=== PATIENT | male | born 1955 | race Caucasian/White ===

== ENCOUNTER 2023-11-11 04:58 | Inpatient (IN) | payer MEDICARE, MEDICAID, SELFPAY ==
--- NOTE | 2023-11-11 04:59 | DI.RAD.S_ITS ---
PROCEDURE: XR HIP W PEL IF DONE RT 2V INDICATIONS: Pain after fall TECHNIQUE: AP pelvis with lateral view(s) of the 2 hip(s). COMPARISON: None. FINDINGS: Bones: There is a displaced, mildly impacted fracture of the subcapital region of the right femoral neck. Other visualized osseous structures appear intact. No dislocations. Pelvic ring appears intact. No suspicious bony lesions. Soft tissues: The visualized bowel gas pattern is normal. No suspicious soft tissue calcifications. IMPRESSION: Acute subcapital right femoral neck fracture. Dictated by: Dutch Justice M.D. on 11/11/2023 at 8:03 Approved by: Dutch Justice M.D. on 11/11/2023 at 8:05
--- NOTE | 2023-11-11 05:00 | ED_ITS ---
HPI - General Adult General Chief complaint: Extremity Injury, Lower Stated complaint: mechanical fall Time Seen by Provider: 11/11/23 04:58 Source: patient and EMS Mode of arrival: EMS Limitations: no limitations History of Present Illness HPI narrative: Patient is a 68-year-old male who is here for evaluation of a right hip pain. He was brought in by EMS. He received 100 mcg of fentanyl and 10 mg of ketamine prior to arrival. She reported that the patient was reported to fallen at his living facility. Did appear to be a mechanical fall. He only sustained an injury to his right hip. He denied hitting his head. No loss of consciousness. EMS reports that the patient was alert and oriented upon their arrival. He was able to have helped back into bed by the living facility. Here in the emergency department after receiving the pain medication in the ketamine he was somewhat more confused about the events that led him here. He only reports right hip pain. He did confirm that he did not hit his head. Related Data Allergies Allergy/AdvReac Type Severity Reaction Status Date / Time No Known Drug Allergies Allergy Verified 11/11/23 05:19 Review of Systems Constitutional Constitutional: Reports system reviewed and no additional complaints, except as documented Musculoskeletal Musculoskeletal: Reports system reviewed and no additional complaints, except as documented Integumentary/Breasts Skin/Breast: Reports system reviewed and no additional complaints, except as documented Neurologic Neurologic: Reports system reviewed and no additional complaints, except as documented Patient History Social History Smoking Status: Former smoker Exam Initial Vital Signs Initial Vital Signs: Vital Signs Temperature 98.1 F 11/11/23 05:02 Pulse Rate 70 11/11/23 05:02 Respiratory Rate 18 11/11/23 05:02 Blood Pressure 147/75 H 11/11/23 05:02 Pulse Oximetry 95 11/11/23 05:02 Oxygen Delivery Method Room Air 11/11/23 05:02 Const General: cooperative and No ill appearing HENMT Head: normal to inspection and normocephalic Resp Effort & Inspection: normal respiratory effort Auscultation: clear to auscultation bilaterally Cardio Rate: regular rate Rhythm: regular rhythm GI Inspection: normal to inspection Skin General: no rashes or lesions noted Extrem Other: Discomfort with palpation of the right hemipelvis. Right lower extremity is shortened and externally rotated. Course Orders Ordered: ED Orders 11/11/23 04:59 XR hip w pel if done RT 2V Stat 11/11/23 05:00 Complete Blood Count AUTO DIFF Stat Comprehensive Metabolic Panel Stat Lipase Stat 11/11/23 05:28 Consult to Orthopedic Surgery Stat Discontinued Medications Morphine Sulfate (Morphine 4 Mg/Ml Inj) 4 mg IV NOW ONE Stop: 11/11/23 05:15 Last Admin: 11/11/23 05:20 Dose: 4 mg Documented By: SERENA Vital Signs Vital signs: Vital Signs - 8 hr 11/11/23 05:02 Temperature 98.1 F Pulse Rate 70 Respiratory Rate 18 Blood Pressure 147/75 H Pulse Oximetry 95 Oxygen Delivery Method Room Air Medical Decision Making Lab Data Lab results reviewed: Yes I reviewed the patient's lab results. 11/11/23 05:00 11/11/23 05:00 Labs: Lab Results 11/11/23 Range/Units 05:00 WBC 7.3 (4.5-11.0) X10^3/uL RBC 3.81 L (4.5-5.9) X10^6/uL Hgb 11.8 L (13.5-17.5) g/dL Hct 34.2 L (41-53) % MCV 89.8 (80-100) fL MCH 31.0 (26-34) PG MCHC 34.5 (30-36) % RDW 15.1 H (11.6-14.8) % Plt Count 177 (150-400) X10^3/uL Neut % (Auto) 68.6 (50-75) % Lymph % (Auto) 22.7 L (25-40) % [place] % (Auto) 5.3 (3-14) % Eos % (Auto) 2.9 (2-4) % Baso % (Auto) 0.5 (0-2) % Neut # (Auto) 5000 (7161-6885) /uL Lymph # (Auto) 1700 (8120-8402) /uL [place] # (Auto) 400 (0-900) /uL Eos # (Auto) 200 (0-450) /uL Baso # (Auto) 0 (0-100) /uL Sodium 135 L (137-145) mmol/L Potassium 5.0 (3.4-5.1) mmol/L Chloride 108 H (98-107) mmol/L Carbon Dioxide 22 (22-32) mmol/L BUN 42 H (9-20) mg/dL Creatinine 1.45 H (0.66-1.25) mg/dL Estimated GFR 52 L (>60) mL/min BUN/Creatinine Ratio 29.0 H (6-22) Glucose 177 H (80-110) mg/dL Calcium 9.1 (8.4-10.2) mg/dL Total Bilirubin 0.6 (0.2-1.3) mg/dL AST 22 (17-59) IU/L ALT 16 (<50) IU/L Alkaline Phosphatase 115 (38-126) U/L Total Protein 6.8 (6.3-8.2) g/dL Albumin 3.9 (3.5-5.0) g/dL Globulin 2.9 (1.7-4.1) g/dL Albumin/Globulin Ratio 1.3 (1.0-2.8) Lipase 145 (23-300) U/L Imaging Data Extremity x-ray #1: Radiologist's Impression: Right femoral neck fracture MDM Narrative Medical decision making narrative: I did contact the patient's daughter Billie Fuentes phone number [phone]. She stated that she was the patient's medical power of senior salesforce developer. He was a full code. He does have history of dementia. At baseline he would potentially have an idea as to what happened to him this evening and he was able to do things on his own however he sometimes has problems with what year it is and other specifics. He was on anticoagulation secondary to a CVA. He has an insulin- dependent diabetic. He had a liver transplant approximately 10 years ago at [facility]. She stated that this was secondary to hepatitis-C although all of the follow-up testing shows that he has been cleared this infection. He is on tacrolimus and ursodiol for this. Also has a history of hypothyroid. She stated that at baseline he uses a cane and a walker secondary to residual deficits balance after his stroke. She did state that he would be agreeable to surgery/antibiotics for his condition today. She understands that he will need to be admitted to the hospital. She also provided other contact information for the patient's son who lives locally (Taran Fuentes and his [id number] Iesha Fuentes) phone number [phone]. I did discuss the case with Dr. Martinez on-call for Orthopedic surgery who stated that she can follow on the medicine service was comfortable taking care of his chronic medical conditions. Discussed case with Dr. Massey who will admit for further evaluation and treatment. Discharge Plan Departure Patient Disposition: Admitted as Observation Clinical Impression: Fracture of femoral neck, right Qualifiers: Encounter type: initial encounter Fracture type: closed Qualified Code(s): S 72.001A - Fracture of unspecified part of neck of right femur, initial encounter for closed fracture
[2023-11-11 05:02] VITALS: BP 147/75; PULSE 70; RESP 18; TEMP 36.7; O2SAT 95
[2023-11-11] MEDS: MORPHINE 4 MG/ML INJ IV (05:20)
[2023-11-11 05:45] LABS: Add Manual Diff / Slide Review NO; Basophils Absolute Auto 0 /uL (0-100); Basophils Percent Auto 0.5 % (0-2); Eosinophils Absolute Auto 200 /uL (0-450); Eosinophils Percent Auto 2.9 % (2-4); Hematocrit 34.2 % (41-53); Hemoglobin 11.8 g/dL (13.5-17.5); Lymphocytes Absolute Auto 1700 /uL (1100-4500); Lymphocytes Percent Auto 22.7 % (25-40); Mean Corpuscular HGB Conc 34.5 % (30-36); Mean Corpuscular Volume 89.8 fL (80-100); Monocytes Absolute Auto 400 /uL (0-900); Monocytes Percent Auto 5.3 % (3-14); Neutrophils Absolute Auto 5000 /uL (1500-7000); Neutrophils Percent Auto 68.6 % (50-75); Platelet Count 177 X10^3/uL (150-400); Red Blood Cell Count 3.81 X10^6/uL (4.5-5.9); Red Cell Distribution Width 15.1 % (11.6-14.8); White Blood Cell Count 7.3 X10^3/uL (4.5-11.0)
[2023-11-11 06:00] LABS: Alanine Aminotransferase 16 IU/L (<50); Albumin 3.9 g/dL (3.5-5.0); Albumin Globulin Ratio 1.3 (1.0-2.8); Alkaline Phosphatase 115 U/L (38-126); Aspartate Aminotransferase 22 IU/L (17-59); Bilirubin Total 0.6 mg/dL (0.2-1.3); Blood Urea Nitrogen 42 mg/dL (9-20); Calcium 9.1 mg/dL (8.4-10.2); Carbon Dioxide 22 mmol/L (22-32); Chloride 108 mmol/L (98-107); Estimated Glomerular Filt Rate 52 mL/min (>60); Globulin 2.9 g/dL (1.7-4.1); Glucose 177 mg/dL (80-110); HEMOLYSIS < 15 (0-50); Lipase 145 U/L (23-300); Sodium 135 mmol/L (137-145); Total Protein 6.8 g/dL (6.3-8.2)
--- NOTE | 2023-11-11 06:01 | PM.CN ---
History of Present Illness Consult details Date Patient Seen: 11/11/23 Time Patient Seen: 18:11 Chief complaint: mechanical fall Reason for consult: r fem neck fx Requesting provider: Fausto Banks Narrative: 68 yo M hx liver transplant on eliquis with GLF this AM at assited living found to have displaced right femoral neck fx. (per report last dose eliquis last night). Patient is able to get history and answer simple questions in his awakened sitting up in bed but does have worsening dementia per reports since July. An answer generalized questions but no details. States some pain around his hip denies other pain. Believes he had a stroke a few months ago not sure exactly when. Remainder of history obtained from daughter Billie via phone and from chart. Patient's daughter Billie lives in [place] she returned to [place] today but was in [place] at the hospital earlier in the morning. She is the power of employee benefits attorney. There is another son that lives locally. Patient has remarkable past medical history of a liver transplant performed [place] years ago. She states prior to his liver transplant his kidneys had started to fail which moved him up on the transplant list. After his liver transplant he was on kidney dialysis for a while until his kidneys recovered. He would lived independently for many years but was found to have started failing on his own worse in the last year. He was hospitalized with ketoacidosis from his diabetes and a hemoglobin A1c of 16. Then he had a CVA 6 months ago on 05/23/2023 and was started on Eliquis. He returned home was noted to have reduced memory and quite rapid onset dementia around July. And he was moved from [facility] living [facility] just in October 2023. Over the last few months his daughter and son have become much more involved in his health care and they have been really working on helping him manage his medical problems. Billie believes his last hemoglobin A1c was 8 point something and the assisted living facility was working on increasing his longer acting insulin dose. She also notes that a creatinine from bed a month ago was in normal limits. Today presents with creatinine 1.45 which may be somewhat due to dehydration. She is asked the assisted living facility to help provide some referral or workup for his dementia they are unclear what is causing the rapid onset. Meds Home Medications and Allergies Home Medications Medication Instructions Recorded Confirmed Type albuterol 90 mcg-budesonide 80 2 inh inhalation Q4H PRN sob 11/11/23 11/11/23 History mcg/actuation HFA aerosol inhaler amlodipine 10 mg tablet 10 mg PO DAILY 11/11/23 11/11/23 History apixaban 5 mg tablet (Eliquis) 5 mg PO BID 11/11/23 11/11/23 History atorvastatin 40 mg tablet 40 mg PO QPM 11/11/23 11/11/23 History citalopram 10 mg tablet 5 mg PO DAILY 11/11/23 11/11/23 History fluconazole 200 mg tablet 200 mg PO DAILY 11/11/23 11/11/23 History insulin glargine 100 unit/mL 15 unit SUBCUT BID 11/11/23 11/11/23 History subcutaneous cartridge insulin lispro 100 unit/mL 1 sliding scale dose SUBCUT 11/11/23 11/11/23 History subcutaneous cartridge (Humalog USEASDIRECTD U-100 Insulin) insulin lispro 100 unit/mL 10 unit SUBCUT AC 11/11/23 11/11/23 History subcutaneous cartridge (Humalog U-100 Insulin) levothyroxine 150 mcg tablet 150 mcg PO DAILY 11/11/23 11/11/23 History lisinopril 10 mg tablet 10 mg PO DAILY 11/11/23 11/11/23 History metoprolol tartrate 25 mg tablet 25 mg PO BID 11/11/23 11/11/23 History tacrolimus 0.5 mg capsule, 1 mg PO DAILY 11/11/23 11/11/23 History immediate-release ursodiol 300 mg capsule 300 mg PO BID 11/11/23 11/11/23 History Allergies Allergy/AdvReac Type Severity Reaction Status Date / Time No Known Drug Allergies Allergy Verified 11/11/23 05:19 Review of Systems Review of Systems Narrative: Memory, dementia worse since July 2023, CVA May 2023, liver transplant status, diabetes type 2 uncontrolled. No fevers or chills. Endorses right hip pain. ROS: Yes All systems reviewed with the patient and are negative except as otherwise documented Exam Vital Signs (past 8 hours): - 11/11/23 05:02 Temperature 98.1 F Pulse Rate 70 Respiratory Rate 18 Blood Pressure 147/75 H Pulse Oximetry 95 Oxygen Delivery Method Room Air Oxygen Delivery Method Room Air Narrative Exam Narrative: Male appears stated age sitting up in bed Wearing glasses. Normocephalic atraumatic Shoulders level Respirations unlabored on room air Heart regular rate rhythm Right lower extremity shortened and externally rotated, 2+ palpable dorsalis pedis pulse. Wiggles toes fires tibialis anterior and Achilles, patient not asked to move leg beyond ankle due to known hip fracture Left lower extremity grossly normal alignment nontender palpation demonstrates active dorsiflexion plantar flexion Objective Imaging AP pelvis and right lateral hip: My impression: AP pelvis and right lateral hip demonstrate displaced right femoral neck fracture. Radiologist's impression: Acute subcapital femoral neck fracture, right Labs 11/11/23 05:00 11/11/23 05:00 Labs: Laboratory Results - last 24 hr 11/11/23 05:00 WBC 7.3 RBC 3.81 L Hgb 11.8 L Hct 34.2 L MCV 89.8 MCH 31.0 MCHC 34.5 RDW 15.1 H Plt Count 177 Neut % (Auto) 68.6 Lymph % (Auto) 22.7 L [place] % (Auto) 5.3 Eos % (Auto) 2.9 Baso % (Auto) 0.5 Neut # (Auto) 5000 Lymph # (Auto) 1700 [place] # (Auto) 400 Eos # (Auto) 200 Baso # (Auto) 0 PFSH Social History caregiver/support person: Yes (POA daughter Billie in [place]. Another son lives relatively local) housing: assisted living facility Tobacco & Substance Use Smoking Status: Former smoker Assessment & Plan Assessment and plan (1) Fracture of femoral neck, right: Qualifiers: Encounter type: initial encounter Fracture type: closed Qualified Code(s): S72.001A - Fracture of unspecified part of neck of right femur, initial encounter for closed fracture Status: Acute (2) Anticoagulant long-term use: Status: Acute (3) Liver transplant recipient: Status: Acute (4) Osteoporotic hip fracture: Qualifiers: Encounter type: initial encounter Laterality: right Qualified Code(s): M80.051A - Age-related osteoporosis with current pathological fracture, right femur, initial encounter for fracture Status: Acute (5) Diabetes type 2, uncontrolled: Qualifiers: Glycemic state: with hyperglycemia Qualified Code(s): E11.65 - Type 2 diabetes mellitus with hyperglycemia Status: Acute Plan R displaced femoral neck fracture anticipate need for operative treatment with cemented hip arthroplasty last dose eliquis last night --generally --would plan surgery with gen anesthesia approx 48 hours after last dose due to bleeding risk. that would be tomorrow (saturday ) evening. Was placed on Eliquis after CVA in May of 2023----we will hold Eliquis for surgery and restart postop. Pt will need internal medicine optimization and management. s/p liver transplant . Patient has elevated creatinine of 1.4. Per his daughter he was within normal limits a month ago. This may have to do with dehydration. We will need to monitor closely in the perioperative period as can be affected by hydration and antibiotics and other medications. -CVA was in May of 2023 just under 6 months ago we will need to discuss with anesthesia whether or not to use TXA Diabetes type 2 uncontrolled. Previously highly uncontrolled last known hemoglobin A1c just above 8. We will get new hemoglobin A1c as an inpatient and request take control of glucose around surgery to help reduce risks of infection. Patient's daughter is informed that uncontrolled diabetes and independent risk factor for infection and other postoperative complications. Discussed with daughter Billie the risks around hip fracture and hip fracture surgery that are including but not limited to infection, fracture, pneumonia, stroke,, DVT, PE, myocardial infarction, delirium, . We discussed the risks around hip fracture are inherent to the injury itself and this is a sentinel event with significant morbidity and mortality. We recommend surgical treatment to allow immediate mobilization and pain control and reduce the morbidity and mortality associated with prolonged bedrest. We discussed risks for blood loss possible need for transfusion and prolonged care. Discussed plan would be proceeding to surgery likely tomorrow depending on operative availability with myself or 1 of my partners Discussed the patient has had a rapid worsening of dementia since approximately July of 2023. Unclear rationale but this does follow his CVA in May. Possible vascular etiology. He has not had much or any of the workup for this outpatient, that the patient's daughter/POA is aware of, but she states she would requested this at his new living facility but is unclear of the timeline for this. I have shared this with the hospitalist team to facilitate care. High-level medical decision-making. Inpatient-- high-risk --need for surgery for hip fracture in a patient with multiple medical comorbidities including uncontrolled diabetes, acute kidney injury, dementia, chronic anticoagulation. Time Spent With Patient Time with patient: 50 to 69 minutes with 50% spent counseling/coordinating care
--- NOTE | 2023-11-11 07:43 | PC.NURSE ---
Spoke with hospitalist. Pt c/o pain and muscle spasms. Hospitalist to order muscle relaxer and pain meds.
--- NOTE | 2023-11-11 07:45 | P.HP_ITS ---
History of Present Illness History of Present Illness Date Patient Seen: 11/11/23 Time Patient Seen: 09:05 Chief complaint: mechanical fall Narrative: Emergency department records: The patient is a 68-year-old male who stays at [facility] living and has severe dementia. He had an unwitnessed fall which is felt to be mechanical as and brought in by ambulance. He complained of right hip pain. He was quite uncomfortable and received ketamine while being transported. The patient was found to have a hip fracture in the emergency department. He was very provide no details of his fall. After moving a up to the [place] he has no memory of what happened, where he lives, what year it is, or which city he was in. He complains only of right hip pain and has no other areas of pain. He denies any dyspnea. Orthopedic consultation was obtained and it is noted that the patient is on Eliquis for unclear reasons. His last dose was last night. For this reason his surgery will be delayed approximately 48 hours until the evening of November 11. [facility] Social History Smoking Status: Former smoker Comment: In reviewing outside limited records it appears that he has a history of: Past medical history: 1. Hypertension 2. Dementia 3. DM 2 receiving insulin 4. Hypothyroidism 5. Liver transplant on chronic tacrolimus 6. Atrial fibrillation on chronic anticoagulation Past surgical history: 1. Liver transplant Meds Home Medications and Allergies Home Medications Medication Instructions Recorded Confirmed Type albuterol 90 mcg-budesonide 80 2 inh inhalation Q4H PRN sob 11/11/23 11/11/23 History mcg/actuation HFA aerosol inhaler amlodipine 10 mg tablet 10 mg PO DAILY 11/11/23 11/11/23 History apixaban 5 mg tablet (Eliquis) 5 mg PO BID 11/11/23 11/11/23 History atorvastatin 40 mg tablet 40 mg PO QPM 11/11/23 11/11/23 History citalopram 10 mg tablet 5 mg PO DAILY 11/11/23 11/11/23 History fluconazole 200 mg tablet 200 mg PO DAILY 11/11/23 11/11/23 History insulin glargine 100 unit/mL 15 unit SUBCUT BID 11/11/23 11/11/23 History subcutaneous cartridge insulin lispro 100 unit/mL 1 sliding scale dose SUBCUT 11/11/23 11/11/23 History subcutaneous cartridge (Humalog USEASDIRECTD U-100 Insulin) insulin lispro 100 unit/mL 10 unit SUBCUT AC 11/11/23 11/11/23 History subcutaneous cartridge (Humalog U-100 Insulin) levothyroxine 150 mcg tablet 150 mcg PO DAILY 11/11/23 11/11/23 History lisinopril 10 mg tablet 10 mg PO DAILY 11/11/23 11/11/23 History metoprolol tartrate 25 mg tablet 25 mg PO BID 11/11/23 11/11/23 History tacrolimus 0.5 mg capsule, 1 mg PO DAILY 11/11/23 11/11/23 History immediate-release ursodiol 300 mg capsule 300 mg PO BID 11/11/23 11/11/23 History Allergies Allergy/AdvReac Type Severity Reaction Status Date / Time No Known Drug Allergies Allergy Verified 11/11/23 05:19 Review of Systems Review of Systems Narrative: Not obtainable in detail due to severe cognitive impairment. Exam Vital Signs (past 8 hours): - 11/11/23 05:02 Temperature 98.1 F Pulse Rate 70 Respiratory Rate 18 Blood Pressure 147/75 H Pulse Oximetry 95 Oxygen Delivery Method Room Air Oxygen Delivery Method Room Air Narrative Exam Narrative: He was anxious and in moderate distress due to pain. He was not oriented to place or year. Normocephalic skull, EOMI, anicteric sclera, symmetric pupils. Oropharynx unremarkable, no droop. Neck supple, midline trachea, no adenopathy. Lungs clear, normal rate and effort. Heart regular, no murmur gallop or rub. Abdomen is soft, distended, and non tender. Extremities are free of edema. Skin is free of rash or lesions. Joints are not swollen or deformed. Judgment appears to be abnormal. Right hip is painful with any movement of the right lower extremity, active or passive. Good pedal pulses. Objective Imaging Right hip x-ray:: Radiologist's impression: Right femoral neck fracture Labs 11/11/23 05:00 11/11/23 05:00 Labs: Laboratory Results - last 24 hr 11/11/23 05:00 WBC 7.3 RBC 3.81 L Hgb 11.8 L Hct 34.2 L MCV 89.8 MCH 31.0 MCHC 34.5 RDW 15.1 H Plt Count 177 Neut % (Auto) 68.6 Lymph % (Auto) 22.7 L [place] % (Auto) 5.3 Eos % (Auto) 2.9 Baso % (Auto) 0.5 Neut # (Auto) 5000 Lymph # (Auto) 1700 [place] # (Auto) 400 Eos # (Auto) 200 Baso # (Auto) 0 Sodium 135 L Potassium 5.0 Chloride 108 H Carbon Dioxide 22 BUN 42 H Creatinine 1.45 H Estimated GFR 52 L BUN/Creatinine Ratio 29.0 H Glucose 177 H Calcium 9.1 Total Bilirubin 0.6 AST 22 ALT 16 Alkaline Phosphatase 115 Total Protein 6.8 Albumin 3.9 Globulin 2.9 Albumin/Globulin Ratio 1.3 Lipase 145 Assessment & Plan Assessment & Plan narrative: Acute medical problems: 1. Right femoral neck fracture, present on admission and active Chronic medical problems, all present on admission and stable: 1. Hypertension 2. Dementia 3. DM 2 receiving insulin 4. Hypothyroidism 5. Liver transplant on chronic tacrolimus 6. Atrial fibrillation on chronic anticoagulation Past surgical history: 1. Liver transplant PLAN: -continue all routine medications and monitor blood pressure and heart rate, except: -discontinue Eliquis for surgery. -anticipate surgical repair of femoral neck fracture in the evening of November 11. -default to full resuscitation until we get further records from [place]. He was admitted to inpatient status. We would anticipated 2 midnight medical necessity for hospital services. Proxy decision maker is unidentified at this point. Time Spent With Patient Time with patient: 30 to 49 minutes with 50% spent counseling/coordinating care Quality MIPS - Admit I confirm the patient?s Advance Care Plan is present, Code status is documented, Surrogate decision maker is in patient?s record [If Yes, STOP here]: No The patient?s Advance Care plan is not present because I confirmed today that the patient does not wish or was not able to name a surrogate decision maker or provide an Advance Care Plan.: Yes MIPS - Meds 'Current medications' to include all prescriptions, [id number] products, herbals, cannabis/cannabidiol products, and vitamin/mineral/dietary (nutritional) supplements. I have utilized all available resources to obtain, update, or review the patient?s current medications. [If Yes, STOP here]: Yes
[2023-11-11] MEDS: HYDROMORPHONE 0.5 MG INJ IV ×5 (08:00→19:50)
[2023-11-11] MEDS: CYCLOBENZAPRINE 10 MG TABLET PO (08:00)
[2023-11-11] MEDS: SODIUM CHLORIDE 0.9% 1,000 ML 100 ML IV ×2 (08:37→19:01)
[2023-11-11 08:40] VITALS: BMI 35.4
[2023-11-11 09:17] VITALS: BP 137/85; PULSE 86; RESP 20; TEMP 37.1; O2SAT 97
[2023-11-11] MEDS: INSULIN GLARGINE 100 UNIT/ML 3ML PEN 15 UNIT SUBCUT ×2 (10:16→20:50)
[2023-11-11 10:17] VITALS: BP 137/85; PULSE 86
[2023-11-11] MEDS: AMLODIPINE 5 MG TABLET 10 MG PO (10:17)
[2023-11-11] MEDS: METOPROLOL IR 25 MG TABLET PO ×2 (10:17→20:49)
[2023-11-11] MEDS: CITALOPRAM 10 MG TABLET 5 MG PO (10:17)
[2023-11-11] MEDS: lisinopriL 10 MG TABLET PO (10:17)
[2023-11-11] MEDS: FLUCONAZOLE 100 MG TABLET 200 MG PO (10:17)
[2023-11-11] MEDS: TACROLIMUS 0.5 MG CAPSULE 1 MG PO (10:17)
[2023-11-11] MEDS: LEVOTHYROXINE 50 MCG TABLET 150 MCG PO (10:23)
[2023-11-11] MEDS: ursodioL 300 MG CAPSULE PO ×2 (10:40→20:49)
[2023-11-11] MEDS: INSULIN LISPRO 100 UNIT/ML 3ML VIAL SUBCUT ×2 (11:47→16:48)
[2023-11-11] MEDS: ATORVASTATIN 20 MG TABLET 40 MG PO (16:47)
--- NOTE | 2023-11-11 18:08 | DI.CT.S_ITS ---
PROCEDURE: CT HEAD/BRAIN WO CON INDICATIONS: altered mental status TECHNIQUE: Noncontrast 4.5 mm thick angled axial sections acquired from the foramen magnum to the vertex, with coronal and sagittal reformats. For radiation dose reduction, the following was used: automated exposure control, adjustment of mA and/or kV according to patient size. COMPARISON: [facility], CR, XR HIP W PEL IF DONE RT 2V, 11/11/2023, 5:08. FINDINGS: Image quality: Diagnostic. CSF spaces: Basal cisterns are patent. No extra-axial fluid collections. The ventricles are symmetric in size and shape. Brain: No intracranial bleeds or masses. There is cerebral volume loss for age, with resultant ventricular and sulcal prominence. There are periventricular and deep white matter chronic small vessel ischemic changes. Remote infarction can be seen involving the left temporoparietal region. There is intracranial internal carotid artery atherosclerosis. Skull and face: Calvarium and visualized facial bones appear intact, without suspicious lesions. Sinuses: Visualized sinuses and mastoids are clear. IMPRESSION: No acute intracranial hemorrhage is seen. No acute intracranial pathology. 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 Dictated by: Dipak Jain M.D. on 11/11/2023 at 18:03 Approved by: Dipak Jain M.D. on 11/11/2023 at 18:04
[2023-11-11 19:53] LABS: Hemoglobin A1C% w Est Avg Glu 7.4 % (4.0-6.0)
[2023-11-11 20:00] VITALS: BP 134/78; PULSE 101; RESP 17; TEMP 37.2; O2SAT 94
[2023-11-11 20:07] VITALS: BP 134/78; PULSE 101; RESP 17; TEMP 37.2; O2SAT 94
[2023-11-12] VITALS (11 sets, daily range): BP systolic 112–137; BP diastolic 62–85; PULSE 78–91; RESP 13–20; TEMP 36.2–37.5; O2SAT 92–98; BMI 35.4
--- NOTE | 2023-11-12 | DI.RAD.S_ITS ---
PROCEDURE: XR HIP W PEL IF DONE RT 2V INDICATIONS: HIP CEMENTATION TECHNIQUE: 2 spot fluoroscopic intraoperative images of the hip acquired. COMPARISON: [facility], CR, XR HIP W PEL IF DONE RT 2V, 11/11/2023, 5:08. FINDINGS: Fluoroscopic intraoperative images demonstrate expected alignment of a right hip hemiarthroplasty. IMPRESSION: Intraoperative images demonstrate expected alignment of the right hip hemiarthroplasty. Approved by: Jah Teague M.D. on 11/12/2023 at 21:23
[2023-11-12 04:50] LABS: Add Manual Diff / Slide Review NO; Basophils Absolute Auto 0 /uL (0-100); Basophils Percent Auto 0.5 % (0-2); Eosinophils Absolute Auto 200 /uL (0-450); Eosinophils Percent Auto 2.5 % (2-4); Hematocrit 32.5 % (41-53); Hemoglobin 11.2 g/dL (13.5-17.5); Lymphocytes Absolute Auto 900 /uL (1100-4500); Lymphocytes Percent Auto 11.6 % (25-40); Mean Corpuscular HGB Conc 34.5 % (30-36); Monocytes Absolute Auto 400 /uL (0-900); Monocytes Percent Auto 5.7 % (3-14); Neutrophils Absolute Auto 6100 /uL (1500-7000); Neutrophils Percent Auto 79.7 % (50-75); Platelet Count 150 X10^3/uL (150-400); Red Blood Cell Count 3.61 X10^6/uL (4.5-5.9); Red Cell Distribution Width 15.3 % (11.6-14.8); White Blood Cell Count 7.7 X10^3/uL (4.5-11.0)
[2023-11-12] MEDS: SODIUM CHLORIDE 0.9% 1,000 ML 100 ML IV ×2 (04:57→16:04)
[2023-11-12 05:05] LABS: BUN Creatinine Ratio 25.4 (6-22); Blood Urea Nitrogen 32 mg/dL (9-20); Carbon Dioxide 22 mmol/L (22-32); Chloride 108 mmol/L (98-107); Estimated Glomerular Filt Rate > 60 mL/min (>60); Glucose 165 mg/dL (80-110); HEMOLYSIS < 15 (0-50); Potassium 4.7 mmol/L (3.4-5.1); Sodium 132 mmol/L (137-145)
[2023-11-12] MEDS: HYDROMORPHONE 0.5 MG INJ IV ×2 (07:00→10:23)
--- NOTE | 2023-11-12 08:01 | P.PN_ITS ---
Subjective Subjective Interval history: Patient is NPO for surgery today. He has no specific complaints. Exam Vital Signs (past 8 hours): Oxygen Delivery Method Room Air Oxygen Flow Rate 0 Narrative Exam Narrative: NAD, demented, A/Ox2 Normocephalic skull, EOMI, anicteric sclera, symmetric pupils. Oropharynx unremarkable, no droop. Neck supple, midline trachea, no adenopathy. Lungs clear, normal rate and effort. Heart regular, no murmur gallop or rub. Abdomen is soft, distended, and non tender. Extremities are free of edema. Skin is free of rash or lesions. Joints are not swollen or deformed. Judgment appears to be abnormal. Right hip is painful with any movement of the right lower extremity, active or passive. Good pedal pulses. Objective Labs 11/12/23 04:44 11/12/23 04:44 Labs: Laboratory Results - last 24 hr 11/11/23 11/12/23 19:20 04:44 WBC 7.7 RBC 3.61 L Hgb 11.2 L Hct 32.5 L MCV 90.0 MCH 31.0 MCHC 34.5 RDW 15.3 H Plt Count 150 Neut % (Auto) 79.7 H Lymph % (Auto) 11.6 L [place] % (Auto) 5.7 Eos % (Auto) 2.5 Baso % (Auto) 0.5 Neut # (Auto) 6100 Lymph # (Auto) 900 L [place] # (Auto) 400 Eos # (Auto) 200 Baso # (Auto) 0 Sodium 132 L Potassium 4.7 Chloride 108 H Carbon Dioxide 22 BUN 32 H Creatinine 1.26 H Estimated GFR > 60 BUN/Creatinine Ratio 25.4 H Glucose 165 H Hemoglobin A1c 7.4 H Calcium 9.0 Blood Type AB Positive Antibody Screen Negative [facility] Social History caregiver/support person: Yes (POA daughter Billie in [place]. Another son lives relatively local) housing: assisted living facility Smoking Status: Former smoker Assessment & Plan Assessment & Plan narrative: Acute medical problems: 1. Right femoral neck fracture, present on admission and active Chronic medical problems, all present on admission and stable: 1. Hypertension 2. Dementia 3. DM 2 receiving insulin 4. Hypothyroidism 5. Liver transplant on chronic tacrolimus 6. Atrial fibrillation on chronic anticoagulation Past surgical history: 1. Liver transplant PLAN: -continue all routine medications and monitor blood pressure and heart rate, except: hold Eliquis for surgery. -anticipate surgical repair of femoral neck fracture in the evening of November 11. -default to full resuscitation until we get further records from [facility]. Dispo: Unclear, may need SNF. At least 2 more days. Proxy decision maker is daughter Josh Fuentes. Time Spent With Patient Time with patient: 30 to 49 minutes with 50% spent counseling/coordinating care
[2023-11-12] MEDS: AMLODIPINE 5 MG TABLET 10 MG PO (10:18)
[2023-11-12] MEDS: LEVOTHYROXINE 50 MCG TABLET 150 MCG PO (10:19)
[2023-11-12] MEDS: TACROLIMUS 0.5 MG CAPSULE 1 MG PO (10:19)
[2023-11-12] MEDS: ursodioL 300 MG CAPSULE PO ×2 (10:19→21:41)
[2023-11-12] MEDS: FLUCONAZOLE 100 MG TABLET 200 MG PO (10:19)
[2023-11-12] MEDS: ACETAMINOPHEN 325 MG TABLET 975 MG PO (10:20)
[2023-11-12] MEDS: CITALOPRAM 10 MG TABLET 5 MG PO (10:20)
[2023-11-12] MEDS: METOPROLOL IR 25 MG TABLET PO ×2 (10:23→21:40)
--- NOTE | 2023-11-12 15:07 | CM.DANOTE ---
DCP Assessment Note Pt is a 68yo M with a PMH of dementia here after a GLF resulting in a fractured hip. PCP Jose Zamora Payer Medicare and Medicaid [employer] MACHINE FORMER reviewed EMR. Per hospitalist in morning rounds, surgery later this afternoon and anticipate SNF placement needed. Surgery scheduled for 5pm. Per RN, believes he would still be able to follow directions with his dementia at rehab if recommended post op. [employer]ACHINE FORMER spoke with dtr/POMarylelen Josh (p [phone]), dtr lives in [place]. Confirms recently moved to [facility] after dementia has progressed significantly over past few months. [facility] manages his meds, diet, helps with incontinence and most ADLs. Pt has been utilizing OP PT at [facility]. Uses a walker/cane at baseline. Josh is open to SNF placement at [facility] if recommended prior to his dc home. Dtr reports she also believes he would follow rehab directions based on her last known understanding of his cognition. P: Return to [facility] vs [facility] ( vs Saturday) pending post op therapy recs/needs. CM team will follow closely. If SNF, PASRR needed. MUKUL Zamudio Discharge Planning/Care Management CM Discharge Assessment Start: 11/12/23 14:59 Freq: Status: Active Protocol: Document 11/12/23 15:00 (Rec: 11/12/23 15:07 [id number]) Discharge Planning Assessment Assigned Strategic Sourcing Specialist MUKUL Keita DPOA/Assigned Designee Name Joshmillie Contact Information [phone] Advance Directives? No History Provided By Family Member Prior Living Arrangements Assisted Living Household Members none Type of transporation used prior to Relies on Others admit Facility Name Admitted From: [facility] Willing to Return to Facility? Yes Independent with ADL's No Needs Assistance With Grooming,Meal Prep,Managing Medications,Home Chores / Shopping DME Already Rented / Owned FWW / Walker,Cane Patient/Family Preference [facility] Facility Comment SNF vs return to [facility] Discharge Plan [facility] Facility Transportation Arrangement facility van Referrals Initiated [facility] If patient plan is SNF: Has PASSR been No completed? SNF/HH Preference [facility] Has Agency SNF been contacted Yes Review Status In Process Please Provide Date Initial DC 11/12/23 Assessment Was Performed Next Review Type Continued Stay Review
--- NOTE | 2023-11-12 17:46 | PC.NURSE ---
Pt to OR via bed by OR personnel with chart for hip repair surgery.
--- NOTE | 2023-11-12 18:11 | PM.HP.1 ---
History of Present Illness History of Present Illness Date Patient Seen: 11/12/23 Time Patient Seen: 18:11 Chief complaint: mechanical fall Narrative: Patient seen in the preoperative holding area. Please see detailed note from my partner Dr. Martinez regarding his case. I have been consulted to do the surgery this evening. Patient is medical comorbidities are most noteworthy for liver transplant on chronic immunosuppression and a recent stroke with worsening dementia. He complains of pain in his right hip. He is able to indicate that the hip is in pain. He is conversant and alert. All of the history and counseling regarding this procedure was conducted with the patient's power of health care attorney which is his daughter over the telephone. She lives in [place]. I personally spoke to her today for informed consent and history [facility] Social History household members: none caregiver/support person: Yes (POA daughter Billie in [place]. Another son lives relatively local) housing: assisted living facility Smoking Status: Former smoker Meds Home Medications and Allergies Home Medications Medication Instructions Recorded Confirmed Type albuterol 90 mcg-budesonide 80 2 inh inhalation Q4H PRN sob 11/11/23 11/11/23 History mcg/actuation HFA aerosol inhaler amlodipine 10 mg tablet 10 mg PO DAILY 11/11/23 11/11/23 History apixaban 5 mg tablet (Eliquis) 5 mg PO BID 11/11/23 11/11/23 History atorvastatin 40 mg tablet 40 mg PO QPM 11/11/23 11/11/23 History citalopram 10 mg tablet 5 mg PO DAILY 11/11/23 11/11/23 History fluconazole 200 mg tablet 200 mg PO DAILY 11/11/23 11/11/23 History insulin glargine 100 unit/mL 15 unit SUBCUT BID 11/11/23 11/11/23 History subcutaneous cartridge insulin lispro 100 unit/mL 1 sliding scale dose SUBCUT 11/11/23 11/11/23 History subcutaneous cartridge (Humalog USEASDIRECTD U-100 Insulin) insulin lispro 100 unit/mL 10 unit SUBCUT AC 11/11/23 11/11/23 History subcutaneous cartridge (Humalog U-100 Insulin) levothyroxine 150 mcg tablet 150 mcg PO DAILY 11/11/23 11/11/23 History lisinopril 10 mg tablet 10 mg PO DAILY 11/11/23 11/11/23 History metoprolol tartrate 25 mg tablet 25 mg PO BID 11/11/23 11/11/23 History tacrolimus 0.5 mg capsule, 1 mg PO DAILY 11/11/23 11/11/23 History immediate-release ursodiol 300 mg capsule 300 mg PO BID 11/11/23 11/11/23 History Allergies Allergy/AdvReac Type Severity Reaction Status Date / Time No Known Drug Allergies Allergy Verified 11/11/23 05:19 Review of Systems Review of Systems ROS: Yes All systems reviewed with the patient and are negative except as otherwise documented Exam Vital Signs (past 8 hours): - 11/12/23 17:56 Temperature 99.5 F Pulse Rate 91 H Respiratory Rate 18 Blood Pressure 137/85 Pulse Oximetry 98 Oxygen Delivery Method Room Air Oxygen Delivery Method Room Air Oxygen Flow Rate 0 Narrative Exam Narrative: Right lower extremity examination: No open wounds. Flexes and extends hallux and ankle. Foot warm and well perfused. Range of motion examination deferred given known injury Const General: cooperative Orientation: alert and awake HENMT Head: normal to inspection Ears: hearing grossly normal bilaterally Eyes General: appearance normal, both eyes and all related structures Neck Neck: normal visual inspection Resp Effort & Inspection: normal respiratory effort and able to speak in complete sentences Cardio Pulses: other (peripheral pulses present) Skin Lesions: no lesions Rashes: no rashes Neuro General: patient alert, patient awake and moves all extremities Psych Appearance: grossly normal Objective Imaging Pelvis x-ray: My impression: Displaced right femoral neck fracture Labs 11/12/23 04:44 11/12/23 04:44 Labs: Laboratory Results - last 24 hr 11/11/23 11/12/23 19:20 04:44 WBC 7.7 RBC 3.61 L Hgb 11.2 L Hct 32.5 L MCV 90.0 MCH 31.0 MCHC 34.5 RDW 15.3 H Plt Count 150 Neut % (Auto) 79.7 H Lymph % (Auto) 11.6 L [place] % (Auto) 5.7 Eos % (Auto) 2.5 Baso % (Auto) 0.5 Neut # (Auto) 6100 Lymph # (Auto) 900 L [place] # (Auto) 400 Eos # (Auto) 200 Baso # (Auto) 0 Sodium 132 L Potassium 4.7 Chloride 108 H Carbon Dioxide 22 BUN 32 H Creatinine 1.26 H Estimated GFR > 60 BUN/Creatinine Ratio 25.4 H Glucose 165 H Hemoglobin A1c 7.4 H Calcium 9.0 Blood Type AB Positive Antibody Screen Negative Assessment & Plan Assessment and plan (1) Fracture of femoral neck, right: Qualifiers: Encounter type: initial encounter Fracture type: closed Qualified Code(s): S72.001A - Fracture of unspecified part of neck of right femur, initial encounter for closed fracture Status: Acute Plan Plan to proceed with right hip cemented hemiarthroplasty tonight. We will utilize anterior approach. Because of the patient's risk factors I will make several modifications. I will use intra wound vancomycin. I will add christopher to my typical wound closure. I will use a incisional wound VAC. This is because of his immunosuppression as well as his blood thinners. Both of these place him at risk for postoperative bleeding and infection. I had a detailed discussion with the patient's daughter today. Specifically I discussed with her the details of the procedure but also the potential impact of this injury on the patient's longevity. I do fear that with his comorbidities and this injury his mortality risk over the next year is very high. The patient's daughter understood this and expressed understanding of the reasons for this evening's procedure. I explained that without this surgery he would be very likely to develop pneumonia and in the near future. With this hemiarthroplasty his mobility will be improved and his pain will be improved. He will still have a very high mortality risk however that would be a near certainty if we were to treat this nonoperatively. We will proceed with surgery this evening and re-evaluate him medically afterwards.
[2023-11-12] MEDS: CEFAZOLIN 2 GM/100 ML PREMIX 100 ML IV ×2 (18:30→21:39)
[2023-11-12] MEDS: TRANEXAMIC ACID 1,000 MG in SODIUM CHLORIDE 0.9% 100 ML 200 MG IV (18:32)
--- NOTE | 2023-11-12 19:02 | SUR.OPER ---
Supine on padded [place] table with bilateral legs secured in padded positioning boots and suspended in positioning spars, operative leg in traction per surgeon. Head on one pillow. Bilateral Arms secured on padded armboard <90 degrees abduction. Padded perineal post in place per surgeon.
--- NOTE | 2023-11-12 19:08 | PC.NURSE ---
Received report from Perla HAINES. pt currently in surgery
[2023-11-12] MEDS: VANCOMYCIN 1,000 MG VIAL 1000 MG TOP (19:21)
[2023-11-12] MEDS: EPINEPHrine 1 MG/ML SUBCUT (19:29)
[2023-11-12] MEDS: ROPIVACAINE/EPI/CLONIDINE/KET 50 ML SYRINGE INJ (19:30)
[2023-11-12] MEDS: ACETAMINOPHEN IV 1,000 MG/100 ML VIAL 400 MG IV (19:50)
[2023-11-12] MEDS: TRANEXAMIC ACID 1,000 MG in SODIUM CHLORIDE 0.9% 100 ML 50 MG IV (20:02)
[2023-11-12] MEDS: LACTATED RINGERS 1,000 ML 42 ML IV (20:19)
--- NOTE | 2023-11-12 20:40 | P.OP_ITS ---
Operative Date/Time/Diagnoses Date of procedure: 11/12/23 Pre-op diagnosis: Displaced right femoral neck fracture Post-op diagnosis: same Procedure & Clinicians Procedure: Right hip hemiarthroplasty for femoral neck fracture Same procedure as scheduled: Yes Surgeon: Selvin Xie Click Yes if Unassisted: Yes Anesthesia Type: General and Local Operative Notes Estimated Blood Loss (mL): 400 Procedure in detail: Right Direct Anterior Cemented German [employer] Polarstem Hemiarthroplasty for Femoral Neck Fracture Implants: * Size 6 high offset Polarstem Cemented Femoral Stem * Size 52+ 0 cobalt chromium Unipolar Femoral Head Procedure Summary: This 68-year-old male patient has a history of recent stroke proximally 6 months ago and liver transplant on chronic immunosuppressants. He has had worsening dementia. Risks and benefits of operative versus nonoperative treatment were discussed at length with his power of criminal attorney, his daughter, and she wished to proceed with operative management in order to improve his mobility. I counseled her extensively regarding the high perioperative mortality risk associated with this injury given his medical comorbidities. Given his high risk for wound breakdown and infection given his immunosuppression and anticoagulant therapy, I put vancomycin deep in the hip capsule during closure, utilized my normal 3-0 subcuticular skin closure but backed it up with christopher, and placed an incisional wound VAC over the surgical site. Postoperatively I will also have him take 500 mg cefadroxil twice per day for the next 14 days. Intraoperatively I initially trialed with a size 5 broach and a +0 head. I felt that it was slightly short fluoroscopically but I did not have any stability with maximum external rotation or with a 45 degree drop test. I therefore moved up to a size 6 broach which sat slightly higher than the size 5 broach to increased the length of the construct and placed this along with a +0 head. There was no instability with maximum external rotation or a 45 degree drop test and leg length and offset were appropriate fluoroscopically. Procedure in Detail: This patient sustained a femoral neck fracture. Risks and benefits of operative versus nonoperative management were discussed at length with the patient's daughter wished to proceed with operative management. ?The patient was met in the preoperative holding area. ?All questions were answered. ?The operative site was marked on the right limb. ?Informed consent was signed. ?The patient was brought back to the operating room where anesthesia was induced. The patient was transferred to the [place] table and all bony prominences were padded. The operative site was prepped and draped in the usual sterile fashion. Prior to incision, tranexamic acid and cefazolin were administered. A timeout procedure was performed verifying the patient?s identity, medical comorbidities, allergies, relevant medications, anesthesia type and the surgical plan. All present were in agreement. No physician chemistry research assistant was available for the procedure so I used the [place] Gripper system for soft tissue retraction. X-rays were displayed during the procedure demonstrating the fracture pattern on the injured hip. A direct anterior approach to the hip was utilized. This was performed with a longitudinal incision through a Heuter interval. The incision was planned 2 cm distal and 2 cm lateral to the ASIS extending towards the lateral patella, in line with the muscle body of the TFL. Following incision, the subcutaneous tissue was dissected while taking care to avoid injury to the lateral femoral cutaneous nerve. The fascia overlying the TFL was identified by dissecting off the overlying fat and identifying perforating vessels to the TFL. The TFL fascia was incised and dissected away from the medial border of the TFL. A cobra retractor was placed over the superior femoral neck between the abductors and the hip capsule and used to reflect the TFL laterally. A [place] self-retainer was then placed in the distal aspect of the wound between the TFL and the rectus femoris. This was tensioned to open up the direct anterior interval and the lateral circumflex vessels were identified and coagulated using electrocautery. The floor of the TFL fascia was incised, exposing the pericapsular fat overlying the hip capsule. A second cobra retractor was placed on the inferior femoral neck. A double-bent soft tissue retractor was placed on the anterior wall of the acetabulum and used to tension the reflected head of rectus femoris, which was t hen released in order to limit soft tissue tension. A capsulotomy was made in the midline of the anterior hip capsule in line with the femoral neck ending at the vastus tubercle while ensuring the labrum was not transected proximally given the plans to preserve the qagan tayagungin acetabulum. The double-bent retractor was removed in order to limit the amount of time that a soft tissue retractor remained on the anterior wall and protect the femoral nerve. Tag stitches were placed in the superior and inferior leaflets of the hip capsule. An Silver soft tissue retractor was introduced over the tag stitches and tensioned in the interval between the rectus femoris and the TFL in order to retract and protect those muscles. The cobra retractors were replaced intracapsularly, with one over the superior neck in the pocket created by the base of the greater trochanter and the other on the femoral head. The capsulotomy was extended laterally to the base of the greater trochanter and medially to the lesser trochanter. This required externally rotating the hip. Once the lesser trochanter had been identified, a freshening neck cut was made below the fracture site. The fracture fragments and femoral head were removed.?? Attention was then turned to the femur. All retractors were removed, traction was released, a retractor was placed in the interval between the hip capsule and the gluteus minimus, and the hip was externally rotated to 90 degrees. Traction was applied through the [place] table to tension the lateral capsule and this was released using electrocautery. Traction was released and a [place] hook was placed posteriorly around the proximal femur at the level of the vastus ridge. The table height was lowered in order to restrict the tension on the anterior structures during hip hyperextension to limit the risk of femoral nerve palsy. With traction off and the hip at 90 degrees of external rotation, the hip was hyperextended and adducted while manually elevating the femur away from the a cetabulum with the [place] hook to ensure it would not be caught behind the greater trochanter. An asymmetric retractor was placed over the calcar and a broad double-pronged retractor was placed over the greater trochanter. The tag stitch capturing the lateral leaflet of the capsule was moved to the medial side, leaving the conjoined and piriformis tendons isolated in the face of the greater trochanter. The hip was externally rotated and elevated. A release of the conjoined tendon was performed in order to maximize femoral exposure and minimize the risk of iatrogenic fracture. The canal was opened with an opening broach and a rasp was used to remove cancellous bone. A rongeur was used to remove the residual lateral bone at the base of the greater trochanter to avoid placing the stem in varus. The femur was then broached to the appropriate sized stem yielding good rotational fit and fill of the canal as well as appropriate version of the stem trial. Neck and head trials were placed, all retractors were removed and the hip was returned to neutral abduction and extension. I then reduced the hip. Initial trialing was performed with a size 5 broach, a high offset neck and a +0 head. I initially manually externally rotated the hip and found no instability when I pushed it past 120?. I then locked the hip in 45 degrees of external rotation and dropped it to the floor with traction off which demonstrated no instability. An AP pelvis fluoroscopic image matching the preoperative standing radiograph with both lesser trochanters visible and both hips in 40 degrees of external rotation demonstrated that the operative site was slightly short. AP and lateral hip fluoroscopic images were obtained to evaluate the broach size which demonstrated apparent good canal fill. The hip was dislocated and I returned to the broaching position. Based on my evaluation during initial trialing I planned to upsize the head however I noted that the stem was solid rotationally unstable so I upsized to a size 6 stem. This was rotationally stable. I then prepared for cementation. Prior to cementation I irrigated the canal, placed a cement restrictor, irrigated the canal again, placed epinephrine-soaked vaginal packing with a whistle-tip catheter, and removed the whistle-tip catheter after insertion of cement. Cement was pressurized digitally and subsequently with the cement gun. The polished tapered stem was placed and impacted down. A unipolar hemiarthroplasty head was impacted into place on a clean dry trunnion. All retractors were removed and the hip was reduced. A dilute mixture of betadine and peroxide was used to bathe the soft tissues during final fluoroscopic assessment. Appropriate component positioning was confirmed on an AP pelvis radiograph with the operative and nonoperative legs in 40 degrees of external rotation, evaluating leg length and offset. Appropriate cement mantle and stem positioning was evaluated on AP and lateral hip radiographs. No fractures were identified on these radiographs. There was no hip instability with maximum external rotation as well as a 45 degree drop test. The hip was closed using a combination of Vicryl Stratafix and Monocryl sutures. A dilute mixture of ropivacaine epinephrine clonidine and Toradol was infiltrated throughout the wound. [place] were applied. A incisional wound VAC was applied. The patient was transferred off of the operating room table and brought to the PACU. ? Plan for aftercare: * Transfer to floor following recovery in PACU * Weightbearing as tolerated * Mobilize in the halls with assistance of physical therapy * Baseline anticoagulants for DVT prophylaxis beginning on postoperative day 2 * Multimodal pain regimen with no IV opioids ordered * Anticipate discharge back to a nursing facility * Hiram incisional wound VAC to remain in place for 2 weeks. The battery will after 1 week at which point the cord can be removed and it can be used as a normal dressing until follow up * Follow up at [facility] in 2 weeks
[2023-11-12] MEDS: INSULIN LISPRO 100 UNIT/ML 3ML VIAL SUBCUT (20:50)
[2023-11-12] MEDS: HYDROMORPHONE 1 MG INJ IV (20:54)
[2023-11-12] MEDS: hydrOXYzine 50 MG/ML INJ 25 MG IM (21:08)
[2023-11-12] MEDS: OXYCODONE IR 5 MG TABLET PO (21:08)
--- NOTE | 2023-11-12 21:30 | PC.NURSE ---
Pt arrived from PACU. Awake and alert to self only. 4L NC sating at 92%. KIARA dressing to R hip, CDI. Keane in place and draining clear yellow urine. VS taken. Bed alarm activated. Will continue to monitor. call light in reach
[2023-11-12] MEDS: LACTATED RINGERS 1,000 ML 100 ML IV (21:39)
[2023-11-12] MEDS: INSULIN GLARGINE 100 UNIT/ML 3ML PEN 15 UNIT SUBCUT (21:40)
[2023-11-12] MEDS: SODIUM CHLORIDE 0.9% FLUSH 10 ML IV (21:52)
[2023-11-13] MEDS: HYDROMORPHONE 0.5 MG INJ IV (01:50)
[2023-11-13] MEDS: CEFAZOLIN 2 GM/100 ML PREMIX 100 ML IV (04:48)
[2023-11-13 05:23] LABS: Add Manual Diff / Slide Review NO; Basophils Absolute Auto 0 /uL (0-100); Basophils Percent Auto 0.3 % (0-2); Eosinophils Absolute Auto 200 /uL (0-450); Eosinophils Percent Auto 2.2 % (2-4); Hematocrit 26.9 % (41-53); Hemoglobin 9.4 g/dL (13.5-17.5); Lymphocytes Absolute Auto 700 /uL (1100-4500); Mean Corpuscular Hemoglobin 31.7 PG (26-34); Mean Corpuscular Volume 90.4 fL (80-100); Monocytes Absolute Auto 300 /uL (0-900); Monocytes Percent Auto 4.3 % (3-14); Neutrophils Absolute Auto 6100 /uL (1500-7000); Neutrophils Percent Auto 84.2 % (50-75); Platelet Count 118 X10^3/uL (150-400); Red Blood Cell Count 2.97 X10^6/uL (4.5-5.9); Red Cell Distribution Width 14.9 % (11.6-14.8); White Blood Cell Count 7.3 X10^3/uL (4.5-11.0)
[2023-11-13] MEDS: LEVOTHYROXINE 50 MCG TABLET 150 MCG PO (05:23)
[2023-11-13 05:41] LABS: BUN Creatinine Ratio 19.5 (6-22); Blood Urea Nitrogen 30 mg/dL (9-20); Calcium 8.3 mg/dL (8.4-10.2); Carbon Dioxide 23 mmol/L (22-32); Chloride 104 mmol/L (98-107); Estimated Glomerular Filt Rate 48 mL/min (>60); Glucose 241 mg/dL (80-110); HEMOLYSIS < 15 (0-50); Potassium 4.9 mmol/L (3.4-5.1); Sodium 132 mmol/L (137-145)
--- NOTE | 2023-11-13 06:42 | PM.PNPO.1 ---
Subjective Subjective Date Patient Seen: 11/13/23 Time Patient Seen: 06:43 Interval history: Patient awake and alert. Says the pain he was having preoperatively has resolved. Has not been OOB since surgery. Exam Vital Signs (past 8 hours): Oxygen Delivery Method Nasal Cannula Oxygen Flow Rate 0 Narrative Exam Narrative: 4/5 strength hip flexors, quadriceps, hamstrings; 5/5 DF, PF, EHL on right. Sensation to light touch intact throughout RLE, calf soft and compressible. KIARA dressing functioning, CDI. Objective Labs 11/13/23 04:38 11/13/23 04:38 Labs: Laboratory Results - last 24 hr 11/13/23 04:38 WBC 7.3 RBC 2.97 L Hgb 9.4 L Hct 26.9 L MCV 90.4 MCH 31.7 MCHC 35.0 RDW 14.9 H Plt Count 118 L Neut % (Auto) 84.2 H Lymph % (Auto) 9.0 L [place] % (Auto) 4.3 Eos % (Auto) 2.2 Baso % (Auto) 0.3 Neut # (Auto) 6100 Lymph # (Auto) 700 L [place] # (Auto) 300 Eos # (Auto) 200 Baso # (Auto) 0 Sodium 132 L Potassium 4.9 Chloride 104 Carbon Dioxide 23 BUN 30 H Creatinine 1.54 H Estimated GFR 48 L BUN/Creatinine Ratio 19.5 Glucose 241 H Calcium 8.3 L PFSH Social History household members: none caregiver/support person: Yes (POA daughter Billie in [place]. Another son lives relatively local) housing: assisted living facility Smoking Status: Former smoker Assessment & Plan Post-op Assessment and plan (1) S/P shoulder hemiarthroplasty: Assessment and Plan narrative: 1) VTE prophylaxis per hospitalist service. From a surgical perspective, can restart Eliquis tomorrow w/ AM dose. 2) PT - WBAT. 3) Pain management, disposition per hospitalist service. F/u in 2 weeks w/ ortho for wound check; f/u in 6 weeks w/ Dr Xie for repeat imaging. Postoperative Procedures: Procedures Operation Date: 11/12/23 17:00 Actual Procedure Side Surgeon p RIGHT HIP CEMENTED HEMIARTHROPLASTY Right Selvin Xie MD Postoperative day: 1
[2023-11-13 07:00] VITALS: BP 101/56; PULSE 86; RESP 16; TEMP 36.8; O2SAT 95
[2023-11-13] MEDS: INSULIN LISPRO 100 UNIT/ML 3ML VIAL SUBCUT ×4 (08:21→21:28)
[2023-11-13] MEDS: INSULIN GLARGINE 100 UNIT/ML 3ML PEN 15 UNIT SUBCUT ×2 (08:22→21:26)
[2023-11-13] MEDS: TACROLIMUS 0.5 MG CAPSULE 1 MG PO (09:38)
[2023-11-13] MEDS: AMLODIPINE 5 MG TABLET 10 MG PO (09:38)
[2023-11-13] MEDS: FLUCONAZOLE 100 MG TABLET 200 MG PO (09:38)
[2023-11-13] MEDS: METOPROLOL IR 25 MG TABLET PO ×2 (09:38→20:17)
[2023-11-13] MEDS: cephALEXin 250 MG CAPSULE 500 MG PO ×4 (09:38→20:17)
[2023-11-13] MEDS: CITALOPRAM 10 MG TABLET 5 MG PO (09:38)
[2023-11-13] MEDS: ursodioL 300 MG CAPSULE PO ×2 (09:38→20:17)
[2023-11-13 09:39] VITALS: BP 108/57; PULSE 90
[2023-11-13] MEDS: APIXABAN 5 MG TABLET PO ×2 (09:39→20:17)
[2023-11-13] MEDS: lisinopriL 10 MG TABLET PO (09:39)
[2023-11-13] MEDS: SODIUM CHLORIDE 0.9% FLUSH 10 ML IV ×2 (09:39→20:22)
[2023-11-13] MEDS: DOCUSATE 100 MG CAPSULE PO ×2 (09:39→20:17)
--- NOTE | 2023-11-13 09:55 | DI.CT.S_ITS ---
PROCEDURE: CT PEL WO CON INDICATIONS: Postop cemented hemiarthroplasty TECHNIQUE: Noncontrast 3 mm axial sections acquired through the bony pelvis, with coronal and sagittal reformatting. COMPARISON: [facility], CR, XR HIP W PEL IF DONE RT 2V, 11/12/2023, 19:42. [facility], CR, XR HIP W PEL IF DONE RT 2V, 11/11/2023, 5:08. FINDINGS: Image quality: Significant beam hardening artifacts are noted from right hip prosthesis. Bones: Patient is status post interval right hip cemented hemiarthroplasty with significant beam hardening artifacts from surgical hardware limits evaluation of adjacent soft tissues. There is no evidence of hardware loosening or failure. No acute fracture or dislocation. Right hip alignment is near anatomic. [id number] left hip joint osteoarthritic changes are seen. No evidence of avascular necrosis of femoral head. No suspicious bony lesions. Mild to moderate degenerative disc disease in visualized lower lumbar spine is seen. Soft tissues: Multiple pockets of air are seen scattered in right lateral hip and upper thigh subcutaneous and deep soft tissue most consistent with postsurgical changes. Small amount of fluid along lateral periphery of right upper thigh muscles is seen and likely represent postsurgical seroma. No gross abscess collection. No large soft tissue hematoma is seen. No pelvic free fluid or free air. Keane catheter is seen within decompressed urinary bladder. No gross bladder wall abnormality. No abnormal bowel wall thickening. No pelvic lymphadenopathy. IMPRESSION: 1. Patient is status post right hip cemented martina arthroplasty with significant amount of beam hardening artifacts from surgical hardware. Right hip alignment is anatomic. No hardware loosening or failure. No acute periprosthetic fracture is seen. 2. Small pockets of air scattered in right thigh and right martina pelvic soft tissue consistent with postsurgical changes. Likely postsurgical seroma along lateral periphery of right upper thigh muscles. No discrete soft tissue mass or drainable fluid collection. No pelvic free fluid or free air. Dictated by: Sam Camara M.D. on 11/13/2023 at 14:41 Approved by: Sam Camara M.D. on 11/13/2023 at 14:47
[2023-11-13 10:35] VITALS: O2SAT 95
--- NOTE | 2023-11-13 10:35 | PT.IIE ---
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 (11/11/23) Liver transplant status (11/11/23) Presence of unspecified artificial shoulder joint (11/11/23) Surgery Performed Operation Date: 11/12/23 17:00 Actual Procedures p RIGHT HIP CEMENTED HEMIARTHROPLASTY(Right) - Selvin Xie MD Physical Therapy Inpatient Evaluation/Re-Eval M1 PT/OT-IP Prior Functional Status Start: 11/13/23 11:50 Freq: NEEDED Status: Active Protocol: Document 11/13/23 10:35 AB (Rec: 11/13/23 12:06 AB [id number]) Medical Review Prior Functional Status Medical History Reviewed Yes Communication with confusion and not consistent with providing info or following directions Mobility and Gait pt unable to provide much info due to dx dementia: stated that he uses a SPC for ambulation with staff SBA Social History Household Members none Living Arrangements Assisted Living Number of Stairs To Enter/Railing? Pt lives at [facility] M2 PT-IP Current Condition Start: 11/13/23 11:50 Freq: NEEDED Status: Active Protocol: Document 11/13/23 10:35 AB (Rec: 11/13/23 12:06 AB [id number]) Physical Therapy Current Condition Current Condition Evaluation Date 11/13/23 Treatment Diagnosis R hip fx s/p R hip hemiarthroplasty anterior; difficulty in walking Onset Date 11/11/23 M3 PT-IP Subjective Start: 11/13/23 11:50 Freq: NEEDED Status: Active Protocol: Document 11/13/23 10:35 AB (Rec: 11/13/23 12:06 AB [id number]) Subjective Physical Therapy Visit Type Type Initial Evaluation Visit Start Time 10:35 Visit Stop Time 11:10 Number of SPEEDBOAT OPERATOR Visits 0 Therapy Pain Assessment Pain When Pain Assessed At Rest Pain Present Pain Present Pain Reported Location Right Hip Scale Used pain scale not stated Pain Management Techniques Apply Cold,Distraction, Modification of Treatment,Re- positioning,Timing of Activity with Medications M4 PT-IP Mobility and Gait Start: 11/13/23 11:50 Freq: NEEDED Status: Active Protocol: Document 11/13/23 10:35 AB (Rec: 11/13/23 12:06 AB [id number]) PT-Bed Mobility Assessment Supine to Sit Supine to Sit Maximum Assistance,2 Person Assistance,Head of Bed Elevated,Bedrails PT-Transfer Assessment Sit to and From Stand Sit to and from Stand Maximum Assistance,2 Person Assistance,Use of Upper Extremities Equipment Transfer Assistive Device Gait Belt,Front Wheeled Walker Orthotic/Prosthetic Devices or Brace: No Transfers Transfer Destination Chair Transfer Technique Stand Step Pivot Transfer Ability Level of Assist Maximum Assistance,2 Person Assistance,Use of Upper Extremities Comments Mobility Comments pt supine in bed. pt with confusion and dx dementia and unable to provide much info regarding PLOF and home set up . pt able to follow one step commands but inconsistent and requires increase time to respond. pt completed supine to sit max A x 2 and max cues. HOB elevated. pt was able to sit on EOB min to mod A and cues. max A x 2 for scooting to EOB. completed sit to stand from EOB max A x 2 and max cues. pt with (+) genu varum and in slight ER. pt tolerated standing for ~ 10 sec and had to sit down. agreed to get up again. completed sit to stand max A x 2 and max cues and step transfer to chair using FWW max A x 2 and max cues. max A x2 for controlled siting to chair. pt rested. agreed to get up again. completed sitt o stand from the chair max Ax 1-2 and max cues. pt ambulated using FWW max A x 1 and chair follow. assist with weight shifting. pt sat back on chair. positiioned pt on the chair. call light and table placed within reach. chair alarm on. Gait Assessment Gait Gait Assistance Required: Maximum Assistance,2 Person Assist Distance (Feet) 2 Able to Maintain Weight Bearing Status Yes During Gait Assistive Devices Assistive Device Gait Belt,Front Wheeled Walker Orthotic/Prosthetic Devices or Brace: No Gait Deviations General Gait Pattern Decreased Stride Length, Decreased Feet Clearance,Step- to Gait Factors Limiting Gait Function Factors Limiting Gait Function Decreased Activity Tolerance, Decreased Strength,Difficulty Following Directions,Limited Range of Motion,Pain,Poor Balance,Poor Safety Awareness PT-Balance Assessment Sitting Balance and Reactions Static Sitting Balance Ability Good Dynamic Sitting Balance Ability Fair Standing Balance and Reactions Static Standing Balance Ability Poor Dynamic Standing Balance Ability Poor Device Used FWW M5 PT-IP Objective Assessments Start: 11/13/23 11:50 Freq: NEEDED Status: Active Protocol: Document 11/13/23 10:35 AB (Rec: 11/13/23 12:06 AB [id number]) Orientation Orientation/Cognition Level of Alertness Confusional State Orientation Name Safety Awareness Decreased Safety Awareness Memory Description Short Term Impaired,Mcc Impaired Strength Comments Strength Comments pt inconsisted with following directions for MMT: grossly graded: RLE: 3-/5 LLE: 4-/5 Muscle Tone Muscle Tone WNL Yes M6 PT-IP Treatment Start: 11/13/23 11:50 Freq: NEEDED Status: Active Protocol: Document 11/13/23 10:35 AB (Rec: 11/13/23 12:06 AB [id number]) Physical Therapy Treatment Education Education Provided Precautions,Weight Bearing Status,Post-Op Packet,Safety M7 PT-IP Assessment and Plan Start: 11/13/23 11:50 Freq: NEEDED Status: Active Protocol: Document 11/13/23 10:35 AB (Rec: 11/13/23 12:06 AB [id number]) PT Summary Assessment and Plan Potential Rehabilitation Potential Fair Status of Condition at Evaluation Evolving Summary Impairments Pain,ROM,Strength,Balance, Coordination,Sensation,Tone, Cognition,Bed Mobility, Transfers,Gait,Activity Tolerance Assessment Summary pt is a 68 y/o M s/p GLF and sustained a R femoral neck fx and underwent R hip hemiarthroplasty anterior approach POD 1. pt has R anterior hip precautions and is WBAT. pt requiring max A x 2 and max cues with all mobilities and will benefit from SNF rehab. pt with dx dementia but is redirectable and follow one step commands. will continue to assess progress. Goals Bed Mobility Goal Minimal Assistance Transfer Goal Minimal Assistance,Front Wheeled Walker Gait Goal Minimal Assistance,Front Wheel Walker Gait Distance 50 Other Goals improve bed mobility, transfers and ambulation using FWW 100 ft CGA Days to Meet Goals 10 Frequency of Treatment Frequency Of Treatment Twice a Day Treatment Plan Physical Therapy Treatment Plan Bed Mobility Training,Transfer Training,Gait Training, Therapeutic Exercise,Balance Retraining,Post Op Education, Discharge Planning,Hot or Cold Pack,Neuromuscular Re-ed, Coordination Retraining,Manual Therapy Precautions Anterior Hip Precautions No Hip Extension,No Hip External Rotation Weight Bearing Status Weight Bearing Status Weight Bear as Tolerated Allowed Weight Bearing Amount (enter % RLE WBAT or #) (%) Recommendations To Nursing Amount of Assist Needed Mechanical Lift Discharge Recommendations PT Discharge Recommendations SNF Rehab Transportation Needs at Discharge Wheelchair/Cabulance
--- NOTE | 2023-11-13 11:25 | OT.IP.EVAL ---
Current Diagnoses Type 2 diabetes mellitus with hyperglycemia (11/11/23) Age-related osteoporosis with current pathological fracture, right femur, initial encounter for fracture (11/11/23) Fracture of unspecified part of neck of right femur, initial encounter for closed fracture (11/11/23) correction (current) use of anticoagulants (11/11/23) Liver transplant status (11/11/23) Presence of unspecified artificial shoulder joint (11/11/23) Surgery Performed Operation Date: 11/12/23 17:00 Actual Procedures p RIGHT HIP CEMENTED HEMIARTHROPLASTY(Right) - Selvin Xie MD Occupational Therapy Inpatient Evaluation/Re-Eval M1 PT/OT-IP Prior Functional Status Start: 11/13/23 11:50 Freq: NEEDED Status: Active Protocol: Document 11/13/23 13:35 [facility] (Rec: 11/13/23 13:49 [facility] [id number]) Medical Review Prior Functional Status Medical History Reviewed Yes Communication with confusion and not consistent with providing info or following directions Mobility and Gait pt unable to provide much info due to dx dementia: stated that he uses a SPC for ambulation with staff SBA Activities of Daily Living and IADL's Due to dementia per medical chart pt needing assist with most ADL needs. Social History Household Members none Living Arrangements Assisted Living Number of Stairs To Enter/Railing? Pt lives at [facility] M2 OT-IP Current Condition Start: 11/13/23 13:35 Freq: Status: Active Protocol: Document 11/13/23 13:35 [facility] (Rec: 11/13/23 13:49 [facility] [id number]) Occupational Therapy Current Condition Current Condition Evaluation Date 11/13/23 Treatment Diagnosis S/P R LION anterior approach Diagnosis Onset Date 11/12/23 Post Operative Precautions Anterior Hip Precautions No Hip Extension,No Hip External Rotation M3 OT- IP Subjective and Pain Start: 11/13/23 13:35 Freq: Status: Active Protocol: Document 11/13/23 13:35 [facility] (Rec: 11/13/23 13:49 [facility] [id number]) OT- Subjective Occupational Therapy Visit Type Type Initial Evaluation Visit Start Time 10:45 Visit Stop Time 11:25 Occupational Therapy Visit Comments Patient Comments Pt agreed to get up. Patient/Caregiver Goals To get better. OT Pain Assessment Pain When Pain Assessed During Mobility Pain Present Pain Present Pain Reported Location Right Hip Pain Behaviors Facial Grimacing,Guarding, Holding Area,Wincing M4 OT- IP ADL's Start: 11/13/23 13:35 Freq: Status: Active Protocol: Document 11/13/23 13:35 [facility] (Rec: 11/13/23 13:49 [facility] [id number]) OT ADL-Grooming General Evaluation Grooming Ability Minimal Assistance Areas Needing Assistance Retrieving/Set-up of Grooming Items Comments OT Grooming Comments Set-up assist and MAX vc to help sequence. OT ADL-Oral Care General Eval Oral Care Ability Standby Assistance Areas of Assistance Brushing Teeth,Retrieving/Set- Up of Items Comments Oral Care Comments MAX vc to sequence through oral care needs for completeness. OT ADL-Dressing General Eval Lower Body Dressing Ability Maximum Assistance Areas Needing Assistance Socks OT ADL-Toileting General Evaluation Toileting Ability Total Assistance Comments OT Toileting Comments Keane in place. OT ADL-Bathing Comments OT Bathing Comments Sponge bath more appropriate at this time. M5 OT- IP IADL's Start: 11/13/23 13:35 Freq: Status: Active Protocol: Document 11/13/23 13:35 [facility] (Rec: 11/13/23 13:49 [facility] [id number]) OT-Instrumental Activities of Daily Living Home Safety Awareness Awareness of Need for Assistance at Home Decreased Awareness Ability to Problem Solve Emergency Unable to Problem Solve Situations Home Safety Comments Per medical chart pt has dementia. Medication Management Medication Management Caregiver Administers Money Management Money Management Caregiver Provides Assistance Meal Preparation Meal Preparation Caregiver Provides Assist Order Manager Order Manager Caregiver Provides Assist M6 OT- IP Functional Cognition Start: 11/13/23 13:35 Freq: Status: Active Protocol: Document 11/13/23 13:35 [facility] (Rec: 11/13/23 13:49 [facility] [id number]) Cognitive Factors Limiting Selfcare Function Cognitive Ability Level of Alertness Alert Patient Orientation Name,Age Ability to Follow Commands Able to Follow One Step Commands with Increased Time, Able to Follow One Step Commands with Repetition Memory Description Short Term Impaired,Spool Fixer Impaired,Working Impaired Safety Awareness Decreased Recall of Precautions Cognitive Comments Cognitive Assessment Comments Pt is mainly just orientated to his name. Pt able to follow simple concrete cues with visual and verbal cues for OT eval. OT- Vision and Hearing OT- Vision Assessment Vision Assessment Comments Pt has glasses but not on. M7 OT- IP Mobility and Balance Start: 11/13/23 13:35 Freq: Status: Active Protocol: Document 11/13/23 13:35 [facility] (Rec: 11/13/23 13:49 [facility] [id number]) OT- Bed Mobility Assessment Supine to Sit Supine to Sit Assist Maximum Assistance,2 Person Assistance,Head of Bed Elevated OT-Transfer Assessment Sit to and From Stand Sit to and from Stand Maximum Assistance,1 Person Assistance,2 Person Assistance Transfers Transfer Ability Maximum Assistance,2 Person Assistance Technique Transfer Destination Bed,Chair Transfer Technique Stand Step Pivot Devices Transfer Assistive Devices Gait Belt,Front Wheeled Walker Comments Mobility Comments MAXA to assist with his RLE to the edge of the bed , use of green pad to scoot his hips over and assist to get his trunk upright. MAX AX 2 to stand to the FWW and assist to move the FWW and for his balance. Pt needing repetitive cues to follow for mobility needs at this time. Pt will benefit from dara lift from nursing staff until pt able to more consistent and safely. OT- Balance Assessment Sitting Balance and Reactions Static Sitting Balance Ability Good Dynamic Sitting Balance Ability Fair Standing Balance and Reactions Static Standing Balance Ability Poor Dynamic Standing Balance Ability Poor M8 OT- IP Objective Assessments Start: 11/13/23 13:35 Freq: Status: Active Protocol: Document 11/13/23 13:35 [facility] (Rec: 11/13/23 13:49 [facility] [id number]) OT Gross Range of Motion Upper Extremity Range of Motion Assessment Within Functional Limits OT Strength Upper Extremity Strength Assessment Within Functional Limits M9 OT- IP Assessment and Plan Start: 11/13/23 13:35 Freq: Status: Active Protocol: Document 11/13/23 13:35 [facility] (Rec: 11/13/23 13:49 [facility] [id number]) OT Summary Assessment and Plan Potential Rehabilitation Potential Good Analytic Complexity at Evaluation Moderate Summary OT Impairments Pain,Strength,Balance, Functional Cognition, Functional Mobility,Self- Feeding,Grooming,Dressing, Toileting,Bathing,Toilet Transfers,Shower Transfers, Activity Tolerance Progress Towards Goals Progressing Toward Goals,Slow Progress due to Cognition Assessment Summary Pt MOD complexity and main barriers are pain, has difficulty to follow commands due to dementia but able to do with repetition and cues, and now needing two person assist for mobility needs. Pt will benefit from skilled rehab at this time. Goals Grooming Goal Standby Assistance Dressing Goal Moderate Assistance Toileting Goal Moderate Assistance Bathing Goal Moderate Assistance Toilet Transfer Goal Contact Guard Assistance Shower Transfer Goal Minimal Assistance Days to Meet Goals 20 Frequency of Treatment Frequency Of Treatment Once a Day Treatment Plan OT Treatment Plan ADL Training,Functional Mobility,Patient/Family Education,Discharge Planning Other Treatment Recommendations and Next Transfer to [facility] with MODA X2. Treatment Focus Discharge Recommendations OT Discharge Recommendations SNF Rehab Transportation Needs at Discharge Wheelchair/Cabulance
--- NOTE | 2023-11-13 13:15 | P.PN_ITS ---
Subjective Subjective Interval history: Patient underwent successful R hip repair with ortho yesterday. He doesn't appear in pain. Sitting up in a chair. PT evaluated and rec SNF. Exam Vital Signs (past 8 hours): - 11/13/23 07:00 11/13/23 09:00 11/13/23 09:39 Temperature 98.3 F Pulse Rate 86 90 Respiratory Rate 16 Blood Pressure 101/56 L 108/57 L Pulse Oximetry 95 Oxygen Delivery Method Room Air Oxygen Flow Rate 11/13/23 10:35 Temperature Pulse Rate Respiratory Rate Blood Pressure Pulse Oximetry 95 Oxygen Delivery Method Nasal Cannula Oxygen Flow Rate 2 Oxygen Delivery Method Nasal Cannula Oxygen Flow Rate 2 Narrative Exam Narrative: NAD, demented, A/Ox2 Normocephalic skull, EOMI, anicteric sclera, symmetric pupils. Oropharynx unremarkable, no droop. Neck supple, midline trachea, no adenopathy. Lungs clear, normal rate and effort. Heart regular, no murmur gallop or rub. Abdomen is soft, distended, and non tender. Extremities are free of edema. Skin is free of rash or lesions. Joints are not swollen or deformed. Judgment appears to be abnormal. Right hip is painful with any movement of the right lower extremity, active or passive. Good pedal pulses. Objective Labs 11/13/23 04:38 11/13/23 04:38 Labs: Laboratory Results - last 24 hr 11/13/23 04:38 WBC 7.3 RBC 2.97 L Hgb 9.4 L Hct 26.9 L MCV 90.4 MCH 31.7 MCHC 35.0 RDW 14.9 H Plt Count 118 L Neut % (Auto) 84.2 H Lymph % (Auto) 9.0 L O'Brien % (Auto) 4.3 Eos % (Auto) 2.2 Baso % (Auto) 0.3 Neut # (Auto) 6100 Lymph # (Auto) 700 L O'Brien # (Auto) 300 Eos # (Auto) 200 Baso # (Auto) 0 Sodium 132 L Potassium 4.9 Chloride 104 Carbon Dioxide 23 BUN 30 H Creatinine 1.54 H Estimated GFR 48 L BUN/Creatinine Ratio 19.5 Glucose 241 H Calcium 8.3 L PFSH Social History household members: none caregiver/support person: Yes (POA daughter Billie in [place]. Another son lives relatively local) housing: assisted living facility Smoking Status: Former smoker Assessment & Plan Assessment & Plan narrative: Acute medical problems: 1. Right femoral neck fracture s/p ORIF on 11/11, present on admission and active Chronic medical problems, all present on admission and stable: 1. Hypertension 2. Dementia 3. DM 2 receiving insulin 4. Hypothyroidism 5. Liver transplant on chronic tacrolimus 6. Atrial fibrillation on chronic anticoagulation Past surgical history: 1. Liver transplant PLAN: -restart eliquis -change duricef to keflex while inpatient as not on formulary -wound vac present -PT/OT Dispo: Will need SNF. 2 days likely. Proxy decision maker is daughter Josh Fuentes who is POA. Time Spent With Patient Time with patient: 30 to 49 minutes with 50% spent counseling/coordinating care
[2023-11-13] MEDS: OXYCODONE IR 5 MG TABLET PO ×3 (13:28→23:16)
--- NOTE | 2023-11-13 14:19 | PT.IPTN ---
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 (11/11/23) Liver transplant status (11/11/23) Presence of unspecified artificial shoulder joint (11/11/23) Surgery Performed Operation Date: 11/12/23 17:00 Actual Procedures p RIGHT HIP CEMENTED HEMIARTHROPLASTY(Right) - Selvin Xie MD Physical Therapy Treatment Note M2 PT-IP Current Condition Start: 11/13/23 11:50 Freq: NEEDED Status: Active Protocol: Document 11/13/23 10:35 AB (Rec: 11/13/23 12:06 AB [id number]) Physical Therapy Current Condition Current Condition Evaluation Date 11/13/23 Treatment Diagnosis R hip fx s/p R hip hemiarthroplasty anterior; difficulty in walking Onset Date 11/11/23 M3 PT-IP Subjective Start: 11/13/23 11:50 Freq: NEEDED Status: Active Protocol: Document 11/13/23 14:46 TS (Rec: 11/13/23 15:05 TS [id number]) Subjective Physical Therapy Visit Type Type Treatment Note Visit Start Time 14:19 Visit Stop Time 14:42 Number of COMMUNICATION LECTURER Visits 1 Physical Therapy Visit Comments Patient Comments Pt found resting in chair, pt is confused, answers some questions, pt is agreeable to PT. Therapy Pain Assessment Pain When Pain Assessed During Mobility Pain Present Pain Present Pain Reported M4 PT-IP Mobility and Gait Start: 11/13/23 11:50 Freq: NEEDED Status: Active Protocol: Document 11/13/23 14:46 TS (Rec: 11/13/23 15:05 TS [id number]) PT-Bed Mobility Assessment Sit to Supine Sit to Supine Maximum Assistance,2 Person Assistance PT-Transfer Assessment Sit to and From Stand Sit to and from Stand Maximum Assistance,1 Person Assistance Equipment Transfer Assistive Device Gait Belt,Front Wheeled Walker Orthotic/Prosthetic Devices or Brace: No Transfers Transfer Destination Bed Transfer Technique Stand Step Pivot Transfer Ability Level of Assist Moderate Assistance,1 Person Assistance Comments Mobility Comments Pt required MaxA for scooting up to edge of chair for STS. STS from chair MaxA with cues for STS technique, pt follows cues some of the times. He performed stand step pivot to bed with use of FWW and ModA x1 with max cues for sequencing. Pt fatigued quickly and sat on edge of bed . STS from bed with FWW MaxA x1. Pt sidestepped to HOB Mod Ax1 with FWW, pt required tactile cues for movement of FWW and RLE. Sit to supine into bed MaxA x2 with cues for sequencing. Pt was left with nursing, all needs met. Gait Assessment Gait Gait Assistance Required: Moderate Assistance,1 Person Assist Distance (Feet) 5 Able to Maintain Weight Bearing Status Yes During Gait Assistive Devices Assistive Device Gait Belt,Front Wheeled Walker Orthotic/Prosthetic Devices or Brace: No Gait Deviations General Gait Pattern Decreased Stride Length, Decreased Feet Clearance,Step- to Gait Factors Limiting Gait Function Factors Limiting Gait Function Decreased Activity Tolerance, Decreased Strength,Difficulty Following Directions,Limited Range of Motion,Pain,Poor Balance,Poor Safety Awareness Comments Gait Comments See mobility comments PT-Balance Assessment Sitting Balance and Reactions Static Sitting Balance Ability Good Dynamic Sitting Balance Ability Fair Standing Balance and Reactions Static Standing Balance Ability Poor Dynamic Standing Balance Ability Poor Device Used FWW M5 PT-IP Objective Assessments Start: 11/13/23 11:50 Freq: NEEDED Status: Active Protocol: Document 11/13/23 10:35 AB (Rec: 11/13/23 12:06 AB [id number]) Orientation Orientation/Cognition Level of Alertness Confusional State Orientation Name Safety Awareness Decreased Safety Awareness Memory Description Short Term Impaired,Long-Term Impaired Strength Comments Strength Comments pt inconsisted with following directions for MMT: grossly graded: RLE: 3-/5 LLE: 4-/5 Muscle Tone Muscle Tone WNL Yes M6 PT-IP Treatment Start: 11/13/23 11:50 Freq: NEEDED Status: Active Protocol: Document 11/13/23 14:46 TS (Rec: 11/13/23 15:05 TS [id number]) Physical Therapy Treatment Education Education Provided Precautions,Weight Bearing Status,Post-Op Packet,Safety M7 PT-IP Assessment and Plan Start: 11/13/23 11:50 Freq: NEEDED Status: Active Protocol: Document 11/13/23 14:46 TS (Rec: 11/13/23 15:05 TS [id number]) PT Summary Assessment and Plan Potential Rehabilitation Potential Fair Summary Impairments Pain,ROM,Strength,Balance, Coordination,Sensation,Tone, Cognition,Bed Mobility, Transfers,Gait,Activity Tolerance Progress Towards Goals Slow Progress due to Pain,Slow Progress due to Activity Tolerance Assessment Summary Alo made some progress with his mobility but remains limited by ongoing pain and poor activity tolerance. He is MaxA for STS with use of FWW from bed/chair. He performed stand step pivot to bed with FWW and ModA. He requires Max cueing for management of FWW and with STS/Transfers. He can follow instructions some of the times. PT is recommending SNF rehab. Goals Bed Mobility Goal Minimal Assistance Transfer Goal Minimal Assistance,Front Wheeled Walker Gait Goal Minimal Assistance,Front Wheel Walker Gait Distance 50 Other Goals improve bed mobility, transfers and ambulation using FWW 100 ft CGA Days to Meet Goals 10 Frequency of Treatment Frequency Of Treatment Twice a Day Treatment Plan Physical Therapy Treatment Plan Bed Mobility Training,Transfer Training,Gait Training, Therapeutic Exercise,Balance Retraining,Post Op Education, Discharge Planning,Hot or Cold Pack,Neuromuscular Re-ed, Coordination Retraining,Manual Therapy Precautions Anterior Hip Precautions No Hip Extension,No Hip External Rotation Weight Bearing Status Weight Bearing Status Weight Bear as Tolerated Allowed Weight Bearing Amount (enter % RLE WBAT or #) (%) Recommendations To Nursing Amount of Assist Needed 2 Person Assist Discharge Recommendations PT Discharge Recommendations SNF Rehab Transportation Needs at Discharge Wheelchair/Cabulance
--- NOTE | 2023-11-13 16:03 | CM.DPNOTE ---
DCP Note FINANCE LECTURER reviewed EMR. Per hospitalist in morning rounds/RN, believe with his dementia he would be able to appropriately participate in rehabilitation. Per chart review, PT/OT rec SNF placement and believe he would be able to safely follow directions based on their current assessment. Per Sujatha at [facility], likely able to accept him Saturday. Had questions about his medicare plan, FINANCE LECTURER emailed Sujatha copies of ins cards/Medicare number in chart. Per hospitalist PN, anticipate another 2 days before medically stable to dc. FINANCE LECTURER spoke with dtr/POMaryellen Moreno (p [phone]). Updated on above information, POA in agreement with plan. P: anticipate Tuesday 11/14 dc to [facility]. PASRR needed. CM team will continue to update dtr/Amelia on DCP. MUKUL Zamudio
[2023-11-13] MEDS: ATORVASTATIN 20 MG TABLET 40 MG PO (17:24)
[2023-11-13 19:58] VITALS: BP 123/70; PULSE 109; RESP 17; TEMP 37.1; O2SAT 94
[2023-11-13 20:06] VITALS: PULSE 102; O2SAT 97
--- NOTE | 2023-11-14 00:31 | PC.NURSE ---
Patient pulled out catheter, balloon intact. No bleeding noted at this time.
[2023-11-14] MEDS: OXYCODONE IR 5 MG TABLET PO ×5 (03:22→21:59)
[2023-11-14] MEDS: CYCLOBENZAPRINE 10 MG TABLET PO ×2 (03:22→21:59)
[2023-11-14 04:57] VITALS: BP 111/68; PULSE 102; RESP 19; TEMP 36.9; O2SAT 94
[2023-11-14 05:27] LABS: Add Manual Diff / Slide Review NO; Basophils Absolute Auto 0 /uL (0-100); Basophils Percent Auto 0.2 % (0-2); Eosinophils Absolute Auto 200 /uL (0-450); Eosinophils Percent Auto 3.1 % (2-4); Hematocrit 25.3 % (41-53); Hemoglobin 8.8 g/dL (13.5-17.5); Lymphocytes Absolute Auto 600 /uL (1100-4500); Lymphocytes Percent Auto 10.6 % (25-40); Mean Corpuscular HGB Conc 34.8 % (30-36); Mean Corpuscular Hemoglobin 31.5 PG (26-34); Mean Corpuscular Volume 90.5 fL (80-100); Monocytes Absolute Auto 300 /uL (0-900); Monocytes Percent Auto 5.4 % (3-14); Neutrophils Absolute Auto 4600 /uL (1500-7000); Neutrophils Percent Auto 80.7 % (50-75); Platelet Count 117 X10^3/uL (150-400); Red Cell Distribution Width 15.1 % (11.6-14.8); White Blood Cell Count 5.7 X10^3/uL (4.5-11.0)
[2023-11-14 06:03] LABS: Blood Urea Nitrogen 36 mg/dL (9-20); Calcium 8.7 mg/dL (8.4-10.2); Carbon Dioxide 27 mmol/L (22-32); Chloride 101 mmol/L (98-107); Estimated Glomerular Filt Rate 50 mL/min (>60); Glucose 245 mg/dL (80-110); HEMOLYSIS 26 (0-50); Potassium 4.6 mmol/L (3.4-5.1); Sodium 131 mmol/L (137-145)
--- NOTE | 2023-11-14 07:36 | PM.PNPO.1 ---
Subjective Subjective Date Patient Seen: 11/14/23 Time Patient Seen: 07:36 Interval history: Pain is moderate. Denies fever or chills. Exam Vital Signs (past 8 hours): - 11/14/23 04:57 Temperature 98.5 F Pulse Rate 102 H Respiratory Rate 19 Blood Pressure 111/68 Pulse Oximetry 94 Oxygen Flow Rate 0 Oxygen Delivery Method Nasal Cannula Oxygen Flow Rate 0 Narrative Exam Narrative: 68-year-old male resting comfortably in bed in no apparent distress. Right hip dressing is clean, dry and intact. Neurovascular status is intact distal right lower extremity. Const General: comfortable Nutritional Appearance: average body habitus Orientation: alert Resp Effort & Inspection: normal respiratory effort and able to speak in complete sentences Objective Labs 11/14/23 05:14 11/14/23 05:14 Labs: Laboratory Results - last 24 hr 11/14/23 05:14 WBC 5.7 RBC 2.80 L Hgb 8.8 L Hct 25.3 L MCV 90.5 MCH 31.5 MCHC 34.8 RDW 15.1 H Plt Count 117 L Neut % (Auto) 80.7 H Lymph % (Auto) 10.6 L [place] % (Auto) 5.4 Eos % (Auto) 3.1 Baso % (Auto) 0.2 Neut # (Auto) 4600 Lymph # (Auto) 600 L [place] # (Auto) 300 Eos # (Auto) 200 Baso # (Auto) 0 Sodium 131 L Potassium 4.6 Chloride 101 Carbon Dioxide 27 BUN 36 H Creatinine 1.50 H Estimated GFR 50 L BUN/Creatinine Ratio 24.0 H Glucose 245 H Calcium 8.7 PFSH Social History household members: none caregiver/support person: Yes (POA daughter Billie in [place]. Another son lives relatively local) housing: assisted living facility Smoking Status: Former smoker Assessment & Plan Post-op Postoperative Procedures: Procedures Operation Date: 11/12/23 17:00 Actual Procedure Side Surgeon p RIGHT HIP CEMENTED HEMIARTHROPLASTY Right Selvin Xie MD Postoperative day: 2 Postoperative status: doing well Postoperative plan: routine post-op care Postoperative plan narrative: Weight-bearing as tolerated, mobilize with physical therapy Baseline anticoagulants for DVT prophylaxis beginning on postop day 2 Multimodal pain management Discharge likely intermediate facility tomorrow [place] dressing to remain in place for 2 weeks Follow up outpatient orthopedic clinic in 2 weeks
[2023-11-14] MEDS: INSULIN GLARGINE 100 UNIT/ML 3ML PEN 15 UNIT SUBCUT ×2 (07:38→22:04)
[2023-11-14] MEDS: INSULIN LISPRO 100 UNIT/ML 3ML VIAL SUBCUT ×4 (07:38→22:06)
[2023-11-14] MEDS: DOCUSATE 100 MG CAPSULE PO ×2 (08:29→21:59)
[2023-11-14 08:30] VITALS: BP 116/62; PULSE 108
[2023-11-14] MEDS: AMLODIPINE 5 MG TABLET 10 MG PO (08:30)
[2023-11-14] MEDS: lisinopriL 10 MG TABLET PO (08:30)
[2023-11-14] MEDS: FLUCONAZOLE 100 MG TABLET 200 MG PO (08:30)
[2023-11-14] MEDS: METOPROLOL IR 25 MG TABLET PO ×2 (08:30→21:59)
[2023-11-14] MEDS: SODIUM CHLORIDE 0.9% FLUSH 10 ML IV ×2 (08:31→22:06)
[2023-11-14] MEDS: TACROLIMUS 0.5 MG CAPSULE 1 MG PO (08:32)
[2023-11-14] MEDS: cephALEXin 250 MG CAPSULE 500 MG PO ×4 (08:33→21:59)
[2023-11-14] MEDS: APIXABAN 5 MG TABLET PO ×2 (08:33→21:59)
[2023-11-14] MEDS: ursodioL 300 MG CAPSULE PO ×2 (08:35→21:59)
[2023-11-14] MEDS: CITALOPRAM 10 MG TABLET 5 MG PO (08:35)
[2023-11-14 09:00] VITALS: BP 119/62; PULSE 108; RESP 16; TEMP 36.3; O2SAT 95
--- NOTE | 2023-11-14 11:20 | CM.DPNOTE ---
LORNA Acuna Reviewed chart. Speaking with Sujatha at [facility] throughout the morning; Patient has a managed MCR plan through [employer] (formerly [employer]). Sujatha initially submitted auth request through [employer] and learned that all post acute admission requests go through [employer] F [phone] P [phone]. Sujatha has kindly agreed to submit a new SNF auth request to [employer] on patient's behalf. Meanwhile, contacted daughter, asked if she would agree to SNF search being broadened, daughter agreeable as long as SNF is within approx a 30-40 mi radius in order for family to visit. No addtl. SNF referrals sent at this time as [facility] attempting one time contract. Unsure if [facility] SNFs will be in contract with this plan; can attempt if [facility] has difficulty obtaining. Level I PASRR completed. CM team following closely for coordination. ANA
--- NOTE | 2023-11-14 11:25 | PT.IPTN ---
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 (11/11/23) Liver transplant status (11/11/23) Presence of unspecified artificial shoulder joint (11/11/23) Surgery Performed Operation Date: 11/12/23 17:00 Actual Procedures p RIGHT HIP CEMENTED HEMIARTHROPLASTY(Right) - Selvin Xie MD Physical Therapy Treatment Note M2 PT-IP Current Condition Start: 11/13/23 11:50 Freq: NEEDED Status: Active Protocol: Document 11/13/23 10:35 AB (Rec: 11/13/23 12:06 AB [id number]) Physical Therapy Current Condition Current Condition Evaluation Date 11/13/23 Treatment Diagnosis R hip fx s/p R hip hemiarthroplasty anterior; difficulty in walking Onset Date 11/11/23 M3 PT-IP Subjective Start: 11/13/23 11:50 Freq: NEEDED Status: Active Protocol: Document 11/14/23 11:52 TS (Rec: 11/14/23 12:02 TS [id number]) Subjective Physical Therapy Visit Type Type Treatment Note Visit Start Time 11:25 Visit Stop Time 11:50 Number of ELECTRON BEAM WELDER Visits 2 Physical Therapy Visit Comments Patient Comments Pt found resting in bed, is agreeable to PT. Therapy Pain Assessment Pain When Pain Assessed During Mobility Pain Present Pain Present Pain Reported M4 PT-IP Mobility and Gait Start: 11/13/23 11:50 Freq: NEEDED Status: Active Protocol: Document 11/14/23 11:52 TS (Rec: 11/14/23 12:02 TS [id number]) PT-Bed Mobility Assessment Supine to Sit Supine to Sit Maximum Assistance,2 Person Assistance,Head of Bed Elevated,Bedrails Scooting Scooting to Edge of Bed Moderate Assistance PT-Transfer Assessment Sit to and From Stand Sit to and from Stand Maximum Assistance,1 Person Assistance Equipment Transfer Assistive Device Gait Belt,Front Wheeled Walker Orthotic/Prosthetic Devices or Brace: No Transfers Transfer Destination Bedside Commode Transfer Technique Stand Step Pivot Transfer Ability Level of Assist Moderate Assistance,1 Person Assistance Comments Mobility Comments Supine to sit MaxA x2 for uprighting trunk. Pt scooted to EOB ModA with Max cues for sequencing. STS from bed ModA x2 with FWW, pt required cues for sequencing, pt has some difficulty following directions. He performed stand step pivot to commode with use of FWW and max cues. Pt required assist with pericare with OT. STS x2 from commode with use of FWW ModAx2. He performed stand step pivot to chair ModA x1 with max cueing. Pt was left in chair, all needs met. Gait Assessment Gait Gait Assistance Required: 1 Person Assist Distance (Feet) 5 Able to Maintain Weight Bearing Status Yes During Gait Assistive Devices Assistive Device Gait Belt,Front Wheeled Walker Orthotic/Prosthetic Devices or Brace: No Gait Deviations General Gait Pattern Decreased Stride Length, Decreased Feet Clearance,Step- to Gait Factors Limiting Gait Function Factors Limiting Gait Function Decreased Activity Tolerance, Decreased Strength,Difficulty Following Directions,Limited Range of Motion,Pain,Poor Balance,Poor Safety Awareness Comments Gait Comments See mobility comments PT-Balance Assessment Sitting Balance and Reactions Static Sitting Balance Ability Good Dynamic Sitting Balance Ability Fair Standing Balance and Reactions Static Standing Balance Ability Fair Dynamic Standing Balance Ability Poor Device Used FWW M5 PT-IP Objective Assessments Start: 11/13/23 11:50 Freq: NEEDED Status: Active Protocol: Document 11/13/23 10:35 AB (Rec: 11/13/23 12:06 AB [id number]) Orientation Orientation/Cognition Level of Alertness Confusional State Orientation Name Safety Awareness Decreased Safety Awareness Memory Description Short Term Impaired,Occ Therapy Asst Impaired Strength Comments Strength Comments pt inconsisted with following directions for MMT: grossly graded: RLE: 3-/5 LLE: 4-/5 Muscle Tone Muscle Tone WNL Yes M6 PT-IP Treatment Start: 11/13/23 11:50 Freq: NEEDED Status: Active Protocol: Document 11/14/23 11:52 TS (Rec: 11/14/23 12:02 TS [id number]) Physical Therapy Treatment Education Education Provided Precautions,Weight Bearing Status,Post-Op Packet,Safety M7 PT-IP Assessment and Plan Start: 11/13/23 11:50 Freq: NEEDED Status: Active Protocol: Document 11/14/23 11:52 TS (Rec: 11/14/23 12:02 TS [id number]) PT Summary Assessment and Plan Potential Rehabilitation Potential Fair Summary Impairments Pain,ROM,Strength,Balance, Coordination,Sensation,Tone, Cognition,Bed Mobility, Transfers,Gait,Activity Tolerance Progress Towards Goals Slow Progress due to Pain,Slow Progress due to Activity Tolerance Assessment Summary Alo continues to make slow progress with his mobility. He is MaxA for bed mobility and requires max cues . He performed STS x3 ModA x2 with use of FWW. He performed stand step pivot transfers to commode and to chair x2 ModA and with max cueing. He has difficulty following directions and requires single step cues. PT is recommending SNF rehab at this time. Goals Bed Mobility Goal Minimal Assistance Transfer Goal Minimal Assistance,Front Wheeled Walker Gait Goal Minimal Assistance,Front Wheel Walker Gait Distance 50 Other Goals improve bed mobility, transfers and ambulation using FWW 100 ft CGA Days to Meet Goals 10 Frequency of Treatment Frequency Of Treatment Twice a Day Treatment Plan Physical Therapy Treatment Plan Bed Mobility Training,Transfer Training,Gait Training, Therapeutic Exercise,Balance Retraining,Post Op Education, Discharge Planning,Hot or Cold Pack,Neuromuscular Re-ed, Coordination Retraining,Manual Therapy Precautions Anterior Hip Precautions No Hip Extension,No Hip External Rotation Weight Bearing Status Weight Bearing Status Weight Bear as Tolerated Allowed Weight Bearing Amount (enter % RLE WBAT or #) (%) Recommendations To Nursing Amount of Assist Needed 2 Person Assist Discharge Recommendations PT Discharge Recommendations SNF Rehab Transportation Needs at Discharge Wheelchair/Cabulance
--- NOTE | 2023-11-14 11:50 | OT.IP.TRT ---
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 (11/11/23) Liver transplant status (11/11/23) Presence of unspecified artificial shoulder joint (11/11/23) Surgery Performed Operation Date: 11/12/23 17:00 Actual Procedures p RIGHT HIP CEMENTED HEMIARTHROPLASTY(Right) - Selvin Xie MD Occupational Therapy Treatment Note M2 OT-IP Current Condition Start: 11/13/23 13:35 Freq: Status: Active Protocol: Document 11/13/23 13:35 [facility] (Rec: 11/13/23 13:49 [facility] [id number]) Occupational Therapy Current Condition Current Condition Evaluation Date 11/13/23 Treatment Diagnosis S/P R LION anterior approach Diagnosis Onset Date 11/12/23 Post Operative Precautions Anterior Hip Precautions No Hip Extension,No Hip External Rotation M3 OT- IP Subjective and Pain Start: 11/13/23 13:35 Freq: Status: Active Protocol: Document 11/14/23 11:58 [facility] (Rec: 11/14/23 12:10 [facility] [id number]) OT- Subjective Occupational Therapy Visit Type Type Treatment Note Visit Start Time 11:20 Visit Stop Time 11:50 Occupational Therapy Visit Comments Patient Comments Pt agreed to get and states having to use the bathroom. Patient/Caregiver Goals To get better. OT Pain Assessment Pain When Pain Assessed At Rest Pain Present Pain Present Pain Reported Location Right Hip Pain Behaviors Facial Grimacing,Holding Area, Moaning M4 OT- IP ADL's Start: 11/13/23 13:35 Freq: Status: Active Protocol: Document 11/14/23 11:58 [facility] (Rec: 11/14/23 12:10 [facility] [id number]) OT [id number] Comments OT Self-Feeding Comments Not at meal time. OT ADL-Grooming Comments OT Grooming Comments Not performed. OT ADL-Oral Care Comments Oral Care Comments Not performed. OT ADL-Dressing General Eval Lower Body Dressing Ability Maximum Assistance Areas Needing Assistance Underpants/Brief OT ADL-Toileting General Evaluation Toileting Ability Maximum Assistance Areas Needing Assistance Manage Clothing,Perform Perineal Hygiene Devices Toileting Assistive Devices Commode Comments OT Toileting Comments Assist for brief management and hygiene needs. OT ADL-Bathing Bathing Type Bathing Type Sponge Bath General Evaluation Bathing Ability Maximal Assistance Areas Needing Assistance Wash/Dry Back,Wash/Dry Perineal Area Comments OT Bathing Comments Pt able to use wash cloth to assist to wash his face, chest, and arms after vc and tactile cues. M5 OT- IP IADL's Start: 11/13/23 13:35 Freq: Status: Active Protocol: Document 11/13/23 13:35 [facility] (Rec: 11/13/23 13:49 [facility] [id number]) OT-Instrumental Activities of Daily Living Home Safety Awareness Awareness of Need for Assistance at Home Decreased Awareness Ability to Problem Solve Emergency Unable to Problem Solve Situations Home Safety Comments Per medical chart pt has dementia. Medication Management Medication Management Caregiver Administers Money Management Money Management Caregiver Provides Assistance Meal Preparation Meal Preparation Caregiver Provides Assist Print Project Manager Print Project Manager Caregiver Provides Assist M6 OT- IP Functional Cognition Start: 11/13/23 13:35 Freq: Status: Active Protocol: Document 11/14/23 11:58 [facility] (Rec: 11/14/23 12:10 [facility] [id number]) Cognitive Factors Limiting Selfcare Function Cognitive Ability Level of Alertness Alert Patient Orientation Name Ability to Follow Commands Able to Follow One Step Commands with Increased Time, Able to Follow One Step Commands with Repetition Memory Description Short Term Impaired,School Guidance Counselor Impaired,Working Impaired Safety Awareness Decreased Recall of Precautions Cognitive Comments Cognitive Assessment Comments Pt needing tactile and verbal cues to follow for FWW safety, hand placement to push on the BSC or bed to come to stand initially. Pt however is cooperative when able to comprehend what is needed of him. M7 OT- IP Mobility and Balance Start: 11/13/23 13:35 Freq: Status: Active Protocol: Document 11/14/23 11:58 [facility] (Rec: 11/14/23 12:10 [facility] [id number]) OT- Bed Mobility Assessment Supine to Sit Supine to Sit Assist Moderate Assistance,2 Person Assistance,Head of Bed Elevated OT-Transfer Assessment Sit to and From Stand Sit to and from Stand Moderate Assistance,2 Person Assistance Transfers Transfer Ability Moderate Assistance,2 Person Assistance Technique Transfer Destination Bed,Chair Transfer Technique Stand Step Pivot Devices Transfer Assistive Devices Gait Belt,Front Wheeled Walker Comments Mobility Comments MODA X2 to get to the edge of the bed. Assist for RLE and to get his trunk upright. Pt RLE appears to naturally lie in slight external rotation while in supine. Educated nursing staff to place a folded towel to keep his RLE from rolling out. MODA X 2 to stand and assist for balance and to help guide the FWW. Pt needing to heavily use his arms on the FWW so able to more his RLE. OT- Balance Assessment Sitting Balance and Reactions Static Sitting Balance Ability Good Dynamic Sitting Balance Ability Fair Standing Balance and Reactions Static Standing Balance Ability Poor Dynamic Standing Balance Ability Poor M8 OT- IP Objective Assessments Start: 11/13/23 13:35 Freq: Status: Active Protocol: Document 11/13/23 13:35 [facility] (Rec: 11/13/23 13:49 [facility] [id number]) OT Gross Range of Motion Upper Extremity Range of Motion Assessment Within Functional Limits OT Strength Upper Extremity Strength Assessment Within Functional Limits M9 OT- IP Assessment and Plan Start: 11/13/23 13:35 Freq: Status: Active Protocol: Document 11/14/23 11:58 [facility] (Rec: 11/14/23 12:10 [facility] [id number]) OT Summary Assessment and Plan Potential Rehabilitation Potential Good Analytic Complexity at Evaluation Moderate Summary OT Impairments Pain,Strength,Balance, Functional Cognition, Functional Mobility,Self- Feeding,Grooming,Dressing, Toileting,Bathing,Toilet Transfers,Shower Transfers, Activity Tolerance Progress Towards Goals Progressing Toward Goals,Slow Progress due to Pain,Slow Progress due to Cognition Assessment Summary [place] X [place] [facility] [place] able to participate in sponge bathing while on the BSC. Pt still needing lots of verbal, tactile and at times hand over hand assist for safety awareness during transitions, mobility and FWW use. Pt will benefit from skilled rehab. Goals Grooming Goal Standby Assistance Dressing Goal Moderate Assistance Toileting Goal Moderate Assistance Bathing Goal Moderate Assistance Toilet Transfer Goal Contact Guard Assistance Shower Transfer Goal Minimal Assistance Days to Meet Goals 19 Frequency of Treatment Frequency Of Treatment Once a Day Treatment Plan OT Treatment Plan ADL Training,Functional Mobility,Patient/Family Education,Discharge Planning Other Treatment Recommendations and Next [place] [facility] [place] 1 Treatment Focus Discharge Recommendations OT Discharge Recommendations SNF Rehab Transportation Needs at Discharge Wheelchair/Cabulance
[2023-11-14] MEDS: CALCIUM CARBONATE 500 MG TAB PO ×2 (11:57→21:58)
--- NOTE | 2023-11-14 13:29 | PM.PN.1 ---
Subjective Subjective Interval history: Patient accidentally pulled ferro out. He also keeps picking at dressings. Plan for SNF tomorrow. Exam Vital Signs (past 8 hours): - 11/14/23 08:30 11/14/23 09:00 Temperature 97.3 F L Pulse Rate 108 H 108 H Respiratory Rate 16 Blood Pressure 116/62 119/62 Pulse Oximetry 95 Oxygen Delivery Method Nasal Cannula Oxygen Flow Rate 0 Narrative Exam Narrative: NAD, demented, A/Ox2 Normocephalic skull, EOMI, anicteric sclera, symmetric pupils. Oropharynx unremarkable, no droop. Neck supple, midline trachea, no adenopathy. Lungs clear, normal rate and effort. Heart regular, no murmur gallop or rub. Abdomen is soft, distended, and non tender. Extremities are free of edema. Skin is free of rash or lesions. Joints are not swollen or deformed. Judgment appears to be abnormal. Right hip with post-op dressing. Objective Labs 11/14/23 05:14 11/14/23 05:14 Labs: Laboratory Results - last 24 hr 11/14/23 05:14 WBC 5.7 RBC 2.80 L Hgb 8.8 L Hct 25.3 L MCV 90.5 MCH 31.5 MCHC 34.8 RDW 15.1 H Plt Count 117 L Neut % (Auto) 80.7 H Lymph % (Auto) 10.6 L [place] % (Auto) 5.4 Eos % (Auto) 3.1 Baso % (Auto) 0.2 Neut # (Auto) 4600 Lymph # (Auto) 600 L [place] # (Auto) 300 Eos # (Auto) 200 Baso # (Auto) 0 Sodium 131 L Potassium 4.6 Chloride 101 Carbon Dioxide 27 BUN 36 H Creatinine 1.50 H Estimated GFR 50 L BUN/Creatinine Ratio 24.0 H Glucose 245 H Calcium 8.7 PFSH Social History household members: none caregiver/support person: Yes (POA daughter Billie in [place]. Another son lives relatively local) housing: assisted living facility Smoking Status: Former smoker Assessment & Plan Assessment & Plan narrative: Acute medical problems: 1. Right femoral neck fracture s/p ORIF on 11/11, present on admission and active Chronic medical problems, all present on admission and stable: 1. Hypertension 2. Dementia 3. DM 2 receiving insulin 4. Hypothyroidism 5. Liver transplant on chronic tacrolimus 6. Atrial fibrillation on chronic anticoagulation Past surgical history: 1. Liver transplant PLAN: -restarted eliquis postop -change duricef to keflex while inpatient as not on formulary -KIARA dressing in place -PT/OT rec SNF Dispo: SNF on 11/14. Proxy decision maker is daughter Josh Fuentes who is POA. Time Spent With Patient Time with patient: 30 to 49 minutes with 50% spent counseling/coordinating care
--- NOTE | 2023-11-14 14:14 | PT.IPTN ---
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 (11/11/23) Liver transplant status (11/11/23) Presence of unspecified artificial shoulder joint (11/11/23) Surgery Performed Operation Date: 11/12/23 17:00 Actual Procedures p RIGHT HIP CEMENTED HEMIARTHROPLASTY(Right) - Selvin Xie MD Physical Therapy Treatment Note M2 PT-IP Current Condition Start: 11/13/23 11:50 Freq: NEEDED Status: Active Protocol: Document 11/13/23 10:35 AB (Rec: 11/13/23 12:06 AB [id number]) Physical Therapy Current Condition Current Condition Evaluation Date 11/13/23 Treatment Diagnosis R hip fx s/p R hip hemiarthroplasty anterior; difficulty in walking Onset Date 11/11/23 M3 PT-IP Subjective Start: 11/13/23 11:50 Freq: NEEDED Status: Active Protocol: Document 11/14/23 14:47 TS (Rec: 11/14/23 15:02 TS [id number]) Subjective Physical Therapy Visit Type Type Treatment Note Visit Start Time 14:14 Visit Stop Time 14:40 Number of RN MEDICATION Visits 3 Physical Therapy Visit Comments Patient Comments Pt found resting in chair asleep, pt has some confusion, he is agreeable to PT. Therapy Pain Assessment Pain When Pain Assessed During Mobility Pain Present Pain Present Pain Reported M4 PT-IP Mobility and Gait Start: 11/13/23 11:50 Freq: NEEDED Status: Active Protocol: Document 11/14/23 14:47 TS (Rec: 11/14/23 15:02 TS [id number]) PT-Transfer Assessment Sit to and From Stand Sit to and from Stand Maximum Assistance,1 Person Assistance Equipment Transfer Assistive Device Gait Belt,Front Wheeled Walker Orthotic/Prosthetic Devices or Brace: No Comments Mobility Comments Pt required increased time and max cues for scooting in chair. He performed STS MaxA with FWW, pt requires tactile cues for holding onto FWW and placement onto FWW. Pt ambulated ~5'[place]iedad with FWW, pt has some buckling of RLE, required to sit back in chair. Attempted to have pt perform LE ex, pt cannot follow instructions. Pt was left in chair, all needs met. Gait Assessment Gait Gait Assistance Required: Minimum Assistance,1 Person Assist Distance (Feet) 5 Able to Maintain Weight Bearing Status Yes During Gait Assistive Devices Assistive Device Gait Belt,Front Wheeled Walker Orthotic/Prosthetic Devices or Brace: No Gait Deviations General Gait Pattern Decreased Stride Length, Decreased Feet Clearance,Step- to Gait Factors Limiting Gait Function Factors Limiting Gait Function Decreased Activity Tolerance, Decreased Strength,Difficulty Following Directions,Limited Range of Motion,Pain,Poor Balance,Poor Safety Awareness Comments Gait Comments See mobility comments PT-Balance Assessment Sitting Balance and Reactions Static Sitting Balance Ability Good Dynamic Sitting Balance Ability Fair Standing Balance and Reactions Static Standing Balance Ability Fair Dynamic Standing Balance Ability Poor Device Used FWW M5 PT-IP Objective Assessments Start: 11/13/23 11:50 Freq: NEEDED Status: Active Protocol: Document 11/13/23 10:35 AB (Rec: 11/13/23 12:06 AB [id number]) Orientation Orientation/Cognition Level of Alertness Confusional State Orientation Name Safety Awareness Decreased Safety Awareness Memory Description Short Term Impaired,Detention Impaired Strength Comments Strength Comments pt inconsisted with following directions for MMT: grossly graded: RLE: 3-/5 LLE: 4-/5 Muscle Tone Muscle Tone WNL Yes M6 PT-IP Treatment Start: 11/13/23 11:50 Freq: NEEDED Status: Active Protocol: Document 11/14/23 14:47 TS (Rec: 11/14/23 15:02 [id number]) Physical Therapy Treatment Education Education Provided Precautions,Weight Bearing Status,Post-Op Packet,Safety M7 PT-IP Assessment and Plan Start: 11/13/23 11:50 Freq: NEEDED Status: Active Protocol: Document 11/14/23 14:47 TS (Rec: 11/14/23 15:02 TS [id number]) PT Summary Assessment and Plan Potential Rehabilitation Potential Fair Summary Impairments Pain,ROM,Strength,Balance, Coordination,Sensation,Tone, Cognition,Bed Mobility, Transfers,Gait,Activity Tolerance Progress Towards Goals Slow Progress due to Pain,Slow Progress due to Activity Tolerance Assessment Summary Alo continues to make slow progress with his mobility. He continues to require MaxA to stand with FWW . He continues to ambulate very short distances in room. During gait his RLE tends to buckle. PT continues to recommend SNF rehab at this time. Goals Bed Mobility Goal Minimal Assistance Transfer Goal Minimal Assistance,Front Wheeled Walker Gait Goal Minimal Assistance,Front Wheel Walker Gait Distance 50 Other Goals improve bed mobility, transfers and ambulation using FWW 100 ft CGA Days to Meet Goals 10 Frequency of Treatment Frequency Of Treatment Twice a Day Treatment Plan Physical Therapy Treatment Plan Bed Mobility Training,Transfer Training,Gait Training, Therapeutic Exercise,Balance Retraining,Post Op Education, Discharge Planning,Hot or Cold Pack,Neuromuscular Re-ed, Coordination Retraining,Manual Therapy Precautions Anterior Hip Precautions No Hip Extension,No Hip External Rotation Weight Bearing Status Weight Bearing Status Weight Bear as Tolerated Allowed Weight Bearing Amount (enter % RLE WBAT or #) (%) Recommendations To Nursing Amount of Assist Needed 2 Person Assist Discharge Recommendations PT Discharge Recommendations SNF Rehab Transportation Needs at Discharge Wheelchair/Cabulance
[2023-11-14 17:00] VITALS: BP 140/75; PULSE 98; RESP 16; TEMP 36.7; O2SAT 96
[2023-11-14] MEDS: ATORVASTATIN 20 MG TABLET 40 MG PO (17:24)
[2023-11-14 19:00] VITALS: BP 115/61; PULSE 93; RESP 18; TEMP 36.9; O2SAT 92
[2023-11-15] MEDS: LEVOTHYROXINE 50 MCG TABLET 150 MCG PO (06:23)
[2023-11-15 08:00] VITALS: BP 115/67; PULSE 90; TEMP 37.2; O2SAT 93
--- NOTE | 2023-11-15 08:08 | PC.NURSE ---
Assess- Patient is alert and oriented x2, Hiram dressing wnl and motor flashing green. PPx2 and patient is resting comfortably and eating breakfast.
[2023-11-15] MEDS: INSULIN LISPRO 100 UNIT/ML 3ML VIAL SUBCUT ×3 (08:23→17:24)
[2023-11-15] MEDS: CITALOPRAM 10 MG TABLET 5 MG PO (08:26)
[2023-11-15] MEDS: APIXABAN 5 MG TABLET PO ×2 (08:26→21:00)
[2023-11-15] MEDS: CALCIUM CARBONATE 500 MG TAB PO ×2 (08:26→21:00)
[2023-11-15] MEDS: INSULIN GLARGINE 100 UNIT/ML 3ML PEN 15 UNIT SUBCUT (08:26)
[2023-11-15] MEDS: AMLODIPINE 5 MG TABLET 10 MG PO (08:26)
[2023-11-15] MEDS: ursodioL 300 MG CAPSULE PO ×2 (08:26→21:00)
[2023-11-15] MEDS: FLUCONAZOLE 100 MG TABLET 200 MG PO (08:27)
[2023-11-15] MEDS: TACROLIMUS 0.5 MG CAPSULE 1 MG PO (08:27)
[2023-11-15] MEDS: lisinopriL 10 MG TABLET PO (08:27)
[2023-11-15] MEDS: METOPROLOL IR 25 MG TABLET PO ×2 (08:27→21:00)
[2023-11-15] MEDS: DOCUSATE 100 MG CAPSULE PO ×2 (08:27→21:00)
[2023-11-15] MEDS: cephALEXin 250 MG CAPSULE 500 MG PO ×4 (08:27→21:00)
--- NOTE | 2023-11-15 10:20 | PT.IPTN ---
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) Liver transplant status (11/11/23) Presence of unspecified artificial shoulder joint (11/11/23) Surgery Performed Operation Date: 11/12/23 17:00 Actual Procedures p RIGHT HIP CEMENTED HEMIARTHROPLASTY(Right) - Selvin Xie MD Physical Therapy Treatment Note M2 PT-IP Current Condition Start: 11/13/23 11:50 Freq: NEEDED Status: Active Protocol: Document 11/13/23 10:35 AB (Rec: 11/13/23 12:06 AB [id number]) Physical Therapy Current Condition Current Condition Evaluation Date 11/13/23 Treatment Diagnosis R hip fx s/p R hip hemiarthroplasty anterior; difficulty in walking Onset Date 11/11/23 M3 PT-IP Subjective Start: 11/13/23 11:50 Freq: NEEDED Status: Active Protocol: Document 11/15/23 10:49 TS (Rec: 11/15/23 11:05 TS [id number]) Subjective Physical Therapy Visit Type Type Treatment Note Visit Start Time 10:20 Visit Stop Time 10:48 Number of BOILER WASHER Visits 4 Physical Therapy Visit Comments Patient Comments Pt found resting in bed, is agreeable to PT. Therapy Pain Assessment Pain When Pain Assessed During Mobility Pain Present Pain Present Pain Reported M4 PT-IP Mobility and Gait Start: 11/13/23 11:50 Freq: NEEDED Status: Active Protocol: Document 11/15/23 10:49 TS (Rec: 11/15/23 11:05 TS [id number]) PT-Bed Mobility Assessment Supine to Sit Supine to Sit Maximum Assistance,1 Person Assistance,Head of Bed Elevated,Bedrails Scooting Scooting to Edge of Bed Maximum Assistance PT-Transfer Assessment Sit to and From Stand Sit to and from Stand Maximum Assistance,1 Person Assistance Equipment Transfer Assistive Device Gait Belt,Front Wheeled Walker Orthotic/Prosthetic Devices or Brace: No Transfers Transfer Destination Chair Transfer Technique Squat Pivot Transfer Ability Level of Assist Maximum Assistance,1 Person Assistance Comments Mobility Comments Supine to sit MaxA for uprighting trunk, pt requires cues for handrail assist. He scooted to EOB with MaxA with use of transfer pad. He performed STS x2 with FWW MaxA with max cues for sequencing. Pt attempted stand pivot to chair with FWW, pt did not complete transfer. He performed squat pivot to chair MaxA with max cues for sequencing. He becomes easily distracted with mobility and requires cues to stay on task. Pt was left in chair, all needs met. PT-Balance Assessment Sitting Balance and Reactions Static Sitting Balance Ability Good Dynamic Sitting Balance Ability Fair Standing Balance and Reactions Static Standing Balance Ability Fair Dynamic Standing Balance Ability Poor Device Used FWW M5 PT-IP Objective Assessments Start: 11/13/23 11:50 Freq: NEEDED Status: Active Protocol: Document 11/13/23 10:35 AB (Rec: 11/13/23 12:06 AB [id number]) Orientation Orientation/Cognition Level of Alertness Confusional State Orientation Name Safety Awareness Decreased Safety Awareness Memory Description Short Term Impaired,Residential Impaired Strength Comments Strength Comments pt inconsisted with following directions for MMT: grossly graded: RLE: 3-/5 LLE: 4-/5 Muscle Tone Muscle Tone WNL Yes M6 PT-IP Treatment Start: 11/13/23 11:50 Freq: NEEDED Status: Active Protocol: Document 11/15/23 10:49 TS (Rec: 11/15/23 11:05 TS [id number]) Physical Therapy Treatment Education Education Provided Precautions,Weight Bearing Status,Post-Op Packet,Safety M7 PT-IP Assessment and Plan Start: 11/13/23 11:50 Freq: NEEDED Status: Active Protocol: Document 11/15/23 10:49 TS (Rec: 11/15/23 11:05 [id number]) PT Summary Assessment and Plan Potential Rehabilitation Potential Fair Summary Impairments Pain,ROM,Strength,Balance, Coordination,Sensation,Tone, Cognition,Bed Mobility, Transfers,Gait,Activity Tolerance Progress Towards Goals Slow Progress due to Pain,Slow Progress due to Activity Tolerance Assessment Summary Alo continues to make slow progress with his mobility. He continues to be MaxA for bed mobility and with max cues. He did not progress to gait today due to pain and weakness. He performed squat pivot to chair MaxA. He becomes easily distracted and requires cues to stay on task. PT is recommending SNF rehab at this time. Goals Bed Mobility Goal Minimal Assistance Transfer Goal Minimal Assistance,Front Wheeled Walker Gait Goal Minimal Assistance,Front Wheel Walker Gait Distance 50 Other Goals improve bed mobility, transfers and ambulation using FWW 100 ft CGA Days to Meet Goals 10 Frequency of Treatment Frequency Of Treatment Twice a Day Treatment Plan Physical Therapy Treatment Plan Bed Mobility Training,Transfer Training,Gait Training, Therapeutic Exercise,Balance Retraining,Post Op Education, Discharge Planning,Hot or Cold Pack,Neuromuscular Re-ed, Coordination Retraining,Manual Therapy Precautions Anterior Hip Precautions No Hip Extension,No Hip External Rotation Weight Bearing Status Weight Bearing Status Weight Bear as Tolerated Allowed Weight Bearing Amount (enter % RLE WBAT or #) (%) Recommendations To Nursing Amount of Assist Needed 2 Person Assist Discharge Recommendations PT Discharge Recommendations SNF Rehab Transportation Needs at Discharge Wheelchair/Cabulance
--- NOTE | 2023-11-15 11:58 | DIET.CONS2 ---
Dietary Inpatient Consultation Note Admission Date: 11/11/2023 06:10 68 y M admitted following GLF resulting in fractured hip. PMH of dementia. Nutrition screened for LOS. Chart reviewed. BG have been elevated 240s-280s 6/5-this morning. Addressed by pharmacist and hospitalist in rounds. No nutrition intervention needed at this time. Will continuing monitoring BG, po intakes, and weight. Diet: 11/12/23 Breakfast Carbohydrate Consistent Diet Diet Modifications: Carbohydrate level: Medium (3 CHO) Reflex DM orders: Yes Nutrition Percent Meal Consumed 100% 11/14/23 17:00 Percent Meal Consumed 100% 11/13/23 18:00 Percent Meal Consumed 100% 11/13/23 13:30 Electronically Signed by: Nicki Quintanilla 11/15/23 11:58 Clinical Dietitian [address] [id number]
--- NOTE | 2023-11-15 12:37 | CM.DPNOTE ---
Addendum entered by MUKUL Hernandez 11/15/23 16:08: ADD: Need hospital exempt PASRR completed and signed by provider. Patient on Celexa, antidepressant. Addendum entered by MUKUL Hernandez 11/15/23 16:00: ADD: Verónica reports to Sujatha burns [facility] that [facility] is out of network and will not approve them unless 3-5 other in network facilities decline. If denials come in they need to be faxed with face sheet to Stacie Cole [phone]. Sujatha suggests trying the [facility] as they are likely to be in contract. Emailed referral with clinical packet and insurance information gleaned by Sujatha burns [facility] to [email or web address]/[email or web address] at [email or web address] Plan: SNF; therapy recommendation continues to be SNF. Patient cannot return to [facility] at this time. Need an accepting SNF and insurance auth through [employer] (who contract with Joseluis/Verónica for SNF auth requests) Original Note: DCP Cont Update from Sujatha burns [facility]; Sujatha spoke with insurance SNF auth management group melissa Quinones now pending review. If approved, Sujatha will receive a call from Verónica and will discuss a one time contract. Following closely for updates. Patient is medically stable for discharge to SNF. [facility] unable to accommodate patient at this time. Therapies recommending SNF. [facility]
--- NOTE | 2023-11-15 13:16 | P.PN_ITS ---
Subjective Subjective Interval history: 68 M admitted with hip fracture, awaiting SNF authorization and placement. Has R leg pain today, but does not recall he had surgery. Exam Vital Signs (past 8 hours): - 11/15/23 08:00 Temperature 98.9 F Pulse Rate 90 Blood Pressure 115/67 Pulse Oximetry 93 Oxygen Flow Rate 0 Oxygen Delivery Method Nasal Cannula Oxygen Flow Rate 0 Narrative Exam Narrative: NAD, demented, A/Ox2 Normocephalic skull, EOMI, anicteric sclera, symmetric pupils. Oropharynx unremarkable, no droop. Neck supple, midline trachea, no adenopathy. Lungs clear, normal rate and effort. Heart regular, no murmur gallop or rub. Abdomen is soft, distended, and non tender. Extremities are free of edema. Skin is free of rash or lesions. Joints are not swollen or deformed. Judgment appears to be abnormal. Right hip with post-op dressing. Objective Labs 11/14/23 05:14 11/14/23 05:14 [facility] Social History household members: none caregiver/support person: Yes (POA daughter Billie in [place]. Another son lives relatively local) housing: assisted living facility Smoking Status: Former smoker Assessment & Plan Assessment & Plan narrative: Acute medical problems: 1. Right femoral neck fracture s/p ORIF on 11/11, present on admission and active Chronic medical problems, all present on admission and stable: 1. Hypertension 2. Dementia 3. DM 2 receiving insulin 4. Hypothyroidism 5. Liver transplant on chronic tacrolimus 6. Atrial fibrillation on chronic anticoagulation Past surgical history: 1. Liver transplant PLAN: -restarted eliquis, will continue today. -change duricef to keflex while inpatient as not on formulary -KIARA dressing in place -PT/OT rec SNF, continue PT/OT while awaiting placement. Dispo: SNF pending insurance approval and ability to find facility. Proxy decision maker is daughter Josh Fuentes who is POA.
[2023-11-15] MEDS: OXYCODONE IR 5 MG TABLET PO ×3 (13:18→22:15)
--- NOTE | 2023-11-15 14:00 | OT.IP.TRT ---
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/23) Liver transplant status (11/11/23) Presence of unspecified artificial shoulder joint (11/11/23) Surgery Performed Operation Date: 11/12/23 17:00 Actual Procedures p RIGHT HIP CEMENTED HEMIARTHROPLASTY(Right) - Selvin Xie MD Occupational Therapy Treatment Note M2 OT-IP Current Condition Start: 11/13/23 13:35 Freq: Status: Active Protocol: Document 11/13/23 13:35 [facility] (Rec: 11/13/23 13:49 [facility] [id number]) Occupational Therapy Current Condition Current Condition Evaluation Date 11/13/23 Treatment Diagnosis S/P R LION anterior approach Diagnosis Onset Date 11/12/23 Post Operative Precautions Anterior Hip Precautions No Hip Extension,No Hip External Rotation M3 OT- IP Subjective and Pain Start: 11/13/23 13:35 Freq: Status: Active Protocol: Document 11/15/23 14:01 [facility] (Rec: 11/15/23 14:07 [facility] [id number]) OT- Subjective Occupational Therapy Visit Type Type Treatment Note Visit Start Time 13:45 Visit Stop Time 14:00 Occupational Therapy Visit Comments Patient Comments Pt wanting to go back to bed. Patient/Caregiver Goals To get better. OT Pain Assessment Pain When Pain Assessed At Rest Pain Present Pain Present Pain Reported Location Right Hip Pain Behaviors Facial Grimacing,Guarding, Holding Area,Moaning M4 OT- IP ADL's Start: 11/13/23 13:35 Freq: Status: Active Protocol: Document 11/15/23 14:01 [facility] (Rec: 11/15/23 14:07 [facility] [id number]) OT ADL-Toileting General Evaluation Toileting Ability Maximum Assistance,Total Assistance Comments OT Toileting Comments Brief management while in bed, pt able to assist to roll but still needing extensive assist. OT ADL-Bathing Comments OT Bathing Comments Sponge bath more appropriate. M5 OT- IP IADL's Start: 11/13/23 13:35 Freq: Status: Active Protocol: Document 11/13/23 13:35 [facility] (Rec: 11/13/23 13:49 [facility] [id number]) OT-Instrumental Activities of Daily Living Home Safety Awareness Awareness of Need for Assistance at Home Decreased Awareness Ability to Problem Solve Emergency Unable to Problem Solve Situations Home Safety Comments Per medical chart pt has dementia. Medication Management Medication Management Caregiver Administers Money Management Money Management Caregiver Provides Assistance Meal Preparation Meal Preparation Caregiver Provides Assist Seismograph Observer Seismograph Observer Caregiver Provides Assist M6 OT- IP Functional Cognition Start: 11/13/23 13:35 Freq: Status: Active Protocol: Document 11/15/23 14:01 [facility] (Rec: 11/15/23 14:07 [facility] [id number]) Cognitive Factors Limiting Selfcare Function Cognitive Ability Level of Alertness Alert Patient Orientation Name Ability to Follow Commands Able to Follow One Step Commands with Increased Time, Able to Follow One Step Commands with Repetition Memory Description Short Term Impaired,Electrocardiogram Technician Impaired,Working Impaired Safety Awareness Decreased Recall of Precautions Cognitive Comments Cognitive Assessment Comments Pt needing concrete, visual, and tactile cues to follow for transfer and brief change while in the bed. M7 OT- IP Mobility and Balance Start: 11/13/23 13:35 Freq: Status: Active Protocol: Document 11/15/23 14:01 [facility] (Rec: 11/15/23 14:07 [facility] [id number]) OT-Transfer Assessment Sit to and From Stand Sit to and from Stand Moderate Assistance,2 Person Assistance Transfers Transfer Ability Maximum Assistance,2 Person Assistance Technique Transfer Destination Bed,Chair Transfer Technique Stand Step Pivot Devices Transfer Assistive Devices Gait Belt,Front Wheeled Walker Comments Mobility Comments MODA X2 to stand form the recliner MAX AX 2 to transfer back to bed. Assist for balance, guiding the FWW, and for safety cues. OT- Balance Assessment Sitting Balance and Reactions Static Sitting Balance Ability Good Dynamic Sitting Balance Ability Fair Standing Balance and Reactions Static Standing Balance Ability Poor Dynamic Standing Balance Ability Poor M8 OT- IP Objective Assessments Start: 11/13/23 13:35 Freq: Status: Active Protocol: Document 11/13/23 13:35 [facility] (Rec: 11/13/23 13:49 [facility] [id number]) OT Gross Range of Motion Upper Extremity Range of Motion Assessment Within Functional Limits OT Strength Upper Extremity Strength Assessment Within Functional Limits M9 OT- IP Assessment and Plan Start: 11/13/23 13:35 Freq: Status: Active Protocol: Document 11/15/23 14:01 [facility] (Rec: 11/15/23 14:07 [facility] [id number]) OT Summary Assessment and Plan Potential Rehabilitation Potential Fair+ Analytic Complexity at Evaluation Moderate Summary Progress Towards Goals Progressing Toward Goals,Slow Progress due to Pain,Slow Progress due to Cognition Assessment Summary Pt seemingly having more pain with right hip. Pt able to transfer back to bed with MAX AX 2. Pt will benefit from skilled rehab versus increased assist at his facility and home health. Goals Grooming Goal Standby Assistance Dressing Goal Moderate Assistance Toileting Goal Moderate Assistance Bathing Goal Moderate Assistance Toilet Transfer Goal Contact Guard Assistance Shower Transfer Goal Minimal Assistance Days to Meet Goals 19 Frequency of Treatment Frequency Of Treatment Once a Day Treatment Plan OT Treatment Plan ADL Training,Functional Mobility,Patient/Family Education,Discharge Planning Other Treatment Recommendations and Next Transfer to [facility] with MAX AX 1 Treatment Focus Discharge Recommendations OT Discharge Recommendations SNF Rehab Transportation Needs at Discharge Wheelchair/Cabulance
--- NOTE | 2023-11-15 14:12 | PT.IPTN ---
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 (11/11/23) Liver transplant status (11/11/23) Presence of unspecified artificial shoulder joint (11/11/23) Surgery Performed Operation Date: 11/12/23 17:00 Actual Procedures p RIGHT HIP CEMENTED HEMIARTHROPLASTY(Right) - Selvin Xie MD Physical Therapy Treatment Note M2 PT-IP Current Condition Start: 11/13/23 11:50 Freq: NEEDED Status: Active Protocol: Document 11/13/23 10:35 AB (Rec: 11/13/23 12:06 AB [id number]) Physical Therapy Current Condition Current Condition Evaluation Date 11/13/23 Treatment Diagnosis R hip fx s/p R hip hemiarthroplasty anterior; difficulty in walking Onset Date 11/11/23 M3 PT-IP Subjective Start: 11/13/23 11:50 Freq: NEEDED Status: Active Protocol: Document 11/15/23 14:23 TS (Rec: 11/15/23 14:33 TS [id number]) Subjective Physical Therapy Visit Type Type Treatment Note Visit Start Time 14:12 Visit Stop Time 14:22 Number of BUSINESS INTEGRATION ANALYST Visits 5 Physical Therapy Visit Comments Patient Comments Pt resting in bed, just got back to bed with OT, pt is agreeable to ex. Therapy Pain Assessment Pain When Pain Assessed During Mobility Pain Present Pain Present Pain Reported M4 PT-IP Mobility and Gait Start: 11/13/23 11:50 Freq: NEEDED Status: Active Protocol: Document 11/15/23 10:49 TS (Rec: 11/15/23 11:05 TS [id number]) PT-Bed Mobility Assessment Supine to Sit Supine to Sit Maximum Assistance,1 Person Assistance,Head of Bed Elevated,Bedrails Scooting Scooting to Edge of Bed Maximum Assistance PT-Transfer Assessment Sit to and From Stand Sit to and from Stand Maximum Assistance,1 Person Assistance Equipment Transfer Assistive Device Gait Belt,Front Wheeled Walker Orthotic/Prosthetic Devices or Brace: No Transfers Transfer Destination Chair Transfer Technique Squat Pivot Transfer Ability Level of Assist Maximum Assistance,1 Person Assistance Comments Mobility Comments Supine to sit MaxA for uprighting trunk, pt requires cues for handrail assist. He scooted to EOB with MaxA with use of transfer pad. He performed STS x2 with FWW MaxA with max cues for sequencing. Pt attempted stand pivot to chair with FWW, pt did not complete transfer. He performed squat pivot to chair MaxA with max cues for sequencing. He becomes easily distracted with mobility and requires cues to stay on task. Pt was left in chair, all needs met. PT-Balance Assessment Sitting Balance and Reactions Static Sitting Balance Ability Good Dynamic Sitting Balance Ability Fair Standing Balance and Reactions Static Standing Balance Ability Fair Dynamic Standing Balance Ability Poor Device Used FWW M5 PT-IP Objective Assessments Start: 11/13/23 11:50 Freq: NEEDED Status: Active Protocol: Document 11/13/23 10:35 AB (Rec: 11/13/23 12:06 AB [id number]) Orientation Orientation/Cognition Level of Alertness Confusional State Orientation Name Safety Awareness Decreased Safety Awareness Memory Description Short Term Impaired,Shelter Impaired Strength Comments Strength Comments pt inconsisted with following directions for MMT: grossly graded: RLE: 3-/5 LLE: 4-/5 Muscle Tone Muscle Tone WNL Yes M6 PT-IP Treatment Start: 11/13/23 11:50 Freq: NEEDED Status: Active Protocol: Document 11/15/23 14:23 TS (Rec: 11/15/23 14:33 TS [id number]) Physical Therapy Treatment Exercises Exercises Ankle Pumps,Quad Sets,Heel Slides Education Education Provided Precautions,Weight Bearing Status,Post-Op Packet,Safety Other Treatments Other Treatment Performed Pt performed B ankle pumps, quad sets and heel slides. He has difficulty following directions due to confusion. M7 PT-IP Assessment and Plan Start: 11/13/23 11:50 Freq: NEEDED Status: Active Protocol: Document 11/15/23 14:23 TS (Rec: 11/15/23 14:33 [id number]) PT Summary Assessment and Plan Potential Rehabilitation Potential Fair Summary Impairments Pain,ROM,Strength,Balance, Coordination,Sensation,Tone, Cognition,Bed Mobility, Transfers,Gait,Activity Tolerance Progress Towards Goals Slow Progress due to Pain,Slow Progress due to Activity Tolerance Assessment Summary Alo continues to make slow progress with his mobility. He performed ther-ex of heel slides, quad sets and ankle pumps. Pt requires single step instructions to perform ther-ex, he can follow cues most of the time. PT continues to recommend SNF. Goals Bed Mobility Goal Minimal Assistance Transfer Goal Minimal Assistance,Front Wheeled Walker Gait Goal Minimal Assistance,Front Wheel Walker Gait Distance 50 Other Goals improve bed mobility, transfers and ambulation using FWW 100 ft CGA Days to Meet Goals 10 Frequency of Treatment Frequency Of Treatment Twice a Day Treatment Plan Physical Therapy Treatment Plan Bed Mobility Training,Transfer Training,Gait Training, Therapeutic Exercise,Balance Retraining,Post Op Education, Discharge Planning,Hot or Cold Pack,Neuromuscular Re-ed, Coordination Retraining,Manual Therapy Precautions Anterior Hip Precautions No Hip Extension,No Hip External Rotation Weight Bearing Status Weight Bearing Status Weight Bear as Tolerated Allowed Weight Bearing Amount (enter % RLE WBAT or #) (%) Recommendations To Nursing Amount of Assist Needed 2 Person Assist Discharge Recommendations PT Discharge Recommendations SNF Rehab Transportation Needs at Discharge Wheelchair/Cabulance
[2023-11-15] MEDS: ATORVASTATIN 20 MG TABLET 40 MG PO (17:22)
[2023-11-15] MEDS: SODIUM CHLORIDE 0.9% FLUSH 10 ML IV (21:00)
[2023-11-15] MEDS: INSULIN GLARGINE 100 UNIT/ML 3ML PEN 20 UNIT SUBCUT (21:00)
[2023-11-15] MEDS: CYCLOBENZAPRINE 10 MG TABLET PO (22:15)
[2023-11-16] MEDS: CYCLOBENZAPRINE 10 MG TABLET PO (02:15)
[2023-11-16] MEDS: INSULIN LISPRO 100 UNIT/ML 3ML VIAL SUBCUT ×5 (08:00→21:23)
[2023-11-16] MEDS: INSULIN GLARGINE 100 UNIT/ML 3ML PEN 20 UNIT SUBCUT ×2 (09:00→21:23)
[2023-11-16] MEDS: lisinopriL 10 MG TABLET PO (10:00)
[2023-11-16] MEDS: CITALOPRAM 10 MG TABLET 5 MG PO (10:00)
[2023-11-16] MEDS: ursodioL 300 MG CAPSULE PO ×2 (10:00→21:17)
[2023-11-16] MEDS: METOPROLOL IR 25 MG TABLET PO ×2 (10:00→21:17)
[2023-11-16] MEDS: AMLODIPINE 5 MG TABLET 10 MG PO (10:00)
[2023-11-16] MEDS: cephALEXin 250 MG CAPSULE 500 MG PO ×4 (10:00→21:17)
[2023-11-16] MEDS: FLUCONAZOLE 100 MG TABLET 200 MG PO (10:00)
[2023-11-16] MEDS: SODIUM CHLORIDE 0.9% FLUSH 10 ML IV (10:00)
[2023-11-16] MEDS: DOCUSATE 100 MG CAPSULE PO ×2 (10:00→21:17)
[2023-11-16] MEDS: CALCIUM CARBONATE 500 MG TAB PO ×2 (10:00→21:17)
[2023-11-16] MEDS: TACROLIMUS 0.5 MG CAPSULE 1 MG PO (10:00)
[2023-11-16] MEDS: APIXABAN 5 MG TABLET PO ×2 (10:00→21:16)
[2023-11-16] MEDS: OXYCODONE IR 5 MG TABLET PO ×2 (15:30→21:16)
[2023-11-16] MEDS: ATORVASTATIN 20 MG TABLET 40 MG PO (16:54)
--- NOTE | 2023-11-16 17:32 | PC.NURSE ---
EMR downtime from 11/15/23 @ 1999 to 11/16/23 @ approximately 1600. Refer to paper documentation.
--- NOTE | 2023-11-16 17:38 | PC.NURSE ---
Computer downtime 11/14 1900 to 11/15 1600. See paper documentation.
[2023-11-16 18:46] LABS: Add Manual Diff / Slide Review NO; Basophils Absolute Auto 0 /uL (0-100); Basophils Percent Auto 0.5 % (0-2); Eosinophils Absolute Auto 200 /uL (0-450); Eosinophils Percent Auto 3.5 % (2-4); Hematocrit 26.3 % (41-53); Lymphocytes Absolute Auto 500 /uL (1100-4500); Mean Corpuscular HGB Conc 34.2 % (30-36); Mean Corpuscular Hemoglobin 30.8 PG (26-34); Mean Corpuscular Volume 90.2 fL (80-100); Monocytes Absolute Auto 300 /uL (0-900); Monocytes Percent Auto 5.8 % (3-14); Neutrophils Absolute Auto 4000 /uL (1500-7000); Neutrophils Percent Auto 80.2 % (50-75); Platelet Count 154 X10^3/uL (150-400); Red Blood Cell Count 2.92 X10^6/uL (4.5-5.9); Red Cell Distribution Width 15.2 % (11.6-14.8)
[2023-11-16 18:47] LABS: Blood Urea Nitrogen 38 mg/dL (9-20); Calcium 9.5 mg/dL (8.4-10.2); Carbon Dioxide 26 mmol/L (22-32); Chloride 101 mmol/L (98-107); Estimated Glomerular Filt Rate 54 mL/min (>60); Glucose 256 mg/dL (80-110); HEMOLYSIS < 15 (0-50); Potassium 4.9 mmol/L (3.4-5.1); Sodium 130 mmol/L (137-145)
[2023-11-16 21:54] VITALS: BP 114/62; PULSE 99; RESP 16; TEMP 36.8; O2SAT 96
--- NOTE | 2023-11-16 23:36 | PC.NURSE ---
Addendum entered by Charity Rodriguez R.N. 11/17/23 04:40: Patient pulled off KIARA dressing; replaced dressing, green-light flashing. 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 KIARA dressing on right hip has yellow/green drainage, area around incision & right thigh appears red and edematous (3+ pitting); notified MD Flynn, orders to obtain wound culture. Culture obtained and sent to lab, new KIARA dressing applied, green-light flashing. Patient stated that his hip was hurting, medicated as ordered for pain with good effect. Patient is incontinent, brief changes & skin care performed. Q2 turning. Fall precautions in place. Plan of care ongoing.
[2023-11-17 03:55] VITALS: BP 130/68; PULSE 95; RESP 18; TEMP 36.9; O2SAT 92
[2023-11-17] MEDS: LEVOTHYROXINE 50 MCG TABLET 150 MCG PO (05:46)
[2023-11-17 06:19] LABS: Add Manual Diff / Slide Review NO; Basophils Absolute Auto 0 /uL (0-100); Basophils Percent Auto 0.4 % (0-2); Eosinophils Absolute Auto 200 /uL (0-450); Eosinophils Percent Auto 3.7 % (2-4); Hematocrit 26.7 % (41-53); Hemoglobin 9.1 g/dL (13.5-17.5); Lymphocytes Absolute Auto 500 /uL (1100-4500); Mean Corpuscular Hemoglobin 30.9 PG (26-34); Mean Corpuscular Volume 90.7 fL (80-100); Monocytes Absolute Auto 400 /uL (0-900); Neutrophils Absolute Auto 3300 /uL (1500-7000); Neutrophils Percent Auto 75.9 % (50-75); Platelet Count 162 X10^3/uL (150-400); Red Blood Cell Count 2.94 X10^6/uL (4.5-5.9); Red Cell Distribution Width 15.1 % (11.6-14.8); White Blood Cell Count 4.4 X10^3/uL (4.5-11.0)
[2023-11-17 06:33] LABS: BUN Creatinine Ratio 26.1 (6-22); Blood Urea Nitrogen 40 mg/dL (9-20); Calcium 9.6 mg/dL (8.4-10.2); Carbon Dioxide 26 mmol/L (22-32); Chloride 101 mmol/L (98-107); Estimated Glomerular Filt Rate 49 mL/min (>60); Glucose 210 mg/dL (80-110); HEMOLYSIS < 15 (0-50); Potassium 4.7 mmol/L (3.4-5.1); Sodium 129 mmol/L (137-145)
[2023-11-17 08:00] VITALS: BP 115/68; PULSE 98; RESP 18; TEMP 36.8; O2SAT 97
[2023-11-17] MEDS: INSULIN LISPRO 100 UNIT/ML 3ML VIAL SUBCUT ×4 (08:29→21:21)
[2023-11-17] MEDS: INSULIN GLARGINE 100 UNIT/ML 3ML PEN 20 UNIT SUBCUT ×2 (08:29→21:22)
[2023-11-17] MEDS: APIXABAN 5 MG TABLET PO ×2 (08:30→21:20)
[2023-11-17] MEDS: cephALEXin 250 MG CAPSULE 500 MG PO ×4 (08:30→21:21)
[2023-11-17] MEDS: DOCUSATE 100 MG CAPSULE PO ×2 (08:30→21:20)
[2023-11-17] MEDS: ursodioL 300 MG CAPSULE PO ×2 (08:30→21:20)
[2023-11-17 08:31] VITALS: BP 115/68
[2023-11-17] MEDS: lisinopriL 10 MG TABLET PO (08:31)
[2023-11-17] MEDS: FLUCONAZOLE 100 MG TABLET 200 MG PO (08:31)
[2023-11-17] MEDS: CITALOPRAM 10 MG TABLET 5 MG PO (08:31)
[2023-11-17] MEDS: AMLODIPINE 5 MG TABLET 10 MG PO (08:31)
[2023-11-17] MEDS: TACROLIMUS 0.5 MG CAPSULE 1 MG PO (08:31)
[2023-11-17] MEDS: METOPROLOL IR 25 MG TABLET PO ×2 (08:31→21:20)
[2023-11-17] MEDS: SODIUM CHLORIDE 0.9% FLUSH 10 ML IV (08:45)
[2023-11-17] MEDS: CALCIUM CARBONATE 500 MG TAB PO ×2 (08:46→21:26)
--- NOTE | 2023-11-17 10:11 | P.PN_ITS ---
Exam Vital Signs (past 8 hours): - 11/17/23 03:55 11/17/23 08:00 11/17/23 08:31 Temperature 98.4 F 98.3 F Pulse Rate 95 H 98 H Respiratory Rate 18 18 Blood Pressure 130/68 115/68 115/68 Pulse Oximetry 92 97 Oxygen Flow Rate 0 Oxygen Delivery Method Nasal Cannula Oxygen Flow Rate 0 Objective Labs 11/17/23 05:15 11/17/23 05:15 Labs: Laboratory Results - last 24 hr 11/16/23 11/17/23 05:55 05:15 WBC 5.0 4.4 L RBC 2.92 L 2.94 L Hgb 9.0 L 9.1 L Hct 26.3 L 26.7 L MCV 90.2 90.7 MCH 30.8 30.9 MCHC 34.2 34.0 RDW 15.2 H 15.1 H Plt Count 154 162 Neut % (Auto) 80.2 H 75.9 H Lymph % (Auto) 10.0 L 12.0 L [place] % (Auto) 5.8 8.0 Eos % (Auto) 3.5 3.7 Baso % (Auto) 0.5 0.4 Neut # (Auto) 4000 3300 Lymph # (Auto) 500 L 500 L [place] # (Auto) 300 400 Eos # (Auto) 200 200 Baso # (Auto) 0 0 Sodium 130 L 129 L Potassium 4.9 4.7 Chloride 101 101 Carbon Dioxide 26 26 BUN 38 H 40 H Creatinine 1.41 H 1.53 H Estimated GFR 54 L 49 L BUN/Creatinine Ratio 27.0 H 26.1 H Glucose 256 H 210 H Calcium 9.5 9.6 PFSH Social History household members: none caregiver/support person: Yes (POA daughter Billie in [place]. Another son lives relatively local) housing: assisted living facility Smoking Status: Former smoker Assessment & Plan Assessment & Plan narrative: POD#5 s/p right hip hemiarthroplasty. Patient is recovering slowly with PT and has not been able to walk independently. On exam, his right LE is NVI without evidence of DVT. His dressing is intact. Plan for d/c to SNF when available. Continue mobility training with PT/OT. Continue medical management.
--- NOTE | 2023-11-17 10:25 | PT.IPTN ---
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 (11/11/23) Liver transplant status (11/11/23) Presence of unspecified artificial shoulder joint (11/11/23) Surgery Performed Operation Date: 11/12/23 17:00 Actual Procedures p RIGHT HIP CEMENTED HEMIARTHROPLASTY(Right) - Selvin Xie MD Physical Therapy Treatment Note M2 PT-IP Current Condition Start: 11/13/23 11:50 Freq: NEEDED Status: Active Protocol: Document 11/13/23 10:35 AB (Rec: 11/13/23 12:06 AB [id number]) Physical Therapy Current Condition Current Condition Evaluation Date 11/13/23 Treatment Diagnosis R hip fx s/p R hip hemiarthroplasty anterior; difficulty in walking Onset Date 11/11/23 M3 PT-IP Subjective Start: 11/13/23 11:50 Freq: NEEDED Status: Active Protocol: Document 11/17/23 09:49 KS (Rec: 11/17/23 12:33 KS [id number]) Subjective Physical Therapy Visit Type Type Treatment Note Visit Start Time 09:49 Visit Stop Time 10:[address] SQL DEVELOPER Visits 6 Physical Therapy Visit Comments Patient Comments Pt agreeable to PT. Therapy Pain Assessment Pain When Pain Assessed During Mobility Pain Present Pain Present Pain Reported Location Right Hip Intensity 6 Scale Used Numeric (0 - 10) Pain Behaviors Facial Grimacing,Guarding Pain Management Techniques Elevation,Re-positioning M4 PT-IP Mobility and Gait Start: 11/13/23 11:50 Freq: NEEDED Status: Active Protocol: Document 11/17/23 09:49 [place] (Rec: 11/17/23 12:33 KS [id number]) PT-Bed Mobility Assessment Supine to Sit Supine to Sit Moderate Assistance,1 Person Assistance,Head of Bed Elevated,Bedrails Scooting Scooting to Edge of Bed Maximum Assistance Scooting Up and Down in Bed Dependent PT-Transfer Assessment Sit to and From Stand Sit to and from Stand Moderate Assistance,1 Person Assistance,Use of Upper Extremities Equipment Transfer Assistive Device Gait Belt,Front Wheeled Walker Orthotic/Prosthetic Devices or Brace: No Transfers Transfer Destination Bed Transfer Technique side steps Transfer Ability Level of Assist Moderate Assistance,Maximum Assistance,1 Person Assistance ,Use of Upper Extremities Comments Mobility Comments Pt in bed upon arrival, remains confused needing simple step by step commands. Mod A for sup<>sit and Max A for scooting EOB. Mod A w/ max cues for sit<>stand w/ FWW. Pt had difficulty following cues to step sideways/side R foot towards HOB needing max verbal and tactile cues. Pt attempted side steps 3 times w / seated rest breaks between but ultimately could only take one step. Max A x2 for sit<> sup and scooting up in bed. Pt left w/ alarm on and all needs in reach. Gait Assessment Gait Gait Assistance Required: Maximum Assistance,1 Person Assist Distance (Feet) 2 Able to Maintain Weight Bearing Status Yes During Gait Assistive Devices Assistive Device Gait Belt,Front Wheeled Walker Orthotic/Prosthetic Devices or Brace: No Comments Gait Comments 1 step lateral Max A verbal tactile cues. M5 PT-IP Objective Assessments Start: 11/13/23 11:50 Freq: NEEDED Status: Active Protocol: Document 11/13/23 10:35 AB (Rec: 11/13/23 12:06 AB [id number]) Orientation Orientation/Cognition Level of Alertness Confusional State Orientation Name Safety Awareness Decreased Safety Awareness Memory Description Short Term Impaired,Managing Partner Impaired Strength Comments Strength Comments pt inconsisted with following directions for MMT: grossly graded: RLE: 3-/5 LLE: 4-/5 Muscle Tone Muscle Tone WNL Yes M6 PT-IP Treatment Start: 11/13/23 11:50 Freq: NEEDED Status: Active Protocol: Document 11/17/23 09:49 KS (Rec: 11/17/23 12:33 KS [id number]) Physical Therapy Treatment Exercises Exercises Ankle Pumps,Gluteal Sets,Quad Sets Education Education Provided Precautions,Weight Bearing Status,Post-Op Packet,Safety M7 PT-IP Assessment and Plan Start: 11/13/23 11:50 Freq: NEEDED Status: Active Protocol: Document 11/17/23 10:39 MB (Rec: 11/17/23 10:39 MB [id number]) PT Summary Assessment and Plan Frequency of Treatment Frequency Of Treatment Once a Day
[2023-11-17] MEDS: FLUTICASONE 120 SPRAY/16 GM SPRAY.SUSP NASAL ×2 (10:39→21:21)
[2023-11-17] MEDS: OXYCODONE IR 5 MG TABLET PO ×2 (10:40→21:19)
--- NOTE | 2023-11-17 12:11 | CM.DPNOTE ---
DCP Note PRODUCTION PAINTER reviewed EMR. Per hospitalist in morning rounds, medically stable just waiting placement. PRODUCTION PAINTER lvm with Bessy from [facility] to inquire about DCP. no response. PRODUCTION PAINTER spoke with Prachi at [facility], keeping an eye on him able to accept/submit for one time auth, just need denials from other facilities first. PRODUCTION PAINTER lvm with Tristen from [facility] ([phone] ext [phone]) to coordinate DCP in event cannot get SNF placement. P: SNF placement pending accepting facility. Need hospital exempt PASRR completed and signed by provider. Patient on Celexa, antidepressant. CM team will continue to follow closely MUKUL Zamudio
--- NOTE | 2023-11-17 16:10 | P.PN_ITS ---
Subjective Subjective Interval history: 68 M admitted with hip fracture, awaiting SNF authorization and placement. Has R leg pain today, but does not recall he had surgery. Exam Vital Signs (past 8 hours): - 11/17/23 08:31 Blood Pressure 115/68 Oxygen Delivery Method Nasal Cannula Oxygen Flow Rate 0 Narrative Exam Narrative: NAD, demented, A/Ox2 Normocephalic skull, EOMI, anicteric sclera, symmetric pupils. Oropharynx unremarkable, no droop. Neck supple, midline trachea, no adenopathy. Lungs clear, normal rate and effort. Heart regular, no murmur gallop or rub. Abdomen is soft, distended, and non tender. Extremities are free of edema. Skin is free of rash or lesions. Joints are not swollen or deformed. Judgment appears to be abnormal. Right hip with post-op dressing. Objective Labs 11/17/23 05:15 11/17/23 05:15 Labs: Laboratory Results - last 24 hr 11/16/23 11/17/23 05:55 05:15 WBC 5.0 4.4 L RBC 2.92 L 2.94 L Hgb 9.0 L 9.1 L Hct 26.3 L 26.7 L MCV 90.2 90.7 MCH 30.8 30.9 MCHC 34.2 34.0 RDW 15.2 H 15.1 H Plt Count 154 162 Neut % (Auto) 80.2 H 75.9 H Lymph % (Auto) 10.0 L 12.0 L [place] % (Auto) 5.8 8.0 Eos % (Auto) 3.5 3.7 Baso % (Auto) 0.5 0.4 Neut # (Auto) 4000 3300 Lymph # (Auto) 500 L 500 L [place] # (Auto) 300 400 Eos # (Auto) 200 200 Baso # (Auto) 0 0 Sodium 130 L 129 L Potassium 4.9 4.7 Chloride 101 101 Carbon Dioxide 26 26 BUN 38 H 40 H Creatinine 1.41 H 1.53 H Estimated GFR 54 L 49 L BUN/Creatinine Ratio 27.0 H 26.1 H Glucose 256 H 210 H Calcium 9.5 9.6 PFSH Social History household members: none caregiver/support person: Yes (POA daughter Billie in [place]. Another son lives relatively local) housing: assisted living facility Smoking Status: Former smoker Assessment & Plan Assessment & Plan narrative: Acute medical problems: 1. Right femoral neck fracture s/p ORIF on 11/11, present on admission and active Chronic medical problems, all present on admission and stable: 1. Hypertension 2. Dementia 3. DM 2 receiving insulin 4. Hypothyroidism 5. Liver transplant on chronic tacrolimus 6. Atrial fibrillation on chronic anticoagulation Past surgical history: 1. Liver transplant PLAN: -restarted eliquis, will continue today. -change duricef to keflex while inpatient as not on formulary -KIARA dressing in place -PT/OT rec SNF, continue PT/OT while awaiting placement. Dispo: SNF pending insurance approval and ability to find facility. Proxy decision maker is daughter Josh Fuentes who is POA.
[2023-11-17] MEDS: ATORVASTATIN 20 MG TABLET 40 MG PO (17:09)
[2023-11-17 19:00] VITALS: BP 107/61; PULSE 91; RESP 18; TEMP 37.4; O2SAT 97
[2023-11-18] MEDS: CYCLOBENZAPRINE 10 MG TABLET PO (00:29)
[2023-11-18] MEDS: OXYCODONE IR 5 MG TABLET PO ×3 (00:53→12:17)
--- NOTE | 2023-11-18 06:54 | PM.PNPO.1 ---
Subjective Subjective Date Patient Seen: 11/18/23 Time Patient Seen: 06:54 Interval history: Pt was lying diagonally across his bed with his legs hanging off the side and attempting to right himself when I saw him this morning. He and I got him repositioned without much discomfort on his part. Exam Vital Signs (past 8 hours): Oxygen Delivery Method Nasal Cannula Oxygen Flow Rate 0 Narrative Exam Narrative: 5/5 strength in hip flexors, quadriceps, hamstrings, DF, PF, EHL on right. Sensation to light touch intact throughout RLE, calf soft and compressible. KIARA dressing is off; wound is flat, CDI with christopher intact. Objective Labs 11/18/23 08:16 11/18/23 08:16 [facility] Social History household members: none caregiver/support person: Yes (POA daughter Billie in [place]. Another son lives relatively local) housing: assisted living facility Smoking Status: Former smoker Assessment & Plan Post-op Assessment and plan (1) Status post hip hemiarthroplasty: Assessment and Plan narrative: 1) WBAT to right leg. 2) Replace dressing with xeroform and clean, dry gauze. Keep dressing dry, replace as needed. 3) F/u in ortho clinic in 1 week for staple removal. If too difficult for transport, may be done at SNF or other facility. 4) F/u w/ Dr Xie in 5 weeks for repeat imaging. 5) Continue Eliquis for VTE prophylaxis. 6) Disposition, pain management per hospitalist service. Postoperative Procedures: Procedures Operation Date: 11/12/23 17:00 Actual Procedure Side Surgeon p RIGHT HIP CEMENTED HEMIARTHROPLASTY Right Selvin Xie MD Postoperative day: 6
[2023-11-18] MEDS: LEVOTHYROXINE 50 MCG TABLET 150 MCG PO (06:56)
[2023-11-18 07:00] VITALS: BP 125/73; PULSE 89; RESP 18; TEMP 36.6; O2SAT 99
--- NOTE | 2023-11-18 07:41 | P.PN_ITS ---
Subjective Subjective Interval history: Interval history: 68 M admitted with hip fracture, awaiting SNF authorization and placement. Has R leg pain today, but does not recall he had surgery. Exam Vital Signs (past 8 hours): Oxygen Delivery Method Nasal Cannula Oxygen Flow Rate 0 Narrative Exam Narrative: NAD, alert and oriented. Fluent speech. Lungs are clear, normal rate and effort. Heart is regular, no murmur gallop or rub. Abdomen is soft, non distended. Extremities are free of edema. Objective Labs 11/17/23 05:15 11/17/23 05:15 [facility] Social History household members: none caregiver/support person: Yes (POA daughter Billie in [place]. Another son lives relatively local) housing: assisted living facility Smoking Status: Former smoker Assessment & Plan Assessment & Plan narrative: Acute medical problems: 1. Right femoral neck fracture s/p ORIF on 11/11, present on admission and active Chronic medical problems, all present on admission and stable: 1. Hypertension 2. Dementia 3. DM 2 receiving insulin 4. Hypothyroidism 5. Liver transplant on chronic tacrolimus 6. Atrial fibrillation on chronic anticoagulation Past surgical history: 1. Liver transplant PLAN: -restarted eliquis, will continue today. -change duricef to keflex while inpatient as not on formulary -KIARA dressing in place -PT/OT rec SNF, continue PT/OT while awaiting placement. Dispo: SNF pending insurance approval and ability to find facility. Proxy decision maker is mervat Feuntes who is POA.
[2023-11-18] MEDS: INSULIN LISPRO 100 UNIT/ML 3ML VIAL SUBCUT ×2 (08:08→12:11)
[2023-11-18] MEDS: INSULIN GLARGINE 100 UNIT/ML 3ML PEN 20 UNIT SUBCUT (08:08)
[2023-11-18] MEDS: AMLODIPINE 5 MG TABLET 10 MG PO (08:22)
[2023-11-18] MEDS: APIXABAN 5 MG TABLET PO (08:22)
[2023-11-18 08:23] VITALS: BP 125/73; PULSE 85
[2023-11-18] MEDS: TACROLIMUS 0.5 MG CAPSULE 1 MG PO (08:23)
[2023-11-18] MEDS: lisinopriL 10 MG TABLET PO (08:23)
[2023-11-18] MEDS: CITALOPRAM 10 MG TABLET 5 MG PO (08:23)
[2023-11-18] MEDS: cephALEXin 250 MG CAPSULE 500 MG PO ×2 (08:23→12:21)
[2023-11-18] MEDS: FLUCONAZOLE 100 MG TABLET 200 MG PO (08:23)
[2023-11-18] MEDS: DOCUSATE 100 MG CAPSULE PO (08:23)
[2023-11-18] MEDS: METOPROLOL IR 25 MG TABLET PO (08:24)
[2023-11-18] MEDS: CALCIUM CARBONATE 500 MG TAB PO (08:25)
[2023-11-18] MEDS: ursodioL 300 MG CAPSULE PO (08:25)
[2023-11-18 08:29] LABS: Add Manual Diff / Slide Review NO; Basophils Absolute Auto 0 /uL (0-100); Basophils Percent Auto 0.5 % (0-2); Eosinophils Absolute Auto 200 /uL (0-450); Eosinophils Percent Auto 3.4 % (2-4); Hematocrit 25.8 % (41-53); Hemoglobin 8.7 g/dL (13.5-17.5); Lymphocytes Absolute Auto 600 /uL (1100-4500); Lymphocytes Percent Auto 11.7 % (25-40); Mean Corpuscular HGB Conc 33.8 % (30-36); Mean Corpuscular Hemoglobin 30.6 PG (26-34); Mean Corpuscular Volume 90.4 fL (80-100); Monocytes Absolute Auto 500 /uL (0-900); Monocytes Percent Auto 9.5 % (3-14); Neutrophils Absolute Auto 3700 /uL (1500-7000); Neutrophils Percent Auto 74.9 % (50-75); Platelet Count 193 X10^3/uL (150-400); Red Blood Cell Count 2.86 X10^6/uL (4.5-5.9); Red Cell Distribution Width 15.3 % (11.6-14.8); White Blood Cell Count 4.9 X10^3/uL (4.5-11.0)
[2023-11-18 08:40] LABS: BUN Creatinine Ratio 28.1 (6-22); Blood Urea Nitrogen 45 mg/dL (9-20); Calcium 9.6 mg/dL (8.4-10.2); Carbon Dioxide 26 mmol/L (22-32); Chloride 99 mmol/L (98-107); Estimated Glomerular Filt Rate 46 mL/min (>60); Glucose 310 mg/dL (80-110); HEMOLYSIS < 15 (0-50); Potassium 5.2 mmol/L (3.4-5.1); Sodium 128 mmol/L (137-145)
[2023-11-18] MEDS: FLUTICASONE 120 SPRAY/16 GM SPRAY.SUSP NASAL (08:42)
--- NOTE | 2023-11-18 11:09 | CM.DPC ---
DCP Discharge to SNF Per MD, pt medically stable to discharge to SNF today and no identified barriers to discharge. ALEK faxed updated notes to Bessy at [facility] and she is reviewing for [facility] to determine if they might be able to accept. ALEK received a call from Sujatha at [facility] stating she just heard from pt's insurance and they provided SNF auth to [facility], even though technically out of network, but will auth as if [facility] were in network knowing pt needs SNF and within the umbrella of facilities that pt resides ([facility]). [facility] can accept pt today at around 1300. PASRR completed and signed for exempted hospital discharge due to Citalopram and faxed to PASRR coordinator Kady to review. ALEK called Dtr/DPOA Geneem and updated on above and she is very thankful and agreeable with discharge to [facility] today but has some concerns reviewing pt's labs regarding kidney function and blood sugars and SW connected Dtr with Hospitalist who answered her medical questions and Dtr remains in agreement of discharge today to [facility]. ALEK updated cyber software engineer, ASHU, RN and provided number to call report. NATTY Argueta kindly helped with sending discharge packet PASRR, med list, scripts, d/c MD inez orders to [facility] to review. Plan: Patient to d/c to [facility] today around 1300 via facility van before return back to [facility]. MUKUL Sommer
--- NOTE | 2023-11-18 11:30 | P.DS_ITS ---
History of Present Illness History of Present Illness Chief complaint: mechanical fall Narrative: Emergency department records: The patient is a 68-year-old male who stays at [facility] and has severe dementia. He had an unwitnessed fall which is felt to be mechanical as and brought in by ambulance. He complained of right hip pain. He was quite uncomfortable and received ketamine while being transported. The patient was found to have a hip fracture in the emergency department. He was very provide no details of his fall. After moving a up to the [place] he has no memory of what happened, where he lives, what year it is, or which city he was in. He complains only of right hip pain and has no other areas of pain. He denies any dyspnea. Orthopedic consultation was obtained and it is noted that the patient is on Eliquis for unclear reasons. His last dose was last night. For this reason his surgery will be delayed approximately 48 hours until the evening of November 11. Discharge Providers Provider Date of admission: 11/11/23 06:10 Discharge Date: 11/18/23 Primary care physician: Jose Zamora MD Consults: 11/11/23 05:28 Consult to Orthopedic Surgery Stat Comment: Consulting Provider: Andra Martinez Reason for consultation: fem neck fx Has provider been notified: Yes 11/12/23 08:08 Consult to Anesthesiology Routine Comment: Consulting Provider: Anesthesiologist Reason for consultation: Regional block for post operative pain control 11/12/23 08:24 Consult to GRINDER TENDER - Musical Instrument Supervisor Routine Comment: likely need SNF, vs at [facility] 11/12/23 21:16 Consult to Discharge Planning Routine Comment: Consult to Occupational Therapy Evaluate & Treat Comment: Physician Instructions: Evaluate and treat Consult to Physical Therapy Evaluate & Treat Comment: Physician Instructions: post op LION protocol Discharge provider: Rickey Wu MD Summary Hospital Course Discharge Diagnosis: 1. Hypertension 2. Dementia 3. DM 2 receiving insulin 4. Hypothyroidism 5. Liver transplant on chronic tacrolimus 6. Atrial fibrillation on chronic anticoagulation Past surgical history: 1. Liver transplant Hospital Course: He was admitted and underwent operative repair of his hip fracture. The patient had Eliquis restarted postprocedure. The patient was antibiotics for a short time. I did speak with his daughter at the time of his discharge and she was concerned about his elevated renal functions with a creatinine in the 1 for arrange. We discussed this and we will continue to monitor this had been nursing facility. She was also concerned about his Lantus which will be up titrated as needed to achieve better glucose control. [facility] was able to accept him in transfer and to work on rehabilitation of ambulation with his hip fracture. He was felt to be stable for discharge on November 17. Status at Discharge Cognitive/behavioral status at discharge: at baseline, confused Functional status at discharge: uses cane/walker Overall status at discharge: patient is progressing back to baseline Time Spent with Patient Time spent: Greater than 30 minutes Exam Vital Signs (past 8 hours): - 11/18/23 07:00 11/18/23 08:23 Temperature 97.8 F Pulse Rate 89 85 Respiratory Rate 18 Blood Pressure 125/73 125/73 Pulse Oximetry 99 Oxygen Flow Rate 0 Oxygen Delivery Method Nasal Cannula Oxygen Flow Rate 0 Narrative Exam Narrative: NAD, alert and oriented. Fluent speech. He notes he was in [place] but does not know the year. Lungs are clear, normal rate and effort. Heart is regular, no murmur gallop or rub. Abdomen is soft, non distended. Extremities are free of edema. Objective Imaging Hip X Ray:: Radiologist's impression: Acute subcapital right femoral neck fracture. CT scan - head: Radiologist's impression: No acute intracranial hemorrhage is seen. No acute intracranial pathology. 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 Labs 11/18/23 08:16 11/18/23 08:16 Labs: Laboratory Results - last 24 hr 11/18/23 08:16 WBC 4.9 RBC 2.86 L Hgb 8.7 L Hct 25.8 L MCV 90.4 MCH 30.6 MCHC 33.8 RDW 15.3 H Plt Count 193 Neut % (Auto) 74.9 Lymph % (Auto) 11.7 L Chilton % (Auto) 9.5 Eos % (Auto) 3.4 Baso % (Auto) 0.5 Neut # (Auto) 3700 Lymph # (Auto) 600 L [place] # (Auto) 500 Eos # (Auto) 200 Baso # (Auto) 0 Sodium 128 L Potassium 5.2 H Chloride 99 Carbon Dioxide 26 BUN 45 H Creatinine 1.60 H Estimated GFR 46 L BUN/Creatinine Ratio 28.1 H Glucose 310 H D Calcium 9.6 PFSH Social History household members: none caregiver/support person: Yes (POA daughter Billie in [place]. Another son lives relatively local) housing: assisted living facility Smoking Status: Former smoker Discharge Assessment & Plan Assessment and Plan Assessment: 1. Hypertension 2. Dementia 3. DM 2 receiving insulin 4. Hypothyroidism 5. Liver transplant on chronic tacrolimus 6. Atrial fibrillation on chronic anticoagulation Plan of Treatment: Discharge to [facility] facility, [facility] for ongoing rehabilitation. We will start a multivitamin there and monitor renal function as well as glucose closely. Discharge Plan Discharge Plan Patient Disposition: SNF Transfer to: [facility] Provider Discharge Comment: Stable for discharge to [facility]pc, spoke with daughter. We will monitor renal function and glucose carefully. We will add multivitamin. Discharge orders & Medications Prescriptions: New cyclobenzaprine 10 mg Tablet 10 mg PO Q8HR PRN (Reason: Spasms) Qty: 30 0RF citalopram 10 mg Tablet 5 mg PO DAILY Qty: 30 0RF oxycodone 5 mg Tablet 5 mg PO Q4HR PRN (Reason: Pain, Moderate (4-6)) Qty: 25 0RF Continued atorvastatin 40 mg Tablet 40 mg PO QPM amlodipine 10 mg Tablet 10 mg PO DAILY albuterol-budesonide 90-80 mcg/actuation Hfa Aerosol Inhaler 2 inh INHALATION Q4H PRN (Reason: sob) fluconazole 200 mg Tablet 200 mg PO DAILY Eliquis 5 mg Tablet 5 mg PO BID Humalog U-100 Insulin 100 unit/mL Cartridge 10 unit SUBCUT AC Rx Instructions: Hold if BG <140 or not eating Humalog U-100 Insulin 100 unit/mL Cartridge 1 sliding scale dose SUBCUT USEASDIRECTD Rx Instructions: BG 141-180 = 1 BG 181-220 = 2 BG 221-260 = 3 BG 261-300 = 4 BG 301-350 = 5 BG 351-400 = 6 ACHS insulin glargine 100 unit/mL Cartridge 15 unit SUBCUT BID Rx Instructions: Hold if BG <80 ursodiol 300 mg Capsule 300 mg PO BID levothyroxine 150 mcg Tablet 150 mcg PO DAILY tacrolimus 0.5 mg Capsule 1 mg PO DAILY metoprolol tartrate 25 mg Tablet 25 mg PO BID Discontinued citalopram 10 mg Tablet 5 mg PO DAILY lisinopril 10 mg Tablet 10 mg PO DAILY Follow up/Referrals: Jose Zamora MD [Primary Care Provider] - Selvin Xie MD [Physician] - 1 Week (Follow up in ortho clinic in 2 weeks for staple removal and wound check. If it is too difficult to get pt to clinic, christopher can be removed at SNF/assisted living facility. F/u w/ Dr Xie in 5 weeks for repeat imaging.) Discharge Health Status Multidrug resistant organism: No MDRO Diet/Activity/Treatments Diet: Carb-consistent/Diabetic Activity: Weightbearing as tolerated to right leg. Skin/Wound/Dressing Care Dressing: May shower. Keep dressing in place until follow up in office. In 5-7 days, batteries will , at which point battery pack can be cut off and disposed of. No bathing or otherwise soaking incision. Call the office if the dressing becomes saturated inside. [facility] Reason for rehabilitation: Post-operative therapy Rehab type: Physical therapy and Occupational therapy Restrictions to mobility: Weightbearing as tolerated to right leg. Visit Report/Discharge Packet Instructions: DI for Hip Replacement Stand Alone Forms: Patient Portal/API Discharge Data Primary Care Provider: Jose Zamora
--- NOTE | 2023-11-18 14:28 | PC.NURSE ---
Patient is Alert and pleasantly confused. VSS, afebrile on RA. He is cleaned of incontinent urine this a.m. and is a max assist x2 in the bed. He is cooperative with care. Unable to lift RLE, per daughter this side was stroke effected extremity at baseline. Drake are c/d/i, he continues to pull off any dressing or taping, around site. He is cleared for discharge and discharge is arranged for shredder picker at 1300 this afternoon to [facility]. Report silva to Thang at [facility]. He is transported to / via dara and escorted by [facility] Facility designee at 1315 approximately for discharge today with all of his personal belongings.
--- NOTE | 2023-11-21 01:52 | PC.NURSE ---
Late entry for 11/15/23: Oxycodone pulled from [facility] @ 22:13. Medication administered @ 22:20.
--- NOTE | 2023-11-21 01:56 | PC.NURSE ---
Late entry for 11/16/23: At 04:30 oxycodone 5mg was pulled from [email or web address] and administered to patient per AUG. Medication administered @ 04:45.
== END 2023-11-18 13:21 | DRG 522 ==
LOC: ED 06:11 → AC 06:13
PROVIDERS: Hospitalist; Internal Medicine; Orthopaedic Surgery Adult Reconstructive Orthopaedic Surgery; Admitting Provider Internal Medicine; Emergency Provider Emergency Medicine; PCP Internal Medicine; Referring Provider Emergency Medicine; Visit Provider Internal Medicine
PROC: 0SRR0JZ Replacement of Right Hip Joint, Femoral Surface with Synthetic Substitute, Open Approach (ICD-10-PCS; CPT 27125; principal; 2023-11-12 17:00)
DX: S72.001A Fracture of unspecified part of neck of right femur, initial encounter for closed fracture (principal); Z94.4 Liver transplant status; D84.821 Immunodeficiency due to drugs; I48.91 Unspecified atrial fibrillation; I10 Essential (primary) hypertension; F03.90 Unspecified dementia, unspecified severity, without behavioral disturbance, psychotic disturbance, mood disturbance, and anxiety; E03.9 Hypothyroidism, unspecified; E11.65 Type 2 diabetes mellitus with hyperglycemia; W18.30XA Fall on same level, unspecified, initial encounter; Z79.621 Long term (current) use of calcineurin inhibitor; Z86.73 Personal history of transient ischemic attack (TIA), and cerebral infarction without residual deficits; Z79.4 Long term (current) use of insulin; Z79.01 Long term (current) use of anticoagulants; Z87.891 Personal history of nicotine dependence
CPT/HCPCS: 36415; 70450; 72192; 73502; 76000; 80048; 80053; 82962; 83036; 83690; 85025; 86850; 86900; 86901; 87070; 87075; 87205; 94760; 94762; 96374; 97110; 97162; 97166; 97530; 97535; 99284; C1713; C1776; J0136; J0171; J0330; J0690; J1170; J1815; J2270; J2405; J2704; J3010; J3410; J7507

== ENCOUNTER 2023-11-25 17:00 | Inpatient (IN) | payer MEDICARE, MEDICAID, SELFPAY ==
[2023-11-25] VITALS (12 sets, daily range): BP systolic 97–132; BP diastolic 51–74; PULSE 97–104; RESP 16; TEMP 36.1–36.4; O2SAT 90–100; BMI 32.1
--- NOTE | 2023-11-25 17:08 | DI.RAD.S_ITS ---
PROCEDURE: XR HIP W PEL IF DONE RT 2V INDICATIONS: glf TECHNIQUE: 2 views of the hip were acquired. COMPARISON: [facility], CR, XR HIP W PEL IF DONE RT 2V, 11/12/2023, 19:42. [facility], CR, XR HIP W PEL IF DONE RT 2V, 11/11/2023, 5:08. FINDINGS: Bones: Moderately displaced fracture of the distal femur shaft. Soft tissues: Postsurgical changes. Vascular calcifications. IMPRESSION: Moderately displaced distal femur fracture. Dictated by: Adi Green M.D. on 11/25/2023 at 17:42 Approved by: Adi rGeen M.D. on 11/25/2023 at 17:43
--- NOTE | 2023-11-25 17:08 | DI.RAD.S_ITS ---
PROCEDURE: XR FEMUR RT MIN 2V INDICATIONS: glf TECHNIQUE: 2 views of the femur were acquired. COMPARISON: [facility], CR, XR HIP W PEL IF DONE RT 2V, 11/11/2023, 5:08. [facility], CR, XR HIP W PEL IF DONE RT 2V, 11/12/2023, 19:42. [facility], CT, CT PEL WO CON, 11/13/2023, 10:36. [facility], CR, XR HIP W PEL IF DONE RT 2V, 11/25/2023, 17:22. FINDINGS: Bones: Right hip arthroplasty. [id number] left hip arthrosis. A trace lucency at the proximal portion of the femur was seen on prior imaging from CT on 11/13/2023. No new dislocation or displaced fracture. Soft tissues: Postsurgical changes. IMPRESSION: Right hip arthroplasty. There is a trace lucency at the most proximal medial portion of the femur, likely present on prior CT from 11/13/2023. If there is high concern for occult injury, consider repeat radiography or cross-sectional imaging. Dictated by: Adi Green M.D. on 11/25/2023 at 17:40 Approved by: Adi Green M.D. on 11/25/2023 at 17:42
--- NOTE | 2023-11-25 17:41 | ED_ITS ---
HPI - Extremity Injury (Lower) General Chief Complaint: Extremity Injury, Lower Stated Complaint: hip pain Time Seen by Provider: 11/25/23 17:09 Source: EMS Mode of arrival: EMS History of Present Illness HPI Narrative: Patient brought in by ambulance from [facility]. Patient recently had total right hip done and was there for rehab. However we do not know what was the date of the surgery. He did fall again in the past week and has been in bed since then. Patient is only oriented to self and date of . He does not know where he had surgery. He does not know where he is currently staying for rehab. Nursing staff calling the rehab facility for more medical information and history. Patient had hip surgery done here November [address] [address] Discharge Summary Patient: Alo Fuentes MR#: [id number] : 1955 Acct:[id number] Age/Sex: 68 / M Admit Date: 11/11/23 Provider: Rickey Wu MD History of Present Illness History of Present Illness Chief complaint: mechanical fall Narrative: Emergency department records: The patient is a 68-year-old male who stays at [facility] and has severe dementia. He had an unwitnessed fall which is felt to be mechanical as and brought in by ambulance. He complained of right hip pain. He was quite uncomfortable and received ketamine while being transported. The patient was found to have a hip fracture in the emergency department. He was very provide no details of his fall. After moving a up to the [place] he has no memory of what happened, where he lives, what year it is, or which city he was in. He complains only of right hip pain and has no other areas of pain. He denies any dyspnea. Orthopedic consultation was obtained and it is noted that the patient is on Eliquis for unclear reasons. His last dose was last night. For this reason his surgery will be delayed approximately 48 hours until the evening of November 11. Related Data Home Medications Medication Instructions Recorded Confirmed albuterol 90 mcg-budesonide 80 2 inh inhalation Q4H PRN sob 11/11/23 11/25/23 mcg/actuation HFA aerosol inhaler amlodipine 10 mg tablet 10 mg PO DAILY 11/11/23 11/25/23 apixaban 5 mg tablet (Eliquis) 5 mg PO BID 11/11/23 11/25/23 atorvastatin 40 mg tablet 40 mg PO QPM 11/11/23 11/25/23 fluconazole 200 mg tablet 200 mg PO DAILY 11/11/23 11/25/23 insulin glargine 100 unit/mL 15 unit SUBCUT BID 11/11/23 11/25/23 subcutaneous cartridge insulin lispro 100 unit/mL 1 sliding scale dose SUBCUT 11/11/23 11/25/23 subcutaneous cartridge (Humalog USEASDIRECTD U-100 Insulin) insulin lispro 100 unit/mL 10 unit SUBCUT AC 11/11/23 11/25/23 subcutaneous cartridge (Humalog U-100 Insulin) levothyroxine 150 mcg tablet 150 mcg PO DAILY 11/11/23 11/25/23 metoprolol tartrate 25 mg tablet 25 mg PO BID 11/11/23 11/25/23 tacrolimus 0.5 mg capsule, 1 mg PO DAILY 11/11/23 11/25/23 immediate-release ursodiol 300 mg capsule 300 mg PO BID 11/11/23 11/25/23 Previous Rx's Medication Instructions Recorded citalopram 10 mg tablet 5 mg (1/2 x 10 mg) PO DAILY #30 11/18/23 tabs cyclobenzaprine 10 mg tablet 10 mg PO Q8HR PRN Spasms #30 tabs 11/18/23 oxycodone 5 mg tablet 5 mg PO Q4HR PRN Pain, Moderate 11/18/23 (4-6) #25 tabs Allergies Allergy/AdvReac Type Severity Reaction Status Date / Time No Known Drug Allergies Allergy Verified 11/11/23 05:19 Review of Systems Review of Systems Narrative: GENERAL: negative chills, fatigue, malaise, fever, sweats. HEENT: negative sinus pain, ear pain, sore throat RESPIRATORY: negative dyspnea, cough CARDIOVASCULAR: negative chest pain, palpitations GASTROINTESTINAL: negative nausea, vomiting, abdominal pain : negative dysuria, frequency, hematuria MUSCULOSKELETAL: Positive muscle or bony pain SKIN: negative rash, skin lesions NEUROLOGIC: negative weakness, numbness ROS Unobtainable: All systems reviewed & are unremarkable except as noted in HPI and below Patient History Social History household members: none caregiver/support person: Yes (POA daughter Billie in [place]. Another son lives relatively local) housing: assisted living facility Smoking Status: Former smoker Smoking Status: Former smoker alcohol intake frequency: a few times a month Substance Use Type: does not use Exam Narrative Exam Narrative: GENERAL: in no distress, not toxic not dyspneic HEAD: Normocephalic. EYES: Pupils equal round ENT: Mucous membranes moist. NECK: Trachea midline. CARDIOVASCULAR: Regular rate and rhythm RESPIRATORY: Clear to auscultation. Breath sounds equal bilaterally. No wheezes, rales, or rhonchi. GASTROINTESTINAL: Abdomen soft, non-tender EXTREMITIES: Examination right lower extremity. It is shortened and externally rotated. Foot warm soft and pink strong pedal pulse brisk cap refills. Nontender right hip. There is tenderness to the distal femur. Skin is intact. No tenting of the skin. BACK: No flank tenderness. NEURO: Awake alert oriented x2. Clear speech. SKIN: Warm and dry PSYCH: Not anxious, is cooperative Initial Vital Signs Initial Vital Signs: Vital Signs Pulse Rate 98 H 11/25/23 17:02 Pulse Oximetry 97 11/25/23 17:02 Course Orders Ordered: Acetaminophen (Acetaminophen 325 Mg Tablet) 650 mg PO Q6H PRN PRN Reason: Fever/Mild Pain (1-3) Last Admin: 11/29/23 12:51 Dose: 650 mg Documented By: Admin: 11/28/23 14:53 Dose: 650 mg Documented By: Admin: 11/28/23 08:35 Dose: 650 mg Documented By: Apixaban (Apixaban 5 Mg Tablet) 5 mg PO BID [facility] Last Admin: 11/29/23 09:07 Dose: 5 mg Documented By: DAVIDE Atorvastatin Calcium (Atorvastatin 20 Mg Tablet) 40 mg PO BEDTIME [facility] Last Admin: 11/28/23 21:32 Dose: 40 mg Documented By: MS(2) Admin: 11/27/23 21:29 Dose: 40 mg Documented By: Admin: 11/26/23 21:01 Dose: 40 mg Documented By: Admin: 11/25/23 21:33 Dose: 40 mg Documented By: KATHY Citalopram Hydrobromide (Citalopram 10 Mg Tablet) 5 mg PO DAILY [facility] Last Admin: 11/29/23 09:06 Dose: 5 mg Documented By: Admin: 11/28/23 08:34 Dose: 5 mg Documented By: Admin: 11/27/23 08:08 Dose: 5 mg Documented By: Admin: 11/26/23 09:13 Dose: 5 mg Documented By: LARRY Docusate Sodium (Docusate 100 Mg Capsule) 100 mg PO BID [facility] Last Admin: 11/29/23 09:07 Dose: 100 mg Documented By: Admin: 11/28/23 21:32 Dose: 100 mg Documented By: (2) Admin: 11/28/23 08:35 Dose: 100 mg Documented By: Admin: 11/27/23 21:29 Dose: 100 mg Documented By: JENIFFER Fluconazole (Fluconazole 100 Mg Tablet) 200 mg PO DAILY [facility] Last Admin: 11/29/23 10:45 Dose: 200 mg Documented By: Admin: 11/28/23 08:34 Dose: 200 mg Documented By: Admin: 11/27/23 08:08 Dose: 200 mg Documented By: Admin: 11/26/23 09:12 Dose: 200 mg Documented By: LARRY Hydromorphone HCl (Hydromorphone 1 Mg Inj) 1 mg IV Q2H PRN PRN Reason: Pain, Severe (7-10) Last Admin: 11/28/23 18:31 Dose: 1 mg Documented By: Admin: 11/28/23 15:48 Dose: 1 mg Documented By: Admin: 11/28/23 14:09 Dose: 1 mg Documented By: Admin: 11/28/23 12:20 Dose: 1 mg Documented By: Dextrose (D10w) 100 mls @ 999 mls/hr IV PRN PRN PRN Reason: Hypoglycemia Insulin Glargine (Insulin Glargine 100 Unit/Ml 3ml Pen) 15 unit SUBCUT BID [facility] Last Admin: 11/29/23 09:14 Dose: 15 unit Documented By: DAVIDE Co-signed By: JANICE Admin: 11/28/23 21:33 Dose: 15 unit Documented By: (2) Co-signed By: JENSEN Admin: 11/28/23 08:38 Dose: 15 unit Documented By: Co-signed By: RADHA Admin: 11/27/23 21:44 Dose: 15 unit Documented By: JENIFFER Co-signed By: PEACEW Admin: 11/27/23 08:27 Dose: 15 unit Documented By: LARRY Co-signed By: KEYA Admin: 11/26/23 21:38 Dose: 15 unit Documented By: JENIFFER Co-signed By: JT Admin: 11/26/23 09:20 Dose: 15 unit Documented By: LARRY Co-signed By: (3) Admin: 11/25/23 21:40 Dose: 15 unit Documented By: KATHY Co-signed By: JT Insulin Human Lispro (Insulin Lispro 100 Unit/Ml 3ml Vial) 0 unit SUBCUT ACHS ODALIS; Protocol Last Admin: 11/29/23 12:41 Dose: 4 unit Documented By: DAVIDE Co-signed By: NANCY Admin: 11/29/23 09:09 Dose: 7 unit Documented By: DAVIDE Co-signed By: DONNY Admin: 11/28/23 21:33 Dose: 7 unit Documented By: (2) Co-signed By: Admin: 11/28/23 16:56 Dose: 12 unit Documented By: Co-signed By: NANCY Insulin Human Lispro (Insulin Lispro 100 Unit/Ml 3ml Vial) 10 unit SUBCUT AC [facility] Last Admin: 11/29/23 12:42 Dose: 10 unit Documented By: DAVIDE Co-signed By: NANCY Admin: 11/29/23 09:08 Dose: 10 unit Documented By: DAVIDE Co-signed By: DONNY Levothyroxine Sodium (Levothyroxine 75 Mcg Tablet) 150 mcg PO 0600 [facility] Last Admin: 11/29/23 06:07 Dose: 150 mcg Documented By: Admin: 11/28/23 05:47 Dose: 150 mcg Documented By: Admin: 11/27/23 06:18 Dose: 150 mcg Documented By: Admin: 11/26/23 05:23 Dose: 150 mcg Documented By: KATHY Methocarbamol (Methocarbamol 500 Mg Tablet) 750 mg PO QID PRN PRN Reason: Muscle Spasm Last Admin: 11/29/23 06:07 Dose: 750 mg Documented By: Admin: 11/28/23 16:55 Dose: 750 mg Documented By: Admin: 11/28/23 10:40 Dose: 750 mg Documented By: Metoprolol Tartrate (Metoprolol Ir 25 Mg Tablet) 25 mg PO BID [facility] Last Admin: 11/29/23 09:07 Dose: 25 mg Documented By: Admin: 11/28/23 21:32 Dose: 25 mg Documented By: (2) Admin: 11/28/23 08:35 Dose: 25 mg Documented By: Admin: 11/27/23 21:29 Dose: 25 mg Documented By: Admin: 11/27/23 08:09 Dose: 25 mg Documented By: Admin: 11/26/23 21:02 Dose: 25 mg Documented By: Admin: 11/26/23 09:12 Dose: 25 mg Documented By: Admin: 11/25/23 21:34 Dose: 25 mg Documented By: KATHY Naloxone HCl (Naloxone 0.4 Mg/Ml Vial) 0.2 mg IV Q2MIN PRN PRN Reason: Opiate Reversal Ondansetron HCl (Ondansetron 4 Mg/2 Ml Inj) 4 mg IV Q4HR PRN PRN Reason: Nausea And Vomiting Ondansetron HCl (Ondansetron 4 Mg Odt) 4 mg PO Q4HR PRN PRN Reason: Nausea Last Admin: 11/28/23 18:53 Dose: 4 mg Documented By: Oxycodone HCl (Oxycodone Ir 10 Mg Tablet) 10 mg PO Q3HR PRN PRN Reason: Pain, Severe (7-10) Last Admin: 11/28/23 16:55 Dose: 10 mg Documented By: Admin: 11/28/23 14:09 Dose: 10 mg Documented By: Admin: 11/28/23 11:36 Dose: 10 mg Documented By: Admin: 11/28/23 08:36 Dose: 10 mg Documented By: Admin: 11/28/23 05:47 Dose: 10 mg Documented By: Admin: 11/28/23 00:28 Dose: 10 mg Documented By: Admin: 11/27/23 06:18 Dose: 10 mg Documented By: Admin: 11/27/23 01:47 Dose: 10 mg Documented By: Admin: 11/26/23 21:02 Dose: 10 mg Documented By: Admin: 11/26/23 17:12 Dose: 10 mg Documented By: Admin: 11/26/23 12:51 Dose: 10 mg Documented By: Admin: 11/25/23 22:30 Dose: 10 mg Documented By: KATHY Oxycodone HCl (Oxycodone Ir 5 Mg Tablet) 5 mg PO Q3H PRN PRN Reason: Pain, Moderate (4-6) Last Admin: 11/29/23 12:52 Dose: 5 mg Documented By: Admin: 11/29/23 06:07 Dose: 5 mg Documented By: Admin: 11/29/23 01:33 Dose: 5 mg Documented By: Admin: 11/28/23 18:53 Dose: 5 mg Documented By: Admin: 11/28/23 14:53 Dose: 5 mg Documented By: Admin: 11/28/23 10:13 Dose: 5 mg Documented By: Admin: 11/27/23 21:29 Dose: 5 mg Documented By: Admin: 11/26/23 09:13 Dose: 5 mg Documented By: Admin: 11/26/23 04:32 Dose: 5 mg Documented By: KATHY Polyethylene Glycol (Polyethylene Glycol 3350 17 Gm Powd.Pack) 17 gm PO DAILY PRN PRN Reason: Constipation Sennosides (Sennosides 8.6 Mg Tablet) 8.6 mg PO BID PRN PRN Reason: Constipation Tacrolimus (Tacrolimus 0.5 Mg Capsule) 1 mg PO DAILY [facility] Last Admin: 11/29/23 10:45 Dose: 1 mg Documented By: Admin: 11/28/23 08:35 Dose: 1 mg Documented By: Admin: 11/27/23 08:08 Dose: 1 mg Documented By: Admin: 11/26/23 09:12 Dose: 1 mg Documented By: LARRY Ursodiol (Ursodiol 300 Mg Capsule) 300 mg PO BID [facility] Last Admin: 11/29/23 10:45 Dose: 300 mg Documented By: Admin: 11/28/23 21:32 Dose: 300 mg Documented By: MS(2) Admin: 11/28/23 08:34 Dose: 300 mg Documented By: Admin: 11/27/23 21:29 Dose: 300 mg Documented By: Admin: 11/27/23 08:08 Dose: 300 mg Documented By: Admin: 11/26/23 21:01 Dose: 300 mg Documented By: Admin: 11/26/23 09:13 Dose: 300 mg Documented By: Admin: 11/25/23 21:33 Dose: 300 mg Documented By: KATHY Discontinued Medications Bupivacaine HCl 30 ml/ (Epinephrine HCl 0.15 mg) 0 ml INJ NOW ONE Stop: 11/27/23 15:49 Last Admin: 11/27/23 15:48 Dose: 60 ml Documented By: IDALIA Hydromorphone HCl (Hydromorphone 0.5 Mg Inj) 0.5 mg IV Q2H PRN PRN Reason: Pain, Severe (7-10) Last Admin: 11/28/23 11:35 Dose: 0.5 mg Documented By: Admin: 11/28/23 09:49 Dose: 0.5 mg Documented By: Admin: 11/27/23 20:39 Dose: 0.5 mg Documented By: Admin: 11/27/23 08:22 Dose: 0.5 mg Documented By: LARRY Hydromorphone HCl (Hydromorphone 1 Mg Inj) 0 mg IV Q5MIN PRN PRN Reason: Pain, Moderate (4-6) Hydromorphone HCl (Hydromorphone 1 Mg Inj) 0 mg IV Q5MIN PRN PRN Reason: Pain, Severe (7-10) Hydromorphone HCl (Hydromorphone 0.5 Mg Inj) 1 mg IV Q2H PRN PRN Reason: Pain, Severe (7-10) Sodium Chloride (Normal Saline 0.9%) 1,000 mls @ 100 mls/hr IV CONT ODALIS Stop: 11/26/23 06:59 Last Infusion: 11/26/23 00:01 Dose: 0 mls/hr Documented By: Infusion: 11/25/23 21:58 Dose: 100 mls/hr Documented By: Infusion: 11/25/23 21:58 Dose: 0 mls/hr Documented By: Admin: 11/25/23 19:31 Dose: 100 mls/hr Documented By: SINDY Sodium Chloride (Normal Saline 0.9%) 1,000 mls @ 100 mls/hr IV CONT ODALIS Stop: 11/27/23 08:59 Last Admin: 11/26/23 17:05 Dose: Not Given Documented By: LARRY Lactated Ringer's (Lactated Ringers) 1,000 mls @ 42 mls/hr IV CONT ODALIS Last Admin: 11/27/23 17:12 Dose: 42 mls/hr Documented By: Cefazolin Sodium/Dextrose (Ancef) 100 mls @ 200 mls/hr IV NOW ONE Stop: 11/27/23 16:14 Last Infusion: 11/27/23 14:12 Dose: Infused Documented By: Admin: 11/27/23 14:07 Dose: 200 mls/hr Documented By: Tranexamic Acid 1,000 mg/ (Sodium Chloride) 100 mls @ 200 mls/hr IV NOW ONE Stop: 11/27/23 16:16 Last Admin: 11/27/23 17:48 Dose: 200 mls/hr Documented By: Infusion: 11/27/23 15:45 Dose: Infused Documented By: Admin: 11/27/23 15:15 Dose: 200 mls/hr Documented By: Lactated Ringer's (Lactated Ringers) 1,000 mls @ 100 mls/hr IV CONT ODALIS Last Admin: 11/27/23 19:15 Dose: 100 mls/hr Documented By: JENIFFER Cefazolin Sodium/Dextrose (Ancef) 100 mls @ 200 mls/hr IV Q8H ODALIS Stop: 11/28/23 06:29 Last Admin: 11/28/23 05:47 Dose: 200 mls/hr Documented By: Infusion: 11/27/23 22:00 Dose: Infused Documented By: Admin: 11/27/23 21:30 Dose: 200 mls/hr Documented By: JENIFFER Insulin Human Lispro (Insulin Lispro 100 Unit/Ml 3ml Vial) 0 unit SUBCUT ACHS ODALIS; Protocol Stop: 11/28/23 11:54 Last Admin: 11/28/23 12:21 Dose: 5 unit Documented By: Co-signed By: NANCY Admin: 11/28/23 08:39 Dose: 5 unit Documented By: Co-signed By: RADHA Admin: 11/27/23 21:44 Dose: 2 unit Documented By: JENIFFER Co-signed By: AYDEN Admin: 11/27/23 15:42 Dose: Not Given Documented By: Admin: 11/27/23 12:25 Dose: Not Given Documented By: Admin: 11/27/23 08:15 Dose: 1 unit Documented By: LARRY Co-signed By: KEYA Admin: 11/26/23 21:37 Dose: 2 unit Documented By: CT Co-signed By: JT Admin: 11/26/23 17:04 Dose: 5 unit Documented By: LARRY Co-signed By: JESSY Admin: 11/26/23 12:52 Dose: 3 unit Documented By: LARRY Co-signed By: (3) Admin: 11/26/23 09:22 Dose: 3 unit Documented By: LARRY Co-signed By: (3) Admin: 11/25/23 21:39 Dose: 3 unit Documented By: KATHY Co-signed By: JT Insulin Human Lispro (Insulin Lispro 100 Unit/Ml 3ml Vial) 5 unit SUBCUT AC [facility] Last Admin: 11/28/23 16:55 Dose: 5 unit Documented By: Co-signed By: NANCY Morphine Sulfate (Morphine 4 Mg/Ml Inj) 4 mg IV NOW ONE Stop: 11/25/23 17:41 Last Admin: 11/25/23 18:08 Dose: 4 mg Documented By: SINDY Naloxone HCl (Naloxone 0.4 Mg/Ml Vial) 0.2 mg IV Q2MIN PRN PRN Reason: Opiate Reversal Ondansetron HCl (Ondansetron 4 Mg/2 Ml Inj) 4 mg IV NOW ONE Stop: 11/25/23 17:41 Last Admin: 11/25/23 18:08 Dose: 4 mg Documented By: SINDY Ondansetron HCl (Ondansetron 4 Mg/2 Ml Inj) 4 mg IV Q4HR PRN PRN Reason: Nausea And Vomiting Last Admin: 11/28/23 11:36 Dose: 4 mg Documented By: Ondansetron HCl (Ondansetron 4 Mg/2 Ml Inj) 4 mg IV NOW PRN PRN Reason: Nausea And Vomiting Oxycodone HCl (Oxycodone Ir 10 Mg Tablet) 5 mg PO Q3H PRN PRN Reason: Pain, Moderate (4-6) Oxycodone HCl (Oxycodone Ir 5 Mg Tablet) 5 mg PO PACUNOW PRN PRN Reason: Mild or moderate pain Polyethylene Glycol (Polyethylene Glycol 3350 17 Gm Powd.Pack) 17 gm PO DAILY PRN PRN Reason: Constipation Vital Signs Vital signs: Vital Signs - 8 hr 11/25/23 17:02 11/25/23 17:03 11/25/23 17:03 Temperature 97.6 F Pulse Rate 98 H 97 H 97 H Respiratory Rate 16 Blood Pressure 126/72 Pulse Oximetry 97 99 99 Oxygen Delivery Method Room Air 11/25/23 17:03 11/25/23 17:30 11/25/23 17:41 Temperature Pulse Rate 97 H 97 H Respiratory Rate Blood Pressure 126/72 Pulse Oximetry 100 99 Oxygen Delivery Method 11/25/23 17:41 11/25/23 18:00 11/25/23 18:00 Temperature Pulse Rate 100 H Respiratory Rate Blood Pressure 132/74 123/64 Pulse Oximetry 99 Oxygen Delivery Method MDM - Extremity Injury (Lower) Lab Data 11/29/23 06:10 11/29/23 06:10 Labs: Lab Results 11/25/23 Range/Units 17:40 WBC 10.8 (4.5-11.0) X10^3/uL RBC 2.93 L (4.5-5.9) X10^6/uL Hgb 9.0 L (13.5-17.5) g/dL Hct 26.4 L (41-53) % MCV 90.0 (80-100) fL MCH 30.8 (26-34) PG MCHC 34.3 (30-36) % RDW 15.8 H (11.6-14.8) % Plt Count 423 H (150-400) X10^3/uL Neut % (Auto) 81.9 H (50-75) % Lymph % (Auto) 10.6 L (25-40) % Lake % (Auto) 4.5 (3-14) % Eos % (Auto) 2.8 (2-4) % Baso % (Auto) 0.2 (0-2) % Neut # (Auto) 8900 H (6924-7629) /uL Lymph # (Auto) 1100 (7369-0813) /uL Lake # (Auto) 500 (0-900) /uL Eos # (Auto) 300 (0-450) /uL Baso # (Auto) 0 (0-100) /uL Sodium 130 L (137-145) mmol/L Potassium 5.1 (3.4-5.1) mmol/L Chloride 103 (98-107) mmol/L Carbon Dioxide 22 (22-32) mmol/L BUN 51 H (9-20) mg/dL Creatinine 1.90 H (0.66-1.25) mg/dL Estimated GFR 37 L (>60) mL/min BUN/Creatinine Ratio 26.8 H (6-22) Glucose 279 H (80-110) mg/dL Calcium 9.1 (8.4-10.2) mg/dL Total Bilirubin 0.5 (0.2-1.3) mg/dL AST 17 (17-59) IU/L ALT 16 (<50) IU/L Alkaline Phosphatase 153 H (38-126) U/L Total Protein 6.8 (6.3-8.2) g/dL Albumin 3.4 L (3.5-5.0) g/dL Globulin 3.4 (1.7-4.1) g/dL Albumin/Globulin Ratio 1.0 (1.0-2.8) Imaging Data Extremity x-ray #1: Radiologist's Impression: [address] [address] XRay Report Signed Patient: Alo Fuentes MR#: [id number] : 1955 Acct:[id number] Age/Sex: 68 / M Date of Service: 11/25/23 Loc: ED Accession Number: [id number] Procedure: XR hip w pel if done RT 2V Ordering Provider: Dilan Poon MD PROCEDURE: XR HIP W PEL IF DONE RT 2V INDICATIONS: glf TECHNIQUE: 2 views of the hip were acquired. COMPARISON: [facility], CR, XR HIP W PEL IF DONE RT 2V, 11/12/2023, 19:42. [facility], CR, XR HIP W PEL IF DONE RT 2V, 11/11/2023, 5:08. FINDINGS: Bones: Moderately displaced fracture of the distal femur shaft. Soft tissues: Postsurgical changes. Vascular calcifications. IMPRESSION: Moderately displaced distal femur fracture. Dictated by: Adi Green M.D. on 11/25/2023 at 17:42 Approved by: Adi Green M.D. on 11/25/2023 at 17:43 Extremity x-ray #2: Radiologist's Impression: [address] [address] XRay Report Signed Patient: Alo Fuentes MR#: [id number] : 1955 Acct:[id number] Age/Sex: 68 / M Date of Service: 11/25/23 Loc: ED Accession Number: [id number] Procedure: XR femur RT min 2V Ordering Provider: Dilan Poon MD PROCEDURE: XR FEMUR RT MIN 2V INDICATIONS: glf TECHNIQUE: 2 views of the femur were acquired. COMPARISON: [facility], CR, XR HIP W PEL IF DONE RT 2V, 11/11/2023, 5:08. [facility], CR, XR HIP W PEL IF DONE RT 2V, 11/12/2023, 19:42. [facility], CT, CT PEL WO CON, 11/13/2023, 10:36. [facility], CR, XR HIP W PEL IF DONE RT 2V, 11/25/2023, 17:22. FINDINGS: Bones: Right hip arthroplasty. [id number] left hip arthrosis. A trace lucency at the proximal portion of the femur was seen on prior imaging from CT on 11/13/2023. No new dislocation or displaced fracture. Soft tissues: Postsurgical changes. IMPRESSION: Right hip arthroplasty. There is a trace lucency at the most proximal medial portion of the femur, likely present on prior CT from 11/13/2023. If there is high concern for occult injury, consider repeat radiography or cross-sectional imaging. Dictated by: Adi Green M.D. on 11/25/2023 at 17:40 Approved by: Adi Green M.D. on 11/25/2023 at 17:42 [facility] Narrative Medical decision making narrative: Patient brought in by ambulance from [facility]. Patient recently had total right hip done and was there for rehab. However we do not know what was the date of the surgery. He did fall again in the past week and has been in bed since then. Patient is only oriented to self and date of . He does not know where he had surgery. He does not know where he is currently staying for rehab. Nursing staff calling the rehab facility for more medical information and history. However looking at medical records patient did have surgery here November 11 for the right hip 5:53 p.m.. Nurse Jose Ramon, spoke with [facility] re[facility] facility, patient fell 48 hours ago. It was mechanical fall. Patient at baseline with mentation cognition. 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 Pertinent findings: WBC 10.8 hemoglobin 9.0 hematocrit 26 sodium 130 potassium 5.1 BUN 51 creatinine 1.9 GFR 37 Imaging studies independently reviewed: X-ray right hip with pelvis no acute finding with the hip, x-ray right femur shows distal fracture Consultations: 6:[address] Stanford, orthopedics, she will see patient in consult. Admit to hospitalist. I did speak with Dr. Linares, hospitalist, who will admit patient. Treatments: Morphine Zofran Re-evaluations: 6:00 p.m.. Awaiting for Orthopedics to call back, pain is controlled. Discussion: Appropriate for admission/transfer due to new fracture of the femur. Pain is controlled. Diagnosis: Femur fracture Discharge Plan Departure Patient Disposition: Admitted As Inpatient Clinical Impression: Femur fracture, right Qualifiers: Encounter type: initial encounter Femur location: distal, unspecified portion F racture type: closed Fracture morphology: other fracture Qualified Code(s): S 72.491A - Other fracture of lower end of right femur, initial encounter for closed fracture Admit Date/Time: 11/25/23 18:28 Admit Provider: Jaden Linares
[2023-11-25 17:48] LABS: Add Manual Diff / Slide Review NO; Basophils Absolute Auto 0 /uL (0-100); Basophils Percent Auto 0.2 % (0-2); Eosinophils Absolute Auto 300 /uL (0-450); Eosinophils Percent Auto 2.8 % (2-4); Hematocrit 26.4 % (41-53); Lymphocytes Absolute Auto 1100 /uL (1100-4500); Lymphocytes Percent Auto 10.6 % (25-40); Mean Corpuscular HGB Conc 34.3 % (30-36); Mean Corpuscular Hemoglobin 30.8 PG (26-34); Monocytes Absolute Auto 500 /uL (0-900); Monocytes Percent Auto 4.5 % (3-14); Neutrophils Absolute Auto 8900 /uL (1500-7000); Neutrophils Percent Auto 81.9 % (50-75); Platelet Count 423 X10^3/uL (150-400); Red Blood Cell Count 2.93 X10^6/uL (4.5-5.9); Red Cell Distribution Width 15.8 % (11.6-14.8); White Blood Cell Count 10.8 X10^3/uL (4.5-11.0)
--- NOTE | 2023-11-25 17:53 | PC.NURSE ---
At this time I spoke with nurse at [facility] regarding the patient. They report he had a hip surgery for fracture on 11/12/23. He had a mechanical fall 48-72 hours ago with pain to right leg. Today was non weightbearing so they sent him here for xrays. They also reports this is his baseline level of confusion which is A & O x1 due to dementia.
[2023-11-25 18:05] LABS: Alanine Aminotransferase 16 IU/L (<50); Albumin 3.4 g/dL (3.5-5.0); Alkaline Phosphatase 153 U/L (38-126); Aspartate Aminotransferase 17 IU/L (17-59); BUN Creatinine Ratio 26.8 (6-22); Bilirubin Total 0.5 mg/dL (0.2-1.3); Blood Urea Nitrogen 51 mg/dL (9-20); Calcium 9.1 mg/dL (8.4-10.2); Carbon Dioxide 22 mmol/L (22-32); Chloride 103 mmol/L (98-107); Estimated Glomerular Filt Rate 37 mL/min (>60); Globulin 3.4 g/dL (1.7-4.1); Glucose 279 mg/dL (80-110); HEMOLYSIS < 15 (0-50); Potassium 5.1 mmol/L (3.4-5.1); Sodium 130 mmol/L (137-145); Total Protein 6.8 g/dL (6.3-8.2)
[2023-11-25] MEDS: MORPHINE 4 MG/ML INJ IV (18:08)
[2023-11-25] MEDS: ONDANSETRON 4 MG/2 ML INJ IV (18:08)
--- NOTE | 2023-11-25 18:14 | PC.NURSE ---
Last dose of 5mg oral Eliquis confirmed with [facility] Nurse for [address] Poon informed and he let the surgeon know.
--- NOTE | 2023-11-25 18:22 | PC.NURSE ---
Pts daughter Billie (DPOA) called and is concerned about his labs-- particularly kidney and liver labs. Pt is a liver transplant recipient. Her number is . Pts son is local and is the alternate: Taran Fuentes [phone].
--- NOTE | 2023-11-25 18:30 | PM.HP.1 ---
History of Present Illness History of Present Illness Date Patient Seen: 11/25/23 Chief complaint: hip pain Narrative: Alo Fuentes is a 68-year-old male who stays at [facility] and has severe dementia, with recent admission for hip fracture requiring right hemiarthroplasty on 11/12/23, HTN, HLD, DM2, hypothyroidism, depression, A-fib on eliquis, and liver transplant on chronic tacrolimus who presents from SNF with another fall resulting in right distal femur fracture. Patient has no idea what happened or how he got to the hospital other than his right leg hurts. Per ED note he fell at SNF approx 1 week ago and has been in bed since. Had continued pain and swelling so was brought to the ED where an XR shows a new right distal femur fracture. Ortho contacted and will consult. [facility] Social History household members: none caregiver/support person: Yes (POA daughter Billie in [place]. Another son lives relatively local) housing: assisted living facility Smoking Status: Former smoker Meds Home Medications and Allergies Home Medications Medication Instructions Recorded Confirmed Type albuterol 90 mcg-budesonide 80 2 inh inhalation Q4H PRN sob 11/11/23 11/25/23 History mcg/actuation HFA aerosol inhaler amlodipine 10 mg tablet 10 mg PO DAILY 11/11/23 11/25/23 History apixaban 5 mg tablet (Eliquis) 5 mg PO BID 11/11/23 11/25/23 History atorvastatin 40 mg tablet 40 mg PO QPM 11/11/23 11/25/23 History fluconazole 200 mg tablet 200 mg PO DAILY 11/11/23 11/25/23 History insulin glargine 100 unit/mL 15 unit SUBCUT BID 11/11/23 11/25/23 History subcutaneous cartridge insulin lispro 100 unit/mL 1 sliding scale dose SUBCUT 11/11/23 11/25/23 History subcutaneous cartridge (Humalog USEASDIRECTD U-100 Insulin) insulin lispro 100 unit/mL 10 unit SUBCUT AC 11/11/23 11/25/23 History subcutaneous cartridge (Humalog U-100 Insulin) levothyroxine 150 mcg tablet 150 mcg PO DAILY 11/11/23 11/25/23 History metoprolol tartrate 25 mg tablet 25 mg PO BID 11/11/23 11/25/23 History tacrolimus 0.5 mg capsule, 1 mg PO DAILY 11/11/23 11/25/23 History immediate-release ursodiol 300 mg capsule 300 mg PO BID 11/11/23 11/25/23 History citalopram 10 mg tablet 5 mg (1/2 x 10 mg) PO DAILY #30 11/18/23 11/25/23 Rx tabs cyclobenzaprine 10 mg tablet 10 mg PO Q8HR PRN Spasms #30 tabs 11/18/23 11/25/23 Rx oxycodone 5 mg tablet 5 mg PO Q4HR PRN Pain, Moderate 11/18/23 11/25/23 Rx (4-6) #25 tabs Allergies Allergy/AdvReac Type Severity Reaction Status Date / Time No Known Drug Allergies Allergy Verified 11/11/23 05:19 Review of Systems Review of Systems Narrative: Unattainable due to dementia. Exam Vital Signs (past 8 hours): - 11/25/23 17:02 11/25/23 17:03 11/25/23 17:03 Temperature 97.6 F Pulse Rate 98 H 97 H 97 H Respiratory Rate 16 Blood Pressure 126/72 Pulse Oximetry 97 99 99 Oxygen Delivery Method Room Air 11/25/23 17:03 11/25/23 17:30 11/25/23 17:41 Temperature Pulse Rate 97 H 97 H Respiratory Rate Blood Pressure 126/72 Pulse Oximetry 100 99 Oxygen Delivery Method 11/25/23 17:41 11/25/23 18:00 11/25/23 18:00 Temperature Pulse Rate 100 H Respiratory Rate Blood Pressure 132/74 123/64 Pulse Oximetry 99 Oxygen Delivery Method Oxygen Delivery Method Room Air Narrative Exam Narrative: GEN: confused, demented HEENT: moist mucous membranes, PERRL NECK: trachea midline, no JVD CV: regular rate and rhythm, no murmurs PULM: clear bilaterally ABD: soft, nontender, nondistended, no organomegaly EXT: right thigh swollen and painful to the tough, shortened and externally rotated NEURO: awake, alert, oriented, no focal deficits Objective Labs 11/26/23 05:35 11/26/23 05:35 Labs: Laboratory Results - last 24 hr 11/25/23 17:40 WBC 10.8 RBC 2.93 L Hgb 9.0 L Hct 26.4 L MCV 90.0 MCH 30.8 MCHC 34.3 RDW 15.8 H Plt Count 423 H Neut % (Auto) 81.9 H Lymph % (Auto) 10.6 L [place] % (Auto) 4.5 Eos % (Auto) 2.8 Baso % (Auto) 0.2 Neut # (Auto) 8900 H Lymph # (Auto) 1100 [place] # (Auto) 500 Eos # (Auto) 300 Baso # (Auto) 0 Sodium 130 L Potassium 5.1 Chloride 103 Carbon Dioxide 22 BUN 51 H Creatinine 1.90 H Estimated GFR 37 L BUN/Creatinine Ratio 26.8 H Glucose 279 H Calcium 9.1 Total Bilirubin 0.5 AST 17 ALT 16 Alkaline Phosphatase 153 H Total Protein 6.8 Albumin 3.4 L Globulin 3.4 Albumin/Globulin Ratio 1.0 Assessment & Plan Assessment & Plan narrative: # right distal femur fracture after fall at SNF # recent right hip fracture s/p hemiarthroplasty on 11/12/23 # JERARDO vs CKD # Hypertension # severe dementia # DM2 # Hypothyroidism # Liver transplant on chronic tacrolimus # Atrial fibrillation on chronic anticoagulation -Dr. Willa Stanford ortho consulted -hold eliquis, last dose AM of 11/24 -NPO midnight for possible surgery -pain control -IVF to treat JERARDO -insulin -continue home statin, synthroid, metoprolol, celexa, tacrolimus and fluconazole. Hold amlodipine as currently normotensive. Code status is full code. DVT prophylaxis with SCDs. Proxy is daughter Josh Fuentes who is POA, lives in [facility]. I have reviewed home meds and used all available resources to reconcile the home meds. Case discussed with ED physician/APC and patient will be admitted to the hospitalist service for further workup and management. This patient will be admitted as inpatient and will require greater than 2 midnights of hospital time to treat distal right femur fracture.
[2023-11-25 18:52] LABS: Appearance Urine UA CLEAR; Bilirubin Urine UA NEGATIVE (NEGATIVE); Color Urine UA YELLOW; Glucose Urine UA NEGATIVE (Negative); Ketones Urine UA NEGATIVE (NEGATIVE); Leukocyte Esterase Urine UA NEGATIVE (NEGATIVE); Nitrite Urine UA NEGATIVE (Negative); Occult Blood Urine UA NEGATIVE (Negative); Protein Urine UA NEGATIVE (Negative); Urobilinogen Urine UA 0.2 E.U./dL (0.2); pH Urine UA 5.5 (4.5-8.0)
[2023-11-25 18:59] LABS: Ur Creatinine Normal (Normal); Ur Specific Gravity Normal (Normal); Urine Amphetamines Negative (Negative); Urine Cocaine Negative (Negative); Urine Methamphetamines Negative (Negative); Urine Opiates Positive (Negative); Urine Phencyclidine Negative (Negative); Urine THC Positive (Negative); Urine pH Normal (Normal)
[2023-11-25 19:00] LABS: Urine Barbiturates Negative (Negative); Urine Benzodiazepines Negative (Negative); Urine MDMA Negative (Negative); Urine Methadone Negative (Negative); Urine Oxycodone Positive (Negative)
[2023-11-25 19:01] LABS: Urine Tricyclic Antidepressant Positive (Negative)
[2023-11-25 19:08] LABS: Bacteria Urine Occasional (0-1); Hyaline Casts Urine 0-1/LPF; Mucus Urine 1+ (Negative); RBC Urine 0-1/HPF (0-5/HPF); Squamous Epithelial Cell Urine 0-1 /HPF (0-5/HPF); Urine Volume 10mL (spun); WBC Urine 0-1/HPF (0-5/HPF)
[2023-11-25 19:09] LABS: Culture Indicated Urine Cult Not Indicated
[2023-11-25] MEDS: SODIUM CHLORIDE 0.9% 1,000 ML 100 ML IV (19:31)
[2023-11-25] MEDS: ATORVASTATIN 20 MG TABLET 40 MG PO (21:33)
[2023-11-25] MEDS: ursodioL 300 MG CAPSULE PO (21:33)
[2023-11-25] MEDS: METOPROLOL IR 25 MG TABLET PO (21:34)
[2023-11-25] MEDS: INSULIN LISPRO 100 UNIT/ML 3ML VIAL SUBCUT (21:39)
[2023-11-25] MEDS: INSULIN GLARGINE 100 UNIT/ML 3ML PEN 15 UNIT SUBCUT (21:40)
[2023-11-25] MEDS: OXYCODONE IR 10 MG TABLET PO (22:30)
--- NOTE | 2023-11-25 22:57 | PC.NURSE ---
2107 Pt. admitted to room 206 by YANCY He. Patient very confused not able to answer admit assessment questions. Very restless, pain assessment/FLACC scored 7/10. Medicated with 10 mg. of Percolone, will cont. POC & monitor.
--- NOTE | 2023-11-26 | DI.CT.S_ITS ---
PROCEDURE: CT FEMUR RIGHT WITHOUT CON INDICATIONS: Femur fracture TECHNIQUE: Noncontrast 3 mm axial sections acquired of the right femur , with coronal and sagittal reformats. COMPARISON: [facility], CR, XR HIP W PEL IF DONE RT 2V, 11/12/2023, 19:42. [facility], CR, XR HIP W PEL IF DONE RT 2V, 11/11/2023, 5:08. [facility], CR, XR FEMUR RT MIN 2V, 11/25/2023, 17:22. FINDINGS: Image quality: Excellent. Bones: Recent total right hip arthroplasty. No evidence of hardware failure or loosening. Oblique distal shaft fracture of the femur with displacement, overriding, and angulation. There is fracture line that extends approximately to the periprosthetic portion of the femoral shaft Knee joint not involved. Soft tissues: Knee joint effusion. IMPRESSION: 1. Recent total right hip arthroplasty. 2. Oblique distal shaft fracture of the femur with displacement, overriding, and angulation. There is no involvement of the knee joint. However, fracture extends proximally to involve a adarsh- prosthetic component. Dictated by: Jc Ledezma M.D. on 11/26/2023 at 10:58 Approved by: Jc Ledezma M.D. on 11/26/2023 at 11:03
[2023-11-26 01:00] VITALS: BP 107/69; PULSE 87; RESP 18; TEMP 36.6; O2SAT 95
[2023-11-26] MEDS: OXYCODONE IR 5 MG TABLET PO ×2 (04:32→09:13)
[2023-11-26 05:00] VITALS: BP 118/67; PULSE 90; RESP 17; TEMP 35.9; O2SAT 98
[2023-11-26] MEDS: LEVOTHYROXINE 75 MCG TABLET 150 MCG PO (05:23)
[2023-11-26 05:51] LABS: Add Manual Diff / Slide Review NO; Basophils Absolute Auto 0 /uL (0-100); Basophils Percent Auto 0.4 % (0-2); Eosinophils Absolute Auto 400 /uL (0-450); Hematocrit 25.4 % (41-53); Hemoglobin 8.6 g/dL (13.5-17.5); Lymphocytes Absolute Auto 1000 /uL (1100-4500); Lymphocytes Percent Auto 13.6 % (25-40); Mean Corpuscular HGB Conc 33.8 % (30-36); Mean Corpuscular Hemoglobin 30.6 PG (26-34); Mean Corpuscular Volume 90.4 fL (80-100); Monocytes Absolute Auto 300 /uL (0-900); Monocytes Percent Auto 4.7 % (3-14); Neutrophils Absolute Auto 5600 /uL (1500-7000); Neutrophils Percent Auto 76.3 % (50-75); Platelet Count 381 X10^3/uL (150-400); Red Blood Cell Count 2.81 X10^6/uL (4.5-5.9); Red Cell Distribution Width 16.2 % (11.6-14.8); White Blood Cell Count 7.4 X10^3/uL (4.5-11.0)
[2023-11-26 06:03] LABS: BUN Creatinine Ratio 29.3 (6-22); Blood Urea Nitrogen 51 mg/dL (9-20); Carbon Dioxide 22 mmol/L (22-32); Chloride 104 mmol/L (98-107); Estimated Glomerular Filt Rate 42 mL/min (>60); Glucose 221 mg/dL (80-110); HEMOLYSIS < 15 (0-50); Potassium 5.1 mmol/L (3.4-5.1); Sodium 131 mmol/L (137-145)
[2023-11-26 08:00] VITALS: BP 111/70; PULSE 94; RESP 16; TEMP 36.3; O2SAT 98
[2023-11-26] MEDS: TACROLIMUS 0.5 MG CAPSULE 1 MG PO (09:12)
[2023-11-26] MEDS: METOPROLOL IR 25 MG TABLET PO ×2 (09:12→21:02)
[2023-11-26] MEDS: FLUCONAZOLE 100 MG TABLET 200 MG PO (09:12)
[2023-11-26] MEDS: CITALOPRAM 10 MG TABLET 5 MG PO (09:13)
[2023-11-26] MEDS: ursodioL 300 MG CAPSULE PO ×2 (09:13→21:01)
[2023-11-26] MEDS: INSULIN GLARGINE 100 UNIT/ML 3ML PEN 15 UNIT SUBCUT ×2 (09:20→21:38)
[2023-11-26] MEDS: INSULIN LISPRO 100 UNIT/ML 3ML VIAL SUBCUT ×4 (09:22→21:37)
[2023-11-26 12:00] VITALS: BP 104/65; PULSE 80; RESP 18; TEMP 36.6; O2SAT 97
[2023-11-26] MEDS: OXYCODONE IR 10 MG TABLET PO ×3 (12:51→21:02)
--- NOTE | 2023-11-26 13:18 | CM.DANOTE ---
Initial DCP Assessment Visit Note Reviewed EMR and team rounds for status updates. Did not meet with pt at bedside as he has significant dementia. Pt resides at [facility] at baseline, he has been at [facility] for rehab for the last 4-days prior to breaking his femur 2-days ago following a GLF. Plan at this time is to return to [facility] at d/c to resume rehab. Dtr is proxy and lives in [place]. Payor: Barbara PCP: Dr. Zamora Surgeon: Dr. Willa Stanford Pt is a 68 year-old M with a hx of advanced dementia who presented to the ED via EMS last evening from [facility] with c/o hip pain. He had a R-total hip arthroplasty completed on 11/11, discharged to [facility] for rehab, then 2-days later fell. He has not been able to get out of bed since that time. He is oriented to self and his birthday only, no local family. CT of his femur showed a femoral fracture on the same right leg. Ortho was consulted, and the plan was made to admit for planned surgery tomorrow, 11/26. DCP will continue to follow and assist with transition back to [facility] once medically appropriate. Discharge Planning/Care Management CM Discharge Assessment Start: 11/26/23 13:14 Freq: Status: Active Protocol: Document 11/26/23 13:15 DPL (Rec: 11/26/23 13:18 DPL [id number]) Discharge Planning Assessment Assigned Entrepreneurial Finance Professor MUKUL Florez Advance Directives? No History Provided By Medical Record Expected Length of Stay 5 Has Patient been admitted in last 30 Yes days? Comment admitted on 11/11-11/18/23 for R- hip total arthroplasty Prior Living Arrangements Assisted Living Comment Pt is currently receiving SNF rehab at [facility], however he lives at [facility] at baseline. Household Members none Type of transporation used prior to Relies on Others admit Facility Name Admitted From: [facility] Independent with ADL's No Is patient alert and oriented? No: alert to self and birthday only Needs Assistance With Bathing,Grooming,Meal Prep, Toileting,Managing Medications ,Home Chores / Shopping Caregiver for Another No Community Services used prior to Physical Therapy admission: DME Already Rented / Owned Wheelchair,FWW / Walker Patient/Family Preference Long-Term Facility Comment Return to [facility] to resume rehab. Barriers to Discharge No Discharge Plan Long-Term Facility Transportation Arrangement facility van Referrals Initiated Long-Term If patient plan is SNF: Has PASSR been No completed? Review Status In Process Please Provide Date Initial DC 11/26/23 Assessment Was Performed
--- NOTE | 2023-11-26 15:04 | P.PN_ITS ---
Subjective Subjective Interval history: Patient pulled out his ferro and IV today. Will not get surgery until tomorrow so given a diet. NPO at midnight. Exam Vital Signs (past 8 hours): - 11/26/23 08:00 11/26/23 12:00 Temperature 97.3 F L 97.9 F Pulse Rate 94 H 80 Respiratory Rate 16 18 Blood Pressure 111/70 104/65 Pulse Oximetry 98 97 Oxygen Flow Rate 0 0 Oxygen Delivery Method Room Air Oxygen Flow Rate 0 Narrative Exam Narrative: GEN: confused, demented HEENT: moist mucous membranes, PERRL NECK: trachea midline, no JVD CV: regular rate and rhythm, no murmurs PULM: clear bilaterally ABD: soft, nontender, nondistended, no organomegaly EXT: right thigh swollen and painful to the tough, shortened and externally rotated NEURO: awake, alert, oriented, no focal deficits Objective Labs 11/26/23 05:35 11/26/23 05:35 Labs: Laboratory Results - last 24 hr 11/25/23 11/25/23 11/25/23 17:40 18:45 18:45 WBC 10.8 RBC 2.93 L Hgb 9.0 L Hct 26.4 L MCV 90.0 MCH 30.8 MCHC 34.3 RDW 15.8 H Plt Count 423 H Neut % (Auto) 81.9 H Lymph % (Auto) 10.6 L [place] % (Auto) 4.5 Eos % (Auto) 2.8 Baso % (Auto) 0.2 Neut # (Auto) 8900 H Lymph # (Auto) 1100 [place] # (Auto) 500 Eos # (Auto) 300 Baso # (Auto) 0 Sodium 130 L Potassium 5.1 Chloride 103 Carbon Dioxide 22 BUN 51 H Creatinine 1.90 H Estimated GFR 37 L BUN/Creatinine Ratio 26.8 H Glucose 279 H Calcium 9.1 Total Bilirubin 0.5 AST 17 ALT 16 Alkaline Phosphatase 153 H Total Protein 6.8 Albumin 3.4 L Globulin 3.4 Albumin/Globulin Ratio 1.0 Urine Color Yellow Urine Appearance Clear Urine pH 5.5 Normal Ur Specific [place] 1.020 Urine Protein Negative Urine Glucose (UA) Negative Urine Ketones Negative Urine Occult Blood Negative Urine Nitrate Negative Urine Bilirubin Negative Urine Urobilinogen 0.2 Ur Leukocyte Esterase Negative Urine RBC 0-1/hpf Urine WBC 0-1/hpf Ur Squamous Epith Cells 0-1 /hpf Urine Bacteria Occasional (0-1) Hyaline Casts 0-1/lpf Urine Mucus 1+ H Ur Culture Indicated? Cult not indicated Vol Urine Centrifuged 10ml (spun) U Opiates 300ng/mL cut Positive H Ur Oxycodone Screen Positive H Urine Methadone Screen Negative Ur Barbiturates Screen Negative U Tricyclic Antidepress Positive H Ur Phencyclidine Scrn Negative Ur Amphetamines Screen Negative U Methamphetamines Scrn Negative Ur MDMA Scrn (Ecstasy) Negative U Benzodiazepines Scrn Negative Urine Cocaine Screen Negative U Marijuana (THC) Screen Positive H Urine Specific [place] Normal Ur Creatinine Normal 11/26/23 05:35 WBC 7.4 RBC 2.81 L Hgb 8.6 L Hct 25.4 L MCV 90.4 MCH 30.6 MCHC 33.8 RDW 16.2 H Plt Count 381 Neut % (Auto) 76.3 H Lymph % (Auto) 13.6 L [place] % (Auto) 4.7 Eos % (Auto) 5.0 H Baso % (Auto) 0.4 Neut # (Auto) 5600 Lymph # (Auto) 1000 L [place] # (Auto) 300 Eos # (Auto) 400 Baso # (Auto) 0 Sodium 131 L Potassium 5.1 Chloride 104 Carbon Dioxide 22 BUN 51 H Creatinine 1.74 H Estimated GFR 42 L BUN/Creatinine Ratio 29.3 H Glucose 221 H Calcium 9.0 Total Bilirubin AST ALT Alkaline Phosphatase Total Protein Albumin Globulin Albumin/Globulin Ratio Urine Color Urine Appearance Urine pH Ur Specific [place] Urine Protein Urine Glucose (UA) Urine Ketones Urine Occult Blood Urine Nitrate Urine Bilirubin Urine Urobilinogen Ur Leukocyte Esterase Urine RBC Urine WBC Ur Squamous Epith Cells Urine Bacteria Hyaline Casts Urine Mucus Ur Culture Indicated? Vol Urine Centrifuged U Opiates 300ng/mL cut Ur Oxycodone Screen Urine Methadone Screen Ur Barbiturates Screen U Tricyclic Antidepress Ur Phencyclidine Scrn Ur Amphetamines Screen U Methamphetamines Scrn Ur MDMA Scrn (Ecstasy) U Benzodiazepines Scrn Urine Cocaine Screen U Marijuana (THC) Screen Urine Specific [place] Ur Creatinine PFSH Social History household members: none caregiver/support person: Yes (POA daughter Billie in [place]. Another son lives relatively local) housing: assisted living facility Smoking Status: Former smoker Assessment & Plan Assessment & Plan narrative: # right distal femur fracture after fall at SNF # recent right hip fracture s/p hemiarthroplasty on 11/12/23 # JERARDO vs CKD # Hypertension # severe dementia # DM2 # Hypothyroidism # Liver transplant on chronic tacrolimus # Atrial fibrillation on chronic anticoagulation -Dr. Anne-Marie morgan consulted -hold eliquis, last dose AM of 11/24 -NPO midnight for surgery on 11/26 at 2:30pm -pain control -IVF to treat JERARDO, Cr improving -insulin -continue home statin, synthroid, metoprolol, celexa, tacrolimus and fluconazole. Hold amlodipine as currently normotensive. Code status is full code. DVT prophylaxis with SCDs. Proxy is daughter Josh Fuentes who is POA, lives in [facility]. Dispo: Pending femur surgery then likely back to SNF. 2-3 days. Quality VTE Deep Vein Thrombosis/Pulmonary Embolism Present on Admission: No
[2023-11-26 16:00] VITALS: BP 100/64; PULSE 97; RESP 16; TEMP 36.2; O2SAT 98
--- NOTE | 2023-11-26 19:11 | PM.CN ---
History of Present Illness Consult details Date Patient Seen: 11/26/23 Time Patient Seen: 08:00 Chief complaint: hip pain Reason for consult: Right femur fracture Requesting provider: Jaden Linares Narrative: This is an unfortunate 68-year-old gentleman who has a history of a fall and a recent right femoral neck fracture. He was treated by Dr. Xie with a right hip partial replacement on 11/12/2023. He was discharged to [facility]. He fell and noted the acute onset of right leg pain and deformity. Meds Home Medications and Allergies Home Medications Medication Instructions Recorded Confirmed Type albuterol 90 mcg-budesonide 80 2 inh inhalation Q4H PRN sob 11/11/23 11/25/23 History mcg/actuation HFA aerosol inhaler amlodipine 10 mg tablet 10 mg PO DAILY 11/11/23 11/25/23 History apixaban 5 mg tablet (Eliquis) 5 mg PO BID 11/11/23 11/25/23 History atorvastatin 40 mg tablet 40 mg PO QPM 11/11/23 11/25/23 History fluconazole 200 mg tablet 200 mg PO DAILY 11/11/23 11/25/23 History insulin glargine 100 unit/mL 15 unit SUBCUT BID 11/11/23 11/25/23 History subcutaneous cartridge insulin lispro 100 unit/mL 1 sliding scale dose SUBCUT 11/11/23 11/25/23 History subcutaneous cartridge (Humalog USEASDIRECTD U-100 Insulin) insulin lispro 100 unit/mL 10 unit SUBCUT AC 11/11/23 11/25/23 History subcutaneous cartridge (Humalog U-100 Insulin) levothyroxine 150 mcg tablet 150 mcg PO DAILY 11/11/23 11/25/23 History metoprolol tartrate 25 mg tablet 25 mg PO BID 11/11/23 11/25/23 History tacrolimus 0.5 mg capsule, 1 mg PO DAILY 11/11/23 11/25/23 History immediate-release ursodiol 300 mg capsule 300 mg PO BID 11/11/23 11/25/23 History citalopram 10 mg tablet 5 mg (1/2 x 10 mg) PO DAILY #30 11/18/23 11/25/23 Rx tabs cyclobenzaprine 10 mg tablet 10 mg PO Q8HR PRN Spasms #30 tabs 11/18/23 11/25/23 Rx oxycodone 5 mg tablet 5 mg PO Q4HR PRN Pain, Moderate 11/18/23 11/25/23 Rx (4-6) #25 tabs Allergies Allergy/AdvReac Type Severity Reaction Status Date / Time No Known Drug Allergies Allergy Verified 11/11/23 05:19 Review of Systems Review of Systems Narrative: It was a slip and fall. He was not lightheaded or specifically dizzy or weak prior to the fall. Exam Vital Signs (past 8 hours): - 11/26/23 12:00 11/26/23 16:00 Temperature 97.9 F 97.2 F L Pulse Rate 80 97 H Respiratory Rate 18 16 Blood Pressure 104/65 100/64 Pulse Oximetry 97 98 Oxygen Flow Rate 0 0 Oxygen Delivery Method Room Air Oxygen Flow Rate 0 Narrative Exam Narrative: He is resting comfortably in bed. He is alert he says that he has a little confused about his situation in terms of knowing where he was living prior to his fall. He is uncertain how he fell but he does note he has substantial right leg pain. HEENT is atraumatic lungs are clear cor is irregular, abdomen is benign, right lower extremity has a healed anterior right hip incision there is obvious significant swelling of the right femur and thigh, compartments are soft, he can fire his toe flexors and extensors, does have some decreased generalized numbness in bilateral lower extremities calf is soft distally Objective Labs 11/26/23 05:35 11/26/23 05:35 Labs: Laboratory Results - last 24 hr 11/26/23 05:35 WBC 7.4 RBC 2.81 L Hgb 8.6 L Hct 25.4 L MCV 90.4 MCH 30.6 MCHC 33.8 RDW 16.2 H Plt Count 381 Neut % (Auto) 76.3 H Lymph % (Auto) 13.6 L [place] % (Auto) 4.7 Eos % (Auto) 5.0 H Baso % (Auto) 0.4 Neut # (Auto) 5600 Lymph # (Auto) 1000 L [place] # (Auto) 300 Eos # (Auto) 400 Baso # (Auto) 0 Sodium 131 L Potassium 5.1 Chloride 104 Carbon Dioxide 22 BUN 51 H Creatinine 1.74 H Estimated GFR 42 L BUN/Creatinine Ratio 29.3 H Glucose 221 H Calcium 9.0 x-rays show a right mid shaft femur fracture extension right knee. He has a right hip unipolar with acceptable alignment no evidence of loosening PFSH Social History household members: none caregiver/support person: Yes (POA daughter Billie in [place]. Another son lives relatively local) housing: assisted living facility Tobacco & Substance Use Smoking Status: Former smoker Assessment & Plan Assessment and plan (1) Femur fracture, right: Qualifiers: Encounter type: initial encounter Femur location: distal, unspecified portion Fracture morphology: other fracture Fracture type: closed Qualified Code(s): S72.491A - Other fracture of lower end of right femur, initial encounter for closed fracture Status: Acute (2) Status post hip hemiarthroplasty: Status: Acute (3) Diabetes type 2, uncontrolled: Qualifiers: Glycemic state: with hyperglycemia Qualified Code(s): E11.65 - Type 2 diabetes mellitus with hyperglycemia Status: Acute (4) Osteoporotic hip fracture: Qualifiers: Encounter type: initial encounter Laterality: right Qualified Code(s): M80.051A - Age-related osteoporosis with current pathological fracture, right femur, initial encounter for fracture Status: Acute (5) Liver transplant recipient: Status: Acute (6) Anticoagulant long-term use: Status: Acute Plan He has been on Eliquis. It has been held for more than 24 hours. He is scheduled for right femur surgery tomorrow. I spoke to Dr. Xie who plans to do a retrograde nail versus possible plating depending upon intraoperative findings. He does appear to have adequate pain control in bed as long as he is immobile. He was on Eliquis and it was felt the it was better to wait for at least 24 hours prior to surgery. Has currently been scheduled for tomorrow afternoon.
[2023-11-26 20:00] VITALS: BP 106/68; PULSE 80; RESP 13; TEMP 36.6; O2SAT 98
[2023-11-26] MEDS: ATORVASTATIN 20 MG TABLET 40 MG PO (21:01)
[2023-11-27] VITALS (16 sets, daily range): BP systolic 102–135; BP diastolic 54–77; PULSE 80–115; RESP 14–22; TEMP 36.2–36.9; O2SAT 94–100; BMI 32.1
--- NOTE | 2023-11-27 | DI.RAD.S_ITS ---
PROCEDURE: XR FEMUR RT MIN 2V INDICATIONS: FEMUR NAILING TECHNIQUE: Intraoperative fluoroscopic views of the femur were acquired. COMPARISON: [facility], CR, XR FEMUR RT MIN 2V, 11/25/2023, 17:22. FINDINGS: Bones: Intraoperative fluoroscopic views during distal femur fracture ORIF. Alignment is improved and hardware appears intact. IMPRESSION: Intraoperative fluoroscopic views during distal femur fracture ORIF. Alignment is improved on hardware appears intact. Dictated by: Uri Padgett M.D. on 11/27/2023 at 19:23 Approved by: Uri Padgett M.D. on 11/27/2023 at 19:23
--- NOTE | 2023-11-27 | DI.RAD.S_ITS ---
PROCEDURE: XR FEMUR RT MIN 2V INDICATIONS: POST OP TECHNIQUE: 4 views of the femur were acquired. COMPARISON: [facility], CR, XR FEMUR RT MIN 2V, 11/27/2023, 17:18. [facility], CR, XR FEMUR RT MIN 2V, 11/25/2023, 17:22. FINDINGS: Bones: Postoperative changes from distal femoral fracture fixation with improved alignment. Intramedullary michael and screw fixation as well as lateral plate and screw fixation is present. Hardware appears intact. Redemonstration of right hip arthroplasty. No suspicious bony lesions. Soft tissues: Overlying postsurgical changes. IMPRESSION: Distal femoral fracture ORIF with improved alignment. No evidence of hardware complication. Dictated by: Uri Padgett M.D. on 11/27/2023 at 19:30 Approved by: Uri Padgett M.D. on 11/27/2023 at 19:31
[2023-11-27] MEDS: OXYCODONE IR 10 MG TABLET PO ×2 (01:47→06:18)
[2023-11-27 05:49] LABS: Add Manual Diff / Slide Review NO; Basophils Absolute Auto 0 /uL (0-100); Basophils Percent Auto 0.4 % (0-2); Eosinophils Absolute Auto 400 /uL (0-450); Eosinophils Percent Auto 5.6 % (2-4); Hematocrit 24.8 % (41-53); Hemoglobin 8.3 g/dL (13.5-17.5); Lymphocytes Absolute Auto 1100 /uL (1100-4500); Lymphocytes Percent Auto 16.3 % (25-40); Mean Corpuscular HGB Conc 33.5 % (30-36); Mean Corpuscular Hemoglobin 30.3 PG (26-34); Mean Corpuscular Volume 90.7 fL (80-100); Monocytes Absolute Auto 400 /uL (0-900); Monocytes Percent Auto 6.4 % (3-14); Neutrophils Absolute Auto 4700 /uL (1500-7000); Neutrophils Percent Auto 71.3 % (50-75); Platelet Count 408 X10^3/uL (150-400); Red Blood Cell Count 2.74 X10^6/uL (4.5-5.9); Red Cell Distribution Width 15.9 % (11.6-14.8); White Blood Cell Count 6.6 X10^3/uL (4.5-11.0)
[2023-11-27 05:53] LABS: BUN Creatinine Ratio 25.8 (6-22); Blood Urea Nitrogen 48 mg/dL (9-20); Calcium 8.9 mg/dL (8.4-10.2); Carbon Dioxide 24 mmol/L (22-32); Chloride 104 mmol/L (98-107); Estimated Glomerular Filt Rate 38 mL/min (>60); Glucose 174 mg/dL (80-110); HEMOLYSIS < 15 (0-50); Potassium 5.2 mmol/L (3.4-5.1); Sodium 131 mmol/L (137-145)
[2023-11-27] MEDS: LEVOTHYROXINE 75 MCG TABLET 150 MCG PO (06:18)
--- NOTE | 2023-11-27 07:36 | PM.PN.1 ---
Subjective Subjective Interval history: Patient NPO for surgery today. He is demented and confused. Exam Vital Signs (past 8 hours): - 11/27/23 00:00 11/27/23 04:00 Temperature 97.6 F 97.9 F Pulse Rate 82 88 Respiratory Rate 14 18 Blood Pressure 121/70 135/72 Pulse Oximetry 97 99 Oxygen Delivery Method Room Air Oxygen Flow Rate 0 Narrative Exam Narrative: GEN: confused, demented HEENT: moist mucous membranes, PERRL NECK: trachea midline, no JVD CV: regular rate and rhythm, no murmurs PULM: clear bilaterally ABD: soft, nontender, nondistended, no organomegaly EXT: right thigh swollen and painful to the tough, shortened and externally rotated NEURO: awake, alert, oriented, no focal deficits Objective Labs 11/27/23 05:27 11/27/23 05:27 Labs: Laboratory Results - last 24 hr 11/27/23 05:27 WBC 6.6 RBC 2.74 L Hgb 8.3 L Hct 24.8 L MCV 90.7 MCH 30.3 MCHC 33.5 RDW 15.9 H Plt Count 408 H Neut % (Auto) 71.3 Lymph % (Auto) 16.3 L [place] % (Auto) 6.4 Eos % (Auto) 5.6 H Baso % (Auto) 0.4 Neut # (Auto) 4700 Lymph # (Auto) 1100 [place] # (Auto) 400 Eos # (Auto) 400 Baso # (Auto) 0 Sodium 131 L Potassium 5.2 H Chloride 104 Carbon Dioxide 24 BUN 48 H Creatinine 1.86 H Estimated GFR 38 L BUN/Creatinine Ratio 25.8 H Glucose 174 H Calcium 8.9 PFSH Social History household members: none caregiver/support person: Yes (POA daughter Billie in [place]. Another son lives relatively local) housing: assisted living facility Smoking Status: Former smoker Assessment & Plan Assessment & Plan narrative: # right distal femur fracture after fall at SNF # recent right hip fracture s/p hemiarthroplasty on 11/12/23 # JERARDO vs CKD # Hypertension # severe dementia # DM2 # Hypothyroidism # Liver transplant on chronic tacrolimus # Atrial fibrillation on chronic anticoagulation -Dr. Anne-Marie morgan consulted -hold eliquis, last dose AM of 11/24 -NPO for surgery on 11/26 at 2:30pm -pain control -IVF to treat JERARDO, patient pulled out ferro. Plan to have replaced in OR. -insulin -continue home statin, synthroid, metoprolol, celexa, tacrolimus and fluconazole. Hold amlodipine as currently normotensive. Code status is full code. DVT prophylaxis with SCDs. Proxy is daughter Josh Fuentes who is POA, lives in [facility]. Dispo: Pending femur surgery then likely back to SNF. 2 days. Quality VTE Deep Vein Thrombosis/Pulmonary Embolism Present on Admission: No
[2023-11-27] MEDS: FLUCONAZOLE 100 MG TABLET 200 MG PO (08:08)
[2023-11-27] MEDS: ursodioL 300 MG CAPSULE PO ×2 (08:08→21:29)
[2023-11-27] MEDS: CITALOPRAM 10 MG TABLET 5 MG PO (08:08)
[2023-11-27] MEDS: TACROLIMUS 0.5 MG CAPSULE 1 MG PO (08:08)
[2023-11-27] MEDS: METOPROLOL IR 25 MG TABLET PO ×2 (08:09→21:29)
[2023-11-27] MEDS: INSULIN LISPRO 100 UNIT/ML 3ML VIAL SUBCUT ×2 (08:15→21:44)
[2023-11-27] MEDS: HYDROMORPHONE 0.5 MG INJ IV ×2 (08:22→20:39)
[2023-11-27] MEDS: INSULIN GLARGINE 100 UNIT/ML 3ML PEN 15 UNIT SUBCUT ×2 (08:27→21:44)
--- NOTE | 2023-11-27 10:42 | CM.DPC ---
DCP Cont. Reviewed EMR and team rounds for status updates. Pt is being taken to surgery today by Ortho to for fixation of his fractured femur. He will likely need about 2-3 days following surgery in order for therapies to work with him and to be medically stable for return to [facility] for cont. rehab.
[2023-11-27] MEDS: CEFAZOLIN 2 GM/100 ML PREMIX 100 ML IV ×2 (14:07→21:30)
--- NOTE | 2023-11-27 14:09 | PC.NURSE ---
Pt to OR via bed by OR PCT with chart. Brief changed-no redness on bottom. Pt states his pain is better.
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
[2023-11-27 14:55] LABS: Hematocrit 25.4 % (41-53); Hemoglobin 8.6 g/dL (13.5-17.5)
[2023-11-27] MEDS: TRANEXAMIC ACID 1,000 MG in SODIUM CHLORIDE 0.9% 100 ML 200 MG IV ×2 (15:15→17:48)
[2023-11-27] MEDS: BUPIVACAINE 0.25% (PF) 30 ML, EPINEPHrine 0.15 MG INJ (15:48)
[2023-11-27] MEDS: LACTATED RINGERS 1,000 ML 42 ML IV (17:12)
--- NOTE | 2023-11-27 18:30 | PM.OP.1 ---
Operative Date/Time/Diagnoses Date of procedure: 11/27/23 Pre-op diagnosis: Right [place] C femoral shaft fracture below prior right hip cemented hemiarthroplasty Post-op diagnosis: same Procedure & Clinicians Procedure: Open reduction with intramedullary nailing and lateral plate fixation of [place] C periprosthetic right femur fracture Same procedure as scheduled: Yes Surgeon: Selvin Xie [employer] Agent: Emily Dominguez Anesthesia Type: General and Local Operative Notes Estimated Blood Loss (mL): 400 Procedure in detail: Implants: Stanford and Nephew 10 mm x 22 cm Trigen Metanail Retrograde Femoral Nail Stanford & Nephew 16 Hole Lateral Distal Femoral Locking Plate Procedure Summary: This 68-year-old male patient had undergone a hemiarthroplasty performed by myself approximately 2 weeks ago. He had an additional fall at his nursing facility. He sustained a femoral shaft fracture well below his prior hemiarthroplasty. His hemiarthroplasty was stable. He has dementia and multiple medical comorbidities and I had a detailed discussion with his daughter explaining the very high risk for further complications including mortality given his 2 separate femur fractures and to major surgeries being performed in such rapid succession. I recommended surgical intervention for this fracture largely for pain control while explaining that given his comorbidities, dementia, and injury burden, he could have long-term difficulty mobilizing while his fracture heals, particularly should he encounter any medical complications which would certainly be expected given his situation. Intraoperatively I began by getting a start point for the retrograde nail and then reduced the fracture using a triangle and a periarticular clamp. I inserted the retrograde nail and locked it both proximally and distally and then inserted a lateral femoral locking plate around the nail. I placed 1 interlock which went through both the plate and the nail. The fixation through the plate included 2 screws in the junction between the nail and the plate which had bicortical fixation, 2 screws extending below the tip of the femoral nail distally, and unicortical locking screws extending the construct up above the distal extent of the hip stem. Procedure in detail: I met the patient in preoperative holding. I was familiar with him from my prior surgery earlier this month. He did not recall the circumstances surrounding his injury. Informed consent was obtained from his daughter over the phone. The operative site was signed. He still had christopher in place from the hemiarthroplasty I performed earlier this month. This further marked the operative site. He was brought back to the operating room. General anesthesia was induced. Was transferred to a flat top table. The operative site was prepped and draped in the usual sterile fashion. Tranexamic acid and Ancef were administered. A time-out procedure verifying the correct patient, operative site, procedure to be performed, medical comorbidities was performed. All present were in agreement. Intraoperatively radiographs displaying the injury were displayed. I began by obtaining an appropriate starting point for a retrograde femoral nail. I incised through the patellar tendon. I inserted the guidewire. I positioned it so that it was centrally located in the femoral notch on the AP view and along the anterior extent of Blumensaat's line on a lateral view. Once satisfied with the appropriate positioning I inserted the guidewire. I used an opening Reamer to gain access to the femoral canal. I passed a ball-tip guidewire up to the fracture site. At this point I reduced the fracture. This involved placing towels on the end of a triangle and pulling traction and then using the towels for maintenance of traction. I had an medical assistant internal medicine hold the foot to maintain the traction on the leg and then incised medially and laterally at the fracture site and brought in a periarticular clamp which had a anterolateral to posterior medial trajectory to reduce the 2 fracture fragments. I achieved an improved reduction with the periarticular clamp and was able to pass the ball-tip guidewire up to the extent of the canal which had been pushed through the cement restrictor during the initial surgery. Used an end-cutting Reamer to attempt to ream away the cement however it pushed the Reamer up against the anterior cortex. I attempted to reposition the ball-tip guidewire posterior to the cement mantle but was not able to do so. It did cause a crack in the cement mantle which was evident radiographically. I could not identify a corresponding crack in the cortex at that position. I then measured the length of the retrograde nail and selected a 22 cm nail. I inserted this up to the point it which I had reamed and mallet it into place. It achieved an interference fit with the surrounding cement. I placed a interlock screw distally from anteromedial to posterolateral which would be well out of the way of the eventual plate. I then came proximally, got a perfect galena, and inserted a proximal interlock. This held the fracture in place in terms of length alignment and rotation. This therefore allowed me to remove the periarticular clamp which had been blocking the lateral plate. I positioned the lateral plate in place and selected an appropriate position on AP and lateral views both proximally and distally. I pinned it in place once satisfied that it would sit on the flare of the lateral femur appropriately and be centered on the femur throughout the entire sagittal plane of the femur. I selected a point at which an axillary screw would suck the plate down to bone and drilled for a nonlocking screw just at the metadiaphyseal flare of the femur. I was able to shoot the drill past the nail although it did deflect off the nail. I then used a nonlocking 3.5 mm screw to lock the plate down to bone. This improved the positioning of the plate relative to the femur and sucked it down to bone. Next placed a pin in the proximal extent of the plate to hold it in my desired position while I moved back to the outrigger jig for the femoral nail. I removed the outrigger jig for the lateral plate and placed the outrigger jig for the femoral nail back in place. I selected a laterally based interlock and was able to get the drill for this to go through a hole in the lateral plate. I drilled through the plate, the nail, and the far cortex and placed an appropriate length screw. There was significant bite on the screw and it caused the screw to bend some. I then placed a final screws through the retrograde nail which was outside of plate. I then removed the instrumentation for the retrograde nail and replaced the outrigger jig for the lateral plate. I placed multiple locking screws distally including 2 which extended below the nail tip. I used a notch view to ensure that these were not going through the notch. I placed additional locking screws in the lateral flare of the femur extending across at that point. I then moved proximally and placed additional locking screws which would bypass the point at which the retrograde nail and the tip of the hemiarthroplasty had a gap between them. I placed 2 screws in the gap and 3 locking unicortical screws into the cement mantle surrounding the hemiarthroplasty stem more proximally to limit any stress riser formation in the area between the retrograde nail and the hemiarthroplasty stem. This involved using the percutaneous outrigger jig to place screw fixation without extending the incision for the full length of the plate. I did make corresponding incisions through the ITB band in order to gain access to the plate proximally. I removed the radiolucent triangle at this point in time and obtained final fluoroscopic images extending from the top of the construct to the bottom of the construct in both the AP and lateral planes. I was satisfied with the reduction and hardware positioning on all of these used with the exception of the oblique lateral interlock in the distal aspect of the nail. This had been inserted through a fracture fragment and had been recessed into the bone. Once I backed that out I felt that the positioning was more appropriate radiographically. I irrigated the entirety of the thigh with peroxide. I closed the wound using 0 Vicryl for the ITB band proximally and distally as well as the patellar tendon. I used 2-0 Vicryl for skin. I placed christopher. I injected 0.25% Marcaine throughout the wound, 60 mm, for postoperative pain relief. The patient was awoken from anesthesia and transferred off of the operating room table. He was taken to the PACU without immediate apparent complication. Postoperative plan: Weightbearing as tolerated Anterior hip precautions The christopher which were placed at the time of the hemiarthroplasty can be removed 12/04/2023. I have marked on the dressings which christopher these are. When those christopher are removed all of the remaining christopher from today's surgery should remain in place. The hemiarthroplasty incision is the most proximal incision in the thigh. If there is any ambiguity regarding which christopher are to be removed, please contact our clinic. The christopher from today's surgery we will plan to remove in 2-3 weeks Can resume baseline anticoagulation regimen Recommend multimodal pain regimen Will undoubtedly returned to a [facility] facility postoperatively Should be scheduled for a postoperative visit with 1 of our physician assistants sometime around 12/04/2023 for removal of the christopher from the hemiarthroplasty and return 1-2 weeks after that for another visit for removal of the other christopher Continue with medical care as directed by the primary team Keane catheter to remain in place overnight
[2023-11-27] MEDS: LACTATED RINGERS 1,000 ML 100 ML IV (19:15)
[2023-11-27] MEDS: DOCUSATE 100 MG CAPSULE PO (21:29)
[2023-11-27] MEDS: OXYCODONE IR 5 MG TABLET PO (21:29)
[2023-11-27] MEDS: ATORVASTATIN 20 MG TABLET 40 MG PO (21:29)
[2023-11-28] MEDS: OXYCODONE IR 10 MG TABLET PO ×6 (00:28→16:55)
[2023-11-28 00:47] VITALS: BP 110/67; PULSE 97; RESP 18; TEMP 36.1; O2SAT 96
[2023-11-28] MEDS: LEVOTHYROXINE 75 MCG TABLET 150 MCG PO (05:47)
[2023-11-28] MEDS: CEFAZOLIN 2 GM/100 ML PREMIX 100 ML IV (05:47)
[2023-11-28 05:50] VITALS: BP 125/71; PULSE 96; RESP 18; TEMP 36.3; O2SAT 96
[2023-11-28 06:02] LABS: Add Manual Diff / Slide Review NO; Basophils Absolute Auto 0 /uL (0-100); Basophils Percent Auto 0.3 % (0-2); Eosinophils Absolute Auto 0 /uL (0-450); Eosinophils Percent Auto 0.1 % (2-4); Hematocrit 23.9 % (41-53); Hemoglobin 8.1 g/dL (13.5-17.5); Lymphocytes Absolute Auto 800 /uL (1100-4500); Lymphocytes Percent Auto 7.2 % (25-40); Mean Corpuscular HGB Conc 33.7 % (30-36); Mean Corpuscular Hemoglobin 30.6 PG (26-34); Mean Corpuscular Volume 90.7 fL (80-100); Monocytes Absolute Auto 600 /uL (0-900); Monocytes Percent Auto 5.2 % (3-14); Neutrophils Absolute Auto 9600 /uL (1500-7000); Neutrophils Percent Auto 87.2 % (50-75); Platelet Count 441 X10^3/uL (150-400); Red Blood Cell Count 2.64 X10^6/uL (4.5-5.9); Red Cell Distribution Width 15.7 % (11.6-14.8)
[2023-11-28 06:17] LABS: Blood Urea Nitrogen 52 mg/dL (9-20); Carbon Dioxide 20 mmol/L (22-32); Chloride 104 mmol/L (98-107); Estimated Glomerular Filt Rate 38 mL/min (>60); Glucose 245 mg/dL (80-110); HEMOLYSIS < 15 (0-50); Sodium 129 mmol/L (137-145)
[2023-11-28 06:18] LABS: Potassium 6.2 mmol/L (3.4-5.1)
--- NOTE | 2023-11-28 07:40 | PM.PNPO.1 ---
Subjective Subjective Date Patient Seen: 11/28/23 Time Patient Seen: 07:41 Interval history: 68-year-old male resting comfortably in bed in no apparent distress. Patient does not recall where he is or why he is here. He states his right leg hurts. Exam Vital Signs (past 8 hours): - 11/28/23 00:47 11/28/23 05:50 Temperature 97.0 F L 97.3 F L Pulse Rate 97 H 96 H Respiratory Rate 18 18 Blood Pressure 110/67 125/71 Pulse Oximetry 96 96 Oxygen Flow Rate 0 0 Oxygen Delivery Method Nasal Cannula Oxygen Flow Rate 0 Narrative Exam Narrative: 68-year-old male resting comfortably in bed in no apparent distress. Dressing shows scant drainage. Motor function is intact right lower extremity. Sensation grossly intact to light touch right lower extremity. Const General: cooperative and comfortable Nutritional Appearance: average body habitus Orientation: alert Objective Labs 11/28/23 05:39 11/28/23 05:39 Labs: Laboratory Results - last 24 hr 11/27/23 11/28/23 14:45 05:39 WBC 11.0 D RBC 2.64 L Hgb 8.6 L 8.1 L Hct 25.4 L 23.9 L MCV 90.7 MCH 30.6 MCHC 33.7 RDW 15.7 H Plt Count 441 H Neut % (Auto) 87.2 H Lymph % (Auto) 7.2 L [place] % (Auto) 5.2 Eos % (Auto) 0.1 L Baso % (Auto) 0.3 Neut # (Auto) 9600 H Lymph # (Auto) 800 L [place] # (Auto) 600 Eos # (Auto) 0 Baso # (Auto) 0 Sodium 129 L Potassium 6.2 H Chloride 104 Carbon Dioxide 20 L BUN 52 H Creatinine 1.86 H Estimated GFR 38 L BUN/Creatinine Ratio 28.0 H Glucose 245 H Calcium 9.0 Blood Type AB Positive Antibody Screen Negative Crossmatch See Detail [facility] Social History household members: none caregiver/support person: Yes (POA daughter Billie in [place]. Another son lives relatively local) housing: assisted living facility Smoking Status: Former smoker Assessment & Plan Post-op Postoperative Procedures: Procedures Operation Date: 11/27/23 14:15 Actual Procedure Side Surgeon p retrograde femoral nail and pinning Right Selvin Secrist, MD Postoperative day: 1 Postoperative status narrative: Status post open reduction with intramedullary nailing and lateral plate fixation of [place] C periprosthetic right femur fracture November 27, 2023 Status post right hip hemiarthroplasty femoral neck fracture November 12, 2023 Postop anemia, likely due to acute blood loss during surgery Postoperative plan narrative: Toe-touch weight-bearing right lower extremity Anterior hip precautions The christopher which were placed at the time of the hemiarthroplasty can be removed 12/04/2023. I have marked on the dressings which christopher these are. When those christopher are removed all of the remaining christopher from today's surgery should remain in place. The hemiarthroplasty incision is the most proximal incision in the thigh. If there is any ambiguity regarding which christopher are to be removed, please contact our clinic. The christopher from today's surgery we will plan to remove in 2-3 weeks Can resume baseline anticoagulation regimen Recommend multimodal pain regimen Will undoubtedly returned to a detention facility postoperatively Should be scheduled for a postoperative visit with 1 of our physician assistants sometime around 12/04/2023 for removal of the christopher from the hemiarthroplasty and return 1-2 weeks after that for another visit for removal of the other christopher Continue with medical care as directed by the primary team Quality VTE Deep Vein Thrombosis/Pulmonary Embolism Present on Admission: No
[2023-11-28 08:00] VITALS: BP 117/74; PULSE 97; RESP 16; TEMP 36.3; O2SAT 98
[2023-11-28] MEDS: FLUCONAZOLE 100 MG TABLET 200 MG PO (08:34)
[2023-11-28] MEDS: ursodioL 300 MG CAPSULE PO ×2 (08:34→21:32)
[2023-11-28] MEDS: CITALOPRAM 10 MG TABLET 5 MG PO (08:34)
[2023-11-28] MEDS: ACETAMINOPHEN 325 MG TABLET 650 MG PO ×2 (08:35→14:53)
[2023-11-28] MEDS: TACROLIMUS 0.5 MG CAPSULE 1 MG PO (08:35)
[2023-11-28] MEDS: DOCUSATE 100 MG CAPSULE PO ×2 (08:35→21:32)
[2023-11-28] MEDS: METOPROLOL IR 25 MG TABLET PO ×2 (08:35→21:32)
[2023-11-28] MEDS: INSULIN GLARGINE 100 UNIT/ML 3ML PEN 15 UNIT SUBCUT ×2 (08:38→21:33)
[2023-11-28] MEDS: INSULIN LISPRO 100 UNIT/ML 3ML VIAL SUBCUT ×5 (08:39→21:33)
--- NOTE | 2023-11-28 08:56 | P.PN_ITS ---
Subjective Subjective Interval history: I was called this morning for clarification regarding weightbearing status. I have made him touchdown weightbearing on his operative extremity. However given his dementia, if he is unable to comply with these weightbearing restrictions and this leaves us to functionally choose between full weightbearing versus nonweightbearing, then I would recommend he be made nonweightbearing rather than allow him to bear full weight on this extremity. Exam Vital Signs (past 8 hours): - 11/28/23 05:50 Temperature 97.3 F L Pulse Rate 96 H Respiratory Rate 18 Blood Pressure 125/71 Pulse Oximetry 96 Oxygen Flow Rate 0 Oxygen Delivery Method Nasal Cannula Oxygen Flow Rate 0 Objective Labs 11/28/23 05:39 11/28/23 05:39 Labs: Laboratory Results - last 24 hr 11/27/23 11/28/23 14:45 05:39 WBC 11.0 D RBC 2.64 L Hgb 8.6 L 8.1 L Hct 25.4 L 23.9 L MCV 90.7 MCH 30.6 MCHC 33.7 RDW 15.7 H Plt Count 441 H Neut % (Auto) 87.2 H Lymph % (Auto) 7.2 L [place] % (Auto) 5.2 Eos % (Auto) 0.1 L Baso % (Auto) 0.3 Neut # (Auto) 9600 H Lymph # (Auto) 800 L [place] # (Auto) 600 Eos # (Auto) 0 Baso # (Auto) 0 Sodium 129 L Potassium 6.2 H Chloride 104 Carbon Dioxide 20 L BUN 52 H Creatinine 1.86 H Estimated GFR 38 L BUN/Creatinine Ratio 28.0 H Glucose 245 H Calcium 9.0 Blood Type AB Positive Antibody Screen Negative Crossmatch See Detail [facility] Social History household members: none caregiver/support person: Yes (POA daughter Billie in [place]. Another son lives relatively local) housing: assisted living facility Smoking Status: Former smoker Quality VTE Deep Vein Thrombosis/Pulmonary Embolism Present on Admission: No
--- NOTE | 2023-11-28 09:17 | OT.IP.EVAL ---
Current Diagnoses Type 2 diabetes mellitus with hyperglycemia (11/25/23) Age-related osteoporosis with current pathological fracture, right femur, initial encounter for fracture (11/25/23) Unspecified fracture of lower end of left femur, initial encounter for closed fracture (11/25/23) Other fracture of lower end of right femur, initial encounter for closed fracture (11/25/23) residential (current) use of anticoagulants (11/25/23) Liver transplant status (11/25/23) Presence of unspecified artificial hip joint (11/25/23) Surgery Performed Operation Date: 11/27/23 14:15 Actual Procedures p retrograde femoral nail and pinning(Right) - Slevin Xie MD Occupational Therapy Inpatient Evaluation/Re-Eval M1 PT/OT-IP Prior Functional Status Start: 11/28/23 10:31 Freq: NEEDED Status: Active Protocol: Document 11/28/23 10:33 [facility] (Rec: 11/28/23 11:00 [facility] [id number]) Medical Review Prior Functional Status Medical History Reviewed Yes Communication Pt mainly orientated to name and able to follow simple routine ADL tasks with vc. Mobility and Gait Prior to his fall 11/12/23 pt was able to walk with SPC and staff present-SBA. Activities of Daily Living and IADL's Pt needed assist for most ADL's due to his dementia. Prior Functional Level (Other details) Pt lives at [facility], however has been at [facility] for rehab from another fall resulting with right femur fx and repair . Social History Household Members none Living Arrangements Assisted Living M2 OT-IP Current Condition Start: 11/28/23 10:31 Freq: Status: Active Protocol: Document 11/28/23 10:33 [facility] (Rec: 11/28/23 11:00 [facility] [id number]) Occupational Therapy Current Condition Current Condition Evaluation Date 11/28/23 Treatment Diagnosis Right femur fx, s/p R retrograde femoral nailing and pinning Diagnosis Onset Date 11/25/23 Post Operative Precautions Anterior Hip Precautions No Hip Extension,No Hip External Rotation Weight Bearing Status Weight Bearing Status Non-Weight Bearing Allowed Weight Bearing Amount (enter % PT called to clarify with or #) (%) surgeon of WB status due to pt 's severe dementia as pt has advanced dementia and will be difficulty for pt to follow the suggested TDWB. Therefore, surgeon agreed best to follow RLE NWB at this time for pt. M3 OT- IP Subjective and Pain Start: 11/28/23 10:31 Freq: Status: Active Protocol: Document 11/28/23 10:33 [facility] (Rec: 11/28/23 11:00 [facility] [id number]) OT- Subjective Occupational Therapy Visit Type Type Initial Evaluation Visit Start Time 08:30 Visit Stop Time 09:17 Occupational Therapy Visit Comments Patient Comments Pt agreed to try to get up. Patient/Caregiver Goals Not able to state. OT Pain Assessment Pain When Pain Assessed During Mobility Pain Present Pain Present Pain Reported Location Right Hip Pain Behaviors Facial Grimacing,Holding Area, Wincing M4 OT- IP ADL's Start: 11/28/23 10:31 Freq: Status: Active Protocol: Document 11/28/23 10:33 [facility] (Rec: 11/28/23 11:00 [facility] [id number]) OT DMH-Tnbk-[id number] General Evaluation Self-Feeding Ability Standby Assistance Comments OT Self-Feeding Comments MAXvc to slow his rate as pt tends to want to put everything in his mouth. Pt able to use the cup appropriately to drink his milk. Pt will benefit better from finger foods due to his advanced dementia. OT ADL-Grooming General Evaluation Grooming Ability Standby Assistance Areas Needing Assistance Retrieving/Set-up of Grooming Items Comments OT Grooming Comments Pt able to wash his face and brush his hair after set-up and vc to initiate. OT ADL-Oral Care Comments Oral Care Comments Not performed. OT ADL-Dressing General Eval Upper Body Dressing Ability Maximum Assistance Comments OT Dressing Comments MAXA to assist to help change his gown out. OT ADL-Toileting Comments OT Toileting Comments Not performed. OT ADL-Bathing Comments OT Bathing Comments Sponge bath more appropriate at this time. M5 OT- IP IADL's Start: 11/28/23 10:31 Freq: Status: Active Protocol: Document 11/28/23 10:33 [facility] (Rec: 11/28/23 11:00 [facility] [id number]) OT-Instrumental Activities of Daily Living Home Safety Awareness Awareness of Need for Assistance at Home Decreased Awareness Ability to Problem Solve Emergency Unable to Problem Solve Situations Home Safety Comments Pt has advanced dementia. Medication Management Medication Management Caregiver Administers Money Management Money Management Caregiver Provides Assistance Meal Preparation Meal Preparation Caregiver Provides Assist Applications Tester Applications Tester Caregiver Provides Assist M6 OT- IP Functional Cognition Start: 11/28/23 10:31 Freq: Status: Active Protocol: Document 11/28/23 10:33 [facility] (Rec: 11/28/23 11:00 [facility] [id number]) Cognitive Factors Limiting Selfcare Function Cognitive Ability Level of Alertness Alert,Confusional State Patient Orientation Name Attention Span Ability Capable of Focused Attention, Unable to Focus,Unable to Sustain Attention Ability to Follow Commands Able to Follow One Step Commands with Increased Time, Able to Follow One Step Commands with Repetition Memory Description Short Term Impaired,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 Pt able to follow commands for simple ADl needs for eating and grooming needs with cues. Pt mainly orientated to his name. Pt tends to talk about his past and talks about his mom, but does not make sense. Pt able to follow simple concrete cues and tactile cus also needed. OT- Vision and Hearing OT- Vision Assessment Vision Assessment Comments Not able to fully assess due to pt's dementia. Pt however seemingly over reaching when trying to grab the wash cloth, therefore pt may have difficulty with his depth perception. To continue to assess. M7 OT- IP Mobility and Balance Start: 11/28/23 10:31 Freq: Status: Active Protocol: Document 11/28/23 10:33 [facility] (Rec: 11/28/23 11:00 [facility] [id number]) OT- Bed Mobility Assessment Rolling Level of Assistance Maximum Assistance,2 Person Assistance Supine to Sit Supine to Sit Assist Maximum Assistance,2 Person Assistance Sit to Supine Sit to Supine Assist Maximum Assistance,2 Person Assistance Scooting Scooting to Edge of Bed Maximum Assistance,2 Person Assistance OT-Transfer Assessment Comments Mobility Comments MAX AX 2 to roll side to side in bed. MAX AX 2 to help get to the edge of the bed and heavy use of green pad to assist to scoot forwards. Pt not able to follow commands for mobility needs at this time. Pt not able to lean forwards in anterior tilt as pushing away from therapists. Therefore since pt is also NWB to RLE best to use dara lift for all pt's mobility needs at this time. OT- Balance Assessment Sitting Balance and Reactions Static Sitting Balance Ability Poor Dynamic Sitting Balance Ability Poor Standing Balance and Reactions Static Standing Balance Ability Poor Dynamic Standing Balance Ability Poor M8 OT- IP Objective Assessments Start: 11/28/23 10:31 Freq: Status: Active Protocol: Document 11/28/23 10:33 [facility] (Rec: 11/28/23 11:00 [facility] [id number]) OT Strength Comments Strength Comments Pt is at least 3-/5 for observation. M9 OT- IP Assessment and Plan Start: 11/28/23 10:31 Freq: Status: Active Protocol: Document 11/28/23 10:33 [facility] (Rec: 11/28/23 11:00 [facility] [id number]) OT Summary Assessment and Plan Potential Rehabilitation Potential Poor Analytic Complexity at Evaluation Moderate Summary OT Impairments Pain,Balance,Functional Cognition,Functional Mobility, Self-Feeding,Grooming,Dressing ,Toileting,Bathing,Toilet Transfers,Shower Transfers, Activity Tolerance Progress Towards Goals Slow Progress due to Pain,Slow Progress due to Medical Issues,Slow Progress due to Activity Tolerance,Slow Progress due to Cognition Assessment Summary Pt MOD complexity and main barriers are pain, baseline of advanced dementia and now NWB to RLE. Pt will benefit from skilled rehab to maximize his level of independence. At this time pt will be mechanical lift for transfer needs. Goals Self-Feeding Goal Standby Assistance Grooming Goal Standby Assistance OT-Other Goals Grooming and oral care goals to be SBA with MIN vc for safety. Pt to be able to log roll with one person assist to increase ease for hygiene needs in bed . Days to Meet Goals 10 Frequency of Treatment Frequency Of Treatment Once a Day Treatment Plan OT Treatment Plan ADL Training,Functional Cognition Training,Functional Mobility,Patient/Family Education,Discharge Planning Discharge Recommendations OT Discharge Recommendations SNF Rehab Transportation Needs at Discharge Stretcher/Ambulance
[2023-11-28] MEDS: HYDROMORPHONE 0.5 MG INJ IV ×2 (09:49→11:35)
--- NOTE | 2023-11-28 10:06 | EKG_ITS ---
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
[2023-11-28] MEDS: OXYCODONE IR 5 MG TABLET PO ×3 (10:13→18:53)
[2023-11-28] MEDS: methocarbamoL 500 MG TABLET 750 MG PO ×2 (10:40→16:55)
--- NOTE | 2023-11-28 11:05 | PT.IIE ---
Current Diagnoses Type 2 diabetes mellitus with hyperglycemia (11/25/23) Age-related osteoporosis with current pathological fracture, right femur, initial encounter for fracture (11/25/23) Unspecified fracture of lower end of left femur, initial encounter for closed fracture (11/25/23) Other fracture of lower end of right femur, initial encounter for closed fracture (11/25/23) USP (current) use of anticoagulants (11/25/23) Liver transplant status (11/25/23) Presence of unspecified artificial hip joint (11/25/23) Surgery Performed Operation Date: 11/27/23 14:15 Actual Procedures p retrograde femoral nail and pinning(Right) - Selvin Xie MD Physical Therapy Inpatient Evaluation/Re-Eval M1 PT/OT-IP Prior Functional Status Start: 11/28/23 08:25 Freq: NEEDED Status: Active Protocol: Document 11/28/23 08:25 [facility] (Rec: 11/28/23 11:05 [facility] [id number]) Medical Review Prior Functional Status Medical History Reviewed Yes Communication Unsure baseline diet and pt is eating normal breakfast this a.m. in hospital and tends to use hand to eat. Unsure baseline communication and pt preseverates on mirrors and talks often about mirrors, no relevant communication Mobility and Gait Not moving readily at [facility] or [facility], two recent fractures and pt using lift recently Activities of Daily Living and IADL's Assistance as needed at [facility] and [facility] Social History Household Members none Living Arrangements Assisted Living Additional Social History Comment Accessible living at [facility] M1 PT/OT-IP Prior Functional Status Start: 11/28/23 10:31 Freq: NEEDED Status: Active Protocol: Document 11/28/23 10:33 [facility] (Rec: 11/28/23 11:00 [facility] [id number]) Medical Review Prior Functional Status Medical History Reviewed Yes Communication Pt mainly orientated to name and able to follow simple routine ADL tasks with vc. Mobility and Gait Prior to his fall 11/12/23 pt was able to walk with SPC and stafff present-SBA. Activities of Daily Living and IADL's Pt needing asssist for most ADL's due to his dementia. Prior Functional Level (Other details) Pt lives at [facility], however has been at [facility] for rehab from his fall resulting with right femur fx and repair . Social History Household Members none Living Arrangements Assisted Living M2 PT-IP Current Condition Start: 11/28/23 08:25 Freq: NEEDED Status: Active Protocol: Document 11/28/23 08:25 [facility] (Rec: 11/28/23 11:05 [facility] [id number]) Physical Therapy Current Condition Current Condition Evaluation Date 11/28/23 Treatment Diagnosis Right femoral shaft fx after fall and recent fracture and surgery M3 PT-IP Subjective Start: 11/28/23 08:25 Freq: NEEDED Status: Active Protocol: Document 11/28/23 08:25 [facility] (Rec: 11/28/23 11:05 [facility] [id number]) Subjective Physical Therapy Visit Type Type Initial Evaluation Visit Start Time 08:25 Visit Stop Time 09:10 Number of MANAGER COLLEGE Visits 0 Physical Therapy Visit Comments Patient Comments Pt makes many comments about mirrors. Therapy Pain Assessment Pain When Pain Assessed During Mobility Pain Present Pain Present Pain Reported Location Right Hip Intensity 6 Scale Used [place]-Kaba (Faces) Pain Behaviors Calling Out,Guarding Pain Management Techniques Distraction M4 PT-IP Mobility and Gait Start: 11/28/23 08:25 Freq: NEEDED Status: Active Protocol: Document 11/28/23 08:25 [facility] (Rec: 11/28/23 11:05 [facility] [id number]) PT-Bed Mobility Assessment Supine to Sit Supine to Sit Total Assistance,2 Person Assistance,Head of Bed Elevated,Bedrails Sit to Supine Sit to Supine Total Assistance,2 Person Assistance Scooting Scooting to Edge of Bed Dependent PT-Transfer Assessment Comments Mobility Comments Pt initiates moving right leg to EOB to right with PT supporting under heel and then he stops moving. He then requires +2 total assistance and use of pad for all bed mobility and en bloc movement to get back to supine from sitting EOB. EOB sitting for several minutes with CGA and pt con't to reach for catheter line, PT and out in front of him with right hand. Pt unable to follow follow commands and he does not track PT with his eyes, ongoing posterior lean and inability to shift forward exept when walker placed in front of pt but then unable to follow commands. 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 Pt is not A&O at all Gross Range of Motion Upper Extremity ROM Impairments Defer to OT Lower Extremity ROM Assessment Right Impaired Impairments Pt cannot follow ROM or MMT commands today Strength Lower Extremity Strength Assessment Right Impaired Comments Strength Comments Pt cannot follow MMT commands Other Assessments Other Other Assessments RLE edema and discoloration, lateral wound dressing is red M6 PT-IP Treatment Start: 11/28/23 08:25 Freq: NEEDED Status: Active Protocol: Document 11/28/23 08:25 [facility] (Rec: 11/28/23 11:05 [facility] [id number]) Physical Therapy Treatment Education Education Provided Precautions,Weight Bearing Status,Safety Other Treatments Other Treatment Performed Pt cannot understand any precautions or WB or saftey education M7 PT-IP Assessment and Plan Start: 11/28/23 08:25 Freq: NEEDED Status: Active Protocol: Document 11/28/23 08:25 [facility] (Rec: 11/28/23 11:05 [facility] [id number]) PT Summary Assessment and Plan Potential Rehabilitation Potential Poor Status of Condition at Evaluation Unstable Summary Impairments Pain,ROM,Strength,Balance, Coordination,Cognition,Bed Mobility,Transfers,Gait, Activity Tolerance Progress Towards Goals Slow Progress due to Activity Tolerance Assessment Summary Pt is a 68 y/o male presenting with advanced dementia who is now s/p two right leg fractures and s/p two surgeries in 14 days. After d/ cd from hospital after first fracture and hip surgery, pt fell again at SNF and fractured his femur below hip surgery. PT spoke with Dr. Xie who updated WB to be touchdown WB d/t pt high fall risk, large amount of metal in right proximal leg and risk for further damage. Dr. Xie states that if pt begins to WB through right leg d/t dementia, he would prefer non-WB through that leg as opposed to WBAT and limiting gait trials preferring transfer training for safety. Pt cannot follow any commands on assesssment date and has trouble tracking with eyes and he reaches out with right hand and arm often. He requires +2 total assistance for bed mobility and he is unable to follow commands for forward weight shift to try SPT to the left to chair. Overall functional prognosis is guarded to poor. Recommend OOB with lift and nsg. Goals Bed Mobility Goal Contact Guard Assistance Transfer Goal Moderate Assistance,Front Wheeled Walker,Slide Board Frequency of Treatment Frequency Of Treatment Once a Day Treatment Plan Physical Therapy Treatment Plan Bed Mobility Training,Transfer Training,Therapeutic Exercise ,Balance Retraining,Post Op Education,Discharge Planning, Hot or Cold Pack,Neuromuscular Re-ed,Coordination Retraining ,Manual Therapy Precautions Anterior Hip Precautions No Hip Extension,No Hip External Rotation Weight Bearing Status Weight Bearing Status Touch Down Weight Bearing Recommendations To Nursing Amount of Assist Needed Mechanical Lift Discharge Recommendations PT Discharge Recommendations SNF Rehab Transportation Needs at Discharge Stretcher/Ambulance
[2023-11-28] MEDS: ONDANSETRON 4 MG/2 ML INJ IV (11:36)
--- NOTE | 2023-11-28 11:50 | CM.DPC ---
DCP Cont. Reviewed EMR and team rounds for status updates. Per Hospitalist, pt is not yet medically stable for d/c, has high potassium and increased kidney function. Likely will be ready for d/c by tomorrow.
--- NOTE | 2023-11-28 12:13 | PM.PN.1 ---
Subjective Subjective Interval history: Patient with difficulty today controlling pain, added muscle relaxant and have increased IV dilaudid dosing for breakthrough. Exam Vital Signs (past 8 hours): - 11/28/23 05:50 11/28/23 08:00 Temperature 97.3 F L 97.3 F L Pulse Rate 96 H 97 H Respiratory Rate 18 16 Blood Pressure 125/71 117/74 Pulse Oximetry 96 98 Oxygen Flow Rate 0 Oxygen Delivery Method Nasal Cannula Oxygen Flow Rate 0 Narrative Exam Narrative: GEN: confused, demented HEENT: moist mucous membranes, PERRL NECK: trachea midline, no JVD CV: regular rate and rhythm, no murmurs PULM: clear bilaterally ABD: soft, nontender, nondistended, no organomegaly EXT: no edema NEURO: awake, alert, oriented, no focal deficits Objective Labs 11/28/23 05:39 11/28/23 05:39 Labs: Laboratory Results - last 24 hr 11/27/23 11/28/23 14:45 05:39 WBC 11.0 D RBC 2.64 L Hgb 8.6 L 8.1 L Hct 25.4 L 23.9 L MCV 90.7 MCH 30.6 MCHC 33.7 RDW 15.7 H Plt Count 441 H Neut % (Auto) 87.2 H Lymph % (Auto) 7.2 L Hughes % (Auto) 5.2 Eos % (Auto) 0.1 L Baso % (Auto) 0.3 Neut # (Auto) 9600 H Lymph # (Auto) 800 L Hughes # (Auto) 600 Eos # (Auto) 0 Baso # (Auto) 0 Sodium 129 L Potassium 6.2 H Chloride 104 Carbon Dioxide 20 L BUN 52 H Creatinine 1.86 H Estimated GFR 38 L BUN/Creatinine Ratio 28.0 H Glucose 245 H Calcium 9.0 Blood Type AB Positive Antibody Screen Negative [facility] Social History household members: none caregiver/support person: Yes (POA daughter Billie in [place]. Another son lives relatively local) housing: assisted living facility Smoking Status: Former smoker Assessment & Plan Assessment & Plan narrative: # right distal femur fracture after fall at SNF # recent right hip fracture s/p hemiarthroplasty on 11/12/23 # JERARDO vs CKD # Hypertension # severe dementia # DM2 # Hypothyroidism # Liver transplant on chronic tacrolimus # Atrial fibrillation on chronic anticoagulation -Dr. Anne-Marie morgan consulted performed repair on 11/27. -will resume eliquis tomorrow, can stop IV fluids today -pain control - needed to increase IV dilaudid today. Added muscle relaxant with robaxin 500 mg QID prn. -Chronic ferro, continue. Cr still at 1.86, will continue to monitor (baseline appears 1.2-1.5) -insulin will continue home BID lantus, add 5 U AC and increase to high dose sliding scale -continue home statin, synthroid, metoprolol, celexa, tacrolimus and fluconazole. Hold amlodipine as currently normotensive. Code status is full code. DVT prophylaxis with SCDs. Proxy is daughter Josh Fuenets who is POA, lives in [facility]. Dispo: Will return to SNF when medically able after surgical repair. Likely a couple of days Quality VTE Deep Vein Thrombosis/Pulmonary Embolism Present on Admission: No
[2023-11-28] MEDS: HYDROMORPHONE 1 MG INJ IV ×4 (12:20→18:31)
[2023-11-28 12:50] VITALS: BP 107/59; PULSE 87; RESP 16; TEMP 36.4; O2SAT 98
[2023-11-28 17:00] VITALS: BP 102/57; PULSE 98; RESP 16; TEMP 36.2; O2SAT 99
[2023-11-28] MEDS: ONDANSETRON 4 MG ODT PO (18:53)
[2023-11-28 19:00] VITALS: BP 118/72; PULSE 104; RESP 18; TEMP 36.4; O2SAT 97
[2023-11-28] MEDS: ATORVASTATIN 20 MG TABLET 40 MG PO (21:32)
[2023-11-29 00:42] LABS: BUN Creatinine Ratio 34.4 (6-22); Blood Urea Nitrogen 62 mg/dL (9-20); Calcium 9.1 mg/dL (8.4-10.2); Carbon Dioxide 23 mmol/L (22-32); Chloride 106 mmol/L (98-107); Estimated Glomerular Filt Rate 40 mL/min (>60); Glucose 245 mg/dL (80-110); HEMOLYSIS < 15 (0-50); Potassium 5.1 mmol/L (3.4-5.1); Sodium 131 mmol/L (137-145)
[2023-11-29] MEDS: OXYCODONE IR 5 MG TABLET PO ×5 (01:33→22:02)
[2023-11-29 04:25] VITALS: BP 121/56; PULSE 99; RESP 18; TEMP 36.6; O2SAT 98
[2023-11-29] MEDS: methocarbamoL 500 MG TABLET 750 MG PO ×2 (06:07→18:00)
[2023-11-29] MEDS: LEVOTHYROXINE 75 MCG TABLET 150 MCG PO (06:07)
[2023-11-29 06:50] LABS: Add Manual Diff / Slide Review NO; Basophils Absolute Auto 0 /uL (0-100); Basophils Percent Auto 0.3 % (0-2); Eosinophils Absolute Auto 100 /uL (0-450); Eosinophils Percent Auto 1.2 % (2-4); Hematocrit 22.3 % (41-53); Hemoglobin 7.5 g/dL (13.5-17.5); Lymphocytes Absolute Auto 900 /uL (1100-4500); Mean Corpuscular HGB Conc 33.5 % (30-36); Mean Corpuscular Hemoglobin 30.3 PG (26-34); Mean Corpuscular Volume 90.5 fL (80-100); Monocytes Absolute Auto 600 /uL (0-900); Monocytes Percent Auto 6.6 % (3-14); Neutrophils Absolute Auto 7500 /uL (1500-7000); Neutrophils Percent Auto 81.9 % (50-75); Platelet Count 398 X10^3/uL (150-400); Red Blood Cell Count 2.47 X10^6/uL (4.5-5.9); Red Cell Distribution Width 16.3 % (11.6-14.8); White Blood Cell Count 9.1 X10^3/uL (4.5-11.0)
[2023-11-29 07:02] LABS: BUN Creatinine Ratio 33.5 (6-22); Blood Urea Nitrogen 56 mg/dL (9-20); Carbon Dioxide 22 mmol/L (22-32); Chloride 106 mmol/L (98-107); Estimated Glomerular Filt Rate 44 mL/min (>60); Glucose 269 mg/dL (80-110); HEMOLYSIS < 15 (0-50); Potassium 5.3 mmol/L (3.4-5.1); Sodium 131 mmol/L (137-145)
[2023-11-29 08:00] VITALS: BP 111/61; PULSE 111; RESP 16; TEMP 36.6; O2SAT 98
[2023-11-29] MEDS: CITALOPRAM 10 MG TABLET 5 MG PO (09:06)
[2023-11-29] MEDS: DOCUSATE 100 MG CAPSULE PO (09:07)
[2023-11-29] MEDS: METOPROLOL IR 25 MG TABLET PO (09:07)
[2023-11-29] MEDS: APIXABAN 5 MG TABLET PO ×2 (09:07→21:37)
[2023-11-29] MEDS: INSULIN LISPRO 100 UNIT/ML 3ML VIAL 10 UNIT SUBCUT ×3 (09:08→17:52)
[2023-11-29] MEDS: INSULIN LISPRO 100 UNIT/ML 3ML VIAL SUBCUT ×4 (09:09→21:38)
[2023-11-29] MEDS: INSULIN GLARGINE 100 UNIT/ML 3ML PEN 15 UNIT SUBCUT ×2 (09:14→21:37)
--- NOTE | 2023-11-29 09:38 | PT.IPTN ---
Current Diagnoses Type 2 diabetes mellitus with hyperglycemia (11/25/23) Age-related osteoporosis with current pathological fracture, right femur, initial encounter for fracture (11/25/23) Unspecified fracture of lower end of left femur, initial encounter for closed fracture (11/25/23) Other fracture of lower end of right femur, initial encounter for closed fracture (11/25/23) skilled nursing (current) use of anticoagulants (11/25/23) Liver transplant status (11/25/23) Presence of unspecified artificial hip joint (11/25/23) Surgery Performed Operation Date: 11/27/23 14:15 Actual Procedures p retrograde femoral nail and pinning(Right) - Selivn Xie MD Physical Therapy Treatment Note M2 PT-IP Current Condition Start: 11/28/23 08:25 Freq: NEEDED Status: Active Protocol: Document 11/28/23 08:25 MB (Rec: 11/28/23 11:05 MB [id number]) Physical Therapy Current Condition Current Condition Evaluation Date 11/28/23 Treatment Diagnosis Right femoral shaft fx after fall and recent fracture and surgery M3 PT-IP Subjective Start: 11/28/23 08:25 Freq: NEEDED Status: Active Protocol: Document 11/29/23 09:51 TS (Rec: 11/29/23 09:58 TS [id number]) Subjective Physical Therapy Visit Type Type Treatment Note Visit Start Time 09:38 Visit Stop Time 09:51 Number of WILDLIFE CONTROL AGENT Visits 1 Physical Therapy Visit Comments Patient Comments Pt is confused and has difficulty following instructions. Therapy Pain Assessment Pain When Pain Assessed During Mobility Pain Present Pain Present Pain Reported Location Right Hip Pain Behaviors Calling Out,Guarding M4 PT-IP Mobility and Gait Start: 11/28/23 08:25 Freq: NEEDED Status: Active Protocol: Document 11/29/23 09:51 TS (Rec: 11/29/23 09:58 TS [id number]) PT-Bed Mobility Assessment Rolling Level of Assist Maximal Assistance,2 Person Assistance PT-Transfer Assessment Comments Mobility Comments Pt resting in bed, requires brief change. Pt rolled x2 to eahc side MaxA x2 with use of transfer pad. He cued for rolling technique and required tactile cues for use of handrails. He calls out in pain when rolled side to side. WILDLIFE CONTROL AGENT performed PROM of knee and ankle. Pt was left in bed, all needs met. Gait Assessment Comments Gait Comments unable M5 PT-IP Objective Assessments Start: 11/28/23 08:25 Freq: NEEDED Status: Active Protocol: Document 11/28/23 08:25 MB (Rec: 11/28/23 11:05 MB [id number]) Orientation Orientation/Cognition Level of Alertness Confusional State Language Function Ability Garbled Speech Safety Awareness Decreased Safety Awareness Memory Description Short Term Impaired,Halfway Impaired Comments Pt is not A&O at all Gross Range of Motion Upper Extremity ROM Impairments Defer to OT Lower Extremity ROM Assessment Right Impaired Impairments Pt cannot follow ROM or MMT commands today Strength Lower Extremity Strength Assessment Right Impaired Comments Strength Comments Pt cannot follow MMT commands Other Assessments Other Other Assessments RLE edema and discoloration, lateral wound dressing is red M6 PT-IP Treatment Start: 11/28/23 08:25 Freq: NEEDED Status: Active Protocol: Document 11/29/23 09:51 TS (Rec: 11/29/23 09:58 TS [id number]) Physical Therapy Treatment Exercises Exercises Ankle Pumps,Heel Slides Education Education Provided Precautions,Weight Bearing Status,Safety Other Treatments Other Treatment Performed Pt cannot understand any precautions or WB or saftey education M7 PT-IP Assessment and Plan Start: 11/28/23 08:25 Freq: NEEDED Status: Active Protocol: Document 11/29/23 09:51 TS (Rec: 11/29/23 09:58 TS [id number]) PT Summary Assessment and Plan Potential Rehabilitation Potential Poor Summary Impairments Pain,ROM,Strength,Balance, Coordination,Cognition,Bed Mobility,Transfers,Gait, Activity Tolerance Progress Towards Goals Slow Progress due to Activity Tolerance Assessment Summary Alo is making slow progress with his mobility. He rolled x2 each side MaxA x2 for changing of brief. Pt calls out in pain. WILDLIFE CONTROL AGENT performed PROM of knee flex and ankle pumps. Pt is confused and has difficulty following instructions. PT continues to recommend SNF. Goals Bed Mobility Goal Contact Guard Assistance Transfer Goal Moderate Assistance,Front Wheeled Walker,Slide Board Frequency of Treatment Frequency Of Treatment Once a Day Treatment Plan Physical Therapy Treatment Plan Bed Mobility Training,Transfer Training,Therapeutic Exercise ,Balance Retraining,Post Op Education,Discharge Planning, Hot or Cold Pack,Neuromuscular Re-ed,Coordination Retraining ,Manual Therapy Precautions Anterior Hip Precautions No Hip Extension,No Hip External Rotation Weight Bearing Status Weight Bearing Status Touch Down Weight Bearing Recommendations To Nursing Amount of Assist Needed Mechanical Lift Discharge Recommendations PT Discharge Recommendations SNF Rehab Transportation Needs at Discharge Stretcher/Ambulance
[2023-11-29] MEDS: TACROLIMUS 0.5 MG CAPSULE 1 MG PO (10:45)
[2023-11-29] MEDS: FLUCONAZOLE 100 MG TABLET 200 MG PO (10:45)
[2023-11-29] MEDS: ursodioL 300 MG CAPSULE PO ×2 (10:45→21:39)
--- NOTE | 2023-11-29 11:59 | PM.PNPO.1 ---
Subjective Subjective Interval history: Alo is a 68-year-old male who is pod #2 s/p Open reduction with intramedullary nailing and lateral plate fixation of [place] C periprosthetic right femur fracture by Dr. Xie. Very limited history due to patients dementia and confusion. He states his right leg hurts. He is unable to answer specific questions regarding his recovery course and pain descriptors. Denies chest pain, SOB, nausea, fever. Exam Vital Signs (past 8 hours): - 11/29/23 04:25 11/29/23 08:00 Temperature 97.8 F 97.8 F Pulse Rate 99 H 111 H Respiratory Rate 18 16 Blood Pressure 121/56 L 111/61 Pulse Oximetry 98 98 Oxygen Flow Rate 0 Oxygen Delivery Method Nasal Cannula Oxygen Flow Rate 0 Narrative Exam Narrative: Resting comfortably in bed during our discussion, easily awoken. Cognitive impairment, this is my first time meeting patient so its hard to evaluate for any acute change. Does have a known history of dementia. Grossly normal alignment although moderate swelling globally in the RLE. Weak PF, DF, EHL although unclear if patient knows what function I am asking him to perform. Is able to wiggle all toes. Calves soft and compressible bilaterally. Does not appear to be tender. Gross sensation intact to light touch throughout bilateral lower extremities. Post-sutgical dressings intact, some moderate bloody drainage on the distal incision gauze/dressing. Objective Labs 11/29/23 06:10 11/29/23 06:10 Labs: Laboratory Results - last 24 hr 11/29/23 11/29/23 00:18 06:10 WBC 9.1 RBC 2.47 L Hgb 7.5 L Hct 22.3 L MCV 90.5 MCH 30.3 MCHC 33.5 RDW 16.3 H Plt Count 398 Neut % (Auto) 81.9 H Lymph % (Auto) 10.0 L [place] % (Auto) 6.6 Eos % (Auto) 1.2 L Baso % (Auto) 0.3 Neut # (Auto) 7500 H Lymph # (Auto) 900 L [place] # (Auto) 600 Eos # (Auto) 100 Baso # (Auto) 0 Sodium 131 L 131 L Potassium 5.1 5.3 H Chloride 106 106 Carbon Dioxide 23 22 BUN 62 H 56 H Creatinine 1.80 H 1.67 H Estimated GFR 40 L 44 L BUN/Creatinine Ratio 34.4 H 33.5 H Glucose 245 H 269 H Calcium 9.1 9.0 PFSH Social History household members: none caregiver/support person: Yes (POA daughter Billie in [place]. Another son lives relatively local) housing: assisted living facility Smoking Status: Former smoker Assessment & Plan Post-op Postoperative Procedures: Procedures Operation Date: 11/27/23 14:15 Actual Procedure Side Surgeon p retrograde femoral nail and pinning Right Selvin Xie MD Postoperative status narrative: Orthopedically stable Postoperative plan narrative: Will need to d/c back to SNF once medically stable. TTWB or if unable to comply with this than NWB to the RLE. Anterior hip precautions. DVT prophylaxis w/ SCDs and Eliquis. Continue multimodal pain management per medicine, ice to the hip may add additional pain control. Patient should be scheduled for a postoperative visit with a PA at our clinic sometime around 12/04/2023 for removal of the christopher from the hemiarthroplasty and needs an additional appointment to return 1-2 weeks after that for another visit for removal of the other christopher Quality VTE Deep Vein Thrombosis/Pulmonary Embolism Present on Admission: No
--- NOTE | 2023-11-29 12:50 | DIET.CONS ---
Dietary Consultation Note Admission Date: 11/25/2023 18:28 Assessment: 68 y M w/ hx of advanced dementia admitted for right distal femur fracture after fall at SNF. Was here after right hip fracture and s/p hemiarthroplasty 11/12/23. PMH of CKD, type 2 DM w/ A1c of 7.4% on 11/11/23. BG mid-200s today. Nutrition screened for LOS. Chart reviewed. Avg of 90% of recorded po intakes. Ht: 175.26 cm Wt: 98.5 kg BMI: 32.1 UBW: 102.512 kg (-4% weight loss in 2.5 weeks, severe) Last BM: () MNA: [place] Score: 15 Diet: 11/27/23 00:01 NPO Diet Diet Modifications: NPO Type: NPO except for Meds 11/27/23 Breakfast General (Regular) Diet Diet Modifications: Nutrition Percent Meal Consumed 100% 11/29/23 10:00 Percent Meal Consumed 50% 11/28/23 18:00 Percent Meal Consumed 100% 11/28/23 12:50 Percent Meal Consumed pt npo 11/27/23 13:00 Labs: RBC 2.47 X10^6/uL (4.5-5.9) L 11/29/23 06:10 Hgb 7.5 g/dL (13.5-17.5) L 11/29/23 06:10 Hct 22.3 % (41-53) L 11/29/23 06:10 Creatinine 1.67 mg/dL (0.66-1.25) H 11/29/23 06:10 Nutrition Diagnosis: Unintended weight loss r/t inadequate oral intake aeb 4% weight loss in 2.5 weeks, severe Interventions: 1. ONS being sent 1x/day in [facility], coordinated by kitchen. Will continue. EER: [id number] kcals (20 kcal/kg per BMI) 70 g protein (.8 g/kg of adjusted IBW, CKD) Monitoring/Evaluations: po intakes, weight Electronically Signed by: Nicki Quintanilla 11/29/23 12:50 Clinical Dietitian [address] [address]
[2023-11-29] MEDS: ACETAMINOPHEN 325 MG TABLET 650 MG PO (12:51)
[2023-11-29 14:00] VITALS: BP 129/70; PULSE 99; RESP 16; TEMP 36.3; O2SAT 99
--- NOTE | 2023-11-29 14:54 | P.PN_ITS ---
Subjective Subjective Interval history: Appears improved this morning. Denied pain to me today, eating lunch, only able to deny pain otherwise not responding to questions asked. Exam Vital Signs (past 8 hours): - 11/29/23 08:00 Temperature 97.8 F Pulse Rate 111 H Respiratory Rate 16 Blood Pressure 111/61 Pulse Oximetry 98 Oxygen Delivery Method Nasal Cannula Oxygen Flow Rate 0 Narrative Exam Narrative: GEN: confused but alert, eating lunch. HEENT: moist mucous membranes, PERRL NECK: trachea midline, no JVD CV: regular rate and rhythm, no murmurs PULM: clear bilaterally ABD: soft, nontender, nondistended, no organomegaly EXT: no edema NEURO: awake, alert, no focal deficits Objective Labs 11/29/23 06:10 11/29/23 06:10 Labs: Laboratory Results - last 24 hr 11/29/23 11/29/23 00:18 06:10 WBC 9.1 RBC 2.47 L Hgb 7.5 L Hct 22.3 L MCV 90.5 MCH 30.3 MCHC 33.5 RDW 16.3 H Plt Count 398 Neut % (Auto) 81.9 H Lymph % (Auto) 10.0 L [place] % (Auto) 6.6 Eos % (Auto) 1.2 L Baso % (Auto) 0.3 Neut # (Auto) 7500 H Lymph # (Auto) 900 L [place] # (Auto) 600 Eos # (Auto) 100 Baso # (Auto) 0 Sodium 131 L 131 L Potassium 5.1 5.3 H Chloride 106 106 Carbon Dioxide 23 22 BUN 62 H 56 H Creatinine 1.80 H 1.67 H Estimated GFR 40 L 44 L BUN/Creatinine Ratio 34.4 H 33.5 H Glucose 245 H 269 H Calcium 9.1 9.0 PFSH Social History household members: none caregiver/support person: Yes (POA daughter Billie in [place]. Another son lives relatively local) housing: assisted living facility Smoking Status: Former smoker Assessment & Plan Assessment & Plan narrative: # right distal femur fracture after fall at SNF # recent right hip fracture s/p hemiarthroplasty on 11/12/23, with acute blood loss anemia after surgery. # JERARDO vs CKD # Hypertension # severe dementia # DM2 # Hypothyroidism # Liver transplant on chronic tacrolimus # Atrial fibrillation on chronic anticoagulation with RVR. -Dr. Anne-Marie morgan consulted performed repair on 11/27. -h/h downtrending to 7.5, no obvious bleeding on exam and patient appears improved this afternoon. Will continue to trend and have restarted home eliquis this morning. -pain control - needed to increase IV dilaudid yesterday but is much improved. Also added muscle relaxant with robaxin 500 mg QID prn. -Chronic ferro patient removed overnight. placed on condom cath today. Will see if he is urinating and monitor closely for urinary retention. - Cr improved slightly to 1.67 today from 1.8. will continue to monitor (baseline appears 1.2-1.5) -insulin will continue home BID lantus, still uncontrolled especially at meal times so resumed previous 10 U TID AC mealtime insulin. Consider increase in lantus or mealtime insulin tomorrow if still hypergylcemic. -continue home statin, synthroid, metoprolol, celexa, tacrolimus and fluconazole. Hold amlodipine as currently normotensive. -will increase home metoprolol from 25 to 37.5 mg BID 11/28 given persistently elevated HR in the 100s-110s. Code status is full code. DVT prophylaxis with SCDs. Proxy is daughter Josh Fuentes who is POA, lives in [facility]. Dispo: Will return to SNF when medically able after surgical repair. Continues to require inpatient management for RVR and monitoring of the acute blood loss anemia. Likely ready in a couple of days Quality VTE Deep Vein Thrombosis/Pulmonary Embolism Present on Admission: No
[2023-11-29 16:00] VITALS: BP 131/72; PULSE 108; RESP 16; TEMP 36.6; O2SAT 96
[2023-11-29] MEDS: METOPROLOL IR 25 MG TABLET 37.5 MG PO (21:37)
[2023-11-29] MEDS: ATORVASTATIN 20 MG TABLET 40 MG PO (21:37)
[2023-11-29] MEDS: SODIUM CHLORIDE 0.9% FLUSH 10 ML IV (21:39)
[2023-11-29 22:00] VITALS: BP 130/70; PULSE 109; RESP 20; TEMP 36.7; O2SAT 93
--- NOTE | 2023-11-29 23:50 | PC.NURSE ---
Addendum entered by Sophy Salmeron R.N. 11/30/23 06:28: Slept most of night until around 4a.m. and since that time has attempted to get out of the bed x2 and has pulled off two of his aquacel dressings. Anterior hip dssg replaced with allevyn and anterior dressing replaced with a coversite as no smaller aquacel dressings available. Medicated with oxycodone several times tonight as well as robaxin x 1. Miralax given for constipation. Original Note: Patient mostly sleeping at start of shift but aroused readily and responds to name. Was able to tell RN his name and birthdate and is able to follow directions but is otherwise confused. Breath sounds CTA with RA sat of 93%. HRR but tachy at 109. Denied nausea. BT present but has not had a BM since 11/24 so will provide Miralax in the a.m. if he does not have a BM tonight. Is voiding incontinent; large amounts. Is repositioned q2h although have noted that he turns himself at times. Reportedly is only getting out of bed using the Vanessa lift at present time. Aquacel dressings X4 and allevyn dressings x2 to left lateral/anterior thigh are CDI. SCD's not in use as they reportedly increase his agitation. Denied pain but after being repositioned his FLACC score was 6/10; he would moan and complain of pain but unable to quantify severity. Was medicated with oxcodone and ice pack applied and is currently asleep. Fall risk score is high and bed alarm is activated.
[2023-11-30] VITALS (10 sets, daily range): BP systolic 114–150; BP diastolic 61–80; PULSE 68–109; RESP 14–18; TEMP 35.9–37.8; O2SAT 94–95
[2023-11-30] MEDS: methocarbamoL 500 MG TABLET 750 MG PO ×2 (02:20→21:42)
[2023-11-30] MEDS: OXYCODONE IR 5 MG TABLET PO ×4 (02:20→21:42)
[2023-11-30] MEDS: polyethylene glycoL 3350 17 GM POWD.PACK PO ×2 (06:24→09:11)
[2023-11-30] MEDS: LEVOTHYROXINE 75 MCG TABLET 150 MCG PO (06:24)
[2023-11-30 06:30] LABS: Add Manual Diff / Slide Review NO; Basophils Absolute Auto 0 /uL (0-100); Basophils Percent Auto 0.1 % (0-2); Eosinophils Absolute Auto 100 /uL (0-450); Eosinophils Percent Auto 1.4 % (2-4); Hematocrit 21.3 % (41-53); Hemoglobin 7.1 g/dL (13.5-17.5); Lymphocytes Absolute Auto 800 /uL (1100-4500); Lymphocytes Percent Auto 8.6 % (25-40); Mean Corpuscular HGB Conc 33.4 % (30-36); Mean Corpuscular Hemoglobin 30.3 PG (26-34); Mean Corpuscular Volume 90.6 fL (80-100); Monocytes Absolute Auto 700 /uL (0-900); Monocytes Percent Auto 6.7 % (3-14); Neutrophils Absolute Auto 8100 /uL (1500-7000); Neutrophils Percent Auto 83.2 % (50-75); Platelet Count 360 X10^3/uL (150-400); Red Blood Cell Count 2.35 X10^6/uL (4.5-5.9); Red Cell Distribution Width 16.1 % (11.6-14.8); White Blood Cell Count 9.8 X10^3/uL (4.5-11.0)
[2023-11-30 06:44] LABS: BUN Creatinine Ratio 35.9 (6-22); Blood Urea Nitrogen 51 mg/dL (9-20); Calcium 9.3 mg/dL (8.4-10.2); Carbon Dioxide 21 mmol/L (22-32); Chloride 108 mmol/L (98-107); Estimated Glomerular Filt Rate 53 mL/min (>60); Glucose 320 mg/dL (80-110); HEMOLYSIS < 15 (0-50); Potassium 5.1 mmol/L (3.4-5.1); Sodium 133 mmol/L (137-145)
--- NOTE | 2023-11-30 07:36 | P.PN_ITS ---
Subjective Subjective Date Patient Seen: 11/30/23 Time Patient Seen: 07:36 Interval history: Patient is still very confused this morning. Exam Vital Signs (past 8 hours): Oxygen Delivery Method Room Air Oxygen Flow Rate 0 Narrative Exam Narrative: Patient resting comfortably in bed in no apparent distress. Dressings are clean, dry and intact. Motor functions intact bilateral lower extremities. Sensation grossly intact to light touch bilateral lower extremities. Const General: cooperative and comfortable Nutritional Appearance: average body habitus Orientation: alert Objective Labs 11/30/23 06:05 11/30/23 06:05 Labs: Laboratory Results - last 24 hr 11/30/23 06:05 WBC 9.8 RBC 2.35 L Hgb 7.1 L Hct 21.3 L MCV 90.6 MCH 30.3 MCHC 33.4 RDW 16.1 H Plt Count 360 Neut % (Auto) 83.2 H Lymph % (Auto) 8.6 L [place] % (Auto) 6.7 Eos % (Auto) 1.4 L Baso % (Auto) 0.1 Neut # (Auto) 8100 H Lymph # (Auto) 800 L [place] # (Auto) 700 Eos # (Auto) 100 Baso # (Auto) 0 Sodium 133 L Potassium 5.1 Chloride 108 H Carbon Dioxide 21 L BUN 51 H Creatinine 1.42 H Estimated GFR 53 L BUN/Creatinine Ratio 35.9 H Glucose 320 H Calcium 9.3 PFSH Social History household members: none caregiver/support person: Yes (POA daughter Billie in [place]. Another son lives relatively local) housing: assisted living facility Smoking Status: Former smoker Assessment & Plan Post-op Postoperative Procedures: Procedures Operation Date: 11/27/23 14:15 Actual Procedure Side Surgeon p retrograde femoral nail and pinning Right Selvin Xie MD Postoperative status narrative: Postoperative status narrative: Status post open reduction with intramedullary nailing and lateral plate fixation of [place] C periprosthetic right femur fracture November 27, 2023 Status post right hip hemiarthroplasty femoral neck fracture November 12, 2023 Postop anemia, likely due to acute blood loss during surgery, H and H continued to trend down Postoperative plan narrative: Toe-touch weight-bearing or nonweightbearing right lower extremity if unable to to follow instructions Anterior hip precautions The christopher which were placed at the time of the hemiarthroplasty can be removed 12/04/2023. I have marked on the dressings which christopher these are. When those christopher are removed all of the remaining christopher from today's surgery should remain in place. The hemiarthroplasty incision is the most proximal incision in the thigh. If there is any ambiguity regarding which christopher are to be removed, please contact our clinic. The christopher from today's surgery we will plan to remove in 2-3 weeks Can resume baseline anticoagulation regimen Recommend multimodal pain regimen Will undoubtedly returned to a custodial facility postoperatively Should be scheduled for a postoperative visit with 1 of our physician assistants sometime around 12/04/2023 for removal of the christopher from the hemiarthroplasty and return 1-2 weeks after that for another visit for removal of the other christopher Continue with medical care as directed by the primary team, H and H continue trend down and may need a unit of packed red blood cells Quality VTE Deep Vein Thrombosis/Pulmonary Embolism Present on Admission: No
[2023-11-30] MEDS: CITALOPRAM 10 MG TABLET 5 MG PO (09:11)
[2023-11-30] MEDS: ACETAMINOPHEN 325 MG TABLET 650 MG PO ×2 (09:12→21:39)
[2023-11-30] MEDS: METOPROLOL IR 25 MG TABLET 37.5 MG PO ×2 (09:12→21:19)
[2023-11-30] MEDS: APIXABAN 5 MG TABLET PO ×2 (09:13→21:20)
[2023-11-30] MEDS: FERROUS SULFATE 325 MG TABLET PO (09:13)
[2023-11-30] MEDS: TACROLIMUS 0.5 MG CAPSULE 1 MG PO (09:40)
[2023-11-30] MEDS: FLUCONAZOLE 100 MG TABLET 200 MG PO (09:41)
[2023-11-30] MEDS: ursodioL 300 MG CAPSULE PO ×2 (09:41→21:20)
[2023-11-30] MEDS: INSULIN LISPRO 100 UNIT/ML 3ML VIAL 10 UNIT SUBCUT ×4 (09:44→17:53)
[2023-11-30] MEDS: INSULIN LISPRO 100 UNIT/ML 3ML VIAL SUBCUT ×4 (09:44→21:14)
[2023-11-30] MEDS: INSULIN GLARGINE 100 UNIT/ML 3ML PEN 15 UNIT SUBCUT (09:45)
[2023-11-30] MEDS: SODIUM CHLORIDE 0.9% FLUSH 10 ML IV (09:45)
--- NOTE | 2023-11-30 12:04 | PT-IP ANOTE ---
Pt is receiving 1 unit of blood. Will attempt to see later this afternoon.
[2023-11-30 12:49] LABS: Glucose 358 mg/dL (80-110)
--- NOTE | 2023-11-30 13:08 | PT-IP ANOTE ---
Pt continues to receive blood. PT will check back with pt tomorrow.
--- NOTE | 2023-11-30 13:49 | P.PN_ITS ---
Subjective Subjective Date Patient Seen: 11/30/23 Time Patient Seen: 07:20 Interval history: The patient denies pain, appears mildly confused at baseline. His blood sugar measured over 500 today per nursing. Exam Vital Signs (past 8 hours): - 11/30/23 10:00 11/30/23 10:56 Temperature 98.7 F 97.7 F Pulse Rate 109 H 68 Respiratory Rate 18 14 Blood Pressure 119/66 114/61 Pulse Oximetry 94 Oxygen Delivery Method Room Air Oxygen Flow Rate 0 Narrative Exam Narrative: GEN: confused but alert, eating breakfast HEENT: moist mucous membranes, PERRL NECK: trachea midline, no JVD CV: regular rate and rhythm, no murmurs PULM: clear bilaterally ABD: soft, nontender, nondistended, no organomegaly EXT: no edema. Multiple right leg incisions intact, with moderate right thigh swelling NEURO: awake, alert, dementia with the baseline disorientation, no focal deficits Objective Labs 11/30/23 06:05 11/30/23 12:26 Labs: Laboratory Results - last 24 hr 11/27/23 11/30/23 11/30/23 14:45 06:05 06:05 WBC 9.8 RBC 2.35 L Hgb 7.1 L Hct 21.3 L MCV 90.6 MCH 30.3 MCHC 33.4 RDW 16.1 H Plt Count 360 Neut % (Auto) 83.2 H Lymph % (Auto) 8.6 L [place] % (Auto) 6.7 Eos % (Auto) 1.4 L Baso % (Auto) 0.1 Neut # (Auto) 8100 H Lymph # (Auto) 800 L [place] # (Auto) 700 Eos # (Auto) 100 Baso # (Auto) 0 Sodium 133 L Potassium 5.1 Chloride 108 H Carbon Dioxide 21 L BUN 51 H Creatinine 1.42 H Estimated GFR 53 L BUN/Creatinine Ratio 35.9 H Glucose 320 H Cancelled Calcium 9.3 Blood Type AB Positive Antibody Screen Negative Crossmatch See Detail 11/30/23 12:26 WBC RBC Hgb Hct MCV MCH MCHC RDW Plt Count Neut % (Auto) Lymph % (Auto) [place] % (Auto) Eos % (Auto) Baso % (Auto) Neut # (Auto) Lymph # (Auto) [place] # (Auto) Eos # (Auto) Baso # (Auto) Sodium Potassium Chloride Carbon Dioxide BUN Creatinine Estimated GFR BUN/Creatinine Ratio Glucose 358 H Calcium Blood Type Antibody Screen Crossmatch [facility] Social History household members: none caregiver/support person: Yes (STEFANIAA daughter Billie in [place]. Another son lives relatively local) housing: assisted living facility Smoking Status: Former smoker Assessment & Plan Assessment & Plan narrative: # right distal femur fracture after fall at SNF. See 11/30/2023 note about timing of staple removal and orthopedic follow-up # recent right hip fracture s/p hemiarthroplasty on 11/12/23, with acute blood loss anemia after surgery. # acute blood loss anemia, with slowly drifting hematocrit # JERARDO vs CKD # Hypertension # severe dementia # DM2 with severe hyperglycemia # Hypothyroidism # Liver transplant on chronic tacrolimus # Atrial fibrillation on chronic anticoagulation with RVR. # CKD 3b -Dr. Xie ortho consulted performed repair on 11/27. -h/h downtrending to 7.1, no obvious bleeding on exam, transfuse 1 unit of packed red blood cells 11/30/2023, noting on 11/29/2023 restarted home eliquis. -pain control -adequate control with hydromorphone IV and muscle relaxant with robaxin 500 mg QID prn. -Chronic ferro patient removed and placed on condom cath 11/29/2023. Monitor closely for urinary retention. - Cr improved slightly to 1.42 today from 1.8. will continue to monitor (baseline appears 1.2-1.5) -insulin will increase home BID lantus from 15 to 25units BID on 11/30/2023 given blood sugars in the 300s range, continue 10 U TID AC mealtime insulin. Monitor closely -continue home statin, synthroid, metoprolol, celexa, tacrolimus and fluconazole. Hold amlodipine as currently normotensive. -will monitor after increase of home metoprolol from 25 to 37.5 mg BID 11/28 given persistently elevated HR in the 100s-110s, now in the 60s. Quality VTE Deep Vein Thrombosis/Pulmonary Embolism Present on Admission: No [facility]EE Charge codes Subsequent inpatient/observation care: [id number]
--- NOTE | 2023-11-30 14:50 | CM.DPNOTE ---
DCP Cont SNF According to conversation with Sujatha at [facility], patient will need an updated insurance authorization through [employer]formerly [employer] before patient returns. [facility] is not reachable until Saturday. RN and provider Updated. JW
--- NOTE | 2023-11-30 19:59 | PC.NURSE ---
Blood glucose has been running high. Pt seen with empty juice container and ensure this am. He is to be on a consistent carb diet. Glucose this am was 320. At lunch the initial ready said greater than 500. However the pt eats food with his hands and he did have a banana and other thisng. Hands were washed with soap and water and next reading was 450. Lab call for a stat glucose draw. Dr. Robertson called and see new order. Blood glucose came back at 358. At dinner time his glucose was 166. Pt would usually receive [address] Robertson called again. See new order. Only 5 units total were given at dinner time. Pt is resting quietly at this moment. Cont to monitor pts blood glucose.
[2023-11-30] MEDS: INSULIN GLARGINE 100 UNIT/ML 3ML PEN 25 UNIT SUBCUT (21:18)
[2023-11-30] MEDS: ATORVASTATIN 20 MG TABLET 40 MG PO (21:19)
[2023-12-01 00:02] VITALS: TEMP 37
[2023-12-01] MEDS: SENNOSIDES 8.6 MG TABLET PO (00:13)
--- NOTE | 2023-12-01 00:18 | PC.NURSE ---
Patient is more listless tonight than previously and skin hot to touch. Axillary temp was 99 so was medicated with tylenol and temp is currently 98.[address] Flynn was informed of fever and listlessness following having had earlier blood transfusion. Other VS were also reviewed. MD responded to monitor closely-give Tylenol and follow labs in am. Patient remains more listless but temperature of skin is now cooler. He is able to respond to staff questions but is only oriented to self, BD and age. Breath sounds CTA with RA sat of 95%. HRR but remains tachy in low 100's. BP is elevated at 150/80. Denied nausea when asked. BT hyperactive, abdomen is distended and has not had BM since admission on 11/24; was given Miralax yesterday and now given Senna. Incontinent of urine. Is being repositioned and changed q2h in order to prevent skin breakdown. Noted to have reddened scrotum but no open areas. Multiple allevyn and aquacel dressings to right leg are intact; does have shadow drainage on most lateral aquacel dressing. Edema in right LE and is firm to touch. CMS is intact. Does complain of pain with any movement but is otherwise able to sleep with FLACC of 0. Was medicated with oxycodone + robaxin at 2142 and has been mostly asleep since that time. Fall risk score is high and bed alarm is activated.
[2023-12-01] MEDS: OXYCODONE IR 5 MG TABLET PO ×4 (03:16→21:37)
[2023-12-01 06:00] VITALS: BP 129/73; PULSE 94; RESP 18; TEMP 36.8; O2SAT 97
[2023-12-01] MEDS: LEVOTHYROXINE 75 MCG TABLET 150 MCG PO (06:02)
[2023-12-01] MEDS: methocarbamoL 500 MG TABLET 750 MG PO (06:17)
[2023-12-01 06:34] LABS: Add Manual Diff / Slide Review NO; Basophils Absolute Auto 0 /uL (0-100); Basophils Percent Auto 0.3 % (0-2); Eosinophils Absolute Auto 300 /uL (0-450); Eosinophils Percent Auto 3.1 % (2-4); Hematocrit 25.9 % (41-53); Hemoglobin 8.7 g/dL (13.5-17.5); Lymphocytes Absolute Auto 1100 /uL (1100-4500); Lymphocytes Percent Auto 10.4 % (25-40); Mean Corpuscular HGB Conc 33.5 % (30-36); Mean Corpuscular Hemoglobin 29.8 PG (26-34); Mean Corpuscular Volume 89.1 fL (80-100); Monocytes Absolute Auto 600 /uL (0-900); Monocytes Percent Auto 5.6 % (3-14); Neutrophils Absolute Auto 8200 /uL (1500-7000); Neutrophils Percent Auto 80.6 % (50-75); Platelet Count 362 X10^3/uL (150-400); Red Cell Distribution Width 17.2 % (11.6-14.8); White Blood Cell Count 10.1 X10^3/uL (4.5-11.0)
[2023-12-01 06:47] LABS: BUN Creatinine Ratio 32.1 (6-22); Blood Urea Nitrogen 45 mg/dL (9-20); Calcium 9.4 mg/dL (8.4-10.2); Carbon Dioxide 25 mmol/L (22-32); Chloride 108 mmol/L (98-107); Estimated Glomerular Filt Rate 54 mL/min (>60); Glucose 231 mg/dL (80-110); HEMOLYSIS < 15 (0-50); Potassium 4.9 mmol/L (3.4-5.1); Sodium 134 mmol/L (137-145)
[2023-12-01 08:00] VITALS: BP 136/78; PULSE 101; RESP 16; TEMP 36.4; O2SAT 95
[2023-12-01] MEDS: APIXABAN 5 MG TABLET PO ×2 (08:19→21:37)
[2023-12-01] MEDS: ursodioL 300 MG CAPSULE PO ×2 (08:19→21:34)
[2023-12-01] MEDS: TACROLIMUS 0.5 MG CAPSULE 1 MG PO (08:19)
[2023-12-01] MEDS: METOPROLOL IR 25 MG TABLET 37.5 MG PO ×2 (08:19→21:35)
[2023-12-01] MEDS: FLUCONAZOLE 100 MG TABLET 200 MG PO (08:19)
[2023-12-01] MEDS: CITALOPRAM 10 MG TABLET 5 MG PO (08:20)
[2023-12-01] MEDS: FERROUS SULFATE 325 MG TABLET PO (08:21)
[2023-12-01] MEDS: INSULIN GLARGINE 100 UNIT/ML 3ML PEN 25 UNIT SUBCUT ×2 (08:21→21:28)
[2023-12-01] MEDS: INSULIN LISPRO 100 UNIT/ML 3ML VIAL SUBCUT ×4 (08:22→21:28)
[2023-12-01] MEDS: ACETAMINOPHEN 325 MG TABLET 650 MG PO ×2 (08:33→21:36)
[2023-12-01] MEDS: polyethylene glycoL 3350 17 GM POWD.PACK PO (08:33)
--- NOTE | 2023-12-01 10:22 | PT.IPTN ---
Addendum entered and electronically signed by Angelic Mccall PT 12/02/23 11:36: Surgeon updated WB status a second time and pt is NWB RLE. PT planned to only sit pt EOB and knew pt was to transition to NWB if he tried putting weight on foot from initial evaluation. Updated to NWB in EMR. 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 (11/25/23) Liver transplant status (11/25/23) Presence of unspecified artificial hip joint (11/25/23) Surgery Performed Operation Date: 11/27/23 14:15 Actual Procedures p retrograde femoral nail and pinning(Right) - Selvin Xie MD Physical Therapy Treatment Note M2 PT-IP Current Condition Start: 11/28/23 08:25 Freq: NEEDED Status: Active Protocol: Document 11/28/23 08:25 MB (Rec: 11/28/23 11:05 MB [id number]) Physical Therapy Current Condition Current Condition Evaluation Date 11/28/23 Treatment Diagnosis Right femoral shaft fx after fall and recent fracture and surgery M3 PT-IP Subjective Start: 11/28/23 08:25 Freq: NEEDED Status: Active Protocol: Document 12/01/23 09:15 MB (Rec: 12/01/23 10:22 MB [id number]) Subjective Physical Therapy Visit Type Type Treatment Note Visit Start Time 09:15 Visit Stop Time 09:40 Number of SAFETY AIDE Visits 0 Physical Therapy Visit Comments Patient Comments Pt does not make spontaneous conversation and he has difficulty following commands and answering questions. Therapy Pain Assessment Pain When Pain Assessed During Mobility Pain Present Pain Present Pain Reported Location Right Hip Intensity 8 Scale Used [place]-Kaba (Faces) Pain Behaviors Facial Grimacing,Guarding, Holding Area Pain Management Techniques Distraction,Modification of Treatment,Re-positioning M4 PT-IP Mobility and Gait Start: 11/28/23 08:25 Freq: NEEDED Status: Active Protocol: Document 12/01/23 09:15 MB (Rec: 12/01/23 10:22 MB [id number]) PT-Bed Mobility Assessment Supine to Sit Supine to Sit Moderate Assistance,1 Person Assistance,Head of Bed Elevated,Bedrails Sit to Supine Sit to Supine Total Assistance,2 Person Assistance Scooting Scooting to Edge of Bed Dependent Scooting Up and Down in Bed Dependent PT-Transfer Assessment Comments Mobility Comments Pt hook lying in bed with right leg ER and edematous with resistance vs tone with attempted passive ROM/ extension. Pt has trouble following commands to wiggle toes. Pt gets to EOB with HOB up, increased time, cues and some tactile assistance from PT as far as moving hand towards rail and lower bed rail. Pt scoots minimally towards EOB and then PT is unable to fully scoot him out d/t posterior sacral sitting, pt reaching out with right hand decreased tolerance. Changed bed with pt sitting EOB and then +2 dependent for rest of bed mobility, sitting to supine, rolling and scooting up to HOB. PT-Balance Assessment Sitting Balance and Reactions Static Sitting Balance Ability Fair Dynamic Sitting Balance Ability Poor M5 PT-IP Objective Assessments Start: 11/28/23 08:25 Freq: NEEDED Status: Active Protocol: Document 11/28/23 08:25 MB (Rec: 11/28/23 11:05 MB [id number]) Orientation Orientation/Cognition Level of Alertness Confusional State Language Function Ability Garbled Speech Safety Awareness Decreased Safety Awareness Memory Description Short Term Impaired,Master Esthetician Impaired Comments Pt is not A&O at all Gross Range of Motion Upper Extremity ROM Impairments Defer to OT Lower Extremity ROM Assessment Right Impaired Impairments Pt cannot follow ROM or MMT commands today Strength Lower Extremity Strength Assessment Right Impaired Comments Strength Comments Pt cannot follow MMT commands Other Assessments Other Other Assessments RLE edema and discoloration, lateral wound dressing is red M6 PT-IP Treatment Start: 11/28/23 08:25 Freq: NEEDED Status: Active Protocol: Document 11/29/23 09:51 TS (Rec: 11/29/23 09:58 TS [id number]) Physical Therapy Treatment Exercises Exercises Ankle Pumps,Heel Slides Education Education Provided Precautions,Weight Bearing Status,Safety Other Treatments Other Treatment Performed Pt cannot understand any precautions or WB or saftey education M7 PT-IP Assessment and Plan Start: 11/28/23 08:25 Freq: NEEDED Status: Active Protocol: Document 12/01/23 09:15 MB (Rec: 12/01/23 10:22 MB [id number]) PT Summary Assessment and Plan Potential Rehabilitation Potential Poor Summary Impairments Pain,ROM,Strength,Balance, Coordination,Cognition,Bed Mobility,Transfers,Gait, Activity Tolerance Progress Towards Goals Slow Progress due to Activity Tolerance Assessment Summary Alo con't to present with confusion and trouble following all commands. He appears to have proprioceptive vs visual challenges, reaching out with right hand into space and PT frequently provides verbal and tactile cues for him to hold right hand against chest with left hand. While pt is able to get to EOB with less help today and PT is able to work with pt without causing any agitation , pt is unable to make further functional progress as far as scooting and transfers d/t decreased cognition. He will require mechanical lift for OOB to chair. Right LE is edematous and ER and pt is not able to straighten leg with cues and PT is unable to move it passively into extension position with toes up d/t tone vs resistance. Goals Bed Mobility Goal Contact Guard Assistance Transfer Goal Moderate Assistance,Front Wheeled Walker,Slide Board Frequency of Treatment Frequency Of Treatment Once a Day Treatment Plan Physical Therapy Treatment Plan Bed Mobility Training,Transfer Training,Therapeutic Exercise ,Balance Retraining,Post Op Education,Discharge Planning, Hot or Cold Pack,Neuromuscular Re-ed,Coordination Retraining ,Manual Therapy Precautions Anterior Hip Precautions No Hip Extension,No Hip External Rotation Weight Bearing Status Weight Bearing Status Touch Down Weight Bearing Recommendations To Nursing Amount of Assist Needed Mechanical Lift Discharge Recommendations PT Discharge Recommendations SNF Rehab Transportation Needs at Discharge Stretcher/Ambulance
--- NOTE | 2023-12-01 10:56 | PM.PN.1 ---
Subjective Subjective Interval history: Patient seen this morning. Resting comfortably. No acute distress. Not able to answer questions appropriately. Does not have any recollection of his clinical course and does not recognize me. Oriented to person but not place or time. Exam Vital Signs (past 8 hours): - 12/01/23 06:00 12/01/23 08:00 Temperature 98.2 F 97.6 F Pulse Rate 94 H 101 H Respiratory Rate 18 16 Blood Pressure 129/73 136/78 Pulse Oximetry 97 95 Oxygen Flow Rate 0 0 Oxygen Delivery Method Room Air Oxygen Flow Rate 0 Narrative Exam Narrative: Right lower extremity examination demonstrates swelling present throughout the thigh. Dressings in place over incisions from both surgeries with mild strike through around the incisions around the knee but a clean dressing from the hemiarthroplasty. Flexes and extends hallux and ankle. Able to very weakly maintain a straight leg raise indicating intact femoral nerve function. Tolerates very gentle range of motion of the hip and knee. Foot warm well perfused Objective Imaging Right femur x-ray: My impression: Postoperative appearance status post right hip hemiarthroplasty through anterior approach with cemented Sami paradox stem and subsequent nail plate fixation of [place] C periprosthetic femur fracture after a 2nd ground level fall shown above Labs 12/01/23 06:20 12/01/23 06:20 Labs: Laboratory Results - last 24 hr 11/27/23 11/30/23 11/30/23 14:45 06:05 12:26 WBC RBC Hgb Hct MCV MCH MCHC RDW Plt Count Neut % (Auto) Lymph % (Auto) Burt % (Auto) Eos % (Auto) Baso % (Auto) Neut # (Auto) Lymph # (Auto) Burt # (Auto) Eos # (Auto) Baso # (Auto) Sodium Potassium Chloride Carbon Dioxide BUN Creatinine Estimated GFR BUN/Creatinine Ratio Glucose Cancelled 358 H Calcium Blood Type AB Positive Antibody Screen Negative Crossmatch See Detail 12/01/23 06:20 WBC 10.1 RBC 2.90 L Hgb 8.7 L Hct 25.9 L MCV 89.1 MCH 29.8 MCHC 33.5 RDW 17.2 H Plt Count 362 Neut % (Auto) 80.6 H Lymph % (Auto) 10.4 L Burt % (Auto) 5.6 Eos % (Auto) 3.1 Baso % (Auto) 0.3 Neut # (Auto) 8200 H Lymph # (Auto) 1100 Burt # (Auto) 600 Eos # (Auto) 300 Baso # (Auto) 0 Sodium 134 L Potassium 4.9 Chloride 108 H Carbon Dioxide 25 BUN 45 H Creatinine 1.40 H Estimated GFR 54 L BUN/Creatinine Ratio 32.1 H Glucose 231 H D Calcium 9.4 Blood Type Antibody Screen Crossmatch [facility] Social History household members: none caregiver/support person: Yes (POA daughter Billie in [place]. Another son lives relatively local) housing: assisted living facility Smoking Status: Former smoker Assessment & Plan Assessment and plan (1) Femur fracture, right: Qualifiers: Encounter type: initial encounter Femur location: distal, unspecified portion Fracture morphology: other fracture Fracture type: closed Qualified Code(s): S72.491A - Other fracture of lower end of right femur, initial encounter for closed fracture Status: Acute (2) Status post hip hemiarthroplasty: Status: Acute Plan 68-year-old male patient with significant dementia who has had 2 separate femur fractures sustained in a ground level falls over the last month. The 1st was fixed with a cemented Sami paradox hemiarthroplasty through an anterior approach on November 12, 2023 and the 2nd, which was a metadiaphyseal distal femur fracture was fixed with retrograde nailing and supplementary plate fixation on November 27, 2023. -I removed the christopher from his hemiarthroplasty incision today. The remaining christopher from his nail/plate fixation should remain in place until his follow up in our clinic 2-3 weeks following that surgery -baseline anticoagulants for DVT prophylaxis -would allow patient to be touchdown weight-bearing if his mental status would allow this however he has not able to comply with instructions because of his dementia. He has therefore been made nonweightbearing to his operative extremity -postoperative anemia being addressed with transfusion as needed. Recommend transfusion for any hemoglobin below 8 given his comorbidities -discharge planning is complicated because of his dementia and nonweightbearing status. Discharge destination remains to be determined Quality VTE Deep Vein Thrombosis/Pulmonary Embolism Present on Admission: No
--- NOTE | 2023-12-01 11:12 | P.PN_ITS ---
Subjective Subjective Date Patient Seen: 12/01/23 Time Patient Seen: 09:30 Interval history: The patient denies pain, confused at baseline. He does not remember why he is here and has removed his IVs and not following orthopedic postop instructions. He remains nonweightbearing status as a result. Dr. Xie removed the hemiarthroplasty christopher from surgery on 11/12/2023 and plans to remove the remaining christopher from his nail/plate fixation until follow-up in clinic 2-3 weeks from his 11/27/2023 surgery. The patient received 1 unit of packed red blood cells with improvement in his hematocrit to 25.9%. His Lantus insulin was increased from 15 units to 25 units twice daily with blood sugar down from 455 yesterday to 257 this morning. Exam Vital Signs (past 8 hours): - 12/01/23 06:00 12/01/23 08:00 Temperature 98.2 F 97.6 F Pulse Rate 94 H 101 H Respiratory Rate 18 16 Blood Pressure 129/73 136/78 Pulse Oximetry 97 95 Oxygen Flow Rate 0 0 Oxygen Delivery Method Room Air Oxygen Flow Rate 0 Narrative Exam Narrative: GEN: confused but alert, eating breakfast HEENT: moist mucous membranes, PERRL NECK: trachea midline, no JVD CV: regular rate and rhythm, no murmurs PULM: clear bilaterally ABD: soft, nontender, nondistended EXT: no edema. Multiple right leg incisions intact, with moderate right thigh swelling NEURO: awake, alert, dementia with the baseline disorientation, no focal deficits Objective Labs 12/01/23 06:20 12/01/23 06:20 Labs: Laboratory Results - last 24 hr 11/27/23 11/30/23 11/30/23 14:45 06:05 12:26 WBC RBC Hgb Hct MCV MCH MCHC RDW Plt Count Neut % (Auto) Lymph % (Auto) [place] % (Auto) Eos % (Auto) Baso % (Auto) Neut # (Auto) Lymph # (Auto) Pitt # (Auto) Eos # (Auto) Baso # (Auto) Sodium Potassium Chloride Carbon Dioxide BUN Creatinine Estimated GFR BUN/Creatinine Ratio Glucose Cancelled 358 H Calcium Crossmatch See Detail 12/01/23 06:20 WBC 10.1 RBC 2.90 L Hgb 8.7 L Hct 25.9 L MCV 89.1 MCH 29.8 MCHC 33.5 RDW 17.2 H Plt Count 362 Neut % (Auto) 80.6 H Lymph % (Auto) 10.4 L Pitt % (Auto) 5.6 Eos % (Auto) 3.1 Baso % (Auto) 0.3 Neut # (Auto) 8200 H Lymph # (Auto) 1100 [place] # (Auto) 600 Eos # (Auto) 300 Baso # (Auto) 0 Sodium 134 L Potassium 4.9 Chloride 108 H Carbon Dioxide 25 BUN 45 H Creatinine 1.40 H Estimated GFR 54 L BUN/Creatinine Ratio 32.1 H Glucose 231 H D Calcium 9.4 Crossmatch [facility] Social History household members: none caregiver/support person: Yes (POA daughter Billie in [place]. Another son lives relatively local) housing: assisted living facility Smoking Status: Former smoker Assessment & Plan Assessment & Plan narrative: # right distal femur fracture after fall at SNF. See 11/30/2023 note about timing of staple removal and orthopedic follow-up # recent right hip fracture s/p hemiarthroplasty on 11/12/23, with acute blood loss anemia after surgery. # acute blood loss anemia, with slowly drifting hematocrit, status post 1 unit packed red blood cell 11/30/2023 # JERARDO resolved # CKD 3b, with creatinine at baseline 1.4 mg/dl and EGFR 54 mL/minute # Hypertension. Continue to monitor and consider resuming amlodipine # severe dementia # DM2 with severe hyperglycemia, improved with increasing Lantus insulin as above # Hypothyroidism # Liver transplant on chronic tacrolimus # Atrial fibrillation on chronic anticoagulation with RVR, now controlled and on chronic anticoagulation -Dr. Anne-Marie morgan consulted performed repair on 11/27, with outpatient clinic follow-up in 2-3 weeks -h/h downtrending to 7.1, no obvious external bleeding on exam, large surgical site hematoma, transfused 1 unit of packed red blood cells 11/30/2023 -pain control -adequate control with muscle relaxant with robaxin 500 mg QID prn. -Condom cath 11/29/2023. Monitor closely for urinary retention. -insulin will increase home BID lantus from 15 to 25units BID on 11/30/2023 given blood sugars in the 300s range, continue 10 U TID AC mealtime insulin. Monitor closely -continue home statin, synthroid, metoprolol, celexa, tacrolimus and fluconazole. Holding amlodipine as currently normotensive. -will monitor after increase of home metoprolol from 25 to 37.5 mg BID 11/28 given persistently elevated HR in the 100s-110s, now below 100 -likely discharge to SNF tomorrow. His case is reviewed with his orthopedic surgeon, case management, physical therapy and nursing in conference today. Quality VTE Deep Vein Thrombosis/Pulmonary Embolism Present on Admission: No PROFEE Charge codes Subsequent inpatient/observation care: [id number]
[2023-12-01] MEDS: INSULIN LISPRO 100 UNIT/ML 3ML VIAL 10 UNIT SUBCUT ×2 (12:09→17:32)
--- NOTE | 2023-12-01 12:28 | CM.DPNOTE ---
DCP Note [facility] THERAPIST reviewed EMR. Per hospitalist/surgeon, pt cleared to dc as soon as able to to SNF. Per Yaima at [facility], able to submit for ins auth Saturday. No PASRR needed. P: Anticipate dc to [facility] when auth in place. CM team will continue to follow closely./will update dtr/POA as needed. Rita Sauer, UMKUL
[2023-12-01 16:00] VITALS: BP 117/74; PULSE 105; RESP 16; TEMP 36.4; O2SAT 98
[2023-12-01 19:00] VITALS: BP 135/51; PULSE 114; RESP 18; TEMP 36.8; O2SAT 99
[2023-12-01] MEDS: ATORVASTATIN 20 MG TABLET 40 MG PO (21:34)
[2023-12-02 01:00] VITALS: BP 113/71; PULSE 85; RESP 18; TEMP 37.1; O2SAT 100
[2023-12-02] MEDS: LEVOTHYROXINE 75 MCG TABLET 150 MCG PO (05:14)
[2023-12-02] MEDS: ACETAMINOPHEN 325 MG TABLET 650 MG PO ×2 (05:15→21:02)
[2023-12-02 06:01] LABS: Add Manual Diff / Slide Review NO; Basophils Absolute Auto 0 /uL (0-100); Basophils Percent Auto 0.1 % (0-2); Eosinophils Absolute Auto 300 /uL (0-450); Eosinophils Percent Auto 3.4 % (2-4); Hematocrit 24.5 % (41-53); Hemoglobin 8.1 g/dL (13.5-17.5); Lymphocytes Absolute Auto 900 /uL (1100-4500); Lymphocytes Percent Auto 11.6 % (25-40); Mean Corpuscular HGB Conc 33.3 % (30-36); Mean Corpuscular Hemoglobin 29.4 PG (26-34); Mean Corpuscular Volume 88.4 fL (80-100); Monocytes Absolute Auto 500 /uL (0-900); Monocytes Percent Auto 6.5 % (3-14); Neutrophils Absolute Auto 6000 /uL (1500-7000); Neutrophils Percent Auto 78.4 % (50-75); Platelet Count 345 X10^3/uL (150-400); Red Blood Cell Count 2.77 X10^6/uL (4.5-5.9); White Blood Cell Count 7.6 X10^3/uL (4.5-11.0)
[2023-12-02 06:34] LABS: Alanine Aminotransferase 14 IU/L (<50); Albumin 2.8 g/dL (3.5-5.0); Albumin Globulin Ratio 0.8 (1.0-2.8); Alkaline Phosphatase 201 U/L (38-126); Aspartate Aminotransferase 18 IU/L (17-59); Bilirubin Total 0.6 mg/dL (0.2-1.3); Blood Urea Nitrogen 48 mg/dL (9-20); Calcium 9.2 mg/dL (8.4-10.2); Carbon Dioxide 24 mmol/L (22-32); Chloride 105 mmol/L (98-107); Estimated Glomerular Filt Rate > 60 mL/min (>60); Globulin 3.6 g/dL (1.7-4.1); Glucose 245 mg/dL (80-110); HEMOLYSIS < 15 (0-50); Potassium 4.6 mmol/L (3.4-5.1); Sodium 131 mmol/L (137-145); Total Protein 6.4 g/dL (6.3-8.2)
[2023-12-02] MEDS: INSULIN LISPRO 100 UNIT/ML 3ML VIAL SUBCUT ×4 (08:29→21:16)
[2023-12-02] MEDS: INSULIN LISPRO 100 UNIT/ML 3ML VIAL 10 UNIT SUBCUT ×3 (08:29→17:14)
[2023-12-02] MEDS: INSULIN GLARGINE 100 UNIT/ML 3ML PEN 25 UNIT SUBCUT (08:30)
[2023-12-02] MEDS: METOPROLOL IR 25 MG TABLET 37.5 MG PO ×2 (08:35→21:00)
[2023-12-02] MEDS: ursodioL 300 MG CAPSULE PO ×2 (08:35→21:03)
[2023-12-02] MEDS: APIXABAN 5 MG TABLET PO ×2 (08:35→21:03)
[2023-12-02] MEDS: FLUCONAZOLE 100 MG TABLET 200 MG PO (08:35)
[2023-12-02] MEDS: CITALOPRAM 10 MG TABLET 5 MG PO (08:35)
[2023-12-02] MEDS: TACROLIMUS 0.5 MG CAPSULE 1 MG PO (08:35)
[2023-12-02] MEDS: FERROUS SULFATE 325 MG TABLET PO (08:36)
--- NOTE | 2023-12-02 09:03 | PC.NURSE ---
Patient is confused at baseline but sometimes oriented. He ate well at breakfast and his blood sugar was 245. Insulins given and patient is resting. He has dressings to his r.upper hip and r.mid hip area that are both cdi. Patient does not have any iv access. He is a dara lift when getting out of bed. He has a large purple bruise to his r.fa and some abrasions. No needs at this time.
[2023-12-02 09:41] VITALS: BP 124/76; PULSE 92; RESP 16; TEMP 36.3; O2SAT 99
--- NOTE | 2023-12-02 12:45 | CM.DPC ---
DCP SNF Planning Cont: Per Ortho, pt making progress but remains Non-weight bearing at this time and nails and plates remain in place and currently a heavy dara lift. Per PT, currently recommending SNF via stretcher/BLS transport due to NWB status and dementia for safety. ALEK spoke to admissions Sujatha at [facility] and she confirms she submitted for [facility] auth for SNF and historically it has taken a couple days to get determination from [facility]. ALEK updated on need for BLS transport at d/c and she will alert SW when auth obtained so BLS could be scheduled for transport. BLS form completed but needs date for transport once auth obtained and MD signature. ALEK attempted to call Dtr/DPOA [facility] in [place] to update but phone just kept ringing with no option of voicemail. Plan: SW to follow for plan of return to [facility] via [facility] once insurance SNF auth obtained before safe return to [facility]. Irma Lindsay, SHIPPING AND RECEIVING ASSOCIATE
--- NOTE | 2023-12-02 14:27 | OT.IP.TRT ---
Current Diagnoses Type 2 diabetes mellitus with hyperglycemia (11/25/23) Age-related osteoporosis with current pathological fracture, right femur, initial encounter for fracture (11/25/23) Unspecified fracture of lower end of left femur, initial encounter for closed fracture (11/25/23) Other fracture of lower end of right femur, initial encounter for closed fracture (11/25/23) residential (current) use of anticoagulants (11/25/23) Liver transplant status (11/25/23) Presence of unspecified artificial hip joint (11/25/23) Surgery Performed Operation Date: 11/27/23 14:15 Actual Procedures p retrograde femoral nail and pinning(Right) - Selvin Xie MD Occupational Therapy Treatment Note M2 OT-IP Current Condition Start: 11/28/23 10:31 Freq: Status: Active Protocol: Document 11/28/23 10:33 [facility] (Rec: 11/28/23 11:00 [facility] [id number]) Occupational Therapy Current Condition Current Condition Evaluation Date 11/28/23 Treatment Diagnosis Right femur fx, s/p R retrograde femoral nailing and pinning Diagnosis Onset Date 11/25/23 Post Operative Precautions Anterior Hip Precautions No Hip Extension,No Hip External Rotation Weight Bearing Status Weight Bearing Status Non-Weight Bearing Allowed Weight Bearing Amount (enter % PT called to clarify with or #) (%) surgeon of WB status due to pt 's severe dementia as pt has advanced dementia and will be difficulty for pt to follow the suggested TDWB. Therefore best to follow RLE NWB at this time for pt. M3 OT- IP Subjective and Pain Start: 11/28/23 10:31 Freq: Status: Active Protocol: Document 12/02/23 15:21 [facility] (Rec: 12/02/23 15:28 [facility] [id number]) OT- Subjective Occupational Therapy Visit Type Type Treatment Note Visit Start Time 14:03 Visit Stop Time 14:27 OT Pain Assessment Pain When Pain Assessed During Mobility Pain Present Pain Present Pain Reported Location Right Hip Scale Used unable to rate Pain Behaviors Facial Grimacing,Guarding, Wincing Management Techniques Distraction,Modification of Treatment,Re-positioning, Timing of Activity with Medications M4 OT- IP ADL's Start: 11/28/23 10:31 Freq: Status: Active Protocol: Document 12/02/23 15:21 [facility] (Rec: 12/02/23 15:28 [facility] [id number]) OT [id number] Comments OT Self-Feeding Comments not meal time OT ADL-Grooming General Evaluation Grooming Ability Standby Assistance Areas Needing Assistance Combing/Brushing Hair,Face Washing Comments OT Grooming Comments sitting EOB OT ADL-Oral Care General Eval Oral Care Ability Standby Assistance Areas of Assistance Brushing Teeth,Retrieving/Set- Up of Items Comments Oral Care Comments seated EOB OT ADL-Dressing General Eval Lower Body Dressing Ability Total Assistance Areas Needing Assistance Socks Comments OT Dressing Comments for adjusting socks OT ADL-Toileting Comments OT Toileting Comments Pt with condom cath that has fallen off. OT ADL-Bathing Comments OT Bathing Comments not performed M5 OT- IP IADL's Start: 11/28/23 10:31 Freq: Status: Active Protocol: Document 11/28/23 10:33 [facility] (Rec: 11/28/23 11:00 [facility] [id number]) OT-Instrumental Activities of Daily Living Home Safety Awareness Awareness of Need for Assistance at Home Decreased Awareness Ability to Problem Solve Emergency Unable to Problem Solve Situations Home Safety Comments Pt has advanced dementia. Medication Management Medication Management Caregiver Administers Money Management Money Management Caregiver Provides Assistance Meal Preparation Meal Preparation Caregiver Provides Assist Pouring Crane Operator Pouring Crane Operator Caregiver Provides Assist M6 OT- IP Functional Cognition Start: 11/28/23 10:31 Freq: Status: Active Protocol: Document 12/02/23 15:21 [facility] (Rec: 12/02/23 15:28 [facility] [id number]) Cognitive Factors Limiting Selfcare Function Cognitive Ability Level of Alertness Alert Cognitive Comments Cognitive Assessment Comments Pt is confused. OT- Vision and Hearing OT- Hearing Assessment OT- Hearing Assessment WFL OT- Vision Assessment Vision Assessment Comments Pt demonstrating signs of abnormal visual processing in coordination with UE movements . M7 OT- IP Mobility and Balance Start: 11/28/23 10:31 Freq: Status: Active Protocol: Document 12/02/23 15:21 [facility] (Rec: 12/02/23 15:28 [facility] [id number]) OT- Bed Mobility Assessment Supine to Sit Supine to Sit Assist Maximum Assistance,1 Person Assistance Sit to Supine Sit to Supine Assist Total Assistance,2 Person Assistance Scooting Scooting to Edge of Bed Maximum Assistance,1 Person Assistance OT-Transfer Assessment Comments Mobility Comments unable to attempt OT- Balance Assessment Sitting Balance and Reactions Static Sitting Balance Ability Good Dynamic Sitting Balance Ability Good M8 OT- IP Objective Assessments Start: 11/28/23 10:31 Freq: Status: Active Protocol: Document 11/28/23 10:33 [facility] (Rec: 11/28/23 11:00 [facility] [id number]) OT Strength Comments Strength Comments Pt is at least 3-/5 for observation. M9 OT- IP Assessment and Plan Start: 11/28/23 10:31 Freq: Status: Active Protocol: Document 12/02/23 15:21 [facility] (Rec: 12/02/23 15:28 [facility] [id number]) OT Summary Assessment and Plan Potential Rehabilitation Potential Poor Analytic Complexity at Evaluation Moderate Summary OT Impairments Pain,Balance,Functional Cognition,Functional Mobility, Self-Feeding,Grooming,Dressing ,Toileting,Bathing,Toilet Transfers,Shower Transfers, Activity Tolerance Progress Towards Goals Slow Progress due to Pain,Slow Progress due to Medical Issues,Slow Progress due to Activity Tolerance,Slow Progress due to Cognition Assessment Summary Pt MOD complexity and main barriers are pain, baseline of advanced dementia and now NWB to RLE. Pt will benefit from skilled rehab to maximize his level of independence. At this time pt will be mechanical lift for transfer needs. Goals Self-Feeding Goal Standby Assistance Grooming Goal Standby Assistance OT-Other Goals Grooming and oral care goals to be SBA with MIN vc for safety. Pt to be able to log roll with one person assist to increase ease for hygiene needs in bed . Days to Meet Goals 10 Frequency of Treatment Frequency Of Treatment Once a Day Treatment Plan OT Treatment Plan ADL Training,Functional Cognition Training,Functional Mobility,Patient/Family Education,Discharge Planning Discharge Recommendations OT Discharge Recommendations SNF Rehab Transportation Needs at Discharge Stretcher/Ambulance
[2023-12-02 15:00] VITALS: BP 124/76; PULSE 94; RESP 16; TEMP 36.3; O2SAT 99
--- NOTE | 2023-12-02 15:16 | PM.PN.1 ---
Subjective Subjective Date Patient Seen: 12/01/23 Time Patient Seen: 09:30 Interval history: The patient denies pain, confused at baseline. He has no complaints today, feels improved. Denies shortness of breath or chest pain. Exam Vital Signs (past 8 hours): - 12/02/23 09:41 Temperature 97.3 F L Pulse Rate 92 H Respiratory Rate 16 Blood Pressure 124/76 Pulse Oximetry 99 Oxygen Flow Rate 0 Oxygen Delivery Method Room Air Oxygen Flow Rate 0 Narrative Exam Narrative: GEN: confused but alert, eating lunch HEENT: moist mucous membranes, PERRL NECK: trachea midline, no JVD CV: regular rate and rhythm, no murmurs PULM: clear bilaterally ABD: soft, nontender, nondistended EXT: no edema. NEURO: awake, alert, dementia with the baseline disorientation, no focal deficits Objective Labs 12/02/23 05:20 12/02/23 05:20 Labs: Laboratory Results - last 24 hr 11/27/23 12/02/23 14:45 05:20 WBC 7.6 RBC 2.77 L Hgb 8.1 L Hct 24.5 L MCV 88.4 MCH 29.4 MCHC 33.3 RDW 17.0 H Plt Count 345 Neut % (Auto) 78.4 H Lymph % (Auto) 11.6 L [place] % (Auto) 6.5 Eos % (Auto) 3.4 Baso % (Auto) 0.1 Neut # (Auto) 6000 Lymph # (Auto) 900 L [place] # (Auto) 500 Eos # (Auto) 300 Baso # (Auto) 0 Sodium 131 L Potassium 4.6 Chloride 105 Carbon Dioxide 24 BUN 48 H Creatinine 1.20 Estimated GFR > 60 BUN/Creatinine Ratio 40.0 H Glucose 245 H Calcium 9.2 Total Bilirubin 0.6 AST 18 ALT 14 Alkaline Phosphatase 201 H Total Protein 6.4 Albumin 2.8 L Globulin 3.6 Albumin/Globulin Ratio 0.8 L Crossmatch See Detail [facility] Social History household members: none caregiver/support person: Yes (POA daughter Billie in [place]. Another son lives relatively local) housing: assisted living facility Smoking Status: Former smoker Assessment & Plan Assessment & Plan narrative: # right distal femur fracture after fall at SNF. See 11/30/2023 note about timing of staple removal and orthopedic follow-up # recent right hip fracture s/p hemiarthroplasty on 11/12/23, with acute blood loss anemia secondary to probable surgical site hematoma. # acute blood loss anemia, with slowly drifting hematocrit, status post 1 unit packed red blood cell 11/30/2023 # JERARDO resolved # CKD 3b, with creatinine at baseline 1.4 mg/dl and EGFR 54 mL/minute # Hypertension. Continue to monitor and consider resuming amlodipine # severe dementia # DM2 with severe hyperglycemia, improved with increasing Lantus insulin as above # Hypothyroidism # Liver transplant on chronic tacrolimus # Atrial fibrillation on chronic anticoagulation with RVR, now controlled and on chronic anticoagulation -Dr. Anne-Marie morgan consulted performed repair on 11/27, with outpatient clinic follow-up in 2-3 weeks -h/h downtrending to 7.1, surgical site hematoma. Continue to trend h/h. -pain control -adequate control with muscle relaxant with robaxin 500 mg QID prn. -Condom cath 11/29/2023. Monitor closely for urinary retention. -insulin increased home BID lantus from 15 to 25units BID on 11/30/2023 given blood sugars in the 300s range, continue 10 U TID AC mealtime insulin. Still elevated will increase further to 35U BID today. -continue home statin, synthroid, metoprolol, celexa, tacrolimus and fluconazole. Holding amlodipine as currently normotensive. -will monitor after increase of home metoprolol from 25 to 37.5 mg BID 11/28 given persistently elevated HR in the 100s-110s, now below 100 -likely discharge to SNF once approved, still trending h/h with hematoma. His case is reviewed with his orthopedic surgeon, case management, physical therapy and nursing in conference today. Quality VTE Deep Vein Thrombosis/Pulmonary Embolism Present on Admission: No
--- NOTE | 2023-12-02 15:18 | PT.IPTN ---
Current Diagnoses Type 2 diabetes mellitus with hyperglycemia (11/25/23) Age-related osteoporosis with current pathological fracture, right femur, initial encounter for fracture (11/25/23) Unspecified fracture of lower end of left femur, initial encounter for closed fracture (11/25/23) Other fracture of lower end of right femur, initial encounter for closed fracture (11/25/23) jail (current) use of anticoagulants (11/25/23) Liver transplant status (11/25/23) Presence of unspecified artificial hip joint (11/25/23) Surgery Performed Operation Date: 11/27/23 14:15 Actual Procedures p retrograde femoral nail and pinning(Right) - Selvin Xie MD Physical Therapy Treatment Note M2 PT-IP Current Condition Start: 11/28/23 08:25 Freq: NEEDED Status: Active Protocol: Document 11/28/23 08:25 [facility] (Rec: 11/28/23 11:05 MB [id number]) Physical Therapy Current Condition Current Condition Evaluation Date 11/28/23 Treatment Diagnosis Right femoral shaft fx after fall and recent fracture and surgery M3 PT-IP Subjective Start: 11/28/23 08:25 Freq: NEEDED Status: Active Protocol: Document 12/02/23 14:03 [facility] (Rec: 12/02/23 15:17 MB [id number]) Subjective Physical Therapy Visit Type Type Treatment Note Visit Start Time 14:03 Visit Stop Time 14:26 Number of SCIENCE LIAISON Visits 0 Physical Therapy Visit Comments Patient Comments Pt does not make spontaneous comments. Therapy Pain Assessment Pain When Pain Assessed During Mobility Pain Present Pain Present Pain Reported Location Right Hip Intensity 6 Scale Used [place] (Faces) Pain Behaviors Facial Grimacing,Guarding, Holding Area Pain Management Techniques Distraction,Modification of Treatment,Re-positioning M4 PT-IP Mobility and Gait Start: 11/28/23 08:25 Freq: NEEDED Status: Active Protocol: Document 12/02/23 14:03 MB (Rec: 12/02/23 15:17 MB [id number]) PT-Bed Mobility Assessment Supine to Sit Supine to Sit Maximum Assistance,1 Person Assistance,Head of Bed Elevated,Bedrails Sit to Supine Sit to Supine Total Assistance,2 Person Assistance Scooting Scooting to Edge of Bed Dependent Scooting Up and Down in Bed Dependent PT-Transfer Assessment Comments Mobility Comments Pt requires heavy assist to move right leg today/support it with mobility and pad to scoot out to EOB and tactile cues for reaching for rail and to hold right hand with left hand for moving back to sitting. Pt sits EOB 10' for OT tasks and to try tapping feet and extending legs. No active activity in right leg and heavy tactile cues to move left leg except for tapping left foot. PT-Balance Assessment Sitting Balance and Reactions Static Sitting Balance Ability Good Dynamic Sitting Balance Ability Poor Comments Other Balance Tests/Deviations/Treatment Strong sacral sitting : M5 PT-IP Objective Assessments Start: 11/28/23 08:25 Freq: NEEDED Status: Active Protocol: Document 11/28/23 08:25 MB (Rec: 11/28/23 11:05 MB [id number]) Orientation Orientation/Cognition Level of Alertness Confusional State Language Function Ability Garbled Speech Safety Awareness Decreased Safety Awareness Memory Description Short Term Impaired,Care Home Impaired Comments Pt is not A&O at all Gross Range of Motion Upper Extremity ROM Impairments Defer to OT Lower Extremity ROM Assessment Right Impaired Impairments Pt cannot follow ROM or MMT commands today Strength Lower Extremity Strength Assessment Right Impaired Comments Strength Comments Pt cannot follow MMT commands Other Assessments Other Other Assessments RLE edema and discoloration, lateral wound dressing is red M6 PT-IP Treatment Start: 11/28/23 08:25 Freq: NEEDED Status: Active Protocol: Document 12/02/23 14:03 MB (Rec: 12/02/23 15:17 MB [id number]) Physical Therapy Treatment Other Treatments Other Treatment Performed Pt cannot understand any precautions or WB or saftey education M7 PT-IP Assessment and Plan Start: 11/28/23 08:25 Freq: NEEDED Status: Active Protocol: Document 12/02/23 14:03 MB (Rec: 12/02/23 15:17 MB [id number]) PT Summary Assessment and Plan Potential Rehabilitation Potential Poor Summary Impairments Pain,ROM,Strength,Balance, Coordination,Cognition,Bed Mobility,Transfers,Gait, Activity Tolerance Progress Towards Goals Slow Progress due to Activity Tolerance Assessment Summary Alo has similar presentation today as far as confusion, right LE tone and no active movement and requiring heavy assistance for bed mobility. Goals Bed Mobility Goal Contact Guard Assistance Transfer Goal Moderate Assistance,Front Wheeled Walker,Slide Board Frequency of Treatment Frequency Of Treatment Once a Day Treatment Plan Physical Therapy Treatment Plan Bed Mobility Training,Transfer Training,Therapeutic Exercise ,Balance Retraining,Post Op Education,Discharge Planning, Hot or Cold Pack,Neuromuscular Re-ed,Coordination Retraining ,Manual Therapy Precautions Anterior Hip Precautions No Hip Extension,No Hip External Rotation Weight Bearing Status Weight Bearing Status Non-Weight Bearing Recommendations To Nursing Amount of Assist Needed Mechanical Lift Discharge Recommendations PT Discharge Recommendations SNF Rehab Transportation Needs at Discharge Stretcher/Ambulance
[2023-12-02 20:22] VITALS: BP 136/81; PULSE 114; RESP 18; TEMP 37; O2SAT 97
[2023-12-02] MEDS: OXYCODONE IR 5 MG TABLET PO (21:02)
[2023-12-02] MEDS: ATORVASTATIN 20 MG TABLET 40 MG PO (21:02)
[2023-12-02] MEDS: INSULIN GLARGINE 100 UNIT/ML 3ML PEN 35 UNIT SUBCUT (21:13)
[2023-12-03 02:06] VITALS: BP 115/75; PULSE 90; RESP 18; TEMP 36.4; O2SAT 98
[2023-12-03] MEDS: LEVOTHYROXINE 75 MCG TABLET 150 MCG PO (05:24)
[2023-12-03] MEDS: ACETAMINOPHEN 325 MG TABLET 650 MG PO (05:25)
[2023-12-03 06:46] LABS: BUN Creatinine Ratio 37.6 (6-22); Blood Urea Nitrogen 47 mg/dL (9-20); Calcium 9.2 mg/dL (8.4-10.2); Carbon Dioxide 23 mmol/L (22-32); Chloride 104 mmol/L (98-107); Estimated Glomerular Filt Rate > 60 mL/min (>60); Glucose 258 mg/dL (80-110); HEMOLYSIS < 15 (0-50); Magnesium 1.9 mg/dL (1.6-2.3); Potassium 4.5 mmol/L (3.4-5.1); Sodium 129 mmol/L (137-145)
--- NOTE | 2023-12-03 07:45 | P.PN_ITS ---
Subjective Subjective Date Patient Seen: 12/03/23 Time Patient Seen: 13:56 Interval history: Patient is sitting comfortably in bedside chair in no apparent distress. Continues to be very confused Exam Vital Signs (past 8 hours): - 12/03/23 02:06 Temperature 97.6 F Pulse Rate 90 Respiratory Rate 18 Blood Pressure 115/75 Pulse Oximetry 98 Oxygen Delivery Method Room Air Oxygen Flow Rate 0 Narrative Exam Narrative: 68-year-old male resting comfortably in bedside chair in no apparent distress. Dressing show scant serosanguineous drainage. Moderate swelling generally about the right thigh and lower leg. Motor functions intact bilateral lower extremities. Sensation grossly intact to light touch bilateral lower extremities. Calf is soft and nontender. Negative Homans. Right foot is warm and dry Const General: comfortable Nutritional Appearance: average body habitus Orientation: alert Objective Labs 12/03/23 06:00 12/03/23 06:00 Labs: Laboratory Results - last 24 hr 12/03/23 06:00 Sodium 129 L Potassium 4.5 Chloride 104 Carbon Dioxide 23 BUN 47 H Creatinine 1.25 Estimated GFR > 60 BUN/Creatinine Ratio 37.6 H Glucose 258 H Calcium 9.2 Magnesium 1.9 PFSH Social History household members: none caregiver/support person: Yes (POA daughter Billie in [place]. Another son lives relatively local) housing: assisted living facility Smoking Status: Former smoker Assessment & Plan Post-op Postoperative Procedures: Procedures Operation Date: 11/27/23 14:15 Actual Procedure Side Surgeon p retrograde femoral nail and pinning Right Selvin Xie MD Postoperative status narrative: Postoperative status narrative: Status post open reduction with intramedullary nailing and lateral plate fixation of [place] C periprosthetic right femur fracture November 27, 2023 Status post right hip hemiarthroplasty femoral neck fracture November 12, 2023 Postop anemia, likely due to acute blood loss during surgery, H and H continued to trend down Postoperative plan narrative: H&H continues to be a little low might need a unit of packed red blood cells per hospitalist Ultrasound ordered right lower extremity -The remaining christopher from his nail/plate fixation should remain in place until his follow up in our clinic 2-3 weeks following that surgery -baseline anticoagulants for DVT prophylaxis -would allow patient to be touchdown weight-bearing if his mental status would allow this however he has not able to comply with instructions because of his dementia. He has therefore been made nonweightbearing to his operative extremity -postoperative anemia being addressed with transfusion as needed. Recommend transfusion for any hemoglobin below 8 given his comorbidities -discharge planning is complicated because of his dementia and nonweightbearing status. Discharge destination remains to be determined Quality VTE Deep Vein Thrombosis/Pulmonary Embolism Present on Admission: No
[2023-12-03 08:00] VITALS: BP 138/75; PULSE 91; RESP 15; TEMP 36.3; O2SAT 99
[2023-12-03 08:06] LABS: Hematocrit 22.8 % (41-53); Hemoglobin 7.8 g/dL (13.5-17.5)
[2023-12-03] MEDS: INSULIN LISPRO 100 UNIT/ML 3ML VIAL SUBCUT ×4 (08:13→21:01)
[2023-12-03] MEDS: INSULIN LISPRO 100 UNIT/ML 3ML VIAL 10 UNIT SUBCUT ×2 (08:14→12:20)
[2023-12-03] MEDS: INSULIN GLARGINE 100 UNIT/ML 3ML PEN 35 UNIT SUBCUT ×2 (08:15→21:02)
--- NOTE | 2023-12-03 08:37 | PC.NURSE ---
Patients blood sugar 259 this morning, insulins given. Aquacel dressings in place to upper and mild r.leg. Patient has been having some ss leakage on top hip dressing and Caden Nowak is aware of this. Patient has a new condom cath in place and he is resting now. He ate 100% of his breakfast this morning.
[2023-12-03] MEDS: METOPROLOL IR 25 MG TABLET 37.5 MG PO ×2 (10:29→20:55)
[2023-12-03] MEDS: APIXABAN 5 MG TABLET PO (10:29)
[2023-12-03] MEDS: FERROUS SULFATE 325 MG TABLET PO (10:29)
[2023-12-03] MEDS: TACROLIMUS 0.5 MG CAPSULE 1 MG PO (10:30)
[2023-12-03] MEDS: CITALOPRAM 10 MG TABLET 5 MG PO (10:30)
[2023-12-03] MEDS: ursodioL 300 MG CAPSULE PO ×2 (10:30→20:55)
[2023-12-03] MEDS: FLUCONAZOLE 100 MG TABLET 200 MG PO (10:30)
--- NOTE | 2023-12-03 11:04 | PT.IPTN ---
Current Diagnoses Type 2 diabetes mellitus with hyperglycemia (11/25/23) Age-related osteoporosis with current pathological fracture, right femur, initial encounter for fracture (11/25/23) Unspecified fracture of lower end of left femur, initial encounter for closed fracture (11/25/23) Other fracture of lower end of right femur, initial encounter for closed fracture (11/25/23) senior care (current) use of anticoagulants (11/25/23) Liver transplant status (11/25/23) Presence of unspecified artificial hip joint (11/25/23) Surgery Performed Operation Date: 11/27/23 14:15 Actual Procedures p retrograde femoral nail and pinning(Right) - Selvin Xie MD Physical Therapy Treatment Note M2 PT-IP Current Condition Start: 11/28/23 08:25 Freq: NEEDED Status: Active Protocol: Document 11/28/23 08:25 MB (Rec: 11/28/23 11:05 MB [id number]) Physical Therapy Current Condition Current Condition Evaluation Date 11/28/23 Treatment Diagnosis Right femoral shaft fx after fall and recent fracture and surgery M3 PT-IP Subjective Start: 11/28/23 08:25 Freq: NEEDED Status: Active Protocol: Document 12/03/23 11:29 TS (Rec: 12/03/23 11:40 TS [id number]) Subjective Physical Therapy Visit Type Type Treatment Note Visit Start Time 11:04 Visit Stop Time 11:27 Number of ROD HANGER Visits 1 Physical Therapy Visit Comments Patient Comments Pt found resting in chair, he reports no pain at rest, he is agreeable to PT. Therapy Pain Assessment Pain When Pain Assessed During Mobility Pain Present Pain Present Pain Reported M4 PT-IP Mobility and Gait Start: 11/28/23 08:25 Freq: NEEDED Status: Active Protocol: Document 12/03/23 11:29 TS (Rec: 12/03/23 11:40 TS [id number]) PT-Transfer Assessment Comments Mobility Comments Pt performed quad sets, heel slides and ankle pumps prior to mobility. He performed isometric holds attemptring to stand from chair. RLE foot maintained off the ground and cues were provided for pushing through arms of chair. He follows cues some of the times . Pt required MaxA x2 for scooting back into the chair. Pt was left with OT in room. 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 Comments Pt is not A&O at all Gross Range of Motion Upper Extremity ROM Impairments Defer to OT Lower Extremity ROM Assessment Right Impaired Impairments Pt cannot follow ROM or MMT commands today Strength Lower Extremity Strength Assessment Right Impaired Comments Strength Comments Pt cannot follow MMT commands Other Assessments Other Other Assessments RLE edema and discoloration, lateral wound dressing is red M6 PT-IP Treatment Start: 11/28/23 08:25 Freq: NEEDED Status: Active Protocol: Document 12/03/23 11:29 TS (Rec: 12/03/23 11:40 TS [id number]) Physical Therapy Treatment Other Treatments Other Treatment Performed Pt cannot understand any precautions or WB or saftey education M7 PT-IP Assessment and Plan Start: 11/28/23 08:25 Freq: NEEDED Status: Active Protocol: Document 12/03/23 11:29 TS (Rec: 12/03/23 11:40 TS [id number]) PT Summary Assessment and Plan Potential Rehabilitation Potential Poor Summary Impairments Pain,ROM,Strength,Balance, Coordination,Cognition,Bed Mobility,Transfers,Gait, Activity Tolerance Progress Towards Goals Slow Progress due to Activity Tolerance Assessment Summary Alo continues to make slow progress with his mobility. He performed isometric holds attemptring to stand x4 with RLE maintained off ground. He appears less confused and following cues most of the time. PT continues to recommend SNF at this time . Goals Bed Mobility Goal Contact Guard Assistance Transfer Goal Moderate Assistance,Front Wheeled Walker,Slide Board Frequency of Treatment Frequency Of Treatment Once a Day Treatment Plan Physical Therapy Treatment Plan Bed Mobility Training,Transfer Training,Therapeutic Exercise ,Balance Retraining,Post Op Education,Discharge Planning, Hot or Cold Pack,Neuromuscular Re-ed,Coordination Retraining ,Manual Therapy Precautions Anterior Hip Precautions No Hip Extension,No Hip External Rotation Weight Bearing Status Weight Bearing Status Non-Weight Bearing Recommendations To Nursing Amount of Assist Needed Mechanical Lift Discharge Recommendations PT Discharge Recommendations SNF Rehab Transportation Needs at Discharge Stretcher/Ambulance
--- NOTE | 2023-12-03 11:38 | OT.IP.TRT ---
Current Diagnoses Type 2 diabetes mellitus with hyperglycemia (11/25/23) Age-related osteoporosis with current pathological fracture, right femur, initial encounter for fracture (11/25/23) Unspecified fracture of lower end of left femur, initial encounter for closed fracture (11/25/23) Other fracture of lower end of right femur, initial encounter for closed fracture (11/25/23) shelter (current) use of anticoagulants (11/25/23) Liver transplant status (11/25/23) Presence of unspecified artificial hip joint (11/25/23) Surgery Performed Operation Date: 11/27/23 14:15 Actual Procedures p retrograde femoral nail and pinning(Right) - Selvin Xie MD Occupational Therapy Treatment Note M2 OT-IP Current Condition Start: 11/28/23 10:31 Freq: Status: Active Protocol: Document 11/28/23 10:33 [facility] (Rec: 11/28/23 11:00 [facility] [id number]) Occupational Therapy Current Condition Current Condition Evaluation Date 11/28/23 Treatment Diagnosis Right femur fx, s/p R retrograde femoral nailing and pinning Diagnosis Onset Date 11/25/23 Post Operative Precautions Anterior Hip Precautions No Hip Extension,No Hip External Rotation Weight Bearing Status Weight Bearing Status Non-Weight Bearing Allowed Weight Bearing Amount (enter % PT called to clarify with or #) (%) surgeon of WB status due to pt 's severe dementia as pt has advanced dementia and will be difficulty for pt to follow the suggested TDWB. Therefore best to follow RLE NWB at this time for pt. M3 OT- IP Subjective and Pain Start: 11/28/23 10:31 Freq: Status: Active Protocol: Document 12/03/23 11:05 [facility] (Rec: 12/03/23 12:38 [facility] [id number]) OT- Subjective Occupational Therapy Visit Type Type Progress Note Visit Start Time 11:05 Visit Stop Time 11:38 Occupational Therapy Visit Comments Patient Comments Pt already in the recliner when OT came to see pt. Patient/Caregiver Goals To get better. OT Pain Assessment Pain When Pain Assessed During Mobility Pain Present Pain Present Pain Reported M4 OT- IP ADL's Start: 11/28/23 10:31 Freq: Status: Active Protocol: Document 12/03/23 11:05 [facility] (Rec: 12/03/23 12:38 [facility] [id number]) OT [id number] Comments OT Self-Feeding Comments Per nursing aid, pt has been able to eat on his own after set-up. OT ADL-Grooming General Evaluation Grooming Ability Standby Assistance Comments OT Grooming Comments While seated on the recliner. OT ADL-Oral Care General Eval Oral Care Ability Standby Assistance Areas of Assistance Brushing Teeth,Retrieving/Set- Up of Items Comments Oral Care Comments while seated in the recliner OT ADL-Dressing General Eval Lower Body Dressing Ability Total Assistance Areas Needing Assistance Socks OT ADL-Toileting Comments OT Toileting Comments Not performed. OT ADL-Bathing Comments OT Bathing Comments NOt performed. M5 OT- IP IADL's Start: 11/28/23 10:31 Freq: Status: Active Protocol: Document 11/28/23 10:33 [facility] (Rec: 11/28/23 11:00 [facility] [id number]) OT-Instrumental Activities of Daily Living Home Safety Awareness Awareness of Need for Assistance at Home Decreased Awareness Ability to Problem Solve Emergency Unable to Problem Solve Situations Home Safety Comments Pt has advanced dementia. Medication Management Medication Management Caregiver Administers Money Management Money Management Caregiver Provides Assistance Meal Preparation Meal Preparation Caregiver Provides Assist Teller Teller Caregiver Provides Assist M6 OT- IP Functional Cognition Start: 11/28/23 10:31 Freq: Status: Active Protocol: Document 12/03/23 11:05 [facility] (Rec: 12/03/23 12:38 [facility] [id number]) Cognitive Factors Limiting Selfcare Function Cognitive Ability Level of Alertness Alert Cognitive Comments Cognitive Assessment Comments Pt more alert today and able to follow commands well for grooming and oral care needs. OT- Vision and Hearing OT- Vision Assessment Vision Assessment Comments Pt able to reach for wash cloth appropriately to the left , but still having difficulty to see on the right side and having to turn his eyes and head to see more clearer. M7 OT- IP Mobility and Balance Start: 11/28/23 10:31 Freq: Status: Active Protocol: Document 12/03/23 11:05 [facility] (Rec: 12/03/23 12:38 [facility] [id number]) OT-Transfer Assessment Comments Mobility Comments MAX AX 2 to assist to scoot pt forwards in the recliner. Assist for set-up his LLE underneath him and cues to push with his BUE on the armrests of the recliner to try to raise his bottom up while strengthening his arms, core and LLE. Pt able to do 5x . OT- Balance Assessment Sitting Balance and Reactions Static Sitting Balance Ability Good Dynamic Sitting Balance Ability Good M8 OT- IP Objective Assessments Start: 11/28/23 10:31 Freq: Status: Active Protocol: Document 11/28/23 10:33 [facility] (Rec: 11/28/23 11:00 [facility] [id number]) OT Strength Comments Strength Comments Pt is at least 3-/5 for observation. M9 OT- IP Assessment and Plan Start: 11/28/23 10:31 Freq: Status: Active Protocol: Document 12/03/23 11:05 [facility] (Rec: 12/03/23 12:38 [facility] [id number]) OT Summary Assessment and Plan Potential Rehabilitation Potential Poor Analytic Complexity at Evaluation Moderate Summary OT Impairments Pain,Balance,Functional Cognition,Functional Mobility, Self-Feeding,Grooming,Dressing ,Toileting,Bathing,Toilet Transfers,Shower Transfers, Activity Tolerance Progress Towards Goals Progressing Toward Goals,Slow Progress due to Pain,Slow Progress due to Medical Issues ,Slow Progress due to Activity Tolerance,Slow Progress due to Cognition Assessment Summary Pt able to follow commands for oral care and grooming needs. Pt seems to have more awareness of his limitations but still needing step by step commands especially for tasks that are not a simple routine to him. Pt will benefit from skilled rehab to help maximize the level of independence. Goals OT-Other Goals Pt to be able to log roll with one person assist. Pt to be able to scoot forwards in the recliner with MODA to assist with upright positioning while eating. Days to Meet Goals 10 Frequency of Treatment Frequency Of Treatment Once a Day Treatment Plan OT Treatment Plan ADL Training,Functional Cognition Training,Functional Mobility,Patient/Family Education,Discharge Planning Discharge Recommendations OT Discharge Recommendations SNF Rehab Transportation Needs at Discharge Stretcher/Ambulance
--- NOTE | 2023-12-03 12:59 | P.PN_ITS ---
Subjective Subjective Date Patient Seen: 12/01/23 Time Patient Seen: 09:30 Interval history: Some worsened slightly Right leg pain today, feels swollend and tight to him. Did not recall that he was here after surgery. Exam Vital Signs (past 8 hours): - 12/03/23 08:00 Temperature 97.3 F L Pulse Rate 91 H Respiratory Rate 15 Blood Pressure 138/75 Pulse Oximetry 99 Oxygen Flow Rate 0 Oxygen Delivery Method Room Air Oxygen Flow Rate 0 Narrative Exam Narrative: GEN: confused but alert, eating lunch HEENT: moist mucous membranes, PERRL NECK: trachea midline, no JVD CV: regular rate and rhythm, no murmurs PULM: clear bilaterally ABD: soft, nontender, nondistended EXT: trace edema, R leg dressings c/d/i, increased swelling R leg, no obvious ecchymosis but fairly tense near incisions and mild tenderness. DP pulses are +2. NEURO: awake, alert, dementia with the baseline disorientation, no focal deficits Objective Labs 12/03/23 06:00 12/03/23 06:00 Labs: Laboratory Results - last 24 hr 12/03/23 06:00 Hgb 7.8 L Hct 22.8 L Sodium 129 L Potassium 4.5 Chloride 104 Carbon Dioxide 23 BUN 47 H Creatinine 1.25 Estimated GFR > 60 BUN/Creatinine Ratio 37.6 H Glucose 258 H Calcium 9.2 Magnesium 1.9 PFSH Social History household members: none caregiver/support person: Yes (POA daughter Billie in [place]. Another son lives relatively local) housing: assisted living facility Smoking Status: Former smoker Assessment & Plan Assessment & Plan narrative: # right distal femur fracture after fall at SNF. See 11/30/2023 note about timing of staple removal and orthopedic follow-up # recent right hip fracture s/p hemiarthroplasty on 11/12/23, with acute blood loss anemia secondary to probable surgical site hematoma. # acute blood loss anemia, with slowly drifting hematocrit, status post 1 unit packed red blood cell 11/30/2023 # JERARDO resolved # CKD 3b, with creatinine at baseline 1.4 mg/dl and EGFR 54 mL/minute # Hypertension. Continue to monitor and consider resuming amlodipine # severe dementia # DM2 with severe hyperglycemia, improved with increasing Lantus insulin as above # Hypothyroidism # Liver transplant on chronic tacrolimus # Atrial fibrillation on chronic anticoagulation with RVR, now controlled and on chronic anticoagulation -Dr. Anne-Marie morgan consulted performed repair on 11/27, with outpatient clinic follow-up in 2-3 weeks -h/h downtrending to 7.1, got transfusion with improvement but downtrending still, likely surgical site hematoma. Continue to trend h/h and transfuse with Goal Hg >7. STOP apixaban today. -pain control -adequate control with muscle relaxant with robaxin 500 mg QID prn. -Condom cath 11/29/2023. Monitor closely for urinary retention. -insulin increased home BID lantus from 15 to now 35 U units BID. continue 10 U TID AC mealtime insulin. Discussed with pharmacy and will stop fluconazole as can cause elevated blood sugars. -continue home statin, synthroid, metoprolol, celexa, tacrolimus and fluconazole. -will monitor after increase of home metoprolol from 25 to 37.5 mg BID 11/28 given persistently elevated HR in the 100s-110s, now below 100 -likely discharge to SNF once approved, still trending h/h with hematoma. His case is reviewed with his orthopedic surgeon, case management, physical therapy and nursing in conference today. Quality VTE Deep Vein Thrombosis/Pulmonary Embolism Present on Admission: No
--- NOTE | 2023-12-03 13:48 | DI.US.S_ITS ---
PROCEDURE: US PERIPH VENOUS LOW EXTREM RT INDICATIONS: R/O DVT to r.extremity, r.leg is swollen. TECHNIQUE: Real-time imaging, as well as color and pulse Doppler interrogation, were performed of the lower extremity deep veins from the inguinal ligament to the popliteal fossa, with documentation of the visualized calf veins. COMPARISON: None. FINDINGS: The common femoral, femoral, popliteal, and the visualized calf veins are normally compressible, and free of intraluminal thrombus. Color and pulse Doppler demonstrate normal phasic intraluminal flow. There is normal augmentation response to distal compression maneuver. IMPRESSION: No findings of lower extremity deep venous thrombosis. Approved by: Selvin Bae M.D. on 12/03/2023 at 16:34
[2023-12-03 14:00] VITALS: BP 135/75; PULSE 92; RESP 15; TEMP 36.3; O2SAT 98
--- NOTE | 2023-12-03 14:01 | CM.DPC ---
DCP Cont. Reviewed EMR and team rounds for status updates. [facility] auth still pending. Will monitor closely for d/c tomorrow, BLS form is signed and ready to go.
[2023-12-03] MEDS: INSULIN LISPRO 100 UNIT/ML 3ML VIAL 13 UNIT SUBCUT ×2 (17:09→17:10)
[2023-12-03 20:45] VITALS: BP 125/67; PULSE 114; RESP 18; TEMP 36.9; O2SAT 99
[2023-12-03] MEDS: ATORVASTATIN 20 MG TABLET 40 MG PO (20:55)
[2023-12-03] MEDS: OXYCODONE IR 5 MG TABLET PO (20:57)
[2023-12-03 23:42] VITALS: BP 122/74; PULSE 89; RESP 18; TEMP 36.6; O2SAT 98
--- NOTE | 2023-12-04 00:01 | PC.NURSE ---
Patient is oriented to only self and birthdate. Talking frequently about having to fill up with gas. Breath sounds CTA with RA sat of 99%. HRR. BT present and was incontinent of soft, brown stool. Currently wearing a condom catheter because patient is incontinent of urine. Is needing to be repositioned q2h as he is not making significant changes in position by himself. Aquacel and allevyn dressings to right leg are intact; most lateral aquacel dressing is nearly completely saturated with drainage; patient intermittent removes dressings and needs to have them replaced as needed. Continues to have significant edema in right LE without change since last seen on the weekend; US done today was negative for DVT. He is able to feel touch on both LE but is unable to lift right LE. Is NWB on right LE so needs use of mechanical lift for transfers out of bed. Bilateral SCD's placed tonight as patient seems to be more alert but only tolerated them for 2 hours before he was trying to remove them. Did complain of pain in right LE when asked so medicated with oxycodone but is not hollering out with pain when turned like he did past weekend. Fall risk score is high and bed alarm is activated.
[2023-12-04] MEDS: OXYCODONE IR 5 MG TABLET PO (03:21)
[2023-12-04] MEDS: methocarbamoL 500 MG TABLET 750 MG PO (03:21)
[2023-12-04] MEDS: LEVOTHYROXINE 75 MCG TABLET 150 MCG PO (05:42)
[2023-12-04 06:10] VITALS: BP 135/74; PULSE 97; RESP 16; TEMP 36.7; O2SAT 97
[2023-12-04 06:42] LABS: Hematocrit 22.1 % (41-53); Hemoglobin 7.4 g/dL (13.5-17.5)
[2023-12-04 06:55] LABS: BUN Creatinine Ratio 29.7 (6-22); Blood Urea Nitrogen 38 mg/dL (9-20); Carbon Dioxide 21 mmol/L (22-32); Chloride 103 mmol/L (98-107); Estimated Glomerular Filt Rate > 60 mL/min (>60); Glucose 222 mg/dL (80-110); HEMOLYSIS < 15 (0-50); Magnesium 1.7 mg/dL (1.6-2.3); Potassium 4.6 mmol/L (3.4-5.1); Sodium 129 mmol/L (137-145)
[2023-12-04] MEDS: ursodioL 300 MG CAPSULE PO ×2 (08:48→21:41)
[2023-12-04] MEDS: FERROUS SULFATE 325 MG TABLET PO (08:49)
[2023-12-04] MEDS: CITALOPRAM 10 MG TABLET 5 MG PO (08:49)
[2023-12-04] MEDS: TACROLIMUS 0.5 MG CAPSULE 1 MG PO (08:49)
[2023-12-04] MEDS: METOPROLOL IR 25 MG TABLET 37.5 MG PO ×2 (08:49→21:41)
[2023-12-04] MEDS: INSULIN GLARGINE 100 UNIT/ML 3ML PEN 35 UNIT SUBCUT ×2 (08:51→21:46)
[2023-12-04] MEDS: INSULIN LISPRO 100 UNIT/ML 3ML VIAL SUBCUT ×3 (08:53→17:03)
--- NOTE | 2023-12-04 09:41 | DIET.CONS2 ---
Dietary Inpatient Consultation Note Admission Date: 11/25/2023 18:28 Nutrition f/u. Chart reviewed. Adequate po intakes. BG down from upper 200s-300s to between 192-229 last 12 hours. Will continue to monitor. No further nutritional needs. Diet: 11/29/23 Dinner Carbohydrate Consistent Diet Diet Modifications: Carbohydrate level: Large (4 CHO) Reflex DM orders: No Food Texture: Level 7 - Regular Liquid Consistency: Level 0 - Thin Nutrition Percent Meal Consumed 100% 12/04/23 09:14 Percent Meal Consumed 100% 12/03/23 12:33 Percent Meal Consumed 100% 12/03/23 08:00 Percent Meal Consumed water 12/02/23 20:22 Percent Meal Consumed 80 12/02/23 18:03 Percent Meal Consumed 100% 12/02/23 12:57 Electronically Signed by: Nicki Quintanilla 12/04/23 09:41 Clinical Dietitian [address] [address]
[2023-12-04 11:23] VITALS: BP 103/50; PULSE 83; RESP 18; TEMP 36.6; O2SAT 99
--- NOTE | 2023-12-04 11:24 | OT.IPNOTE ---
Pt appears to be in more pain today and resisting moving at this time. Nursing notified.
--- NOTE | 2023-12-04 11:25 | PT-IP ANOTE ---
Pt refused to work with PT at this time. Will attempt to see later in afternoon.
--- NOTE | 2023-12-04 11:46 | PC.NURSE ---
Day shift: Pt does not understand how to use I.S. at this time
[2023-12-04] MEDS: INSULIN LISPRO 100 UNIT/ML 3ML VIAL 13 UNIT SUBCUT ×2 (11:52→17:04)
--- NOTE | 2023-12-04 15:17 | PM.PN.1 ---
Subjective Subjective Date Patient Seen: 12/04/23 Time Patient Seen: 09:30 Interval history: Some worsened slightly Right leg pain today, feels swollend and tight to him. Did not recall that he was here after surgery. Exam Vital Signs (past 8 hours): - 12/04/23 11:23 Temperature 97.9 F Pulse Rate 83 Respiratory Rate 18 Blood Pressure 103/50 L Pulse Oximetry 99 Oxygen Flow Rate 0 Oxygen Delivery Method Room Air Oxygen Flow Rate 0 Narrative Exam Narrative: GEN: confused but alert, eating lunch HEENT: moist mucous membranes, PERRL NECK: trachea midline, no JVD CV: regular rate and rhythm, no murmurs PULM: clear bilaterally ABD: soft, nontender, nondistended EXT: trace edema, R leg dressings c/d/i, increased swelling R leg, no obvious ecchymosis, less tense near incisions and mild tenderness. DP pulses are +2. NEURO: awake, alert, dementia with the baseline disorientation, no focal deficits Objective Labs 12/04/23 06:25 12/04/23 06:25 Labs: Laboratory Results - last 24 hr 12/04/23 06:25 Hgb 7.4 L Hct 22.1 L Sodium 129 L Potassium 4.6 Chloride 103 Carbon Dioxide 21 L BUN 38 H Creatinine 1.28 H Estimated GFR > 60 BUN/Creatinine Ratio 29.7 H Glucose 222 H Calcium 9.0 Magnesium 1.7 PFSH Social History household members: none caregiver/support person: Yes (POA daughter Billie in [place]. Another son lives relatively local) housing: assisted living facility Smoking Status: Former smoker Assessment & Plan Assessment & Plan narrative: # right distal femur fracture after fall at SNF. See 11/30/2023 note about timing of staple removal and orthopedic follow-up # recent right hip fracture s/p hemiarthroplasty on 11/12/23, with acute blood loss anemia secondary to probable surgical site hematoma. # acute blood loss anemia, with slowly drifting hematocrit, status post 1 unit packed red blood cell 11/30/2023 # JERARDO resolved # CKD 3b, with creatinine at baseline 1.4 mg/dl and EGFR 54 mL/minute # Hypertension. Continue to monitor and consider resuming amlodipine # severe dementia # DM2 with severe hyperglycemia, improved with increasing Lantus insulin as above # Hypothyroidism # Liver transplant on chronic tacrolimus # Atrial fibrillation on chronic anticoagulation with RVR, now controlled and on chronic anticoagulation -Dr. Anne-Marie morgan consulted performed repair on 11/27, with outpatient clinic follow-up in 2-3 weeks -h/h downtrending to 7.1, got transfusion with improvement but downtrending still and is now again in the 7s, likely surgical site hematoma. Continue to trend h/h and transfuse with Goal Hg >7. Stopped apixaban 12/02. -pain control -adequate control with muscle relaxant with robaxin 500 mg QID prn. -Condom cath 11/29/2023. Monitor closely for urinary retention. -insulin increased home BID lantus from 15 to now 35 U units BID. continue 10 U TID AC mealtime insulin. Discussed with pharmacy and will stop fluconazole as can cause elevated blood sugars. They are a bit better today. -continue home statin, synthroid, metoprolol, celexa, tacrolimus and fluconazole. -will monitor after increase of home metoprolol from 25 to 37.5 mg BID 11/28 given persistently elevated HR in the 100s-110s, now below 100 -likely discharge to SNF once approved, still trending h/h with hematoma. His case is reviewed with his orthopedic surgeon, case management, physical therapy and nursing in conference today. Quality VTE Deep Vein Thrombosis/Pulmonary Embolism Present on Admission: No
--- NOTE | 2023-12-04 15:20 | OT.IP.TRT ---
Current Diagnoses Type 2 diabetes mellitus with hyperglycemia (11/25/23) Age-related osteoporosis with current pathological fracture, right femur, initial encounter for fracture (11/25/23) Unspecified fracture of lower end of left femur, initial encounter for closed fracture (11/25/23) Other fracture of lower end of right femur, initial encounter for closed fracture (11/25/23) intermediate (current) use of anticoagulants (11/25/23) Liver transplant status (11/25/23) Presence of unspecified artificial hip joint (11/25/23) Surgery Performed Operation Date: 11/27/23 14:15 Actual Procedures p retrograde femoral nail and pinning(Right) - Selvin Xie MD Occupational Therapy Treatment Note M2 OT-IP Current Condition Start: 11/28/23 10:31 Freq: Status: Active Protocol: Document 11/28/23 10:33 [facility] (Rec: 11/28/23 11:00 [facility] [id number]) Occupational Therapy Current Condition Current Condition Evaluation Date 11/28/23 Treatment Diagnosis Right femur fx, s/p R retrograde femoral nailing and pinning Diagnosis Onset Date 11/25/23 Post Operative Precautions Anterior Hip Precautions No Hip Extension,No Hip External Rotation Weight Bearing Status Weight Bearing Status Non-Weight Bearing Allowed Weight Bearing Amount (enter % PT called to clarify with or #) (%) surgeon of WB status due to pt 's severe dementia as pt has advanced dementia and will be difficulty for pt to follow the suggested TDWB. Therefore best to follow RLE NWB at this time for pt. M3 OT- IP Subjective and Pain Start: 11/28/23 10:31 Freq: Status: Active Protocol: Document 12/04/23 15:26 [facility] (Rec: 12/04/23 15:42 [facility] [id number]) OT- Subjective Occupational Therapy Visit Type Type Treatment Note Visit Start Time 13:05 Visit Stop Time 13:20 Occupational Therapy Visit Comments Patient Comments Pt needing to be changed. OT Pain Assessment Pain When Pain Assessed At Rest Pain Present Pain Present Pain Reported Location Right Hip Scale Used Unable Pain Behaviors Facial Grimacing,Guarding, Wincing Management Techniques Distraction,Modification of Treatment,Re-positioning, Timing of Activity with Medications M4 OT- IP ADL's Start: 11/28/23 10:31 Freq: Status: Active Protocol: Document 12/04/23 15:26 [facility] (Rec: 12/04/23 15:42 [facility] [id number]) OT [id number] Comments OT Self-Feeding Comments Per nursing aid pt just needing set-up assist and able to do finger foods. OT ADL-Grooming Comments OT Grooming Comments Not performed. OT ADL-Oral Care Comments Oral Care Comments Not peformed. OT ADL-Dressing General Eval Lower Body Dressing Ability Total Assistance OT ADL-Toileting General Evaluation Toileting Ability Total Assistance Areas Needing Assistance Manage Clothing,Perform Perineal Hygiene Comments OT Toileting Comments Pt total assist for toileting needs. Assist from the bed to turn and also MODA 1-2. M5 OT- IP IADL's Start: 11/28/23 10:31 Freq: Status: Active Protocol: Document 11/28/23 10:33 [facility] (Rec: 11/28/23 11:00 [facility] [id number]) OT-Instrumental Activities of Daily Living Home Safety Awareness Awareness of Need for Assistance at Home Decreased Awareness Ability to Problem Solve Emergency Unable to Problem Solve Situations Home Safety Comments Pt has advanced dementia. Medication Management Medication Management Caregiver Administers Money Management Money Management Caregiver Provides Assistance Meal Preparation Meal Preparation Caregiver Provides Assist Radiology Manager Radiology Manager Caregiver Provides Assist M6 OT- IP Functional Cognition Start: 11/28/23 10:31 Freq: Status: Active Protocol: Document 12/04/23 15:26 [facility] (Rec: 12/04/23 15:42 [facility] [id number]) Cognitive Factors Limiting Selfcare Function Cognitive Ability Level of Alertness Confusional State Cognitive Comments Cognitive Assessment Comments Pt seems more confused today and needing more cues to follow for bed mobility needs. M7 OT- IP Mobility and Balance Start: 11/28/23 10:31 Freq: Status: Active Protocol: Document 12/04/23 15:26 [facility] (Rec: 12/04/23 15:42 [facility] [id number]) OT-Transfer Assessment Comments Mobility Comments Pt's RLE is very swollen and per scan negative for DVT. Pt tends to lie in supine with his RLE knee bend and knee turned out. Unable to assist pt to straighten his leg. Able to place a folded towel under his right hip to help prevent from external rotation at the right hip as pt has anterior precautions. M8 OT- IP Objective Assessments Start: 11/28/23 10:31 Freq: Status: Active Protocol: Document 11/28/23 10:33 [facility] (Rec: 11/28/23 11:00 [facility] [id number]) OT Strength Comments Strength Comments Pt is at least 3-/5 for observation. M9 OT- IP Assessment and Plan Start: 11/28/23 10:31 Freq: Status: Active Protocol: Document 12/04/23 15:26 [facility] (Rec: 12/04/23 15:42 [facility] [id number]) OT Summary Assessment and Plan Potential Rehabilitation Potential Poor Analytic Complexity at Evaluation Moderate Summary OT Impairments Pain,Balance,Functional Cognition,Functional Mobility, Self-Feeding,Grooming,Dressing ,Toileting,Bathing,Toilet Transfers,Shower Transfers, Activity Tolerance Progress Towards Goals Progressing Toward Goals,Slow Progress due to Pain,Slow Progress due to Medical Issues ,Slow Progress due to Activity Tolerance,Slow Progress due to Cognition Assessment Summary Pt more confused today and needing more tactile and verbal cues to follow for bed mobility for brief change. Noted pt's RLE still very swollen and painful and pt has difficulty to be able to move his RLE. Pt brijesh benefit from skilled rehab to maximize level of independence versus home to his CUSTODIAL with increased assist and will need use of mechanical lift. Goals OT-Other Goals Pt to be able to log roll with one person assist. Pt to be able to scoot forwards in the recliner with MODA to assist with upright positioning while eating. Days to Meet Goals 10 Frequency of Treatment Frequency Of Treatment Once a Day Treatment Plan OT Treatment Plan ADL Training,Functional Cognition Training,Functional Mobility,Patient/Family Education,Discharge Planning Discharge Recommendations OT Discharge Recommendations SNF Rehab Transportation Needs at Discharge Stretcher/Ambulance
--- NOTE | 2023-12-04 15:49 | PM.PNPO.1 ---
Subjective Subjective Date Patient Seen: 12/04/23 Time Patient Seen: 15:49 Interval history: Pt lying in bed, very pleasant but somewhat confused when answering questions. States the pain is 'getting him good.' Exam Vital Signs (past 8 hours): - 12/04/23 11:23 Temperature 97.9 F Pulse Rate 83 Respiratory Rate 18 Blood Pressure 103/50 L Pulse Oximetry 99 Oxygen Flow Rate 0 Oxygen Delivery Method Room Air Oxygen Flow Rate 0 Narrative Exam Narrative: Very little effort made with hip flexors, quadriceps, hamstring testing - 3/5. 4/5 PF and EHL. Calf is soft and nontender. There is diffuse swelling throughout the LE but no erythema or warmth. Aquacel dressing to lateral thigh has fair amount of bloody drainage; other dressings are dry. Foot is warm and well-perfused. Objective Labs 12/04/23 06:25 12/04/23 06:25 Labs: Laboratory Results - last 24 hr 12/04/23 06:25 Hgb 7.4 L Hct 22.1 L Sodium 129 L Potassium 4.6 Chloride 103 Carbon Dioxide 21 L BUN 38 H Creatinine 1.28 H Estimated GFR > 60 BUN/Creatinine Ratio 29.7 H Glucose 222 H Calcium 9.0 Magnesium 1.7 PFSH Social History household members: none caregiver/support person: Yes (POA daughter Billie in [place]. Another son lives relatively local) housing: assisted living facility Smoking Status: Former smoker Assessment & Plan Post-op Assessment and plan (1) Femur fracture, right: Assessment and Plan narrative: 1) Eliquis has been held since 12/02 PM d/t low H/H; restart per hospitalist service. 2) Pain control and disposition per hospitalist service; from CM notes, it looks auth for SNF is still pending. 3) D/t confusion/dementia, pt needs to remain nonweightbearing on right leg. Appt w/ PA in ortho clinic in 1-2 weeks for staple removal, but this can be done at care facility if needed. F/u in 5-6 weeks w/ Dr Xie for repeat imaging. Postoperative Procedures: Procedures Operation Date: 11/27/23 14:15 Actual Procedure Side Surgeon p retrograde femoral nail and pinning Right Selvin Xie MD Postoperative day: 7 Quality VTE Deep Vein Thrombosis/Pulmonary Embolism Present on Admission: No
[2023-12-04 18:00] VITALS: BP 128/68; PULSE 94; RESP 18; TEMP 36.4; O2SAT 99
[2023-12-04 20:00] VITALS: BP 134/69; PULSE 99; RESP 18; TEMP 36.2; O2SAT 99
[2023-12-04] MEDS: ACETAMINOPHEN 325 MG TABLET 650 MG PO (21:40)
[2023-12-04] MEDS: ATORVASTATIN 20 MG TABLET 40 MG PO (21:42)
--- NOTE | 2023-12-05 00:11 | PC.NURSE ---
Patient has been more alert but remains disoriented except is able to state his name and date of . Breath sounds CTA with RA sat of 99%. HRR. Denied nausea. BT present and abdomen is soft; is incontinent of B&B. Needs help to reposition q2h and when he is turned complains of significant pain in right LE but is not always able to communicate severity; medicated by float RN, Musa, with Tylenol and is currently asleep. Is NWB on right LE because he is unable to comply/comprehend TTWB status; mechanical lift is being used to get him out of bed. Dressings to right LE were all CDI at shift change but since then he has removed both the aquacel and allevyn dressings from right knee incisions so they have been replaced. SCD's are not in use as patient did not tolerate them last night and made him more restless. He is able to feel touch to both LE but is unable to lift right leg although is able to move the foot. CBG improved at hs and was 181. Fall risk score is high and bed alarm is activated.
[2023-12-05 03:26] VITALS: BP 135/77; PULSE 83; RESP 22; TEMP 35.9; O2SAT 100
[2023-12-05] MEDS: LEVOTHYROXINE 75 MCG TABLET 150 MCG PO (05:53)
[2023-12-05 06:44] LABS: Hematocrit 23.8 % (41-53)
[2023-12-05 06:55] LABS: BUN Creatinine Ratio 28.7 (6-22); Blood Urea Nitrogen 35 mg/dL (9-20); Calcium 9.2 mg/dL (8.4-10.2); Carbon Dioxide 24 mmol/L (22-32); Chloride 106 mmol/L (98-107); Estimated Glomerular Filt Rate > 60 mL/min (>60); Glucose 178 mg/dL (80-110); HEMOLYSIS < 15 (0-50); Potassium 4.7 mmol/L (3.4-5.1); Sodium 133 mmol/L (137-145)
--- NOTE | 2023-12-05 07:28 | PM.PN.1 ---
Subjective Subjective Interval history: S: He is some right leg pain., this is reasonably well controlled. He denies any chest pain, or dyspnea. He has no additional questions. Exam Vital Signs (past 8 hours): - 12/05/23 03:26 Temperature 96.6 F L Pulse Rate 83 Respiratory Rate 22 Blood Pressure 135/77 Pulse Oximetry 100 Oxygen Flow Rate 0 Oxygen Delivery Method Room Air Oxygen Flow Rate 0 Narrative Exam Narrative: NAD, alert and oriented. Fluent speech. Lungs are clear, normal rate and effort. Heart is regular, no murmur gallop or rub. Abdomen is soft, non distended. Extremities are free of edema. Right leg is somewhat swollen down to the ankle, he was good peripheral pulse. There is no bruising on the anterior lateral aspect of the leg. Objective Labs 12/05/23 06:25 12/05/23 06:25 Labs: Laboratory Results - last 24 hr 11/27/23 12/05/23 14:45 06:25 Hgb 8.0 L Hct 23.8 L Sodium 133 L Potassium 4.7 Chloride 106 Carbon Dioxide 24 BUN 35 H Creatinine 1.22 Estimated GFR > 60 BUN/Creatinine Ratio 28.7 H Glucose 178 H Calcium 9.2 Magnesium 2.0 Blood Type AB Positive Antibody Screen Negative Crossmatch See Detail [facility] Social History household members: none caregiver/support person: Yes (STEFANIAA daughter Billie in [place]. Another son lives relatively local) housing: assisted living facility Smoking Status: Former smoker Assessment & Plan Assessment & Plan narrative: # right distal femur fracture after fall at SNF. See 11/30/2023 note about timing of staple removal and orthopedic follow-up, improved. # recent right hip fracture s/p hemiarthroplasty on 11/12/23, with acute blood loss anemia secondary to probable surgical site hematoma. # acute blood loss anemia, with slowly drifting hematocrit, status post 1 unit packed red blood cell 11/30/2023, stable. # JERARDO, resolved # CKD 3b, with creatinine at baseline 1.4 mg/dl and EGFR 54 mL/minute. # Hypertension. Stable. Continue to monitor and consider resuming amlodipine # severe dementia, stable. # DM2 with severe hyperglycemia, improved with increasing Lantus insulin as above, improved. # Hypothyroidism, stable. # Liver transplant on chronic tacrolimus, stable. # Atrial fibrillation on chronic anticoagulation with RVR, now controlled and on chronic anticoagulation. Stable. PLAN: -monitor hemoglobin, if stable likely can return to [facility] on December 05. Ongoing plans: -h/h downtrending to 7.1, got transfusion with improvement but downtrending still and is now again in the 7s, likely surgical site hematoma. Continue to trend h/h and transfuse with Goal Hg >7. Stopped apixaban 12/02. -Condom cath 11/29/2023. Monitor closely for urinary retention. -insulin increased home BID lantus from 15 to now 35 U units BID. continue 10 U TID AC mealtime insulin. Discussed with pharmacy and will stop fluconazole as can cause elevated blood sugars. They are a bit better today. -will monitor after increase of home metoprolol from 25 to 37.5 mg BID 11/28 given persistently elevated HR in the 100s-110s, now below 100 His case is reviewed with case management, physical therapy and nursing in conference today. Quality VTE Deep Vein Thrombosis/Pulmonary Embolism Present on Admission: No
[2023-12-05 08:00] VITALS: BP 137/73; PULSE 93; RESP 20; TEMP 36.1; O2SAT 95
[2023-12-05] MEDS: INSULIN GLARGINE 100 UNIT/ML 3ML PEN 35 UNIT SUBCUT ×2 (08:43→21:23)
[2023-12-05] MEDS: INSULIN LISPRO 100 UNIT/ML 3ML VIAL SUBCUT ×2 (08:44→16:10)
[2023-12-05] MEDS: INSULIN LISPRO 100 UNIT/ML 3ML VIAL 13 UNIT SUBCUT ×2 (08:44→16:09)
[2023-12-05] MEDS: METOPROLOL IR 25 MG TABLET 37.5 MG PO ×2 (08:56→21:12)
[2023-12-05] MEDS: OXYCODONE IR 5 MG TABLET PO ×3 (08:57→21:16)
[2023-12-05] MEDS: TACROLIMUS 0.5 MG CAPSULE 1 MG PO (08:57)
[2023-12-05] MEDS: FERROUS SULFATE 325 MG TABLET PO (08:58)
[2023-12-05] MEDS: CITALOPRAM 10 MG TABLET 5 MG PO (08:58)
[2023-12-05] MEDS: ursodioL 300 MG CAPSULE PO ×2 (08:58→21:17)
--- NOTE | 2023-12-05 09:51 | PM.PN.1 ---
Subjective Subjective Interval history: Alo is a 68-year-old male who is postop day #8 s/p right open reduction with intramedullary nailing and lateral plate fixation of Gerlaw C periprosthetic right femur fracture by Dr. Xie. He states his pain control is so so. Has difficulty answering questions d/t baseline cognitive impairment. States he has been working with PT and feels it is going well. Denies fever, chest pain, nausea. Exam Vital Signs (past 8 hours): - 12/05/23 03:26 12/05/23 08:00 Temperature 96.6 F L 97.0 F L Pulse Rate 83 93 H Respiratory Rate 22 20 Blood Pressure 135/77 137/73 Pulse Oximetry 100 95 Oxygen Flow Rate 0 Oxygen Delivery Method Room Air Oxygen Flow Rate 0 Narrative Exam Narrative: Lying comfortably in bed during our interview today, no acute distress. Baseline confusion present. SCD not in place on the right leg. Gross sensation intact, brisk capillary refill. 5/5 Df, PF bilaterally. There is moderate-severe swelling throughout the RLE, calf is non-tender to compression and there is no erythema. Aquacel dressing with mild-moderate bloody drainage, all other dressings are clean dry and intact. Objective Labs 12/05/23 06:25 12/05/23 06:25 Labs: Laboratory Results - last 24 hr 11/27/23 12/05/23 14:45 06:25 Hgb 8.0 L Hct 23.8 L Sodium 133 L Potassium 4.7 Chloride 106 Carbon Dioxide 24 BUN 35 H Creatinine 1.22 Estimated GFR > 60 BUN/Creatinine Ratio 28.7 H Glucose 178 H Calcium 9.2 Magnesium 2.0 Blood Type AB Positive Antibody Screen Negative Crossmatch See Detail [facility] Social History household members: none caregiver/support person: Yes (POA daughter Billie in [place]. Another son lives relatively local) housing: assisted living facility Smoking Status: Former smoker Assessment & Plan Assessment & Plan narrative: 1) Ag has been held since 12/02 PM d/t low H/H; restart per hospitalist service. He did receive a transfusion and had some improvement but he continues to be low still. Todays H&H is 8 and 23.8. SCDs should be on and functioning if patient is in bed. 2) Pain control and disposition per hospitalist service; from CM notes, it looks auth for SNF is still pending. 3) D/t confusion/dementia, pt needs to remain nonweightbearing on right leg. Appt w/ PA in ortho clinic in 1-2 weeks for staple removal, but this can be done at care facility if needed. F/u in 5-6 weeks w/ Secrist for repeat imaging. Quality VTE Deep Vein Thrombosis/Pulmonary Embolism Present on Admission: No
--- NOTE | 2023-12-05 10:26 | CM.DPC ---
DCP Cont. Reviewed EMR and team rounds for status updates. Per Dr. Wu, pt will neecd 1-more day inpt due to H&H still unstable. Updated [facility] on the delay for d/c.
--- NOTE | 2023-12-05 11:37 | OT.IP.TRT ---
Current Diagnoses Type 2 diabetes mellitus with hyperglycemia (11/25/23) Age-related osteoporosis with current pathological fracture, right femur, initial encounter for fracture (11/25/23) Unspecified fracture of lower end of left femur, initial encounter for closed fracture (11/25/23) Other fracture of lower end of right femur, initial encounter for closed fracture (11/25/23) intermediate (current) use of anticoagulants (11/25/23) Liver transplant status (11/25/23) Presence of unspecified artificial hip joint (11/25/23) Surgery Performed Operation Date: 11/27/23 14:15 Actual Procedures p retrograde femoral nail and pinning(Right) - Selvin Xie MD Occupational Therapy Treatment Note M2 OT-IP Current Condition Start: 11/28/23 10:31 Freq: Status: Active Protocol: Document 11/28/23 10:33 [facility] (Rec: 11/28/23 11:00 [facility] [id number]) Occupational Therapy Current Condition Current Condition Evaluation Date 11/28/23 Treatment Diagnosis Right femur fx, s/p R retrograde femoral nailing and pinning Diagnosis Onset Date 11/25/23 Post Operative Precautions Anterior Hip Precautions No Hip Extension,No Hip External Rotation Weight Bearing Status Weight Bearing Status Non-Weight Bearing Allowed Weight Bearing Amount (enter % PT called to clarify with or #) (%) surgeon of WB status due to pt 's severe dementia as pt has advanced dementia and will be difficulty for pt to follow the suggested TDWB. Therefore best to follow RLE NWB at this time for pt. M3 OT- IP Subjective and Pain Start: 11/28/23 10:31 Freq: Status: Active Protocol: Document 12/05/23 10:55 [facility] (Rec: 12/05/23 13:34 [facility] [id number]) OT- Subjective Occupational Therapy Visit Type Type Treatment Note Visit Start Time 10:55 Visit Stop Time 11:37 Occupational Therapy Visit Comments Patient Comments Pt agreed to get up. OT Pain Assessment Pain When Pain Assessed At Rest Pain Present Pain Present Pain Reported M4 OT- IP ADL's Start: 11/28/23 10:31 Freq: Status: Active Protocol: Document 12/05/23 10:55 [facility] (Rec: 12/05/23 13:34 [facility] [id number]) OT ADL-Grooming General Evaluation Grooming Ability Standby Assistance Comments OT Grooming Comments While seated at the edge of the bed. OT ADL-Oral Care General Eval Oral Care Ability Standby Assistance Areas of Assistance Retrieving/Set-Up of Items Comments Oral Care Comments Pt needing verbal cue to find items especially to the right as unable to see well. Per pt states has not seen well for 10+ years, however pt is a poor historian due to his dementia. OT ADL-Dressing General Eval Lower Body Dressing Ability Total Assistance Areas Needing Assistance Socks M5 OT- IP IADL's Start: 11/28/23 10:31 Freq: Status: Active Protocol: Document 11/28/23 10:33 [facility] (Rec: 11/28/23 11:00 [facility] [id number]) OT-Instrumental Activities of Daily Living Home Safety Awareness Awareness of Need for Assistance at Home Decreased Awareness Ability to Problem Solve Emergency Unable to Problem Solve Situations Home Safety Comments Pt has advanced dementia. Medication Management Medication Management Caregiver Administers Money Management Money Management Caregiver Provides Assistance Meal Preparation Meal Preparation Caregiver Provides Assist Vp Of Customer Experience Strategy Vp Of Customer Experience Strategy Caregiver Provides Assist M6 OT- IP Functional Cognition Start: 11/28/23 10:31 Freq: Status: Active Protocol: Document 12/05/23 10:55 [facility] (Rec: 12/05/23 13:34 [facility] [id number]) Cognitive Factors Limiting Selfcare Function Cognitive Ability Level of Alertness Alert Cognitive Comments Cognitive Assessment Comments Pt appears more alert in the AM and able to follow simple concrete commands for ADL and mobility needs. At times pt perseverates on task such as brushing his teeth and needing cues to move on the next task . OT- Vision and Hearing OT- Vision Assessment Vision Assessment Comments Pt states his vision is blurry at time and has difficulty to scan for items on the right side and difficulty with his depth perception to reach as well. Pt able to reach more accurately to the left after able to see the object with increased time. M7 OT- IP Mobility and Balance Start: 11/28/23 10:31 Freq: Status: Active Protocol: Document 12/05/23 10:55 [facility] (Rec: 12/05/23 13:34 [facility] [id number]) OT- Bed Mobility Assessment Supine to Sit Supine to Sit Assist Maximum Assistance,2 Person Assistance,Head of Bed Elevated,Bedrails Sit to Supine Sit to Supine Assist Total Assistance Scooting Scooting to Edge of Bed Maximum Assistance,2 Person Assistance OT-Transfer Assessment Comments Mobility Comments MAX AX 2 to assist with his RLE > LLE and trunk to be able to sit ot the edge of the bed . After assist for positioning , pt able to sit with SBA and do grooming and oral care needs. Total assist x2 and use of green pad to assist to get pt back to bed. OT- Balance Assessment Sitting Balance and Reactions Static Sitting Balance Ability Good M8 OT- IP Objective Assessments Start: 11/28/23 10:31 Freq: Status: Active Protocol: Document 11/28/23 10:33 [facility] (Rec: 11/28/23 11:00 [facility] [id number]) OT Strength Comments Strength Comments Pt is at least 3-/5 for observation. M9 OT- IP Assessment and Plan Start: 11/28/23 10:31 Freq: Status: Active Protocol: Document 12/05/23 10:55 [facility] (Rec: 12/05/23 13:34 [facility] [id number]) OT Summary Assessment and Plan Potential Rehabilitation Potential Poor Analytic Complexity at Evaluation Moderate Summary OT Impairments Pain,Balance,Functional Cognition,Functional Mobility, Self-Feeding,Grooming,Dressing ,Toileting,Bathing,Toilet Transfers,Shower Transfers, Activity Tolerance Progress Towards Goals Progressing Toward Goals,Slow Progress due to Pain,Slow Progress due to Medical Issues ,Slow Progress due to Activity Tolerance,Slow Progress due to Cognition Assessment Summary Pt able to complete grooming and oral care needs after set- up and cues for completeness while seated at the edge of the bed. At this time pt will continue to need mechanical lift for transfer needs as pt has dementia and not able to follow his NWB status for RLE in addition to weakness. Pt to go to skilled rehab to maximize his level of independence. Pt's appears to have tone in RLE as pt tends to keep his RLE draw up some with knee slightly flexed and turned out . Goals OT-Other Goals Pt to be able to log roll with one person assist. Pt to be able to scoot forwards in the recliner with MODA to assist with upright positioning while eating. Days to Meet Goals 10 Frequency of Treatment Frequency Of Treatment Once a Day Treatment Plan OT Treatment Plan ADL Training,Functional Cognition Training,Functional Mobility,Patient/Family Education,Discharge Planning Discharge Recommendations OT Discharge Recommendations SNF Rehab Transportation Needs at Discharge Stretcher/Ambulance
--- NOTE | 2023-12-05 12:12 | PT.IPTN ---
Addendum entered and electronically signed by Angelic Mccall PT 12/05/23 12:13: PT provides direct superv during SPT treatment Original Note: Current Diagnoses Type 2 diabetes mellitus with hyperglycemia (11/25/23) Age-related osteoporosis with current pathological fracture, right femur, initial encounter for fracture (11/25/23) Unspecified fracture of lower end of left femur, initial encounter for closed fracture (11/25/23) Other fracture of lower end of right femur, initial encounter for closed fracture (11/25/23) detention (current) use of anticoagulants (11/25/23) Liver transplant status (11/25/23) Presence of unspecified artificial hip joint (11/25/23) Surgery Performed Operation Date: 11/27/23 14:15 Actual Procedures p retrograde femoral nail and pinning(Right) - Selvin Xie MD Physical Therapy Treatment Note M2 PT-IP Current Condition Start: 11/28/23 08:25 Freq: NEEDED Status: Active Protocol: Document 11/28/23 08:25 MB (Rec: 11/28/23 11:05 [facility] [id number]) Physical Therapy Current Condition Current Condition Evaluation Date 11/28/23 Treatment Diagnosis Right femoral shaft fx after fall and recent fracture and surgery M3 PT-IP Subjective Start: 11/28/23 08:25 Freq: NEEDED Status: Active Protocol: Document 12/05/23 10:50 JG (Rec: 12/05/23 12:12 JG [id number]) Subjective Physical Therapy Visit Type Type Treatment Note Visit Start Time 10:50 Visit Stop Time 11:36 Number of CONTRACT ENGINEER Visits 0 Physical Therapy Visit Comments Patient Comments Pt found resting head up in bed. Pt is agreeable to PT. Therapy Pain Assessment Pain When Pain Assessed During Mobility Pain Present Pain Present Pain Reported Location Right Hip Intensity 6 Scale Used [place]-Kaba (Faces) Pain Behaviors Calling Out,Facial Grimacing, Guarding,Wincing Pain Management Techniques Distraction,Modification of Treatment,Re-positioning M4 PT-IP Mobility and Gait Start: 11/28/23 08:25 Freq: NEEDED Status: Active Protocol: Document 12/05/23 10:50 JG (Rec: 12/05/23 12:12 JG [id number]) PT-Bed Mobility Assessment Supine to Sit Supine to Sit Maximum Assistance,2 Person Assistance,Head of Bed Elevated Sit to Supine Sit to Supine Total Assistance,2 Person Assistance Scooting Scooting to Edge of Bed Dependent Scooting Up and Down in Bed Dependent PT-Transfer Assessment Comments Mobility Comments Pt performed ankle pumps in bed before mobility. Pt has difficutly following cues and performing exercises EOB with v/c and tatile cues. Pt is able to perform partial ROM LAQ on L side x10 as well as plantarflexion and dorsiflexion B x10 with v/c and tatile cues. Also perform on right side with 5 reps and less ROM. Pt performs sitting balance with superv for exercises and see OT note for sitting with ADLs EOB. Pt con' t with visual perceptual challenges and reaches with right hand over some objects and therapist, less tracking to the left but grabs more accurately with left hand. RLE has ER and flexion tone and edema. Sacral sitting con't. Gait Assessment Comments Gait Comments Unable PT-Balance Assessment Sitting Balance and Reactions Static Sitting Balance Ability Good Dynamic Sitting Balance Ability Poor Comments Other Balance Tests/Deviations/Treatment Strong sacral sitting : M5 PT-IP Objective Assessments Start: 11/28/23 08:25 Freq: NEEDED Status: Active Protocol: Document 11/28/23 08:25 MB (Rec: 11/28/23 11:05 MB [id number]) Orientation Orientation/Cognition Level of Alertness Confusional State Language Function Ability Garbled Speech Safety Awareness Decreased Safety Awareness Memory Description Short Term Impaired,Chief Green Officer Impaired Comments Pt is not A&O at all Gross Range of Motion Upper Extremity ROM Impairments Defer to OT Lower Extremity ROM Assessment Right Impaired Impairments Pt cannot follow ROM or MMT commands today Strength Lower Extremity Strength Assessment Right Impaired Comments Strength Comments Pt cannot follow MMT commands Other Assessments Other Other Assessments RLE edema and discoloration, lateral wound dressing is red M6 PT-IP Treatment Start: 11/28/23 08:25 Freq: NEEDED Status: Active Protocol: Document 12/05/23 10:50 JG (Rec: 12/05/23 12:12 JG [id number]) Physical Therapy Treatment Exercises Exercises Ankle Pumps Other Treatments Other Treatment Performed Pt cannot understand any precautions or WB or saftey education M7 PT-IP Assessment and Plan Start: 11/28/23 08:25 Freq: NEEDED Status: Active Protocol: Document 12/05/23 10:50 JG (Rec: 12/05/23 12:12 JG [id number]) PT Summary Assessment and Plan Potential Rehabilitation Potential Poor Summary Impairments Pain,ROM,Strength,Balance, Coordination,Sensation,Tone, Cognition,Bed Mobility, Transfers,Gait,Activity Tolerance Progress Towards Goals Slow Progress due to Activity Tolerance Assessment Summary Pt has similar presentation today. Pt presents with confusion and excessive tone on R LE demonstrating increased flexion and ER. Pt was able to perform some LE exercises with v/c and tactile cues. Pt was seen with brusing on L UE forearm likely because of IV and leads. Overall, pt con't with confusion and pain and this limits progressing functional activities. He will not be able to understand or demonstrate NWB on the right leg and requires mechanical lift for OOB. Goals Bed Mobility Goal Contact Guard Assistance Transfer Goal Moderate Assistance,Four Wheeled Walker,Slide Board Frequency of Treatment Frequency Of Treatment Once a Day Treatment Plan Physical Therapy Treatment Plan Bed Mobility Training,Transfer Training,Gait Training, Therapeutic Exercise,Balance Retraining,Post Op Education, Discharge Planning,Hot or Cold Pack,Neuromuscular Re-ed, Coordination Retraining,Manual Therapy Other Recommendations and Next Treatment Focus on theraputic exercises, Focus (ankle pumps, heel slides, LAQ) seated balance, STS when tolerated. Precautions Anterior Hip Precautions No Hip Extension,No Hip External Rotation Weight Bearing Status Weight Bearing Status Non-Weight Bearing Recommendations To Nursing Amount of Assist Needed Mechanical Lift Discharge Recommendations PT Discharge Recommendations SNF Rehab Transportation Needs at Discharge Stretcher/Ambulance
[2023-12-05 14:59] VITALS: BP 132/77; PULSE 95; RESP 18; TEMP 36.2; O2SAT 97
[2023-12-05 20:00] VITALS: BP 133/77; PULSE 104; RESP 20; TEMP 36.8; O2SAT 98
[2023-12-05] MEDS: ATORVASTATIN 20 MG TABLET 40 MG PO (21:11)
[2023-12-05 23:33] VITALS: BP 124/64; PULSE 85; RESP 18; TEMP 37.2; O2SAT 99
[2023-12-06] MEDS: methocarbamoL 500 MG TABLET 750 MG PO (02:57)
[2023-12-06] MEDS: OXYCODONE IR 5 MG TABLET PO (05:25)
[2023-12-06] MEDS: LEVOTHYROXINE 75 MCG TABLET 150 MCG PO (05:25)
[2023-12-06 06:25] LABS: Hematocrit 21.7 % (41-53); Hemoglobin 7.2 g/dL (13.5-17.5)
[2023-12-06] MEDS: INSULIN LISPRO 100 UNIT/ML 3ML VIAL SUBCUT ×2 (08:13→11:49)
[2023-12-06] MEDS: INSULIN LISPRO 100 UNIT/ML 3ML VIAL 13 UNIT SUBCUT ×2 (08:13→11:49)
[2023-12-06] MEDS: INSULIN GLARGINE 100 UNIT/ML 3ML PEN 35 UNIT SUBCUT (08:13)
[2023-12-06] MEDS: CITALOPRAM 10 MG TABLET 5 MG PO (08:14)
[2023-12-06] MEDS: TACROLIMUS 0.5 MG CAPSULE 1 MG PO (08:14)
[2023-12-06] MEDS: ACETAMINOPHEN 325 MG TABLET 650 MG PO (08:14)
[2023-12-06] MEDS: METOPROLOL IR 25 MG TABLET 37.5 MG PO (08:14)
[2023-12-06] MEDS: ursodioL 300 MG CAPSULE PO (08:15)
[2023-12-06] MEDS: FERROUS SULFATE 325 MG TABLET PO (08:15)
[2023-12-06 08:58] VITALS: BP 123/67; PULSE 93; RESP 18; TEMP 36.3; O2SAT 99
--- NOTE | 2023-12-06 09:04 | PC.NURSE ---
Patient incontinent of urine, condom cath placed on patient and he was agreeable. Alo is moving in bed better, mark side to side with brief changes. Given tylenol for comfort to R.hip and femur fx, dressings are all cdi. Mid femur aquacel dressing does have some bloody drainage but it is not leaking and dressing is nice and intact. Blood sugar 216 and insulin given to patient.
[2023-12-06 09:06] VITALS: BP 123/67; PULSE 93; RESP 18; TEMP 36.3; O2SAT 99
--- NOTE | 2023-12-06 10:30 | CM.DPC ---
DCP Continued: Reviewed EMR and team rounds for pt?s medical status. Per hospitalist, pt is obtaining a unit of blood and will be ready for discharge this afternoon. Per Sujatha at [facility], pt can be accepted today before [id number]. DCP confirmed with YANCY Gardner that unit of blood will be completed at around 1430. DCP called [facility] for BLS transport, arranged a berry picker machine operator time of 1430. Certification of Medical Necessity, Facesheet and PT note given to unit [facility]. Confirmed with [facility] of transport time of 1430. Plan: Pt to return to [facility] after blood administration via BLS transport. CM Team will continue to follow for coordination of discharge plans. HEATHER Noble
--- NOTE | 2023-12-06 10:33 | OT.IPNOTE ---
Pt to recent 1 unit of blood and then be discharged to SNF. Defer to skilled OT for continued OT needs.
[2023-12-06 10:55] VITALS: BP 124/72; PULSE 80; RESP 18; TEMP 35.7
[2023-12-06 11:00] VITALS: BP 124/72; PULSE 80; RESP 18; TEMP 35.7
[2023-12-06 11:15] VITALS: BP 131/51; PULSE 82; RESP 18; TEMP 36.1
--- NOTE | 2023-12-06 13:21 | PM.DS.1 ---
History of Present Illness History of Present Illness Chief complaint: hip pain Narrative: From H&P: Alo Fuentes is a 68-year-old male who stays at [facility] and has severe dementia, with recent admission for hip fracture requiring right hemiarthroplasty on 11/12/23, HTN, HLD, DM2, hypothyroidism, depression, A-fib on eliquis, and liver transplant on chronic tacrolimus who presents from SNF with another fall resulting in right distal femur fracture. Patient has no idea what happened or how he got to the hospital other than his right leg hurts. Per ED note he fell at SNF approx 1 week ago and has been in bed since. Had continued pain and swelling so was brought to the ED where an XR shows a new right distal femur fracture. Ortho contacted and will consult. Discharge Providers Provider Date of admission: 11/25/23 18:28 Discharge Date: 12/06/23 Primary care physician: Jose Zamora MD Consults: 11/25/23 18:46 Consult to Orthopedic Surgery Routine Comment: Consulting Provider: Willa Stanford Reason for consultation: R distal femur fracture 11/27/23 18:29 Consult to Discharge Planning Routine Comment: Consult to Occupational Therapy Evaluate & Treat Comment: Physician Instructions: Evaluate and treat Consult to Physical Therapy Evaluate & Treat Comment: Anterior hip precautions, TDWB right LE Physician Instructions: post op LION protocol, TDWB Right LE Discharge provider: Rickey Wu MD Summary Hospital Course Discharge Diagnosis: # right distal femur fracture after fall at SNF. See 11/30/2023 note about timing of staple removal and orthopedic follow-up, improved. # recent right hip fracture s/p hemiarthroplasty on 11/12/23, with acute blood loss anemia secondary to probable surgical site hematoma. # acute blood loss anemia, with slowly drifting hematocrit, status post 1 unit packed red blood cell 11/30/2023, stable. # JERARDO, resolved # CKD 3b, with creatinine at baseline 1.4 mg/dl and EGFR 54 mL/minute. # Hypertension. Stable. Continue to monitor and consider resuming amlodipine # severe dementia, stable. # DM2 with severe hyperglycemia, improved with increasing Lantus insulin as above, improved. # Hypothyroidism, stable. # Liver transplant on chronic tacrolimus, stable. # Atrial fibrillation on chronic anticoagulation with RVR, now controlled and on chronic anticoagulation. Stable. Hospital Course: [facility] after a fall prompted a visit to the emergency department and revealed a distal right fibular fracture. He underwent operative repair with a plate fixation on November 26. He would postoperative issues with difficulty controlling the pain. He also had some postoperative hyperglycemia prompting an increase in his glargine dosing. He developed a blood loss anemia and received a transfusion on November 29. He would persistent confusion and cognitive impairment. His christopher removed from his surgical site on November 11. Orthopedics recommended nonweightbearing status until follow up. He will see Orthopedics within 2-3 weeks of discharge. A condom cath was used while in the hospital. Over the last 2 days of hospitalization his hemoglobin drifted under 7.1 and he was given 1 unit of packed cells on December 05 felt to be stable for transfer to custodial rehab. He will need a another H&H on December 08. Status at Discharge Cognitive/behavioral status at discharge: at baseline, confused Functional status at discharge: wheelchair bound Overall status at discharge: patient is progressing back to baseline Time Spent with Patient Time spent: Greater than 30 minutes Exam Vital Signs (past 8 hours): - 12/06/23 08:58 12/06/23 09:06 12/06/23 10:55 Temperature 97.4 F L 97.4 F L 96.3 F L Pulse Rate 93 H 93 H 80 Respiratory Rate 18 18 18 Blood Pressure 123/67 123/67 124/72 Pulse Oximetry 99 99 Oxygen Flow Rate 0 0 12/06/23 11:00 12/06/23 11:15 Temperature 96.3 F L 97.0 F L Pulse Rate 80 82 Respiratory Rate 18 18 Blood Pressure 124/72 131/51 L Pulse Oximetry Oxygen Flow Rate Oxygen Delivery Method Room Air Oxygen Flow Rate 0 Narrative Exam Narrative: NAD, alert and oriented. Fluent speech. Lungs are clear, normal rate and effort. Heart is regular, no murmur gallop or rub. Abdomen is soft, non distended. Extremities are free of edema. Objective Imaging Vasc US: My impression: Right hip arthroplasty. There is a trace lucency at the most proximal medial portion of the femur, likely present on prior CT from 11/13/2023. If there is high concern for occult injury, consider repeat radiography or cross-sectional Radiologist's impression: No findings of lower extremity deep venous thrombosis. Labs 12/06/23 06:03 12/05/23 06:25 Labs: Laboratory Results - last 24 hr 12/06/23 12/06/23 06:03 08:02 Hgb 7.2 L Hct 21.7 L Blood Type AB Positive Antibody Screen Negative Crossmatch See Detail [facility] Social History household members: none caregiver/support person: Yes (POA daughter Billie in [place]. Another son lives relatively local) housing: assisted living facility Smoking Status: Former smoker Discharge Assessment & Plan Assessment and Plan Assessment: 1. Distal right femur fracture. 2. Acute blood loss anemia secondary to fracture. 3. Stopped chronic anticoagulation on 12/02 due to persistent blood loss anemia. [facility] of Treatment[facility] He was nonweightbearing right leg until follow up with Orthopedics. Also note that he was off anticoagulation as a 12/02, this can likely be resumed in 3-5 days following a more reassuring H& H. We will repeat labs on December 08. Discharge Plan Discharge Plan Patient Disposition: SNF Transfer to: [facility] Provider Discharge Comment: Stable for transfer back to [facility] with a CBC on December 08. Discharge orders & Medications Prescriptions: New methocarbamol 500 mg Tablet 750 mg PO QID PRN (Reason: Muscle Spasm) Qty: 30 0RF ferrous sulfate 325 mg (65 mg iron) Tablet 325 mg PO DAILY Qty: 30 0RF insulin glargine [Lantus Solostar U-100 Insulin] 100 unit/mL (3 mL) Insulin Pen 35 unit SUBCUT BID Qty: 30 0RF oxycodone 10 mg Tablet 10 mg PO Q3HR PRN (Reason: Pain, Severe (7-10)) Qty: 20 0RF amlodipine 5 mg tablet 5 mg PO DAILY Qty: 30 0RF Continued atorvastatin 40 mg Tablet 40 mg PO QPM albuterol-budesonide 90-80 mcg/actuation Hfa Aerosol Inhaler 2 inh INHALATION Q4H PRN (Reason: sob) fluconazole 200 mg Tablet 200 mg PO DAILY Humalog U-100 Insulin 100 unit/mL Cartridge 10 unit SUBCUT AC Rx Instructions: Hold if BG <140 or not eating Humalog U-100 Insulin 100 unit/mL Cartridge 1 sliding scale dose SUBCUT USEASDIRECTD Rx Instructions: BG 141-180 = 1 BG 181-220 = 2 BG 221-260 = 3 BG 261-300 = 4 BG 301-350 = 5 BG 351-400 = 6 ACHS ursodiol 300 mg Capsule 300 mg PO BID levothyroxine 150 mcg Tablet 150 mcg PO DAILY tacrolimus 0.5 mg Capsule 1 mg PO DAILY metoprolol tartrate 25 mg Tablet 25 mg PO BID cyclobenzaprine 10 mg Tablet 10 mg PO Q8HR PRN (Reason: Spasms) Qty: 30 0RF citalopram 10 mg Tablet 5 mg PO DAILY Qty: 30 0RF oxycodone 5 mg Tablet 5 mg PO Q4HR PRN (Reason: Pain, Moderate (4-6)) Qty: 25 0RF Discontinued amlodipine 10 mg Tablet 10 mg PO DAILY Eliquis 5 mg Tablet 5 mg PO BID insulin glargine 100 unit/mL Cartridge 15 unit SUBCUT BID Rx Instructions: Hold if BG <80 Medication counseling provided by Pharmacist: No Follow up/Referrals: Jose Zamora MD [Primary Care Provider] - Selvin Xie MD [Physician] - 2 Weeks (F/u w/ PA in ortho clinic in 1-2 weeks for staple removal and wound check. If transport to clinic is too difficult d/t weightbearing status/pt mentation, this can be done at the SNF/care facility. F/u w/ Dr Xie in 5-6 weeks for repeat imaging.) Discharge Health Status Multidrug resistant organism: No MDRO Diet/Activity/Treatments Diet: Carb-consistent/Diabetic Liquid consistency: Normal/Thin Food texture: Regular Activity: Nonweightbearing to right leg. Skin/Wound/Dressing Care Report to your healthcare provider any signs of infection, such as:: chills, fever, increased pain, unusual drainage and unusual redness Visit Report/Discharge Packet Stand Alone Forms: Patient Portal/API, Surgery Discharge Discharge Data Primary Care Provider: Jose Zamora Quality VTE Deep Vein Thrombosis/Pulmonary Embolism Present on Admission: No
== END 2023-12-06 14:36 | DRG 481 ==
LOC: ED 18:14 → AC 18:30
PROVIDERS: Internal Medicine; Orthopaedic Surgery Adult Reconstructive Orthopaedic Surgery; Admitting Provider Student in an Organized Health Care Education/Training Program; Emergency Provider Emergency Medicine; PCP Internal Medicine; Referring Provider Emergency Medicine; Visit Provider Student in an Organized Health Care Education/Training Program
PROC: 0QS806Z Reposition Right Femoral Shaft with Intramedullary Internal Fixation Device, Open Approach (ICD-10-PCS; CPT 27245; principal; 2023-11-27 14:15)
DX: S72.301A Unspecified fracture of shaft of right femur, initial encounter for closed fracture (principal); D62 Acute posthemorrhagic anemia; M97.01XA Periprosthetic fracture around internal prosthetic right hip joint, initial encounter; N17.9 Acute kidney failure, unspecified; Z94.4 Liver transplant status; M96.840 Postprocedural hematoma of a musculoskeletal structure following a musculoskeletal system procedure; F03.C0 Unspecified dementia, severe, without behavioral disturbance, psychotic disturbance, mood disturbance, and anxiety; E03.9 Hypothyroidism, unspecified; I48.91 Unspecified atrial fibrillation; E11.65 Type 2 diabetes mellitus with hyperglycemia; I12.9 Hypertensive chronic kidney disease with stage 1 through stage 4 chronic kidney disease, or unspecified chronic kidney disease; E11.22 Type 2 diabetes mellitus with diabetic chronic kidney disease; N18.32 Chronic kidney disease, stage 3b; F32.A Depression, unspecified; E78.5 Hyperlipidemia, unspecified; W19.XXXA Unspecified fall, initial encounter; Z79.4 Long term (current) use of insulin; Z79.621 Long term (current) use of calcineurin inhibitor; Z87.891 Personal history of nicotine dependence; Z79.01 Long term (current) use of anticoagulants
CPT/HCPCS: 36415; 36430; 73502; 73552; 73701; 76000; 80048; 80053; 80305; 81001; 82947; 82962; 83735; 85014; 85018; 85025; 86850; 86900; 86901; 93005; 93971; 96374; 96375; 97110; 97162; 97166; 97530; 97535; 99284; 99285; P9016; J0171; J0690; J1100; J1170; J1815; J2270; J2405; J2704; J3010; J7507

== ENCOUNTER → 2023-12-26 11:19 | Outpatient (CLI) | payer MEDICARE, MEDICAID, SELFPAY ==
[2023-11-25 21:52] VITALS: BMI 32.1
--- NOTE | 2023-12-26 11:22 | DI.RAD.S_ITS ---
PROCEDURE: XR HIP W PEL IF DONE RT 2V INDICATIONS: Presence of right artificial hip joint TECHNIQUE: AP pelvis and lateral view of the hip acquired. COMPARISON: [facility], CR, XR HIP W PEL IF DONE RT 2V, 11/25/2023, 17:22. FINDINGS: Bones: Patient is status post right hip arthroplasty, with hardware components in expected positions. Post ORIF changes also seen in right proximal femoral shaft. No evidence of hardware loosening or failure. Right hip alignment is not significantly changed from prior study. Soft tissues: Amorphous calcifications are noted along posterior and lateral aspect of right hip joint suggestive of heterotopic calcifications related to recent surgery. IMPRESSION: Stable and anatomic right hip alignment after right hip arthroplasty and ORIF of right femoral shaft. No gross hardware loosening or failure. No acute fracture or dislocation. Likely heterotopic calcifications in soft tissue over dorsal and lateral aspect of right hip joint. Dictated by: Sam Camara M.D. on 12/26/2023 at 14:18 Approved by: Sam Camara M.D. on 12/26/2023 at 14:20
--- NOTE | 2023-12-26 11:22 | DI.RAD.S_ITS ---
PROCEDURE: XR FEMUR RT MIN 2V INDICATIONS: Presence of right artificial hip joint TECHNIQUE: 4 views of the femur were acquired. COMPARISON: [facility], CR, XR FEMUR RT MIN 2V, 11/27/2023, 18:48. FINDINGS: Bones: Post ORIF changes are noted in right femoral shaft with intramedullary michael and surgical hardware in place. There is also prior right hip arthroplasty. Alignment of right femur is unchanged from prior study. Spiral fracture involving distal femoral shaft is again seen. No new fracture or dislocation. No suspicious bony lesions. Soft tissues: Ill-defined calcifications in anterior and posterior right mid to lower thigh muscle is seen likely represent myositis as a thickened versus heterotopic calcifications secondary to surgery. IMPRESSION: Stable postsurgical changes in right femur with stable appearance of spiral fracture involving distal right femoral shaft. No new fracture or dislocation. Likely heterotopic ossifications versus myositis ossification in mid to distal thigh soft tissue as above. Dictated by: Sam Camara M.D. on 12/26/2023 at 14:20 Approved by: Sam Camara M.D. on 12/26/2023 at 14:21
== END ==
PROVIDERS: PCP Internal Medicine; Referring Provider Physician Assistant; Visit Provider Physician Assistant
DX: Z96.641 Presence of right artificial hip joint (principal); S72.341D Displaced spiral fracture of shaft of right femur, subsequent encounter for closed fracture with routine healing
CPT/HCPCS: 73502; 73552

== ENCOUNTER → 2024-02-20 15:22 | Outpatient (CLI) | payer MEDICARE, MEDICAID, SELFPAY ==
[2023-11-25 21:52] VITALS: BMI 32.1
--- NOTE | 2024-02-20 | DI.RAD.S_ITS ---
PROCEDURE: XR FEMUR RT MIN 2V INDICATIONS: Presence of right artificial hip joint TECHNIQUE: Four views COMPARISON: [facility], CR, XR FEMUR RT MIN 2V, 12/26/2023, 11:34. FINDINGS: Bones: Obl spiral nondisplaced fracture of the distal femoral diaphysis is transfixed by Im michael and interlocking screws. There is also a lateral sideplate and screws supporting the fracture. There is moderate periosteal new bone bridging the fracture site. Joints: Right hip hemiarthroplasty is anatomically aligned without loosening or infection. There is heavy heterotopic ossification i in the superior pericapsular soft tissues as before. Severe patellofemoral and tibiofemoral degeneration noted Soft tissues: No soft tissue abnormality. IMPRESSION: ORIF spiral fracture distal femoral diaphysis unifying anatomic alignment. Moderate heterotopic ossification superior to the right hip capsule. Severe patellofemoral and tibiofemoral degeneration. Dictated by: Taran Coronel M.D. on 02/21/2024 at 8:09 Approved by: Taran Coronel M.D. on 02/21/2024 at 8:12
== END ==
PROVIDERS: PCP Internal Medicine; Referring Provider Orthopaedic Surgery Adult Reconstructive Orthopaedic Surgery; Visit Provider Orthopaedic Surgery Adult Reconstructive Orthopaedic Surgery
DX: S72.491D Other fracture of lower end of right femur, subsequent encounter for closed fracture with routine healing (principal); M17.11 Unilateral primary osteoarthritis, right knee; Z96.641 Presence of right artificial hip joint
CPT/HCPCS: 73552

== ENCOUNTER → 2024-03-24 13:27 | Outpatient (CLI) | payer MEDICAID, SELFPAY ==
[2023-11-25 21:52] VITALS: BMI 32.1
== END ==
LOC: WC 14:34
PROVIDERS: PCP Internal Medicine; Referring Provider Orthopaedic Surgery Adult Reconstructive Orthopaedic Surgery; Visit Provider Surgery
DX: T81.41XA Infection following a procedure, superficial incisional surgical site, initial encounter (principal); S81.001A Unspecified open wound, right knee, initial encounter; L08.89 Other specified local infections of the skin and subcutaneous tissue; R60.0 Localized edema; E11.628 Type 2 diabetes mellitus with other skin complications; F03.90 Unspecified dementia, unspecified severity, without behavioral disturbance, psychotic disturbance, mood disturbance, and anxiety; Z79.01 Long term (current) use of anticoagulants; M79.661 Pain in right lower leg; Z79.2 Long term (current) use of antibiotics
CPT/HCPCS: 11042; 87070; 87075; 87205; 99204; 99213

== ENCOUNTER → 2024-03-31 12:59 | Outpatient (CLI) | payer MEDICARE, MEDICAID, SELFPAY ==
[2023-11-25 21:52] VITALS: BMI 32.1
== END ==
LOC: WC 13:00
PROVIDERS: PCP Internal Medicine; Referring Provider Orthopaedic Surgery Adult Reconstructive Orthopaedic Surgery; Visit Provider Surgery
DX: T81.41XA Infection following a procedure, superficial incisional surgical site, initial encounter (principal); L08.89 Other specified local infections of the skin and subcutaneous tissue; S81.001A Unspecified open wound, right knee, initial encounter; R60.0 Localized edema; E11.628 Type 2 diabetes mellitus with other skin complications; F03.90 Unspecified dementia, unspecified severity, without behavioral disturbance, psychotic disturbance, mood disturbance, and anxiety; Z79.01 Long term (current) use of anticoagulants; Z79.2 Long term (current) use of antibiotics
CPT/HCPCS: 11042; 87070; 87075; 87077; 87205; 99213

== ENCOUNTER → 2024-04-07 10:00 | Outpatient (CLI) | payer MEDICARE, MEDICAID, SELFPAY ==
[2023-11-25 21:52] VITALS: BMI 32.1
== END ==
LOC: WC 10:01
PROVIDERS: PCP Internal Medicine; Referring Provider Orthopaedic Surgery Adult Reconstructive Orthopaedic Surgery; Visit Provider Surgery
DX: T81.41XA Infection following a procedure, superficial incisional surgical site, initial encounter (principal); S81.001A Unspecified open wound, right knee, initial encounter; L08.89 Other specified local infections of the skin and subcutaneous tissue; L98.8 Other specified disorders of the skin and subcutaneous tissue; R60.0 Localized edema; Z79.01 Long term (current) use of anticoagulants; Z79.2 Long term (current) use of antibiotics
CPT/HCPCS: 11042; 99213

== ENCOUNTER → 2024-04-14 10:41 | Outpatient (CLI) | payer MEDICARE, MEDICAID, SELFPAY ==
[2023-11-25 21:52] VITALS: BMI 32.1
== END ==
LOC: WC 10:42
PROVIDERS: PCP Internal Medicine; Referring Provider Orthopaedic Surgery Adult Reconstructive Orthopaedic Surgery; Visit Provider Surgery
DX: T81.41XA Infection following a procedure, superficial incisional surgical site, initial encounter (principal); L98.8 Other specified disorders of the skin and subcutaneous tissue; L08.89 Other specified local infections of the skin and subcutaneous tissue; S81.001A Unspecified open wound, right knee, initial encounter; R60.0 Localized edema; E11.628 Type 2 diabetes mellitus with other skin complications; Z79.01 Long term (current) use of anticoagulants
CPT/HCPCS: 11042

== ENCOUNTER → 2024-04-21 11:36 | Outpatient (CLI) | payer MEDICARE, MEDICAID, SELFPAY ==
[2023-11-25 21:52] VITALS: BMI 32.1
== END ==
PROVIDERS: PCP Internal Medicine; Referring Provider Orthopaedic Surgery Adult Reconstructive Orthopaedic Surgery; Visit Provider Surgery
DX: T81.89XA Other complications of procedures, not elsewhere classified, initial encounter (principal); L98.8 Other specified disorders of the skin and subcutaneous tissue; S81.001A Unspecified open wound, right knee, initial encounter; L92.9 Granulomatous disorder of the skin and subcutaneous tissue, unspecified; Z79.01 Long term (current) use of anticoagulants; R60.0 Localized edema
CPT/HCPCS: 17250; 99213

== ENCOUNTER → 2024-04-28 11:31 | Outpatient (CLI) | payer MEDICARE, MEDICAID, SELFPAY ==
[2023-11-25 21:52] VITALS: BMI 32.1
== END ==
PROVIDERS: PCP Internal Medicine; Referring Provider Internal Medicine; Visit Provider Surgery
DX: T81.89XA Other complications of procedures, not elsewhere classified, initial encounter (principal); L98.8 Other specified disorders of the skin and subcutaneous tissue; S81.001A Unspecified open wound, right knee, initial encounter; L08.9 Local infection of the skin and subcutaneous tissue, unspecified; F03.90 Unspecified dementia, unspecified severity, without behavioral disturbance, psychotic disturbance, mood disturbance, and anxiety; Z79.01 Long term (current) use of anticoagulants
CPT/HCPCS: 99213

== ENCOUNTER → 2024-05-05 10:26 | Outpatient (CLI) | payer MEDICARE, MEDICAID, SELFPAY ==
[2023-11-25 21:52] VITALS: BMI 32.1
== END ==
PROVIDERS: PCP Internal Medicine; Referring Provider Orthopaedic Surgery Adult Reconstructive Orthopaedic Surgery; Visit Provider Surgery
DX: T81.41XA Infection following a procedure, superficial incisional surgical site, initial encounter (principal); L98.8 Other specified disorders of the skin and subcutaneous tissue; S81.001A Unspecified open wound, right knee, initial encounter; L08.89 Other specified local infections of the skin and subcutaneous tissue; R60.0 Localized edema; F03.90 Unspecified dementia, unspecified severity, without behavioral disturbance, psychotic disturbance, mood disturbance, and anxiety; Z79.01 Long term (current) use of anticoagulants
CPT/HCPCS: 99212; 99213

== ENCOUNTER → 2024-05-19 11:19 | Outpatient (CLI) | payer MEDICARE, MEDICAID, SELFPAY ==
[2023-11-25 21:52] VITALS: BMI 32.1
== END ==
PROVIDERS: PCP Internal Medicine; Referring Provider Internal Medicine; Visit Provider Surgery
DX: T81.89XA Other complications of procedures, not elsewhere classified, initial encounter (principal); L98.8 Other specified disorders of the skin and subcutaneous tissue; S81.001A Unspecified open wound, right knee, initial encounter; L92.9 Granulomatous disorder of the skin and subcutaneous tissue, unspecified; R60.0 Localized edema; E11.628 Type 2 diabetes mellitus with other skin complications; F03.90 Unspecified dementia, unspecified severity, without behavioral disturbance, psychotic disturbance, mood disturbance, and anxiety; Z79.01 Long term (current) use of anticoagulants
CPT/HCPCS: 17250; 99213

== ENCOUNTER → 2024-06-01 09:16 | Outpatient (CLI) | payer MEDICARE, MEDICAID, SELFPAY ==
[2023-11-25 21:52] VITALS: BMI 32.1
== END ==
PROVIDERS: PCP Internal Medicine; Referring Provider Orthopaedic Surgery Adult Reconstructive Orthopaedic Surgery; Visit Provider Physician Assistant
DX: T81.89XA Other complications of procedures, not elsewhere classified, initial encounter (principal); L98.8 Other specified disorders of the skin and subcutaneous tissue; S81.001A Unspecified open wound, right knee, initial encounter; R60.0 Localized edema; L92.9 Granulomatous disorder of the skin and subcutaneous tissue, unspecified
CPT/HCPCS: 97597; 99214

== ENCOUNTER → 2024-06-15 09:43 | Outpatient (CLI) | payer MEDICARE, MEDICAID, SELFPAY ==
[2023-11-25 21:52] VITALS: BMI 32.1
== END ==
PROVIDERS: PCP Internal Medicine; Referring Provider Internal Medicine; Visit Provider Surgery
DX: S81.001D Unspecified open wound, right knee, subsequent encounter (principal); T81.89XD Other complications of procedures, not elsewhere classified, subsequent encounter
CPT/HCPCS: 99212; 99213

== ENCOUNTER 2024-09-17 13:21 | Observation (INO) | payer MEDICARE, MEDICAID, SELFPAY ==
[2023-11-25 21:52] VITALS: BMI 32.1
[2024-09-17] VITALS (17 sets, daily range): BP systolic 104–127; BP diastolic 57–77; PULSE 81–189; RESP 13–27; TEMP 36.4; O2SAT 93–100
--- NOTE | 2024-09-17 13:59 | DI.RAD.S_ITS ---
PROCEDURE: XR CHEST 1V INDICATIONS: chest pain TECHNIQUE: One view of the chest was acquired. COMPARISON: None. FINDINGS: Surgical changes and devices: None. Lungs and pleura: Lungs are clear. Suspect left mid to lower lung field pulmonary nodule measuring up to 2.0 cm. No pleural effusions or pneumothorax. Mediastinum: Mediastinal contours appear normal. Heart size is normal. Bones and chest wall: No suspicious bony lesions. Overlying soft tissues appear unremarkable. IMPRESSION: Suspect left lung pulmonary nodule measuring up to 2.0 cm. Comment: Recommend nonemergent chest CT for further evaluation. Dictated by: Jc Ledezma M.D. on 09/17/2024 at 14:35 Approved by: Jc Ledezma M.D. on 09/17/2024 at 14:37
[2024-09-17 14:08] LABS: Add Manual Diff / Slide Review NO; Basophils Absolute Auto 0 /uL (0-100); Basophils Percent Auto 0.6 % (0-2); Eosinophils Absolute Auto 100 /uL (0-450); Eosinophils Percent Auto 1.9 % (2-4); Hematocrit 30.6 % (41-53); Hemoglobin 10.1 g/dL (13.5-17.5); Lymphocytes Absolute Auto 1200 /uL (1100-4500); Lymphocytes Percent Auto 20.3 % (25-40); Mean Corpuscular HGB Conc 33.1 % (30-36); Mean Corpuscular Hemoglobin 28.4 PG (26-34); Mean Corpuscular Volume 85.7 fL (80-100); Monocytes Absolute Auto 400 /uL (0-900); Monocytes Percent Auto 6.2 % (3-14); Neutrophils Absolute Auto 4200 /uL (1500-7000); Platelet Count 322 X10^3/uL (150-400); Red Blood Cell Count 3.57 X10^6/uL (4.5-5.9); Red Cell Distribution Width 19.1 % (11.6-14.8); White Blood Cell Count 5.9 X10^3/uL (4.5-11.0)
[2024-09-17 14:18] LABS: Alanine Aminotransferase 17 IU/L (<50); Albumin 3.6 g/dL (3.5-5.0); Albumin Globulin Ratio 0.9 (1.0-2.8); Alkaline Phosphatase 219 U/L (38-126); Aspartate Aminotransferase 21 IU/L (17-59); BUN Creatinine Ratio 19.6 (6-22); Bilirubin Total 0.7 mg/dL (0.2-1.3); Blood Urea Nitrogen 32 mg/dL (9-20); Carbon Dioxide 22 mmol/L (22-32); Chloride 105 mmol/L (98-107); Creatine Kinase < 20 U/L (55-170); Estimated Glomerular Filt Rate 45 mL/min (>60); Glucose 165 mg/dL (80-110); HEMOLYSIS < 15 (0-50); Lipase 73 U/L (23-300); Potassium 4.4 mmol/L (3.4-5.1); Sodium 135 mmol/L (137-145); Total Protein 7.6 g/dL (6.3-8.2)
[2024-09-17 14:30] LABS: Troponin I < 0.012 ng/mL (0.01-0.034)
--- NOTE | 2024-09-17 16:00 | PC.NURSE ---
Attempted in and out cath but was unable to get into bladder, dtr/POA phoned from [place], stated that pt has dementia, that has gotten worse with surgeries done last year. Pt was on ABX until about a month ago for chronic infection post femur repair surgery. she stated that pt is is DNR/DNI.
--- NOTE | 2024-09-17 16:24 | EKG_ITS ---
[place] [id number] [place] [id number] Test Date: 2024-09-17 Pat Name: Alo Fuentes Department: [facility] Room: Gender: Male Warp Dyeing Vat Tender: : 1955 Requested By: Order Number: [id number] Reading MD: Charlie Omalley Measurements Intervals [place] Rate: 84 P: 54 AR: 200 QRS: 9 QRSD: 78 T: 54 QT: 374 QTc: 441 Interpretive Statements Normal sinus rhythm Electronically Signed On 09-22-2024 20:08:48 PDT by Charlie Omalley
--- NOTE | 2024-09-17 18:49 | ED.LOWEXIN ---
HPI - Extremity Injury (Lower) General Chief Complaint: Extremity Injury, Lower Stated Complaint: Increased Confusion Time Seen by Provider: 09/17/24 13:59 History of Present Illness HPI Narrative: Patient is a 69-year-old male with a past medical history of diabetes, dementia, status post right hip replacement in May of 2025 who presents from [facility] for increased confusion/increased pain. According to the medics they were called because the patient seems to be an increased amount of pain, he is at his baseline, only alert A&O x2. Daughter who is the power of health care attorney states that she does not want anything else done, at time of evaluation patient is only alert to self, intermittently to place, apparently this is his baseline on time of evaluation patient is unable to verbalize his needs, he is just stating his legs hurt however he is moving them spontaneously, additional ROS HPI limited secondary to patient's baseline dementia. Related Data Home Medications Medication Instructions Recorded Confirmed albuterol 90 mcg-budesonide 80 2 inh inhalation Q4H PRN sob 11/11/23 11/25/23 mcg/actuation HFA aerosol inhaler atorvastatin 40 mg tablet 40 mg PO QPM 11/11/23 11/25/23 fluconazole 200 mg tablet 200 mg PO DAILY 11/11/23 11/25/23 insulin lispro 100 unit/mL 1 sliding scale dose SUBCUT 11/11/23 11/25/23 subcutaneous cartridge (Humalog USEASDIRECTD U-100 Insulin) insulin lispro 100 unit/mL 10 unit SUBCUT AC 11/11/23 11/25/23 subcutaneous cartridge (Humalog U-100 Insulin) levothyroxine 150 mcg tablet 150 mcg PO DAILY 11/11/23 11/25/23 metoprolol tartrate 25 mg tablet 25 mg PO BID 11/11/23 11/25/23 tacrolimus 0.5 mg capsule, 1 mg PO DAILY 11/11/23 11/25/23 immediate-release ursodiol 300 mg capsule 300 mg PO BID 11/11/23 11/25/23 Previous Rx's Medication Instructions Recorded citalopram 10 mg tablet 5 mg (1/2 x 10 mg) PO DAILY #30 11/18/23 tabs cyclobenzaprine 10 mg tablet 10 mg PO Q8HR PRN Spasms #30 tabs 11/18/23 oxycodone 5 mg tablet 5 mg PO Q4HR PRN Pain, Moderate 11/18/23 (4-6) #25 tabs amlodipine 5 mg tablet 5 mg PO DAILY #30 tabs 12/06/23 ferrous sulfate 325 mg (65 mg 325 mg PO DAILY #30 tabs 12/06/23 iron) tablet insulin glargine 100 unit/mL (3 35 unit (0.35 mL) SUBCUT BID #30 mL 12/06/23 mL) subcutaneous pen (Lantus Solostar U-100 Insulin) methocarbamol 500 mg tablet 750 mg (1.5 x 500 mg) PO QID PRN 12/06/23 Muscle Spasm #30 tabs oxycodone 10 mg tablet 10 mg PO Q3HR PRN Pain, Severe 12/06/23 (7-10) #20 tabs Allergies Allergy/AdvReac Type Severity Reaction Status Date / Time No Known Drug Allergies Allergy Verified 11/11/23 05:19 Review of Systems Review of Systems ROS Unobtainable: Unobtainable due to medical condition and Other (Dementia) Patient History Social History household members: none caregiver/support person: Yes (POA daughter Billie in [place]. Another son lives relatively local) housing: assisted living facility alcohol intake frequency: a few times a month Exam Narrative Exam Narrative: General: Cooperative, well-developed, not in acute distress HEENT: Normocephalic, atraumatic, PERRLA, normal sclera, eyelids normal Neck: Active full range of motion, atraumatic Chest: Normal to inspection, negative crepitus, no overlying erythema ecchymosis Respiratory: Normal respiratory effort, not in acute respiratory distress, clear to auscultation bilaterally negative cough, wheeze, tachypnea, rhonchi, rales Cardiology: Regular rate rhythm negative gallop, murmur, rubs GI/: No tenderness to palpation, soft, non rigid, normal to inspection, exam deferred MSK: Full active range of motion in all 4 extremities, atraumatic, no tenderness to palpation of any bony prominences Skin: No rashes or lesions noted Neuro: NIH of 0 moving all 4 extremities spontaneously only alert to self intermittently to place is able to follow commands but confused Psych: Cooperative, negative suicidal or homicidal ideations Initial Vital Signs Initial Vital Signs: Vital Signs Pulse Oximetry 99 09/17/24 13:39 Course Orders Ordered: ED Orders 09/17/24 13:55 Complete Blood Count AUTO DIFF Stat Comprehensive Metabolic Panel Stat Lipase Stat Troponin & CK Cardiac Panel Stat 09/17/24 13:59 XR chest 1V Stat EKG-12 Lead Stat 09/17/24 14:00 Urinalysis and Microscopic Stat 09/17/24 18:34 Consult to [facility] - Associate Doctor Stat Vital Signs Vital signs: Vital Signs - 8 hr 09/17/24 13:39 09/17/24 13:58 09/17/24 13:58 Temperature Pulse Rate 91 H Respiratory Rate Blood Pressure 108/72 Pulse Oximetry 99 98 Oxygen Delivery Method 09/17/24 14:00 09/17/24 14:00 09/17/24 14:09 Temperature 97.5 F L Pulse Rate 92 H 92 H Respiratory Rate 16 Blood Pressure 104/69 104/63 Pulse Oximetry 98 100 Oxygen Delivery Method Room Air 09/17/24 14:30 09/17/24 15:00 09/17/24 15:00 Temperature Pulse Rate 91 H 96 H Respiratory Rate 19 27 H Blood Pressure 123/71 Pulse Oximetry 95 100 Oxygen Delivery Method 09/17/24 15:30 09/17/24 15:30 09/17/24 16:00 Temperature Pulse Rate 81 Respiratory Rate 16 Blood Pressure 119/71 125/73 Pulse Oximetry 96 Oxygen Delivery Method 09/17/24 16:00 09/17/24 16:30 09/17/24 16:30 Temperature Pulse Rate 81 81 Respiratory Rate 16 16 Blood Pressure 127/77 Pulse Oximetry 98 93 Oxygen Delivery Method 09/17/24 17:00 09/17/24 18:15 Temperature Pulse Rate 154 H 189 H Respiratory Rate 18 16 Blood Pressure Pulse Oximetry Oxygen Delivery Method MDM - Extremity Injury (Lower) Differential Diagnosis Differential diagnosis: Likely other (Palliative Care, urinary tract infection,) Lab Data 09/17/24 13:55 09/17/24 13:55 Labs: Lab Results 09/17/24 Range/Units 13:55 WBC 5.9 (4.5-11.0) X10^3/uL RBC 3.57 L (4.5-5.9) X10^6/uL Hgb 10.1 L (13.5-17.5) g/dL Hct 30.6 L (41-53) % MCV 85.7 (80-100) fL MCH 28.4 (26-34) PG MCHC 33.1 (30-36) % RDW 19.1 H (11.6-14.8) % Plt Count 322 (150-400) X10^3/uL Neut % (Auto) 71.0 (50-75) % Lymph % (Auto) 20.3 L (25-40) % [place] % (Auto) 6.2 (3-14) % Eos % (Auto) 1.9 L (2-4) % Baso % (Auto) 0.6 (0-2) % Neut # (Auto) 4200 (7423-0810) /uL Lymph # (Auto) 1200 (1865-5524) /uL [place] # (Auto) 400 (0-900) /uL Eos # (Auto) 100 (0-450) /uL Baso # (Auto) 0 (0-100) /uL Sodium 135 L (137-145) mmol/L Potassium 4.4 (3.4-5.1) mmol/L Chloride 105 (98-107) mmol/L Carbon Dioxide 22 (22-32) mmol/L BUN 32 H (9-20) mg/dL Creatinine 1.63 H (0.66-1.25) mg/dL Estimated GFR 45 L (>60) mL/min BUN/Creatinine Ratio 19.6 (6-22) Glucose 165 H (80-110) mg/dL Calcium 10.0 (8.4-10.2) mg/dL Total Bilirubin 0.7 (0.2-1.3) mg/dL AST 21 (17-59) IU/L ALT 17 (<50) IU/L Alkaline Phosphatase 219 H (38-126) U/L Total Creatine Kinase < 20 L (55-170) U/L Troponin I < 0.012 (0.01-0.034) ng/mL Total Protein 7.6 (6.3-8.2) g/dL Albumin 3.6 (3.5-5.0) g/dL Globulin 4.0 (1.7-4.1) g/dL Albumin/Globulin Ratio 0.9 L (1.0-2.8) Lipase 73 (23-300) U/L Imaging Data Chest x-ray: Radiologist's Impression: [address] [address] XRay Report Signed Patient: Alo Fuentes MR#: [id number] : 1955 Acct:[id number] Age/Sex: 69 / M Date of Service: 09/17/24 Loc: ED Accession Number: [id number] Procedure: XR chest 1V Ordering Provider: Duglas Calderon MD PROCEDURE: XR CHEST 1V INDICATIONS: chest pain TECHNIQUE: One view of the chest was acquired. COMPARISON: None. FINDINGS: Surgical changes and devices: None. Lungs and pleura: Lungs are clear. Suspect left mid to lower lung field pulmonary nodule measuring up to 2.0 cm. No pleural effusions or pneumothorax. Mediastinum: Mediastinal contours appear normal. Heart size is normal. Bones and chest wall: No suspicious bony lesions. Overlying soft tissues appear unremarkable. IMPRESSION: Suspect left lung pulmonary nodule measuring up to 2.0 cm. Comment: Recommend nonemergent chest CT for further evaluation. MDM Narrative Medical decision making narrative: Patient is a 69-year-old male with a past medical history of end-stage dementia, diabetes, comes into the ED from [facility] for evaluation of increased confusion/pain management. Patient was sent to the emergency department due to patient consistently complaining of pain to his legs, he does have a history of hip surgery in May of 2025, he is at his baseline which is intermittently alert to self and place, he has no focal deficits he is moving all 4 extremities and just complaining of pain to his lower legs. But no known new traumas or falls. Patient's lab work unremarkable no leukocytosis Chem panel unremarkable. Patient extremely confused did rip out his IVs multiple times, was informed that patient who is the power of health care attorney does not want anything else done for the patient, she states that she understands that he has end-stage dementia and just wants her comfortable. 1899: I had a very lengthy conversation with the patient's [id number] Gina Wise in regards to additional testing imaging. She states that she does not want anything else done she just wants him to be comfortable. She states that he is not currently on hospice or palliative and would like to pursue this. Therefore patient will be admitted to the hospital for palliative care. The patient's management plan was discussed Dr. Narvaez, who agrees to admit the patient to their service and assumes care of this patient at this time. Full admission orders will be placed by the primary team. Discharge Plan Departure Patient Disposition: Admitted As Inpatient Clinical Impression: Admission for palliative care
--- NOTE | 2024-09-17 19:21 | CM.DANOTE ---
ED AFTERSCHOOL BABYSITTER DCP Assessment Note: Pt is a 69yo male, resident of [facility] in [place], is seen in the ED for weakness, confusion, possible palliative care. Pt is a resident at a SNF. Pt's Primary Care Provider is Dr. Jose Zamora and insurance is Medicare and Medicaid. Reviewed chart and discussed with multidisciplinary team pt's medical status and initial discharge needs. ED AFTERSCHOOL BABYSITTER spoke with pt daughter, she states she recently spoke with ED Provider, Dr. Espinoza, and is requesting pt to return when Hospice services can start at [facility]. ED AFTERSCHOOL BABYSITTER sent initial referral to Hospice [facility]. ED AFTERSCHOOL BABYSITTER sent email to [facility] Admissions of current plan for dc coordination. Plan: Anticipating acute care admission for palliative care per ED Provider, hospice referral to follow for [facility]. CM team will follow closely for coordination of discharge plans. Josee De Jesus SUPERVISOR PIGMENT MAKING Discharge Planning/Care Management CM Discharge Assessment Start: 09/17/24 19:19 Freq: Status: Active Protocol: Document 09/17/24 19:19 MW (Rec: 09/17/24 19:21 MW [id number]) Discharge Planning Assessment Assigned Beef Grader MUKUL Tripp DPOA/Assigned Designee Name Josh Fuentes, Daughter/POA Contact Information [phone] Advance Directives? Yes History Provided By Patient,Medical Record Has Patient been admitted in last 30 No days? Prior Living Arrangements Adult Family Home Comment [facility] Household Members none Type of transporation used prior to Relies on Others admit Facility Name Admitted From: [facility] Willing to Return to Facility? Yes Independent with ADL's No Is patient alert and oriented? Yes Needs Assistance With Bathing,Grooming,Meal Prep, Toileting,Managing Medications ,Home Chores / Shopping Caregiver for Another No Patient/Family Preference Long Term Facility Comment With Hospice Services Barriers to Discharge No Discharge Plan Hospice Transportation Arrangement facility van Referrals Initiated Long Term,Other Additional Comment Hospice [facility] admissions notified If patient plan is SNF: Has PASSR been No completed? Review Status In Process Please Provide Date Initial DC 09/17/24 Assessment Was Performed Next Review Type Continued Stay Review
--- NOTE | 2024-09-17 20:00 | PM.HP.1 ---
History of Present Illness History of Present Illness Chief complaint: Increased Confusion Narrative: A 69M with PMH of DM2, HTN, hyperlipidemia, dementia, s/p RHR May presents from [facility] dementia unit for vague LE pain. His daughter, patient's POA, is at bedside, and requests comfort care only. He is not on hospice services or seeing palliative care. In ED, labs were notable for mild hyponatremia, JERARDO. CXR showed L SPN 2 cm. [facility] Social History household members: none caregiver/support person: Yes (POA daughter Billie in [place]. Another son lives relatively local) housing: assisted living facility Meds Home Medications and Allergies Home Medications Medication Instructions Recorded Confirmed Type albuterol 90 mcg-budesonide 80 2 inh inhalation Q4H PRN sob 11/11/23 11/25/23 History mcg/actuation HFA aerosol inhaler atorvastatin 40 mg tablet 40 mg PO QPM 11/11/23 11/25/23 History fluconazole 200 mg tablet 200 mg PO DAILY 11/11/23 11/25/23 History insulin lispro 100 unit/mL 1 sliding scale dose SUBCUT 11/11/23 11/25/23 History subcutaneous cartridge (Humalog USEASDIRECTD U-100 Insulin) insulin lispro 100 unit/mL 10 unit SUBCUT AC 11/11/23 11/25/23 History subcutaneous cartridge (Humalog U-100 Insulin) levothyroxine 150 mcg tablet 150 mcg PO DAILY 11/11/23 11/25/23 History metoprolol tartrate 25 mg tablet 25 mg PO BID 11/11/23 11/25/23 History tacrolimus 0.5 mg capsule, 1 mg PO DAILY 11/11/23 11/25/23 History immediate-release ursodiol 300 mg capsule 300 mg PO BID 11/11/23 11/25/23 History citalopram 10 mg tablet 5 mg (1/2 x 10 mg) PO DAILY #30 11/18/23 11/25/23 Rx tabs cyclobenzaprine 10 mg tablet 10 mg PO Q8HR PRN Spasms #30 tabs 11/18/23 11/25/23 Rx oxycodone 5 mg tablet 5 mg PO Q4HR PRN Pain, Moderate 11/18/23 11/25/23 Rx (4-6) #25 tabs amlodipine 5 mg tablet 5 mg PO DAILY #30 tabs 12/06/23 Rx ferrous sulfate 325 mg (65 mg 325 mg PO DAILY #30 tabs 12/06/23 Rx iron) tablet insulin glargine 100 unit/mL (3 35 unit (0.35 mL) SUBCUT BID #30 mL 12/06/23 Rx mL) subcutaneous pen (Lantus Solostar U-100 Insulin) methocarbamol 500 mg tablet 750 mg (1.5 x 500 mg) PO QID PRN 12/06/23 Rx Muscle Spasm #30 tabs oxycodone 10 mg tablet 10 mg PO Q3HR PRN Pain, Severe 12/06/23 Rx (7-10) #20 tabs Allergies Allergy/AdvReac Type Severity Reaction Status Date / Time No Known Drug Allergies Allergy Verified 11/11/23 05:19 Review of Systems Review of Systems Narrative: As per HPI. Rest of 10-system review unobtainable d/t dementia. Exam Vital Signs (past 8 hours): - 09/17/24 13:39 09/17/24 13:58 09/17/24 13:58 Temperature Pulse Rate 91 H Respiratory Rate Blood Pressure 108/72 Pulse Oximetry 99 98 Oxygen Delivery Method 09/17/24 14:00 09/17/24 14:00 09/17/24 14:09 Temperature 97.5 F L Pulse Rate 92 H 92 H Respiratory Rate 16 Blood Pressure 104/69 104/63 Pulse Oximetry 98 100 Oxygen Delivery Method Room Air 09/17/24 14:30 09/17/24 15:00 09/17/24 15:00 Temperature Pulse Rate 91 H 96 H Respiratory Rate 19 27 H Blood Pressure 123/71 Pulse Oximetry 95 100 Oxygen Delivery Method 09/17/24 15:30 09/17/24 15:30 09/17/24 16:00 Temperature Pulse Rate 81 Respiratory Rate 16 Blood Pressure 119/71 125/73 Pulse Oximetry 96 Oxygen Delivery Method 09/17/24 16:00 09/17/24 16:30 09/17/24 16:30 Temperature Pulse Rate 81 81 Respiratory Rate 16 16 Blood Pressure 127/77 Pulse Oximetry 98 93 Oxygen Delivery Method 09/17/24 17:00 09/17/24 18:15 Temperature Pulse Rate 154 H 189 H Respiratory Rate 18 16 Blood Pressure Pulse Oximetry Oxygen Delivery Method Oxygen Delivery Method Room Air Narrative Exam Narrative: Exam by telemedicine with video of patient and digital stethoscope with RN assistance requested. Physician waited over 3 hours for staff to set up telemedicine cart but due to volume and staffing, this was not able to be done. Defer exam to day team. No exam done at this time. Objective Imaging Chest x-ray: Radiologist's impression: Suspect left lung pulmonary nodule measuring up to 2.0 cm. Labs 09/17/24 13:55 09/17/24 13:55 Labs: Laboratory Results - last 24 hr 09/17/24 13:55 WBC 5.9 RBC 3.57 L Hgb 10.1 L Hct 30.6 L MCV 85.7 MCH 28.4 MCHC 33.1 RDW 19.1 H Plt Count 322 Neut % (Auto) 71.0 Lymph % (Auto) 20.3 L [place] % (Auto) 6.2 Eos % (Auto) 1.9 L Baso % (Auto) 0.6 Neut # (Auto) 4200 Lymph # (Auto) 1200 [place] # (Auto) 400 Eos # (Auto) 100 Baso # (Auto) 0 Sodium 135 L Potassium 4.4 Chloride 105 Carbon Dioxide 22 BUN 32 H Creatinine 1.63 H Estimated GFR 45 L BUN/Creatinine Ratio 19.6 Glucose 165 H Calcium 10.0 Total Bilirubin 0.7 AST 21 ALT 17 Alkaline Phosphatase 219 H Total Creatine Kinase < 20 L Troponin I < 0.012 Total Protein 7.6 Albumin 3.6 Globulin 4.0 Albumin/Globulin Ratio 0.9 L Lipase 73 Assessment & Plan Assessment and plan (1) Admission for palliative care: Status: Acute (2) Diabetes type 2, uncontrolled: Qualifiers: Glycemic state: with hyperglycemia Qualified Code(s): E11.65 - Type 2 diabetes mellitus with hyperglycemia Status: Acute Assessment & Plan narrative: 1. 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 DM2 3. HTN 4. Hyperlipidemia Plan: 1. Admit to med-surg, observation 2. Comfort care measures with IV opiates for pain, scopolamine/atropine, Zofran, Ativan 3. No labs, EKG, telemetry 4. Regular diet 5. Day team to consult for discharge planning with hospice/palliative services. Code: DNR Diet: Regular DVT prophylaxis: SCDs Time-Based Coding :: [TOTAL MINUTES] spent with patient and on the chart (including review of chart, obtaining history, exam, reviewing outside data, placing orders, documenting exam and treatment plan, and counseling patient) on [DATE].
--- NOTE | 2024-09-17 22:40 | PM.HP.1 ---
History of Present Illness History of Present Illness Chief complaint: Increased Confusion Narrative: A 69M with PMH of DM2, HTN, hyperlipidemia, dementia, s/p RHR May presents from [facility] dementia unit for vague LE pain. His daughter, patient's POA, is at bedside, and requests comfort care only. He is not on hospice services or seeing palliative care. In ED, labs were notable for mild hyponatremia, JERARDO. CXR showed L SPN 2 cm. [facility] Social History household members: none caregiver/support person: Yes (POA daughter Billie in [place]. Another son lives relatively local) housing: assisted living facility Meds Home Medications and Allergies Home Medications Medication Instructions Recorded Confirmed Type albuterol 90 mcg-budesonide 80 2 inh inhalation Q4H PRN sob 11/11/23 11/25/23 History mcg/actuation HFA aerosol inhaler atorvastatin 40 mg tablet 40 mg PO QPM 11/11/23 11/25/23 History fluconazole 200 mg tablet 200 mg PO DAILY 11/11/23 11/25/23 History insulin lispro 100 unit/mL 1 sliding scale dose SUBCUT 11/11/23 11/25/23 History subcutaneous cartridge (Humalog USEASDIRECTD U-100 Insulin) insulin lispro 100 unit/mL 10 unit SUBCUT AC 11/11/23 11/25/23 History subcutaneous cartridge (Humalog U-100 Insulin) levothyroxine 150 mcg tablet 150 mcg PO DAILY 11/11/23 11/25/23 History metoprolol tartrate 25 mg tablet 25 mg PO BID 11/11/23 11/25/23 History tacrolimus 0.5 mg capsule, 1 mg PO DAILY 11/11/23 11/25/23 History immediate-release ursodiol 300 mg capsule 300 mg PO BID 11/11/23 11/25/23 History citalopram 10 mg tablet 5 mg (1/2 x 10 mg) PO DAILY #30 11/18/23 11/25/23 Rx tabs cyclobenzaprine 10 mg tablet 10 mg PO Q8HR PRN Spasms #30 tabs 11/18/23 11/25/23 Rx oxycodone 5 mg tablet 5 mg PO Q4HR PRN Pain, Moderate 11/18/23 11/25/23 Rx (4-6) #25 tabs amlodipine 5 mg tablet 5 mg PO DAILY #30 tabs 12/06/23 Rx ferrous sulfate 325 mg (65 mg 325 mg PO DAILY #30 tabs 12/06/23 Rx iron) tablet insulin glargine 100 unit/mL (3 35 unit (0.35 mL) SUBCUT BID #30 mL 12/06/23 Rx mL) subcutaneous pen (Lantus Solostar U-100 Insulin) methocarbamol 500 mg tablet 750 mg (1.5 x 500 mg) PO QID PRN 12/06/23 Rx Muscle Spasm #30 tabs oxycodone 10 mg tablet 10 mg PO Q3HR PRN Pain, Severe 12/06/23 Rx (7-10) #20 tabs Allergies Allergy/AdvReac Type Severity Reaction Status Date / Time No Known Drug Allergies Allergy Verified 11/11/23 05:19 Exam Vital Signs (past 8 hours): - 09/17/24 15:00 09/17/24 15:00 09/17/24 15:30 Pulse Rate 96 H Respiratory Rate 27 H Blood Pressure 123/71 119/71 Pulse Oximetry 100 09/17/24 15:30 09/17/24 16:00 09/17/24 16:00 Pulse Rate 81 81 Respiratory Rate 16 16 Blood Pressure 125/73 Pulse Oximetry 96 98 09/17/24 16:30 09/17/24 16:30 09/17/24 17:00 Pulse Rate 81 154 H Respiratory Rate 16 18 Blood Pressure 127/77 Pulse Oximetry 93 09/17/24 18:15 Pulse Rate 189 H Respiratory Rate 16 Blood Pressure Pulse Oximetry Oxygen Delivery Method Room Air Narrative Exam Narrative: Exam completed by telemedicne video with assistance of RN. Const Other: AA, NAD, confused, cooperative HENMT Other: NC/AT, nares patent Eyes Other: anicteric Resp Other: CTA-B Cardio Other: RRR GI Other: S/NT/+BS Other: mild redness of scrotum Skin Other: no rashes Extrem Other: 1+ pitting edema L>R legs Objective Labs 09/17/24 13:55 09/17/24 13:55 Labs: Laboratory Results - last 24 hr 09/17/24 13:55 WBC 5.9 RBC 3.57 L Hgb 10.1 L Hct 30.6 L MCV 85.7 MCH 28.4 MCHC 33.1 RDW 19.1 H Plt Count 322 Neut % (Auto) 71.0 Lymph % (Auto) 20.3 L [place] % (Auto) 6.2 Eos % (Auto) 1.9 L Baso % (Auto) 0.6 Neut # (Auto) 4200 Lymph # (Auto) 1200 [place] # (Auto) 400 Eos # (Auto) 100 Baso # (Auto) 0 Sodium 135 L Potassium 4.4 Chloride 105 Carbon Dioxide 22 BUN 32 H Creatinine 1.63 H Estimated GFR 45 L BUN/Creatinine Ratio 19.6 Glucose 165 H Calcium 10.0 Total Bilirubin 0.7 AST 21 ALT 17 Alkaline Phosphatase 219 H Total Creatine Kinase < 20 L Troponin I < 0.012 Total Protein 7.6 Albumin 3.6 Globulin 4.0 Albumin/Globulin Ratio 0.9 L Lipase 73 Assessment & Plan Time-Based Coding :: [TOTAL MINUTES] spent with patient and on the chart (including review of chart, obtaining history, exam, reviewing outside data, placing orders, documenting exam and treatment plan, and counseling patient) on [DATE].
[2024-09-18] VITALS (7 sets, daily range): BP systolic 92–99; BP diastolic 61–70; PULSE 98–109; RESP 16–18; TEMP 36.6–37; O2SAT 93–99; BMI 28.1; BMI 27.3
--- NOTE | 2024-09-18 02:30 | PC.NURSE ---
Pt admitted on pallitive care, no cardiac monitoring at this time. Vital signs will be checked Q12 (every shift) per protocol.
--- NOTE | 2024-09-18 03:26 | PC.NURSE ---
Not able to complete full admission assessment due to pt impaired cognitive ability. Will need to follow up with family member BOWEN Billie Langley daughter [phone] or alternative STEFANIAA Taran Fuentes son [phone]. Printed copy of BOWEN on pt clipboard.
--- NOTE | 2024-09-18 03:36 | PC.NURSE ---
Pt refused brief change. Increased agitation. Will continue to monitor and offer again.
--- NOTE | 2024-09-18 03:39 | PC.NURSE ---
Attempted to call pt spouse Nieves. Did not leave a message this time, left several prior to this attempt. Will continue to try throughout shift until contact is made with spouse.
--- NOTE | 2024-09-18 06:29 | PC.NURSE ---
Pt in bed for this nurses shift 0100 -0700. This nurse did not attempt to ambulate pt due to time of day. However, it was reported that pt is having difficulty with weight bearing. He is s/p right hip replacement
--- NOTE | 2024-09-18 08:12 | PC.NURSE ---
Pt resting in inpatient bed. eating breakfast. alert and slightly confused. pt is admitted under palliative care. vitals Q12. Noted that admission orders were not released over hourly shift. released at this time. SCDs placed. NAD at this time.
[2024-09-18] MEDS: ACETAMINOPHEN 325 MG TABLET 650 MG PO (08:41)
--- NOTE | 2024-09-18 09:28 | PC.NURSE ---
Spoke to wound care nurse at [facility]. Update given. Advised pt is being admitted under palliative care. No new update at this time.
--- NOTE | 2024-09-18 14:10 | CM.DPC ---
DCP Note continued Patient has been accepted by hospitalist for Palliative care, TINT LAYER reviews EMR and reviews [facility] referral. TINT LAYER calls Denia at Hospice , she confirms referral and states the soonest start of care is Saturday at 2pm. It is reported that they will reach out to patient's daughter this afternoon. TINT LAYER calls Sujatha at [facility] and reviews Hospice start of care day and time, Sujatha states that they cannot take patient back until start of care for Hospice. She states that they can set up transport for Wednesday 09/20 at 11 AM. TINT LAYER calls Hospice regarding this plan and leave VM. TINT LAYER calls patient's POA Billie and she reports that she can attend intake via phone but her brother (patient's son Taran) can attend Hospice intake appt in person. It is reported that Taran resides in [place] (Ph. # [phone]). POA/Daughter requests that patient's son contact information be added to EMR. Plan: patient to d/c to [facility] at 11 AM Saturday, [facility] start of care Saturday at 2pm. OLIVIA Ma
--- NOTE | 2024-09-18 18:11 | P.PN_ITS ---
Subjective Subjective Date Patient Seen: 09/18/24 Interval history: Chief complaint: Increased confusion admitted for comfort care History of present illness: A 69M with PMH of DM2, HTN, hyperlipidemia, dementia, s/p RHR May presents from [facility] dementia unit for vague LE pain. His daughter, patient's BOWEN, is at bedside, and requests comfort care only. He is not on hospice services or seeing palliative care. In ED, labs were notable for mild hyponatremia, JERARDO. CXR showed L SPN 2 cm. Review of systems: Patient unable to participate in a review of systems Physical exam: Confused elderly male no acute distress HEENT unremarkable Heart and lungs clear Abdomen nontender bowel sounds present No focal weakness Assessment and plan: 1. 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 DM2 3. HTN 4. Hyperlipidemia Plan: 1. Admit to med-surg, observation 2. Comfort care measures with IV opiates for pain, scopolamine/atropine, Zofran, Ativan 3. No labs, EKG, telemetry 4. Regular diet 5. discharge planning with hospice/palliative services. Code: DNR Diet: Regular DVT prophylaxis: SCDs I spent 25 minutes in the evaluation of this patient Exam Vital Signs (past 8 hours): - 09/18/24 10:30 09/18/24 13:29 09/18/24 13:58 Temperature 98.6 F 97.9 F 97.9 F Pulse Rate 107 H 105 H 109 H Respiratory Rate 18 16 18 Blood Pressure 98/61 92/65 Blood Pressure [Left Arm] 99/70 Pulse Oximetry 99 97 96 Oxygen Delivery Method Room Air Oxygen Flow Rate 0 Oxygen Delivery Method Room Air Oxygen Flow Rate 0 Objective Labs 09/17/24 13:55 09/17/24 13:55 PFSH Social History household members: none caregiver/support person: Yes (POA daughter Billie in [place]. Another son lives relatively local) housing: assisted living facility Assessment & Plan Time-Based Coding :: [TOTAL MINUTES] spent with patient and on the chart (including review of chart, obtaining history, exam, reviewing outside data, placing orders, documenting exam and treatment plan, and counseling patient) on [DATE]. Quality VTE Deep Vein Thrombosis/Pulmonary Embolism Present on Admission: No
[2024-09-19] MEDS: MORPHINE 10 MG/0.5 ML ORAL SYRINGE PO ×5 (00:20→19:57)
--- NOTE | 2024-09-19 07:30 | P.PN_ITS ---
Subjective Subjective Date Patient Seen: 09/19/24 Interval history: Chief complaint: Increased confusion admitted for comfort care History of present illness: A 69M with PMH of DM2, HTN, hyperlipidemia, dementia, s/p RHR May presents from [facility] dementia unit for vague LE pain. His daughter, patient's BOWEN, is at bedside, and requests comfort care only. He is not on hospice services or seeing palliative care. In ED, labs were notable for mild hyponatremia, JERARDO. CXR showed L SPN 2 cm. Review of systems: Patient unable to participate in a review of systems Physical exam: Confused elderly male no acute distress HEENT unremarkable Heart and lungs clear Abdomen nontender bowel sounds present No focal weakness Assessment and plan: 1. 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 Code: DNR Diet: Regular DVT prophylaxis: SCDs I spent 25 minutes in the evaluation of this patient Exam Vital Signs (past 8 hours): Oxygen Delivery Method Room Air Oxygen Flow Rate 0 Objective Labs 09/17/24 13:55 09/17/24 13:55 [facility] Social History household members: none caregiver/support person: Yes (POA daughter Billie in [place]. Another son lives relatively local) housing: assisted living facility Assessment & Plan Time-Based Coding :: [TOTAL MINUTES] spent with patient and on the chart (including review of chart, obtaining history, exam, reviewing outside data, placing orders, documenting exam and treatment plan, and counseling patient) on [DATE]. Quality VTE Deep Vein Thrombosis/Pulmonary Embolism Present on Admission: No
[2024-09-19 08:00] VITALS: BP 111/67; PULSE 93; RESP 14; TEMP 36.7; O2SAT 98
[2024-09-19 20:14] VITALS: BP 107/81; PULSE 114; RESP 18; TEMP 37.1; O2SAT 97
[2024-09-20] MEDS: MORPHINE 10 MG/0.5 ML ORAL SYRINGE PO (05:16)
[2024-09-20 08:54] VITALS: BP 102/63; PULSE 107; RESP 14; TEMP 37; O2SAT 98
--- NOTE | 2024-09-20 10:02 | PC.NURSE ---
Addendum entered by Ninoska Edwards R.N. 09/20/24 11:15: Discharge via Wheelchair, with Vanessa assistence. Cabulance to [facility] with discharge packet and Rxs Original Note: Day shift note: Patient awake and alert, oriented to self. Makes minimal needs known. Q2 hr turns in bed, with pillow support. Attempts to aid with repositioning. Condom cathether in place, draining cheryle urine 800 ml this am. Independently ate 95% of breakfast. Resting quietly in bed watching TV. Report given to receiving RN at [facility]. RN was very familiar with patient. Answered all questions. Awaiting for transport at 11am
--- NOTE | 2024-09-20 11:11 | P.DS_ITS ---
History of Present Illness History of Present Illness Date Patient Seen: 09/20/24 Chief complaint: Increased Confusion Narrative: [facility] complaint: Increased confusion admitted for comfort care History of present illness: A 69M with PMH of DM2, HTN, hyperlipidemia, dementia, s/p RHR May presents from [facility] dementia unit for vague LE pain. His daughter, patient's POA, is at bedside, and requests comfort care only. He is not on hospice services or seeing palliative care. In ED, labs were notable for mild hyponatremia, JERARDO. CXR showed L SPN 2 cm. Review of systems: Patient unable to participate in a review of systems Physical exam: Confused elderly male no acute distress HEENT unremarkable Heart and lungs clear Abdomen nontender bowel sounds present No focal weakness Assessment and plan: 1. 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 IV medicines converted to p.o. Code: DNR Diet: Regular DVT prophylaxis: SCDs I spent 25 minutes in the evaluation of this patient Discharge Providers Provider Date of admission: 09/17/24 20:00 Discharge Date: 09/20/24 Primary care physician: Jose Zamora MD Consults: 09/17/24 18:34 Consult to [employer] Stat Comment: [employer] Consult needed for:: Other reason (Comment) Comment: Pt with dementia, having pain control issues and family want DNR/DNI, want to keep him comfortable 09/18/24 08:09 Consult to Discharge Planning Routine Comment: Discharge provider: Alvin To MD Exam Vital Signs (past 8 hours): - 09/20/24 08:54 Temperature 98.6 F Pulse Rate 107 H Respiratory Rate 14 Blood Pressure 102/63 Pulse Oximetry 98 Oxygen Delivery Method Room Air Oxygen Flow Rate 0 Objective Labs 09/17/24 13:55 09/17/24 13:55 [facility] Social History household members: none caregiver/support person: Yes (POA daughter Billie in [place]. Another son lives relatively local) housing: assisted living facility Discharge Plan Discharge Plan Patient Disposition: SNF Transfer to: [facility] Discharge orders & Medications Prescriptions: New TheraTears 0.25 % Drops 1 drops EYE-BOTH PRN PRN (Reason: Dry Eye(S)) Qty: 15 0RF acetaminophen 325 mg Tablet 650 mg PO Q6H Qty: 7 0RF scopolamine base [Transderm-Scop] 1 mg over 3 days Patch 3 Day 1 patch topical Q72H PRN (Reason: Secretions) Qty: 10 0RF atropine 1 % Drops 2 drops sublingual Q2HR PRN (Reason: Secretions) Qty: 15 0RF morphine concentrate 10 mg/0.5 mL Syringe 10 mg PO Q1HR PRN (Reason: Pain, Mild (1-3)) Qty: 10 0RF Continued albuterol-budesonide 90-80 mcg/actuation Hfa Aerosol Inhaler 2 inh INHALATION Q4H PRN (Reason: sob) Humalog U-100 Insulin 100 unit/mL Cartridge 10 unit SUBCUT AC Rx Instructions: Hold if BG <140 or not eating Humalog U-100 Insulin 100 unit/mL Cartridge 1 sliding scale dose SUBCUT USEASDIRECTD Rx Instructions: BG 141-180 = 1 BG 181-220 = 2 BG 221-260 = 3 BG 261-300 = 4 BG 301-350 = 5 BG 351-400 = 6 ACHS levothyroxine 150 mcg Tablet 150 mcg PO DAILY metoprolol tartrate 25 mg Tablet 25 mg PO BID cyclobenzaprine 10 mg Tablet 10 mg PO Q8HR PRN (Reason: Spasms) Qty: 30 0RF citalopram 10 mg Tablet 5 mg PO DAILY Qty: 30 0RF methocarbamol 500 mg Tablet 750 mg PO QID PRN (Reason: Muscle Spasm) Qty: 30 0RF insulin glargine [Lantus Solostar U-100 Insulin] 100 unit/mL (3 mL) Insulin Pen 35 unit SUBCUT BID Qty: 30 0RF oxycodone 10 mg Tablet 10 mg PO Q3HR PRN (Reason: Pain, Severe (7-10)) Qty: 20 0RF amlodipine 5 mg tablet 5 mg PO DAILY Qty: 30 0RF Discontinued atorvastatin 40 mg Tablet 40 mg PO QPM fluconazole 200 mg Tablet 200 mg PO DAILY ursodiol 300 mg Capsule 300 mg PO BID tacrolimus 0.5 mg Capsule 1 mg PO DAILY oxycodone 5 mg Tablet 5 mg PO Q4HR PRN (Reason: Pain, Moderate (4-6)) Qty: 25 0RF ferrous sulfate 325 mg (65 mg iron) Tablet 325 mg PO DAILY Qty: 30 0RF Follow up/Referrals: Jose Zamora MD [Primary Care Provider] - Visit Report/Discharge Packet Stand Alone Forms: Patient Portal/API Discharge Data Primary Care Provider: Jose Zamora Quality VTE Deep Vein Thrombosis/Pulmonary Embolism Present on Admission: No
--- NOTE | 2024-09-20 14:04 | CM.DPNOTE ---
DCP Note BELLMAKER reviewed EMR Per Linda at [facility], all set to open SOC at at 1400 today. BELLMAKER faxed signed dc sum as soon as available and [facility] paperwork (f [phone]). will be in contact with [facility] dtr Gene[facility] for initial intake paperwork. Per November at , confirmed can take pt back today at 11am. transport with facility vehicle. Per RN, safe for wc transport. BELLMAKER witnessed pt sitting up in bed. BELLMAKER gave RN report number and updated [employer]. provider having technical difficulties, provided hard scripts for all meds. issues with IV zofran med, provider will put in dc summary to cancel the IV zofran. BELLMAKER faxed the meds scripts, diet order, dc order, and dc summary as soon as available. Placed hard scripts in chart with dc paperwork for pt transport to take with to . P: no further CM needs at this time. pt to dc at 11am to and W to have SOC at 1400. will continue to follow as needed MUKUL Jensen
== END 2024-09-20 11:17 ==
LOC: ED 19:45 → AC 09-18 07:53
PROVIDERS: Emergency Medicine; Admitting Provider Internal Medicine; Emergency Provider Student in an Organized Health Care Education/Training Program; PCP Internal Medicine; Referring Provider Student in an Organized Health Care Education/Training Program; Visit Provider Internal Medicine
DX: Z51.5 Encounter for palliative care (principal); R53.1 Weakness; N17.9 Acute kidney failure, unspecified; E87.1 Hypo-osmolality and hyponatremia; G89.4 Chronic pain syndrome; F03.90 Unspecified dementia, unspecified severity, without behavioral disturbance, psychotic disturbance, mood disturbance, and anxiety; I10 Essential (primary) hypertension; E78.5 Hyperlipidemia, unspecified; E11.65 Type 2 diabetes mellitus with hyperglycemia; Z79.4 Long term (current) use of insulin; Z66 Do not resuscitate
CPT/HCPCS: 36415; 71045; 80053; 82550; 83690; 84484; 85025; 93005; 99284; G0378; A9270